=== PATIENT | male | born 1995 | race Caucasian/White ===

== ENCOUNTER 2016-10-18 | Emergency (ER) | payer MEDICAID | END 2016-10-18 12:26 | disposition home or self-care (01) ==

== ENCOUNTER 2016-12-05 20:12 | Emergency (ER) | payer MEDICAID ==
[2016-12-05] MEDS ORDERED: TETANUS/DIPHTHERIA/PERTUSSIS 0.5 ML SYRINGE IM ONE ×2 (20:43→20:44)
== END 2016-12-05 20:58 | disposition home or self-care (01) ==
DX: S41.112A Laceration without foreign body of left upper arm, initial encounter (principal); S41.111A Laceration without foreign body of right upper arm, initial encounter; W45.0XXA Nail entering through skin, initial encounter; Y92.009 Unspecified place in unspecified non-institutional (private) residence as the place of occurrence of the external cause; Z23 Encounter for immunization; R03.0 Elevated blood-pressure reading, without diagnosis of hypertension; F17.200 Nicotine dependence, unspecified, uncomplicated

== ENCOUNTER 2016-12-24 10:24 | Emergency (ER) | payer MEDICAID ==
[2016-12-24 10:33] VITALS: BP 121/59
--- NOTE | 2016-12-24 11:03 | ED Physician Documentation ---
PD HPI LOWER EXT INJURY - Stated complaint Stated Complaint: RIGHT LEG PX - Chief complaint Chief Complaint: Ext Problem - History obtained from History obtained from: Patient - History of Present Illness PD HPI LOW EXT INJURY LOCATION: Right, Knee, Lower leg Type of injury: Other (he has new job at [employer] that involves walking a lot and carrying heavy metal objects. Pain has developed in right knee. Hurts with walking. No locking nor clicking nor effusion but has had knee "give out" at times with the pain.). No: Fall, Twist Where injury occurred: Work Timing - duration: Days (few) Timing - details: Gradual onset, Still present, Waxing and waning Worsened by: Moving, Other (walking and squats) Associated symptoms: No: Weakness, Numbness, Swelling Similar symptoms before: Has not had sx before Recently seen: Not recently seen Review of Systems Skin: denies: Rash, Abrasion (s), Laceration (s) Musculoskeletal: denies: Extremity swelling Neurologic: denies: Focal weakness, Numbness PD PAST MEDICAL HISTORY - Past Medical History Cardiovascular: None Respiratory: None Neuro: None Endocrine/Autoimmune: None GI: None : None HEENT: None Psych: ADD/ADHD Musculoskeletal: None Derm: None - Past Surgical History Past Surgical History: Yes HEENT: Tonsil/Adenoidectomy - Present Medications Home Medications: Ambulatory Orders Medication Instructions Recorded Confirmed Antidepressant 1 tab ORAL QPM 12/24/16 12/24/16 Dexamethasone [Decadron] 4 mg PO DAILY #5 tablet 12/24/16 Tramadol HCl 50 mg PO Q6H PRN #30 tablet 12/24/16 - Allergies Allergies/Adverse Reactions: Allergies Allergy/AdvReac Type Severity Reaction Status Date / Time ibuprofen AdvReac Intermediate Emesis Verified 12/24/16 10:28 [From DayQuil Sinus Pressure/Pain] pseudoephedrine HCl * AdvReac Intermediate Emesis Verified 12/24/16 10:28 [From DayQuil Sinus Pressure/Pain] - Social History Does the pt smoke?: Yes Smoking Status: Current every day smoker Does the pt drink ETOH?: No Does the pt have substance abuse?: Yes - Immunizations Immunizations are current?: Yes - POLST Patient has POLST: No PD ED PE NORMAL - Vitals Vital signs reviewed: Yes - General General: Alert and oriented X 3, No acute distress, Well developed/nourished - Derm Derm: Normal color, Warm and dry, No rash - Extremities Extremities: No edema, No calf tenderness / cord, Other (right knee tender at distal quads and infrapatellar c/w tendonitis/muscle irritation. No crepitance under knee with ROM. No effusion. Medial and laterall collaterals are tender but not lax on testing. No cruciate pain nor laxity. He does not have pain nor clicking with Apley type pressure, but still consider some meniscal irritation. 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 He does not want to be missing work, if he doesn't have to. Can try hinged brace, NSAIDs , mild pain meds. He does not want narcotic meds. ), d/w patient Departure - Departure Disposition: 01 Home, Self Care Clinical Impression: Knee tendonitis Medial collateral ligament sprain of knee Qualifiers: Encounter type: initial encounter Laterality: right Qualified Code(s): S83.411A - Sprain of medial collateral ligament of right knee, initial encounter Condition: Stable Record reviewed to determine appropriate education?: Yes Instructions: ED Sprain Knee Follow-Up: Edmond Flores MD [Primary Care Provider] - Prescriptions: Dexamethasone [Decadron] 4 mg PO DAILY #5 tablet Tramadol HCl 50 mg PO Q6H PRN #30 tablet PRN Reason: Pain Comments: Continue Aleve 2 tablets twice daily for a week. Decadron daily for 5 days also for inflammation. Add Tylenol or Tramadol for pains. Knee brace when walking/ working for 10-14 days. Recheck if not improved over the next week. Discharge Date/Time: 12/24/16 11:29
[2016-12-24] MEDS ORDERED: ACETAMINOPHEN 325 MG TABLET PO ONE (11:06)
[2016-12-24] MEDS ORDERED: DEXAMETHASONE 10 MG/ML VIAL ONE (11:07)
[2016-12-24] MEDS ORDERED: traMADol 50 MG TABLET PO ONE (11:07)
[2016-12-24] MEDS ORDERED: CHERRY SYRUP 10 ML UDC PO ONE (11:07)
[2016-12-24] MEDS: DEXAMETHASONE 10 MG/ML VIAL PO STA (11:23)
[2016-12-24] MEDS: ACETAMINOPHEN 325 MG TABLET PO STA (11:23)
[2016-12-24] MEDS: traMADol 50 MG TABLET PO STA (11:23)
== END 2016-12-24 11:29 | disposition home or self-care (01) ==
LOC: ED 10:24
DX: M76.9 Unspecified enthesopathy, lower limb, excluding foot (principal); S83.411A Sprain of medial collateral ligament of right knee, initial encounter; X50.9XXA Other and unspecified overexertion or strenuous movements or postures, initial encounter; F17.200 Nicotine dependence, unspecified, uncomplicated
CPT/HCPCS: 99283

== ENCOUNTER 2017-01-17 09:48 | Outpatient (CLI) | payer MEDICAID | END 2017-01-17 09:49 | disposition home or self-care (01) | DX: B17.10 Acute hepatitis C without hepatic coma (principal) ==

== ENCOUNTER 2017-03-01 08:01 | Outpatient (CLI) | payer MEDICAID ==
--- NOTE | 2017-03-01 18:05 | Ultrasound Report ---
EXAM: ABDOMEN ULTRASOUND LIMITED, RUQ EXAM DATE: 03/01/2017 09:11 AM. CLINICAL HISTORY: CHRONIC HEPATITIS C W/O MENTION OF HEPATIC COMA. COMPARISON: Correlation made to CT dated 04/29/2015. TECHNIQUE: Real-time scanning was performed with static images obtained. FINDINGS: Liver: Normal in size and echotexture. 17.2 cm. Main portal vein flow: Hepatopetal. Gallbladder: Normal. No stones, wall thickening, or sonographic Suresh's sign. Biliary System: CBD measures 3.8 mm. No intrahepatic or extrahepatic ductal dilatation. Other: The right kidney measures 12.0 x 4.2 x 5.4 cm and is unremarkable in appearance. No hydronephr osis. IMPRESSION: Unremarkable right upper quadrant ultrasound with normal appearance to the liver. [facility] Referring Provider Line: [phone] SITE ID: [id number]
== END 2017-03-01 08:02 | disposition home or self-care (01) ==
LOC: DI 08:01
PROVIDERS: ATTEND Internal Medicine Gastroenterology
DX: B18.2 Chronic viral hepatitis C (principal)
CPT/HCPCS: 76705

== ENCOUNTER 2017-03-22 09:01 | Outpatient (CLI) | payer MEDICAID ==
[2017-03-22 09:57] LABS: IRON 60 ug/dL (45-182); TOTAL IRON BINDING CAPACITY 384 ug/dL (250-450); TRANSFERRIN 274 mg/dL (180-329)
[2017-03-24 21:53] LABS: SMOOTH MUSCLE IGG AB <20 U (())
[2017-03-25 12:51] LABS: ANA SCREEN NEGATIVE (NEGATIVE)
[2017-03-25 18:31] LABS: TEST RESULT REPORT (())
[2017-03-26 06:51] LABS: TEST RESULT REPORT (())
== END 2017-03-22 09:02 | disposition home or self-care (01) ==
LOC: LAB 09:01
PROVIDERS: ATTEND Internal Medicine Gastroenterology
DX: B18.2 Chronic viral hepatitis C (principal)
CPT/HCPCS: 36415; 81599; 82103; 82390; 83516; 83540; 84466; 86038; 86255

== ENCOUNTER 2017-04-04 13:37 | Outpatient (CLI) | payer MEDICAID ==
[2017-04-04 14:03] LABS: BASOPHILS % (AUTO) 0.5 %; EOSINOPHILS # (AUTO) 0.3 10^3/uL (0.0-0.7); EOSINOPHILS % (AUTO) 3.4 %; HCT - HEMATOCRIT 39.2 % (42.0-52.0); MEAN CORPUSCULAR HEMOGLOBIN 31.6 pg (27.0-31.0); MEAN CORPUSCULAR HGB CONC 35.7 g/dL (32.0-36.0); MEAN CORPUSCULAR VOLUME 88.3 fL (80.0-94.0); MEAN PLATELET VOLUME 9.8 fL (7.4-11.4); MONOCYTES # (AUTO) 0.6 10^3/uL (0.0-1.0); MONOCYTES % (AUTO) 8.1 %; NEUTROPHILS # (AUTO) 3.5 10^3/uL (1.5-6.6); RED BLOOD COUNT 4.43 10^6/uL (4.70-6.10); RED CELL DISTRIBUTION WIDTH 12.9 % (12.0-15.0); UNCORRECTED WHITE BLOOD COUNT 7.3 x10^3/uL; WHITE BLOOD COUNT 7.3 x10^3/uL (4.8-10.8)
[2017-04-04 14:31] LABS: ALBUMIN/GLOBULIN RATIO 1.6 (1.0-2.2); BILIRUBIN,TOTAL 0.4 mg/dL (0.2-1.0); CALCIUM 9.4 mg/dL (8.5-10.3); CREATININE 0.6 mg/dL (0.6-1.2); POTASSIUM 3.7 mmol/L (3.5-5.0); TOTAL PROTEIN 7.5 g/dL (6.7-8.2)
== END 2017-04-04 13:38 | disposition home or self-care (01) ==
LOC: LAB 13:37
PROVIDERS: ATTEND Internal Medicine Gastroenterology
DX: B18.2 Chronic viral hepatitis C (principal)
CPT/HCPCS: 36415; 80053; 85025

== ENCOUNTER 2017-04-11 18:12 | Outpatient (CLI) | payer MEDICAID ==
[2017-04-11 18:27] LABS: BASOPHILS % (AUTO) 0.5 %; EOSINOPHILS # (AUTO) 0.2 10^3/uL (0.0-0.7); EOSINOPHILS % (AUTO) 2.7 %; HGB - HEMOGLOBIN 14.1 g/dL (14.0-18.0); LYMPHOCYTES # (AUTO) 3.4 10^3/uL (1.5-3.5); LYMPHOCYTES % (AUTO) 38.8 %; MEAN CORPUSCULAR HEMOGLOBIN 30.8 pg (27.0-31.0); MEAN CORPUSCULAR HGB CONC 34.3 g/dL (32.0-36.0); MEAN CORPUSCULAR VOLUME 89.7 fL (80.0-94.0); MEAN PLATELET VOLUME 9.1 fL (7.4-11.4); MONOCYTES # (AUTO) 0.6 10^3/uL (0.0-1.0); NEUTROPHILS # (AUTO) 4.5 10^3/uL (1.5-6.6); NUCLEATED RED BLOOD CELLS AUTO 0.1 /100WBC; RED BLOOD COUNT 4.57 10^6/uL (4.70-6.10); RED CELL DISTRIBUTION WIDTH 12.5 % (12.0-15.0); UNCORRECTED WHITE BLOOD COUNT 8.9 x10^3/uL; WHITE BLOOD COUNT 8.9 x10^3/uL (4.8-10.8)
[2017-04-11 18:37] LABS: ALBUMIN/GLOBULIN RATIO 1.5 (1.0-2.2); BILIRUBIN,TOTAL 0.5 mg/dL (0.2-1.0); CALCIUM 9.4 mg/dL (8.5-10.3); CREATININE 0.8 mg/dL (0.6-1.2); POTASSIUM 3.7 mmol/L (3.5-5.0); TOTAL PROTEIN 7.9 g/dL (6.7-8.2)
== END 2017-04-11 18:13 | disposition home or self-care (01) ==
LOC: LAB 18:12
PROVIDERS: ATTEND Internal Medicine Gastroenterology
DX: B18.2 Chronic viral hepatitis C (principal)
CPT/HCPCS: 36415; 80053; 85025

== ENCOUNTER 2017-04-25 19:10 | Outpatient (CLI) | payer MEDICAID ==
[2017-04-25 19:38] LABS: ALBUMIN/GLOBULIN RATIO 1.6 (1.0-2.2); BILIRUBIN,TOTAL 0.4 mg/dL (0.2-1.0); CALCIUM 9.5 mg/dL (8.5-10.3); CREATININE 0.8 mg/dL (0.6-1.2); POTASSIUM 3.8 mmol/L (3.5-5.0); TOTAL PROTEIN 7.1 g/dL (6.7-8.2)
[2017-04-25 19:49] LABS: BASOPHILS # (AUTO) 0.1 10^3/uL (0.0-0.1); BASOPHILS % (AUTO) 0.6 %; EOSINOPHILS # (AUTO) 0.2 10^3/uL (0.0-0.7); EOSINOPHILS % (AUTO) 1.8 %; HCT - HEMATOCRIT 40.1 % (42.0-52.0); HGB - HEMOGLOBIN 13.9 g/dL (14.0-18.0); LYMPHOCYTES # (AUTO) 3.7 10^3/uL (1.5-3.5); LYMPHOCYTES % (AUTO) 42.2 %; MEAN CORPUSCULAR HEMOGLOBIN 31.3 pg (27.0-31.0); MEAN CORPUSCULAR HGB CONC 34.6 g/dL (32.0-36.0); MEAN CORPUSCULAR VOLUME 90.4 fL (80.0-94.0); MEAN PLATELET VOLUME 9.8 fL (7.4-11.4); MONOCYTES # (AUTO) 0.6 10^3/uL (0.0-1.0); MONOCYTES % (AUTO) 7.1 %; NEUTROPHILS # (AUTO) 4.3 10^3/uL (1.5-6.6); NEUTROPHILS % (AUTO) 48.3 %; NUCLEATED RED BLOOD CELLS AUTO 0.1 /100WBC; RED BLOOD COUNT 4.44 10^6/uL (4.70-6.10); RED CELL DISTRIBUTION WIDTH 12.8 % (12.0-15.0); UNCORRECTED WHITE BLOOD COUNT 8.9 x10^3/uL; WHITE BLOOD COUNT 8.9 x10^3/uL (4.8-10.8)
== END 2017-04-25 19:11 | disposition home or self-care (01) ==
LOC: LAB 19:10
PROVIDERS: ATTEND Internal Medicine Gastroenterology
DX: B18.2 Chronic viral hepatitis C (principal)
CPT/HCPCS: 36415; 80053; 85025; 87522

== ENCOUNTER 2017-05-23 18:18 | Outpatient (CLI) | payer MEDICAID ==
[2017-05-23 18:33] LABS: BASOPHILS # (AUTO) 0.1 10^3/uL (0.0-0.1); BASOPHILS % (AUTO) 0.6 %; EOSINOPHILS # (AUTO) 0.2 10^3/uL (0.0-0.7); EOSINOPHILS % (AUTO) 2.3 %; HGB - HEMOGLOBIN 13.8 g/dL (14.0-18.0); LYMPHOCYTES # (AUTO) 3.6 10^3/uL (1.5-3.5); LYMPHOCYTES % (AUTO) 37.6 %; MEAN CORPUSCULAR HEMOGLOBIN 30.9 pg (27.0-31.0); MEAN CORPUSCULAR HGB CONC 34.4 g/dL (32.0-36.0); MEAN CORPUSCULAR VOLUME 89.7 fL (80.0-94.0); MEAN PLATELET VOLUME 9.3 fL (7.4-11.4); MONOCYTES # (AUTO) 0.7 10^3/uL (0.0-1.0); MONOCYTES % (AUTO) 7.5 %; NUCLEATED RED BLOOD CELLS AUTO 0.1 /100WBC; RED BLOOD COUNT 4.47 10^6/uL (4.70-6.10); RED CELL DISTRIBUTION WIDTH 12.9 % (12.0-15.0); UNCORRECTED WHITE BLOOD COUNT 9.6 x10^3/uL; WHITE BLOOD COUNT 9.6 x10^3/uL (4.8-10.8)
[2017-05-23 18:44] LABS: ALBUMIN/GLOBULIN RATIO 1.5 (1.0-2.2); BILIRUBIN,TOTAL 0.4 mg/dL (0.2-1.0); CALCIUM 9.5 mg/dL (8.5-10.3); CREATININE 0.8 mg/dL (0.6-1.2); POTASSIUM 3.7 mmol/L (3.5-5.0); TOTAL PROTEIN 7.3 g/dL (6.7-8.2)
== END 2017-05-23 18:19 | disposition home or self-care (01) ==
LOC: LAB 18:18
PROVIDERS: ATTEND Internal Medicine Gastroenterology
DX: B18.2 Chronic viral hepatitis C (principal)
CPT/HCPCS: 36415; 80053; 85025

== ENCOUNTER 2017-06-21 12:31 | Outpatient (CLI) | payer MEDICAID ==
[2017-06-21 12:55] LABS: BASOPHILS % (AUTO) 0.6 %; EOSINOPHILS # (AUTO) 0.2 10^3/uL (0.0-0.7); EOSINOPHILS % (AUTO) 2.4 %; HCT - HEMATOCRIT 39.4 % (42.0-52.0); LYMPHOCYTES # (AUTO) 3.2 10^3/uL (1.5-3.5); LYMPHOCYTES % (AUTO) 42.9 %; MEAN CORPUSCULAR HEMOGLOBIN 31.1 pg (27.0-31.0); MEAN CORPUSCULAR HGB CONC 35.4 g/dL (32.0-36.0); MEAN CORPUSCULAR VOLUME 87.8 fL (80.0-94.0); MEAN PLATELET VOLUME 9.2 fL (7.4-11.4); MONOCYTES # (AUTO) 0.6 10^3/uL (0.0-1.0); MONOCYTES % (AUTO) 7.7 %; NEUTROPHILS # (AUTO) 3.5 10^3/uL (1.5-6.6); NEUTROPHILS % (AUTO) 46.4 %; NUCLEATED RED BLOOD CELLS AUTO 0.1 /100WBC; RED BLOOD COUNT 4.49 10^6/uL (4.70-6.10); RED CELL DISTRIBUTION WIDTH 12.4 % (12.0-15.0); UNCORRECTED WHITE BLOOD COUNT 7.5 x10^3/uL; WHITE BLOOD COUNT 7.5 x10^3/uL (4.8-10.8)
[2017-06-21 13:15] LABS: ALBUMIN/GLOBULIN RATIO 1.6 (1.0-2.2); BILIRUBIN,TOTAL 0.6 mg/dL (0.2-1.0); CALCIUM 9.7 mg/dL (8.5-10.3); CREATININE 0.8 mg/dL (0.6-1.2); POTASSIUM 3.9 mmol/L (3.5-5.0); TOTAL PROTEIN 7.5 g/dL (6.7-8.2)
== END 2017-06-21 12:32 | disposition home or self-care (01) ==
LOC: LAB 12:31
PROVIDERS: ATTEND Internal Medicine Gastroenterology
DX: B18.2 Chronic viral hepatitis C (principal)
CPT/HCPCS: 36415; 80053; 85025; 87522

== ENCOUNTER 2017-09-23 13:02 | Outpatient (CLI) | payer MEDICAID ==
[2017-09-23 13:17] LABS: BASOPHILS % (AUTO) 0.4 %; EOSINOPHILS # (AUTO) 0.1 10^3/uL (0.0-0.7); EOSINOPHILS % (AUTO) 1.2 %; HCT - HEMATOCRIT 41.5 % (42.0-52.0); HGB - HEMOGLOBIN 14.5 g/dL (14.0-18.0); LYMPHOCYTES # (AUTO) 2.4 10^3/uL (1.5-3.5); LYMPHOCYTES % (AUTO) 28.2 %; MEAN CORPUSCULAR HEMOGLOBIN 30.7 pg (27.0-31.0); MEAN CORPUSCULAR VOLUME 87.8 fL (80.0-94.0); MONOCYTES # (AUTO) 0.6 10^3/uL (0.0-1.0); MONOCYTES % (AUTO) 7.6 %; NEUTROPHILS # (AUTO) 5.2 10^3/uL (1.5-6.6); NEUTROPHILS % (AUTO) 62.6 %; RED BLOOD COUNT 4.72 10^6/uL (4.70-6.10); RED CELL DISTRIBUTION WIDTH 12.9 % (12.0-15.0); UNCORRECTED WHITE BLOOD COUNT 8.4 x10^3/uL; WHITE BLOOD COUNT 8.4 x10^3/uL (4.8-10.8)
[2017-09-23 13:29] LABS: ALBUMIN/GLOBULIN RATIO 1.6 (1.0-2.2); BILIRUBIN,TOTAL 0.5 mg/dL (0.2-1.0); CREATININE 0.7 mg/dL (0.6-1.2); POTASSIUM 3.8 mmol/L (3.5-5.0); TOTAL PROTEIN 7.7 g/dL (6.7-8.2)
== END 2017-09-23 13:03 | disposition home or self-care (01) ==
LOC: LAB 13:02
PROVIDERS: ATTEND Internal Medicine Gastroenterology
DX: B18.2 Chronic viral hepatitis C (principal)
CPT/HCPCS: 36415; 80053; 85025; 87522

== ENCOUNTER 2017-12-11 18:27 | Outpatient (CLI) | payer MEDICAID ==
[2017-12-12 09:11] LABS: HIV AG/AB 4TH GEN NON-REACTIVE (NON-REACTIVE)
== END 2017-12-11 18:28 | disposition home or self-care (01) ==
LOC: LAB 18:27
PROVIDERS: ATTEND Family Medicine
DX: B17.10 Acute hepatitis C without hepatic coma (principal)
CPT/HCPCS: 36415; 87389

== ENCOUNTER 2018-02-08 13:07 | Outpatient (CLI) | payer MEDICAID ==
[2018-02-08 13:36] LABS: BASOPHILS % (AUTO) 0.6 %; EOSINOPHILS # (AUTO) 0.1 10^3/uL (0.0-0.7); HGB - HEMOGLOBIN 14.1 g/dL (14.0-18.0); LYMPHOCYTES # (AUTO) 3.3 10^3/uL (1.5-3.5); LYMPHOCYTES % (AUTO) 46.2 %; MEAN CORPUSCULAR HEMOGLOBIN 30.5 pg (27.0-31.0); MEAN CORPUSCULAR HGB CONC 34.5 g/dL (32.0-36.0); MEAN CORPUSCULAR VOLUME 88.4 fL (80.0-94.0); MEAN PLATELET VOLUME 9.8 fL (7.4-11.4); MONOCYTES # (AUTO) 0.6 10^3/uL (0.0-1.0); MONOCYTES % (AUTO) 8.9 %; NEUTROPHILS # (AUTO) 3.1 10^3/uL (1.5-6.6); NEUTROPHILS % (AUTO) 42.3 %; PLT - PLATELET COUNT 174 10^3/uL (130-450); RED BLOOD COUNT 4.63 10^6/uL (4.70-6.10); RED CELL DISTRIBUTION WIDTH 13.5 % (12.0-15.0); WHITE BLOOD COUNT 7.2 x10^3/uL (4.8-10.8)
[2018-02-08 13:47] LABS: ALBUMIN 4.6 g/dL (3.2-5.5); ALBUMIN/GLOBULIN RATIO 1.5 (1.0-2.2); ALKALINE PHOSPHATASE 56 IU/L (42-121); ALT ALANINE AMINOTRANSFERASE 18 IU/L (10-60); AST ASPARTATE AMINOTRANSFERASE 20 IU/L (10-42); BILIRUBIN,TOTAL 0.7 mg/dL (0.2-1.0); BUN - BLOOD UREA NITROGEN 12 mg/dL (6-20); CALCIUM 9.7 mg/dL (8.5-10.3); CARBON DIOXIDE - CO2 25 mmol/L (21-32); CHLORIDE 104 mmol/L (101-111); CREATININE 0.7 mg/dL (0.6-1.2); GFR - MDRD 142 (>89); GLUCOSE 99 mg/dL (70-100); SODIUM 137 mmol/L (135-145); TOTAL PROTEIN 7.7 g/dL (6.7-8.2)
[2018-02-10 14:16] LABS: HIV AG/AB 4TH GEN NON-REACTIVE (NON-REACTIVE)
[2018-02-10 14:44] LABS: HEPATITIS C ANTIBODY REACTIVE (NON-REACTIVE)
[2018-02-10 15:06] LABS: HEPATITIS B SURFACE ANTIGEN NON-REACTIVE (NON-REACTIVE)
[2018-02-12 15:56] LABS: HCV RNA QNT <1.18 NOT DETECTED Log IU/mL (NOT DETECTED); HCV RNA QUANT RT PCR <15 NOT DETECTED IU/mL (NOT DETECTED)
== END 2018-02-08 13:08 | disposition home or self-care (01) ==
LOC: LAB 13:07
PROVIDERS: ATTEND Nurse Practitioner Family
DX: B17.10 Acute hepatitis C without hepatic coma (principal); F19.10 Other psychoactive substance abuse, uncomplicated
CPT/HCPCS: 36415; 80053; 81599; 84443; 85025; 86592; 86803; 87340; 87389; 87491; 87591; 87902

== ENCOUNTER 2018-05-17 17:59 | Outpatient (CLI) | payer MEDICAID ==
[2018-05-19 14:07] LABS: HIV AG/AB 4TH GEN NON-REACTIVE (NON-REACTIVE)
[2018-05-20 21:07] LABS: HCV RNA QNT <1.18 NOT DETECTED Log IU/mL (NOT DETECTED); HCV RNA QUANT RT PCR <15 NOT DETECTED IU/mL (NOT DETECTED)
== END 2018-05-17 18:00 | disposition home or self-care (01) ==
LOC: LAB 17:59
PROVIDERS: ATTEND Family Medicine
DX: B17.10 Acute hepatitis C without hepatic coma (principal)
CPT/HCPCS: 87389; 87522

== ENCOUNTER 2018-05-24 02:13 | Emergency (ER) | payer MEDICAID ==
[2018-05-24] MEDS ORDERED: SODIUM CHLORIDE 0.9% 1,000 ML IV ONE ×2 (02:29→02:50)
[2018-05-24 02:37] LABS: BASOPHILS # (AUTO) 0.1 10^3/uL (0.0-0.1); BASOPHILS % (AUTO) 0.5 %; EOSINOPHILS # (AUTO) 0.1 10^3/uL (0.0-0.7); EOSINOPHILS % (AUTO) 0.5 %; HGB - HEMOGLOBIN 15.2 g/dL (14.0-18.0); LYMPHOCYTES # (AUTO) 4.7 10^3/uL (1.5-3.5); LYMPHOCYTES % (AUTO) 31.7 %; MEAN CORPUSCULAR HEMOGLOBIN 30.5 pg (27.0-31.0); MEAN CORPUSCULAR HGB CONC 34.5 g/dL (32.0-36.0); MEAN CORPUSCULAR VOLUME 88.3 fL (80.0-94.0); MEAN PLATELET VOLUME 10.2 fL (7.4-11.4); MONOCYTES # (AUTO) 1.6 10^3/uL (0.0-1.0); MONOCYTES % (AUTO) 11.1 %; NEUTROPHILS # (AUTO) 8.3 10^3/uL (1.5-6.6); NEUTROPHILS % (AUTO) 56.2 %; PLT - PLATELET COUNT 186 10^3/uL (130-450); RED BLOOD COUNT 4.97 10^6/uL (4.70-6.10); RED CELL DISTRIBUTION WIDTH 12.6 % (12.0-15.0); WHITE BLOOD COUNT 14.8 x10^3/uL (4.8-10.8)
[2018-05-24] MEDS ORDERED: HALOPERIDOL 5 MG/ML VIAL IVP ONE (02:38)
[2018-05-24] MEDS ORDERED: LORazepam 2 MG/ML VIAL IVP STA (02:38)
[2018-05-24 03:11] LABS: ACETAMINOPHEN < 10 ug/mL (10-30); ALBUMIN 5.5 g/dL (3.2-5.5); ALBUMIN/GLOBULIN RATIO 1.7 (1.0-2.2); ALKALINE PHOSPHATASE 74 IU/L (42-121); ALT ALANINE AMINOTRANSFERASE 22 IU/L (10-60); AST ASPARTATE AMINOTRANSFERASE 40 IU/L (10-42); BUN - BLOOD UREA NITROGEN 20 mg/dL (6-20); CALCIUM 10.1 mg/dL (8.5-10.3); CARBON DIOXIDE - CO2 20 mmol/L (21-32); CHLORIDE 103 mmol/L (101-111); CK- CREATINE KINASE 834 IU/L (22-269); CREATININE 1.1 mg/dL (0.6-1.2); GFR - MDRD 84 (>89); LIPASE 24 U/L (22-51); SALICYLATE < 6.0 mg/dL; SODIUM 140 mmol/L (135-145); TOTAL PROTEIN 8.8 g/dL (6.7-8.2)
[2018-05-24 03:12] LABS: GLUCOSE 57 mg/dL (70-100)
[2018-05-24] MEDS ORDERED: DEXTROSE 50% ABBOJECT 25 GM/50 ML SYRINGE ONE ×2 (03:17→03:20)
--- NOTE | 2018-05-24 03:24 | CT Report ---
Reason: AMS Procedure Date: 05/24/2018 Accession Number: [id number] / [id number] Procedure: CT - Head W/O CPT Code: FULL RESULT: EXAM: CT HEAD EXAM DATE: 05/24/2018 03:18 AM. CLINICAL HISTORY: Altered mental status. COMPARISON: None. TECHNIQUE: Multiaxial CT images were obtained from the foramen magnum to the vertex. Reformats: Sagittal and coronal. IV contrast: None. In accordance with CT protocol optimization, one or more of the following dose reduction techniques were utilized for this exam: automated exposure control, adjustment of mA and/or KV based on patient size, or use of iterative reconstructive technique. FINDINGS: Parenchyma: No intraparenchymal hemorrhage. No evidence of mass, midline shift, or CT findings of infarction. Shaw-white differentiation is distinct. Extraaxial Spaces: Normal for age. No subdural or epidural collections identified. Ventricles: Normal in size and position. Sinuses and Orbits: Imaged paranasal sinuses, orbits, and mastoids show no significant abnormality. Bones: No evidence of fracture or calvarial defect. Other: None. IMPRESSION: Negative CT head without contrast. [facility]
[2018-05-24] MEDS ORDERED: DEXTROSE 50% ABBOJECT 25 GM/50 ML SYRINGE IVP STA (03:25)
[2018-05-24] MEDS ORDERED: LACTATED RINGERS 1,000 ML IV ONE (04:33)
[2018-05-24 05:05] LABS: MUDS CUTOFF CONCENTRATIONS CUTOFF CONC BELOW:
[2018-05-24 05:11] LABS: BILIRUBIN,URINE NEGATIVE (NEGATIVE); CLARITY,URINE CLEAR (CLEAR); GLUCOSE, URINE (UA) NEGATIVE (NEGATIVE); KETONES,URINE (UA) 40 mg/dL (NEGATIVE); LEUKOCYTE ESTERASE, URINE NEGATIVE (NEGATIVE); NITRITE,URINE NEGATIVE (NEGATIVE); OCCULT BLOOD,URINE SMALL (NEGATIVE); PROTEIN,URINE 30 mg/dL (NEGATIVE); UROBILINOGEN,URINE 0.2 (NORMAL) E.U./dL (NORMAL)
--- NOTE | 2018-05-24 05:21 | ED Physician Documentation ---
PD HPI OVERDOSE - Stated complaint Stated Complaint: OD/MED INGEST - Chief complaint Chief Complaint: MHE - Additional information Additional information: 23-year-old male was brought in by his friends for evaluation for confusion and altered metal status. The patient apparently has been abusing methamphetamines , Suboxone and various other medications from his friends. The patient is unable to give any significant history. The patient's agitated and appears quite psychotic and unable to be very cooperative regarding his acute care Review of Systems Unable to obtain: Confused, Intoxicated, Uncooperative PD PAST MEDICAL HISTORY - Past Medical History Cardiovascular: None Respiratory: None Neuro: None Endocrine/Autoimmune: None GI: None : None HEENT: None Psych: ADD/ADHD Musculoskeletal: None Derm: None - Past Surgical History Past Surgical History: Yes HEENT: Tonsil/Adenoidectomy - Present Medications Home Medications: Ambulatory Orders Medication Instructions Recorded Confirmed Antidepressant 1 tab ORAL QPM 12/24/16 12/24/16 Dexamethasone [Decadron] 4 mg PO DAILY #5 tablet 12/24/16 Tramadol HCl 50 mg PO Q6H PRN #30 tablet 12/24/16 - Allergies Allergies/Adverse Reactions: Allergies Allergy/AdvReac Type Severity Reaction Status Date / Time ibuprofen AdvReac Intermediate Emesis Verified 05/24/18 02:26 [From DayQuil Sinus Pressure/Pain] pseudoephedrine HCl * AdvReac Intermediate Emesis Verified 05/24/18 02:26 [From DayQuil Sinus Pressure/Pain] - Social History Does the pt smoke?: Yes Smoking Status: Current every day smoker Does the pt drink ETOH?: Yes Does the pt have substance abuse?: Yes Substance Use and Type: Marijuana, Meth - Immunizations Immunizations are current?: Yes - POLST Patient has POLST: No PD ED PE NORMAL - General General: Other (The patient's alert, uncooperative, aggressive and appears to have acute psychosis. The patient is a danger to self and staff) - HEENT HEENT: Atraumatic, PERRL, Other (Dry mucous membranes) - Neck Neck: Supple, no meningeal sign - Cardiac Cardiac: Other (Regular tachycardia) - Respiratory Respiratory: No respiratory distress - Abdomen Abdomen: Soft, Non tender - Derm Derm: Normal color, No rash - Extremities Extremities: No deformity, Normal ROM s pain - Neuro Neuro: Other (The patient's alert, not cooperative, the patient is moving all 4 extremities and appears to have no obvious gross deficit) PD ED PE EXPANDED - Psych Psych: Intoxicated / AOB, Agitated, Combative, Delusions Results - Vitals Vitals: Vital Signs - 24 hr 05/24/18 05/24/18 05/24/18 02:22 03:00 03:42 Temperature 37.0 C 37.2 C Heart Rate 141 H 121 H 106 H Respiratory 23 25 H 19 Rate Blood Pressure 118/56 L 118/56 L O2 Saturation 99 97 99 05/24/18 05/24/18 05:00 06:08 Temperature 36.5 C Heart Rate 86 83 Respiratory 15 16 Rate Blood Pressure 133/75 H 124/76 O2 Saturation 100 100 Oxygen O2 Source Room air - EKG (time done) 05:23 Rate: Rate (enter#) Rhythm: NSR Intervals: Normal MA, QRS normal QRS: Normal Ischemia: Normal ST segments - Labs Labs: Laboratory Tests 05/24/18 05/24/18 05/24/18 02:29 02:29 04:58 WBC 14.8 H RBC 4.97 Hgb 15.2 Hct 43.9 MCV 88.3 MCH 30.5 MCHC 34.5 RDW 12.6 Plt Count 186 MPV 10.2 Neut # (Auto) 8.3 H Lymph # (Auto) 4.7 H [place] # (Auto) 1.6 H Eos # (Auto) 0.1 Baso # (Auto) 0.1 Absolute Nucleated RBC 0.01 Nucleated RBC % 0.1 Sodium 140 Potassium 3.3 L Chloride 103 Carbon Dioxide 20 L Anion Gap 17.0 H BUN 20 Creatinine 1.1 Estimated GFR (MDRD) 84 L Glucose 57 L* Calcium 10.1 Total Bilirubin 1.0 AST 40 ALT 22 Alkaline Phosphatase 74 Total Creatine Kinase 834 H Total Protein 8.8 H Albumin 5.5 Globulin 3.3 Albumin/Globulin Ratio 1.7 Lipase 24 Urine Color YELLOW Urine Clarity CLEAR Urine pH 6.0 Ur Specific [place] 1.020 Urine Protein 30 H Urine Glucose (UA) NEGATIVE Urine Ketones 40 H Urine Occult Blood SMALL H Urine Nitrite NEGATIVE Urine Bilirubin NEGATIVE Urine Urobilinogen 0.2 (NORMAL) Ur Leukocyte Esterase NEGATIVE Urine RBC 0-5 Urine WBC 0-3 Ur Squamous Epith Cells RARE Squamous Urine Bacteria None Seen Urine Casts 3-5 Hyaline Casts Ur Microscopic Review INDICATED Urine Culture Comments NOT INDICATED Salicylates < 6.0 Urine Opiates Screen POSITIVE H Ur Oxycodone Screen NEGATIVE Urine Methadone Screen NEGATIVE Ur Propoxyphene Screen NEGATIVE Acetaminophen < 10 L Ur Barbiturates Screen NEGATIVE Ur Tricyclics Screen NEGATIVE Ur Phencyclidine Scrn NEGATIVE Ur Amphetamine Screen POSITIVE H U Methamphetamines Scrn POSITIVE H U Benzodiazepines Scrn NEGATIVE Urine Cocaine Screen NEGATIVE U Cannabinoids Screen NEGATIVE Ethyl Alcohol < 5.0 - Rads (name of study) CT head Radiology: Final report received (IMPRESSION: Negative CT head without contrast. ) PD MEDICAL DECISION MAKING - ED course ED course: The case was turned over to Dr. Morgan at 07:00 AM: the patient will need to metabolize and for reevaluation and final disposition - Sepsis Event Vital Signs: Vital Signs - 24 hr 05/24/18 05/24/18 05/24/18 02:22 03:00 03:42 Temperature 37.0 C 37.2 C Heart Rate 141 H 121 H 106 H Respiratory 23 25 H 19 Rate Blood Pressure 118/56 L 118/56 L O2 Saturation 99 97 99 05/24/18 05/24/18 05:00 06:08 Temperature 36.5 C Heart Rate 86 83 Respiratory 15 16 Rate Blood Pressure 133/75 H 124/76 O2 Saturation 100 100 Oxygen O2 Source Room air Departure - Departure Clinical Impression: Methamphetamine abuse, Acute confusional state
[2018-05-24 05:26] LABS: AMPHETAMINE SCREEN,URINE POSITIVE (NEGATIVE); BACTERIA,URINE None Seen /HPF (None Seen); BENZODIAZEPINES SCREEN, URINE NEGATIVE (NEGATIVE); CASTS, URINE 3-5 Hyaline Casts /LPF; COCAINE SCREEN URINE NEGATIVE (NEGATIVE); METHADONE SCREEN, URINE NEGATIVE (NEGATIVE); METHAMPHETAMINES SCREEN, URINE POSITIVE (NEGATIVE); OPIATE SCREEN, URINE POSITIVE (NEGATIVE); OXYCODONE SCREEN, URINE NEGATIVE (NEGATIVE); PROPOXYPHENE SCREEN, URINE NEGATIVE (NEGATIVE); RBC,URINE 0-5 /HPF (0-5); SQUAMOUS EPITHELIAL CELL,UR RARE Squamous (<= Few); TRICYCLIC ANTIDEPRESSANT,URINE NEGATIVE (NEGATIVE)
--- NOTE | 2018-05-24 11:08 | ED Physician Documentation ---
ED Addendum - Addendum Addendum: 05/24/18 11:07 The patient care was taken over by me at change of shift. He had slept through most of the morning. Initially was arousable to tactile stimulus and mumbling conversation. This is improved to the morning. He is now able to be aroused by verbal and tactile. He is sits up and is able to converse. He still seems slightly dazed. He states he has family that can come and give him a ride. I asked about the medications taken last night and he said he was taking them just for effect. He denied any suicidal ideation or intent. At this point he can go home to rest if he gets a ride and once he gets a ride.
[2018-05-24 11:47] VITALS: BP 136/80
== END 2018-05-24 12:36 | disposition home or self-care (01) ==
LOC: ED 02:13
DX: F15.10 Other stimulant abuse, uncomplicated (principal); R41.0 Disorientation, unspecified; F17.200 Nicotine dependence, unspecified, uncomplicated
CPT/HCPCS: 36415; 70450; 80053; 80306; 80307; 80320; 80329; 81001; 82550; 83690; 85025; 93005; 96361; 96374; 96375; 99284; 99285; J2060; J7120; 81003; 87086

== ENCOUNTER 2018-10-04 15:45 | Emergency (ER) | payer MEDICAID ==
[2018-10-04 15:49] VITALS: BP 119/55
[2018-10-04] MEDS ORDERED: LIDOCAINE VISCOUS 2% 15 ML UDC MM STA (16:03)
[2018-10-04] MEDS ORDERED: MAG HYDROX/AL HYDROX/SIMETH 30 ML UDC PO STA (16:03)
--- NOTE | 2018-10-04 16:10 | ED Physician Documentation ---
PD HPI CHEST PAIN - Stated complaint Stated Complaint: CP - Chief complaint Chief Complaint: Cardiac - History obtained from History obtained from: Patient - History of Present Illness Timing - onset: How many hours ago (1.5) Timing - onset during: Rest Timing - details: Still present Quality: Dull Location: Substernal Worsened by: Inspiration Similar symptoms before: Has not had sx before - Additional information Additional information: The patient is an otherwise healthy 23-year-old male who presents with substernal chest pain that started about 1-1/2 hours prior to arrival. The pain is worse with inspiration or with supine position. He denies shortness of breath, abdominal pain, nausea or vomiting. He admits to drinking alcohol last night, and has been drinking energy drinks today. He also smokes cigarettes, and was smoking marijuana last night. He denies history of similar symptoms in the past. Review of Systems Constitutional: denies: Fever Nose: denies: Congestion Throat: denies: Sore throat Cardiac: reports: Chest pain / pressure. denies: Palpitations Respiratory: denies: Dyspnea, Cough GI: denies: Abdominal Pain, Nausea, Vomiting : denies: Dysuria Skin: denies: Rash Musculoskeletal: denies: Back pain, Extremity swelling Neurologic: denies: Headache PD PAST MEDICAL HISTORY - Past Medical History Cardiovascular: None Respiratory: None Neuro: None Endocrine/Autoimmune: None GI: None : None HEENT: None Psych: ADD/ADHD Musculoskeletal: None Derm: None - Past Surgical History Past Surgical History: Yes HEENT: Tonsil/Adenoidectomy - Present Medications Home Medications: Ambulatory Orders Medication Instructions Recorded Confirmed Sertraline HCl 100 mg PO DAILY 10/04/18 10/04/18 raNITIdine HCl [Ranitidine HCl] 150 mg PO BID #28 capsule 10/04/18 - Allergies Allergies/Adverse Reactions: Allergies Allergy/AdvReac Type Severity Reaction Status Date / Time No Known Drug Allergies Allergy Verified 10/04/18 15:49 - Social History Does the pt smoke?: Yes Smoking Status: Current every day smoker Does the pt drink ETOH?: Yes Does the pt have substance abuse?: Yes - Immunizations Immunizations are current?: Yes - POLST Patient has POLST: No PD ED PE NORMAL - Vitals Vital signs reviewed: Yes (Normal) - General General: Alert and oriented X 3, Well developed/nourished - HEENT HEENT: Atraumatic, Pharynx benign - Neck Neck: No adenopathy, No JVD - Cardiac Cardiac: RRR, No murmur - Respiratory Respiratory: No respiratory distress, Clear bilaterally, Other (No chest wall tenderness to palpation.) - Abdomen Abdomen: Soft, Non tender, Other (Scaphoid abdomen.) - Back Back: No CVA TTP - Derm Derm: No rash - Extremities Extremities: No edema, No calf tenderness / cord - Neuro Neuro: Alert and oriented X 3, No motor deficit, Normal speech Results - Vitals Vitals: Vital Signs - 24 hr 10/04/18 15:47 Temperature 36.3 C L Heart Rate 65 Respiratory 18 Rate Blood Pressure 119/55 L O2 Saturation 99 Oxygen O2 Source Room air PD MEDICAL DECISION MAKING - ED course Complexity details: re-evaluated patient, considered differential, d/w patient ED course: The patient's presentation is most consistent with gastroesophageal reflux disease. I doubt cardiac etiology, and his presentation does not suggest pulmonary etiology. Treatment in the emergency department included GI cocktail, which relieved his symptoms. He is being discharged with prescription for ranitidine. I discussed with him and his female promotions representative symptomatic treatment, outpatient follow-up, as well as potentially worrisome signs or symptoms that should prompt reevaluation in the emergency department. Departure - Departure Disposition: 01 Home, Self Care Clinical Impression: Gastroesophageal reflux disease Qualifiers: Esophagitis presence: esophagitis presence not specified Qualified Code(s): K21.9 - Gastro-esophageal reflux disease without esophagitis Condition: Stable Instructions: ED GERD Follow-Up: Abigail Kay ARNP [Credentialed Staff Provider] - Prescriptions: raNITIdine HCl [Ranitidine HCl] 150 mg PO BID #28 capsule Comments: Minimize coffee, ghassan, alcohol, and energy drinks. Take ranitidine twice daily as prescribed. You can use liquid antacid, such as Maalox or Mylanta, if you develop recurrent symptoms. Follow-up with your primary physician within 2 weeks. Call to schedule an appointment. Return to the emergency department if you develop increasing chest pain, shortness of breath, or otherwise worsening symptoms.
== END 2018-10-04 16:28 | disposition home or self-care (01) ==
LOC: ED 15:45
DX: K21.9 Gastro-esophageal reflux disease without esophagitis (principal); F17.200 Nicotine dependence, unspecified, uncomplicated
CPT/HCPCS: 99283; A9270

== ENCOUNTER 2018-10-09 11:15 | Emergency (ER) | payer OTHER, MEDICAID ==
[2018-10-09 11:27] VITALS: BP 127/95
--- NOTE | 2018-10-09 11:31 | ED Physician Documentation ---
History of Present Illness - Stated complaint Stated Complaint: FIT FOR CONFINEMENT - Chief complaint Chief Complaint: General - History obtained from History obtained from: Patient, Police - Additonal information Additional information: The patient is a 23-year-old male who arrives in police custody with request for medical evaluation prior to booking into [facility]. He was apprehended in his car for suspected driving under influence. The patient admits to using methamphetamine last night. He denies any recent use of alcohol. Review of Systems Constitutional: denies: Fever Nose: denies: Congestion Cardiac: denies: Chest pain / pressure Respiratory: denies: Dyspnea GI: denies: Abdominal Pain, Nausea, Vomiting Skin: denies: Rash Musculoskeletal: denies: Extremity pain Neurologic: denies: Focal weakness, Numbness, Headache Psychiatric: denies: Suicidal, Hallucinations PD PAST MEDICAL HISTORY - Past Medical History Cardiovascular: None Respiratory: None Neuro: None Endocrine/Autoimmune: None GI: None : None HEENT: None Psych: ADD/ADHD Musculoskeletal: None Derm: None - Past Surgical History Past Surgical History: Yes HEENT: Tonsil/Adenoidectomy - Present Medications Home Medications: Ambulatory Orders Medication Instructions Recorded Confirmed Sertraline HCl 100 mg PO DAILY 10/04/18 10/04/18 raNITIdine HCl [Ranitidine HCl] 150 mg PO BID #28 capsule 10/04/18 - Allergies Allergies/Adverse Reactions: Allergies Allergy/AdvReac Type Severity Reaction Status Date / Time No Known Drug Allergies Allergy Verified 10/04/18 15:49 - Social History Does the pt smoke?: Yes Smoking Status: Current every day smoker Does the pt drink ETOH?: Yes Does the pt have substance abuse?: Yes - Immunizations Immunizations are current?: Yes - POLST Patient has POLST: No PD ED PE NORMAL - Vitals Vital signs reviewed: Yes (tachycardic.) - General General: Alert and oriented X 3, Well developed/nourished, Other (Appears restless and fidgety.) - HEENT HEENT: Atraumatic, PERRL, EOMI, Pharynx benign - Neck Neck: Supple, no meningeal sign, No adenopathy - Cardiac Cardiac: No murmur, Other (Rapid rate, regular rhythm.) - Respiratory Respiratory: No respiratory distress, Clear bilaterally - Abdomen Abdomen: Soft, Non tender - Back Back: No CVA TTP - Derm Derm: No rash - Extremities Extremities: No edema, No calf tenderness / cord, Other (Needle tracks noted, but no abscesses detected.) - Neuro Neuro: Alert and oriented X 3, No motor deficit Results - Vitals Vitals: Oxygen O2 Source Room air PD MEDICAL DECISION MAKING - ED course Complexity details: reviewed old records, considered differential, d/w patient, other (d/w staff air defense officer.) ED course: The patient's presentation reveals behavior consistent with methamphetamine use. He is mildly tachycardic, and is fidgety. He is cognizant and able to follow instructions. Based on history and physical examination, he is medically cleared for booking into [facility], with the stipulation that he be observed closely for further deterioration in his mental or respiratory status, or exhibits behavior harmful to himself. Departure - Departure Disposition: 01 Home, Self Care Clinical Impression: Drug abuse, Medical clearance for incarceration Condition: Stable Instructions: ED Drug Abuse General Discharge Date/Time: 10/09/18 11:44
== END 2018-10-09 11:44 | disposition home or self-care (01) ==
LOC: ED 11:15
DX: F15.10 Other stimulant abuse, uncomplicated (principal); Z02.89 Encounter for other administrative examinations; F17.200 Nicotine dependence, unspecified, uncomplicated
CPT/HCPCS: 36415; 99282

== ENCOUNTER 2018-10-09 13:07 | Observation (INO) | payer MEDICAID, OTHER ==
--- NOTE | 2018-10-09 13:25 | ED Physician Documentation ---
History of Present Illness - Stated complaint Stated Complaint: AMS - Chief complaint Chief Complaint: General - History obtained from History obtained from: Patient, Police - History of Present Illness Timing: Today (23-year-old gentleman who admits to using methamphetamines last night and heroin this morning. He was pulled over on a DUI and seen here for effective for confinement. At that time he was reported to me to be restless, I did not see the patient then. He was discharged to residential where he became obtunded which responded to Narcan but remains hypotensive and tachycardic.) Review of Systems Ten Systems: 10 systems reviewed and negative Constitutional: denies: Fever, Chills Ears: reports: Reviewed and negative Nose: reports: Reviewed and negative Cardiac: reports: Reviewed and negative PD PAST MEDICAL HISTORY - Past Medical History Cardiovascular: None Respiratory: None Neuro: None Endocrine/Autoimmune: None GI: None : None HEENT: None Psych: ADD/ADHD Musculoskeletal: None Derm: None - Past Surgical History Past Surgical History: Yes HEENT: Tonsil/Adenoidectomy - Present Medications Home Medications: Ambulatory Orders Medication Instructions Recorded Confirmed Sertraline HCl 100 mg PO DAILY 10/04/18 10/04/18 raNITIdine HCl [Ranitidine HCl] 150 mg PO BID #28 capsule 10/04/18 - Allergies Allergies/Adverse Reactions: Allergies Allergy/AdvReac Type Severity Reaction Status Date / Time No Known Drug Allergies Allergy Verified 10/04/18 15:49 - Social History Does the pt smoke?: Yes Smoking Status: Current every day smoker Does the pt drink ETOH?: Yes Does the pt have substance abuse?: Yes - Immunizations Immunizations are current?: Yes - POLST Patient has POLST: No PD ED PE NORMAL - Vitals Vital signs reviewed: Yes - General General: Alert and oriented X 3, Other (Somnolent but easily arousable, tachycardic.) - HEENT HEENT: Other (Small pupils) - Neck Neck: Supple, no meningeal sign, No bony TTP - Cardiac Cardiac: No murmur (Tachycardic but regular) - Respiratory Respiratory: No respiratory distress, Clear bilaterally - Abdomen Abdomen: Normal bowel sounds, Soft, Non tender - Back Back: No CVA TTP, No spinal TTP - Derm Derm: Normal color, Warm and dry - Extremities Extremities: No edema, No calf tenderness / cord - Neuro Neuro: Alert and oriented X 3 Eye Opening: Spontaneous Motor: Obeys Commands Verbal: Oriented GCS Score: 15 Results - Vitals Vitals: Vital Signs - 24 hr 10/09/18 10/09/18 13:13 13:19 Temperature 36.6 C Heart Rate 151 H 152 H Respiratory 22 19 Rate Blood Pressure 84/64 L 117/85 H O2 Saturation 97 100 Oxygen O2 Source Room air - EKG (time done) 1332 Rate: Rate (enter#) (133) Rhythm: Sinus tachycardia, LAE [place]: Normal Intervals: Normal [place] QRS: Normal Ischemia: Non specific changes (lots of artifact, no clear BOBBY/STD) Computer interpretation: Disagree with computer - Labs Labs: Laboratory Tests 10/09/18 10/09/18 10/09/18 13:18 13:18 13:18 WBC 31.1 H RBC 5.02 Hgb 15.5 Hct 44.6 MCV 89.0 MCH 30.9 MCHC 34.7 RDW 12.6 Plt Count 251 MPV 9.8 Neut # (Auto) 24.4 H Lymph # (Auto) 2.6 Power # (Auto) 4.1 H Eos # (Auto) 0.0 Baso # (Auto) 0.0 Absolute Nucleated RBC 0.00 Nucleated RBC % 0.0 Manual Slide Review Indicated Platelet Morphology RARE GIANT PLATELETS Sodium 139 Potassium 4.2 Chloride 101 Carbon Dioxide 18 L Anion Gap 20.0 H BUN 42 H Creatinine 2.4 H Estimated GFR (MDRD) 34 L Glucose 81 Lactic Acid Calcium 9.5 Total Bilirubin 1.3 H AST 91 H ALT 31 Alkaline Phosphatase 79 Total Creatine Kinase 4046 H* Troponin I < 0.04 Total Protein 9.4 H Albumin 5.9 H Globulin 3.5 Albumin/Globulin Ratio 1.7 Lipase 26 10/09/18 13:40 WBC RBC Hgb Hct MCV MCH MCHC RDW Plt Count MPV Neut # (Auto) Lymph # (Auto) Power # (Auto) Eos # (Auto) Baso # (Auto) Absolute Nucleated RBC Nucleated RBC % Manual Slide Review Platelet Morphology Sodium Potassium Chloride Carbon Dioxide Anion Gap BUN Creatinine Estimated GFR (MDRD) Glucose Lactic Acid 1.9 Calcium Total Bilirubin AST ALT Alkaline Phosphatase Total Creatine Kinase Troponin I Total Protein Albumin Globulin Albumin/Globulin Ratio Lipase PD MEDICAL DECISION MAKING - ED course ED course: 23-year-old gentleman who is a heavy user of methamphetamines and heroin presents having been obtunded at residential. He was administered Narcan and he is now actually twitchy and hyperdynamic more consistent with methamphetamines. Workup demonstrates rhabdomyolysis with acute renal failure for which she was administered aggressive IV fluid resuscitation and I spoke with Dr. Dorsey for admission at 2:05 PM. Departure - Departure Disposition: ED Place in Observation Clinical Impression: Methamphetamine abuse ARF (acute renal failure) Qualifiers: Acute renal failure type: unspecified Qualified Code(s): N17.9 - Acute kidney failure, unspecified Rhabdomyolysis Qualifiers: Rhabdomyolysis type: non-traumatic Qualified Code(s): M62.82 - Rhabdomyolysis Condition: Serious
[2018-10-09] MEDS ORDERED: SODIUM CHLORIDE 0.9% 1,000 ML IV ONE ×2 (13:31→14:02)
[2018-10-09 13:32] LABS: BASOPHILS % (AUTO) 0.1 %; HGB - HEMOGLOBIN 15.5 g/dL (14.0-18.0); LYMPHOCYTES # (AUTO) 2.6 10^3/uL (1.5-3.5); LYMPHOCYTES % (AUTO) 8.4 %; MEAN CORPUSCULAR HEMOGLOBIN 30.9 pg (27.0-31.0); MEAN CORPUSCULAR HGB CONC 34.7 g/dL (32.0-36.0); MEAN PLATELET VOLUME 9.8 fL (7.4-11.4); MONOCYTES # (AUTO) 4.1 10^3/uL (0.0-1.0); MONOCYTES % (AUTO) 13.2 %; NEUTROPHILS # (AUTO) 24.4 10^3/uL (1.5-6.6); NEUTROPHILS % (AUTO) 78.3 %; PLT - PLATELET COUNT 251 10^3/uL (130-450); RED BLOOD COUNT 5.02 10^6/uL (4.70-6.10); RED CELL DISTRIBUTION WIDTH 12.6 % (12.0-15.0); WHITE BLOOD COUNT 31.1 x10^3/uL (4.8-10.8)
[2018-10-09 13:56] LABS: PLATELET MORPHOLOGY RARE GIANT PLATELETS (NORMAL)
[2018-10-09 13:57] LABS: ALBUMIN 5.9 g/dL (3.2-5.5); ALBUMIN/GLOBULIN RATIO 1.7 (1.0-2.2); BILIRUBIN,TOTAL 1.3 mg/dL (0.2-1.0); CALCIUM 9.5 mg/dL (8.5-10.3); CREATININE 2.4 mg/dL (0.6-1.2); TOTAL PROTEIN 9.4 g/dL (6.7-8.2)
[2018-10-09] MEDS ORDERED: SODIUM CHLORIDE FLUSH 0.9% 10 ML SYRINGE IVP PRN (14:09)
[2018-10-09] MEDS ORDERED: oxyCODONE 5 MG TABLET PO PRN (14:09)
[2018-10-09] MEDS ORDERED: ONDANSETRON 4 MG/2 ML VIAL IVP PRN (14:09)
[2018-10-09] MEDS ORDERED: ACETAMINOPHEN 325 MG TABLET PO PRN (14:09)
[2018-10-09] MEDS ORDERED: ONDANSETRON ODT 4 MG TABLET TL PRN (14:09)
[2018-10-09] MEDS ORDERED: LORazepam 2 MG/ML VIAL IVP STA (14:28)
[2018-10-09] MEDS ORDERED: LORazepam 2 MG/ML VIAL IVP PRN (15:02)
[2018-10-09] MEDS ORDERED: HALOPERIDOL 5 MG/ML VIAL IVP ONE (15:18)
[2018-10-09] MEDS: SODIUM CHLORIDE FLUSH 0.9% 10 ML SYRINGE IVP SCH (15:22)
[2018-10-09] MEDS: SODIUM CHLORIDE 0.9% 1,000 ML IV SCH ×2 (15:22→20:19)
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
[2018-10-10] MEDS: SODIUM CHLORIDE FLUSH 0.9% 10 ML SYRINGE IVP SCH ×3 (00:31→20:17)
[2018-10-10] MEDS ORDERED: LIDOCAINE 2% URO-JET 5 ML SYRINGE UR PRN (00:42)
[2018-10-10] MEDS: SODIUM CHLORIDE 0.9% 1,000 ML IV SCH ×5 (01:19→21:17)
[2018-10-10 01:23] LABS: MUDS CUTOFF CONCENTRATIONS CUTOFF CONC BELOW:
[2018-10-10 01:46] LABS: AMPHETAMINE SCREEN,URINE POSITIVE (NEGATIVE); BENZODIAZEPINES SCREEN, URINE POSITIVE (NEGATIVE); COCAINE SCREEN URINE NEGATIVE (NEGATIVE); METHADONE SCREEN, URINE NEGATIVE (NEGATIVE); METHAMPHETAMINES SCREEN, URINE POSITIVE (NEGATIVE); OPIATE SCREEN, URINE POSITIVE (NEGATIVE); OXYCODONE SCREEN, URINE NEGATIVE (NEGATIVE); PROPOXYPHENE SCREEN, URINE NEGATIVE (NEGATIVE); TRICYCLIC ANTIDEPRESSANT,URINE NEGATIVE (NEGATIVE)
[2018-10-10 05:03] LABS: BASOPHILS % (AUTO) 0.3 %; EOSINOPHILS % (AUTO) 0.4 %; HGB - HEMOGLOBIN 13.1 g/dL (14.0-18.0); LYMPHOCYTES # (AUTO) 2.8 10^3/uL (1.5-3.5); LYMPHOCYTES % (AUTO) 27.5 %; MEAN CORPUSCULAR HEMOGLOBIN 30.9 pg (27.0-31.0); MEAN CORPUSCULAR HGB CONC 33.7 g/dL (32.0-36.0); MEAN CORPUSCULAR VOLUME 91.8 fL (80.0-94.0); MEAN PLATELET VOLUME 10.2 fL (7.4-11.4); MONOCYTES # (AUTO) 1.3 10^3/uL (0.0-1.0); MONOCYTES % (AUTO) 12.3 %; NEUTROPHILS # (AUTO) 6.2 10^3/uL (1.5-6.6); NEUTROPHILS % (AUTO) 59.5 %; PLT - PLATELET COUNT 139 10^3/uL (130-450); RED BLOOD COUNT 4.24 10^6/uL (4.70-6.10); WHITE BLOOD COUNT 10.4 x10^3/uL (4.8-10.8)
[2018-10-10 05:19] LABS: ALBUMIN/GLOBULIN RATIO 1.5 (1.0-2.2); BILIRUBIN,TOTAL 1.1 mg/dL (0.2-1.0); CALCIUM 8.3 mg/dL (8.5-10.3); CREATININE 0.7 mg/dL (0.6-1.2); TOTAL PROTEIN 6.7 g/dL (6.7-8.2)
[2018-10-10] MEDS: TAMSULOSIN 0.4 MG CAPSULE PO SCH (08:29)
[2018-10-10] MEDS: POLYETHYLENE GLYCOL 3350 17 GM PACKET PO SCH (08:30)
--- NOTE | 2018-10-10 15:22 | PROVIDER PROGRESS NOTE ---
Subjective - Prog Note Date Prog Note Date: 10/10/18 Prog Note Time: 15:24 - Subjective Subjective: Sleepy. But appropriate. Made a couple of jokes. Girlfriend is at the bedside. Overnight his encephalopathy is resolved. Agitation gone. Needed restraints only for very short length of time. Vitals now normal. Labs are normal except for the CPK. Current Medications - Current Medications Current Medications: Active Medications Acetaminophen (Tylenol) 650 mg PO Q4HR PRN PRN Reason: Pain 1 to 4 Sodium Chloride (Normal Saline 0.9%) 1,000 mls @ 200 mls/hr IV .Q5H [facility] Last Admin: 10/10/18 11:29 Dose: 200 mls/hr Lidocaine HCl (Xylocaine Uro-Jet 2%) 2.5 ml UR Q3HR PRN PRN Reason: NEEDED PER PROVIDER ORDERS Last Admin: 10/10/18 01:04 Dose: 2.5 ml Lorazepam (Ativan Inj (Vial)) 2 mg IVP Q2H PRN PRN Reason: Agitation Last Admin: 10/09/18 15:22 Dose: 2 mg Ondansetron HCl (Zofran Inj) 4 mg IVP Q6HR PRN PRN Reason: Nausea / Vomiting Ondansetron HCl (Zofran Odt) 4 mg TL Q6HR PRN PRN Reason: Nausea / Vomiting Oxycodone HCl (Roxicodone) 5 mg PO Q4HR PRN PRN Reason: Pain 5 to 7 Polyethylene Glycol (Miralax) 17 gm PO DAILY [facility] Last Admin: 10/10/18 08:30 Dose: 17 gm Sodium Chloride (Normal Saline Flush 0.9%) 10 ml IVP PRN PRN PRN Reason: NEEDED PER PROVIDER ORDERS Sodium Chloride (Normal Saline Flush 0.9%) 10 ml IVP 0100,0900,1700 [facility] Last Admin: 10/10/18 10:33 Dose: Not Given Tamsulosin HCl (Flomax) 0.4 mg PO DAILY [facility] Last Admin: 10/10/18 08:29 Dose: 0.4 mg Sertraline HCl 100 mg PO DAILY 10/04/18 Objective - Vital Signs/Intake & Output Reviewed Vital Signs: Yes Vital Signs: Vital Signs Temp Pulse Resp BP Pulse Ox 10/10/18 15:00 90 19 121/56 L 98 10/10/18 14:00 99 19 119/71 100 10/10/18 13:00 36.7 C 82 19 119/67 100 10/10/18 12:00 97 19 99/51 L 100 Intake & Output: Intake & Output 10/07/18 10/08/18 10/09/18 10/10/18 23:59 23:59 23:59 23:59 Intake Total 3114.967 3543.333 Output Total 1715 Balance 3114.967 1828.333 - Objective General Appearance: positive: No acute distress, Other (Sleepy but appropriate.) Eyes Bilateral: positive: PERRL ENT: positive: No signs of dehydration Neck: positive: No JVD. negative: Stiff neck, Carotid bruit Respiratory: positive: Chest non-tender. negative: Wheezes, Rales, Rhonchi Cardiovascular: negative: Regular rate & rhythm, Systolic murmur, Gallop/S4, Friction rub Abdomen: positive: Non-tender, No organomegaly, Nml bowel sounds, No distention Skin: positive: Warm, Dry Extremities: positive: Non-tender Neurologic/Psychiatric: positive: Oriented x3, CN's nml (2-12), Motor nml - Lab Results Fish Bones: 10/10/18 04:30 10/10/18 04:30 Other Labs: Lab Results x24hrs 10/10/18 10/10/18 10/10/18 Range/Units 04:30 04:30 04:30 WBC 10.4 (4.8-10.8) x10^3/uL RBC 4.24 L (4.70-6.10) 10^6/uL Hgb 13.1 L (14.0-18.0) g/dL Hct 38.9 L (42.0-52.0) % MCV 91.8 (80.0-94.0) fL MCH 30.9 (27.0-31.0) pg MCHC 33.7 (32.0-36.0) g/dL RDW 13.0 (12.0-15.0) % Plt Count 139 (130-450) 10^3/uL MPV 10.2 (7.4-11.4) fL Neut # (Auto) 6.2 (1.5-6.6) 10^3/uL Lymph # (Auto) 2.8 (1.5-3.5) 10^3/uL [place] # (Auto) 1.3 H (0.0-1.0) 10^3/uL Eos # (Auto) 0.0 (0.0-0.7) 10^3/uL Baso # (Auto) 0.0 (0.0-0.1) 10^3/uL Absolute Nucleated RBC 0.01 x10^3/uL Nucleated RBC % 0.1 /100WBC Sodium 136 (135-145) mmol/L Potassium 3.9 (3.5-5.0) mmol/L Chloride 111 (101-111) mmol/L Carbon Dioxide 19 L (21-32) mmol/L Anion Gap 6.0 (6-13) BUN 26 H (6-20) mg/dL Creatinine 0.7 (0.6-1.2) mg/dL Estimated GFR (MDRD) 141 (>89) Glucose 90 (70-100) mg/dL Calcium 8.3 L (8.5-10.3) mg/dL Total Bilirubin 1.1 H (0.2-1.0) mg/dL AST 83 H (10-42) IU/L ALT 30 (10-60) IU/L Alkaline Phosphatase 57 (42-121) IU/L Total Creatine Kinase 4008 H* (22-269) IU/L Total Protein 6.7 (6.7-8.2) g/dL Albumin 4.0 (3.2-5.5) g/dL Globulin 2.7 (2.1-4.2) g/dL Albumin/Globulin Ratio 1.5 (1.0-2.2) Urine Opiates Screen (NEGATIVE) Ur Oxycodone Screen (NEGATIVE) Urine Methadone Screen (NEGATIVE) Ur Propoxyphene Screen (NEGATIVE) Ur Barbiturates Screen (NEGATIVE) Ur Tricyclics Screen (NEGATIVE) Ur Phencyclidine Scrn (NEGATIVE) Ur Amphetamine Screen (NEGATIVE) U Methamphetamines Scrn (NEGATIVE) U Benzodiazepines Scrn (NEGATIVE) Urine Cocaine Screen (NEGATIVE) U Cannabinoids Screen (NEGATIVE) 10/10/18 Range/Units 01:15 WBC (4.8-10.8) x10^3/uL RBC (4.70-6.10) 10^6/uL Hgb (14.0-18.0) g/dL Hct (42.0-52.0) % MCV (80.0-94.0) fL MCH (27.0-31.0) pg MCHC (32.0-36.0) g/dL RDW (12.0-15.0) % Plt Count (130-450) 10^3/uL MPV (7.4-11.4) fL Neut # (Auto) (1.5-6.6) 10^3/uL Lymph # (Auto) (1.5-3.5) 10^3/uL [place] # (Auto) (0.0-1.0) 10^3/uL Eos # (Auto) (0.0-0.7) 10^3/uL Baso # (Auto) (0.0-0.1) 10^3/uL Absolute Nucleated RBC x10^3/uL Nucleated RBC % /100WBC Sodium (135-145) mmol/L Potassium (3.5-5.0) mmol/L Chloride (101-111) mmol/L Carbon Dioxide (21-32) mmol/L Anion Gap (6-13) BUN (6-20) mg/dL Creatinine (0.6-1.2) mg/dL Estimated GFR (MDRD) (>89) Glucose (70-100) mg/dL Calcium (8.5-10.3) mg/dL Total Bilirubin (0.2-1.0) mg/dL AST (10-42) IU/L ALT (10-60) IU/L Alkaline Phosphatase (42-121) IU/L Total Creatine Kinase (22-269) IU/L Total Protein (6.7-8.2) g/dL Albumin (3.2-5.5) g/dL Globulin (2.1-4.2) g/dL Albumin/Globulin Ratio (1.0-2.2) Urine Opiates Screen POSITIVE H (NEGATIVE) Ur Oxycodone Screen NEGATIVE (NEGATIVE) Urine Methadone Screen NEGATIVE (NEGATIVE) Ur Propoxyphene Screen NEGATIVE (NEGATIVE) Ur Barbiturates Screen NEGATIVE (NEGATIVE) Ur Tricyclics Screen NEGATIVE (NEGATIVE) Ur Phencyclidine Scrn NEGATIVE (NEGATIVE) Ur Amphetamine Screen POSITIVE H (NEGATIVE) U Methamphetamines Scrn POSITIVE H (NEGATIVE) U Benzodiazepines Scrn POSITIVE H (NEGATIVE) Urine Cocaine Screen NEGATIVE (NEGATIVE) U Cannabinoids Screen NEGATIVE (NEGATIVE) Assessment/Plan - Problem List (1) Methamphetamine intoxication Impression: Resolved. Tachycardia, but no hypertension. He was hypotensive. Had a low-grade temperature 37.8. Altered mental status. Creatinine acutely elevated at 2.4. No lactic acidosis.He required Ativan, and a dose of Haldol. He is now awake, alert. White cell count is normal. Blood pressure still mildly hypotensive at 94/64. But will go as high as 124/65. No fever. Cooperative alert lucid. Plan: Placed patient in ICU because he needs one-to-one care. Very agitated and needed restraints for short amount of time. He does say that he has thoughts about killing himself. Sometimes asked about driving off the bridge. As such still here for one-to-one care. Sedation with benzodiazepine, lorazepam 2 mg every 2 hours as needed Still ordered but no longer needed continues because of rhabdomyolysis Haldol 5 mg IV x1 Aggressive IV hydration still needed bc of rhabdo If needed, Cardizem for tachycardia If needed, if he gets more hypothermia, will consider intubation after using rocuronium or vecuronium and avoiding succinylcholine. So far, not needed (2) Rhabdomyolysis Conclusion/Plan: Most likely due to his methamphetamine abuse. Dehydration. Plan: See #1 Repeat CPK is still 4000. continue IVF. Qualifiers: Rhabdomyolysis type: non-traumatic Qualified Code(s): M62.82 - Rhabdomyolysis (3) Acute kidney injury Conclusion/Plan: Resolved Most likely from dehydration and use of methamphetamines. Laboratory Tests 10/09/18 10/10/18 13:18 04:30 BUN 42 H 26 H Creatinine 2.4 H 0.7 (4) Metabolic encephalopathy Conclusion/Plan: Resolved. now just sleey. from dehydration, speed, heroin, rhabdo (5) Suicidal ideation vague thoughts, no plan other than fantasy of driving off the bridge. will need formal eval after medically clear form #2. (2) Rhabdomyolysis Qualifiers: Qualified Code(s): M62.82 - Rhabdomyolysis
[2018-10-10] MEDS: NICOTINE 14 MG PATCH TOP SCH (16:26)
[2018-10-10] MEDS ORDERED: SODIUM CHLORIDE 0.65% NASAL SPRAY NAS PRN (19:29)
[2018-10-11] MEDS: SODIUM CHLORIDE 0.9% 1,000 ML IV SCH ×2 (02:21→08:07)
[2018-10-11] MEDS: SODIUM CHLORIDE FLUSH 0.9% 10 ML SYRINGE IVP SCH ×2 (02:21→12:26)
[2018-10-11] MEDS: NICOTINE 14 MG PATCH TOP SCH (09:03)
[2018-10-11] MEDS: TAMSULOSIN 0.4 MG CAPSULE PO SCH (09:06)
[2018-10-11] MEDS: POLYETHYLENE GLYCOL 3350 17 GM PACKET PO SCH (09:06)
[2018-10-11 10:00] LABS: CALCIUM 8.5 mg/dL (8.5-10.3); CREATININE 0.5 mg/dL (0.6-1.2)
[2018-10-11] MEDS ORDERED: AMIODARONE 150 MG/3 ML VIAL IVP STA (11:17)
--- NOTE | 2018-10-11 11:49 | Discharge Plan ---
Discharge Plan Disposition: 01 Home, Self Care Condition: Good Diet: Regular Activity Restrictions: Activity as Tolerated Shower Restrictions: No Driving Restrictions: No Instruction Topics: Tamsulosin capsules, Rhabdomyolysis Additional Instructions or Follow Up instructions: You were admitted to the hospital because of acute methamphetamine and heroin toxicity while in custody. The heroin caused you to stop breathing and you needed Narcan to let you breathe. Once your breathing again normally, methamphetamine toxicity kicked in. You developed a high blood pressure, fast heart rate, agitation and psychosis, required restraints, and you had severe muscle damage with dehydration from the methamphetamines. You were placed in the ICU overnight and you needed restraints because of your agitation and psychosis. The next day you were back to normal with your mental status. Your blood pressure and pulse normalized. The only thing that was still high was something called CPK. Creatinine kinase. It is the measurement of muscle enzyme. With methamphetamines, you can get a disease called rhabdomyolysis which is muscle damage causing acute kidney injury. You had a mild case of that. You responded to simple salt water IV hydration for that. At discharge you still have an elevated creatinine kinase of 3526. However your kidney function is normal, your vitals are normal, your urine is clear and yellow, and you were eating normally. We think that you are safe to go home and eventually this level of muscle damage will go away on its own in the next 7-10 days. Make sure you drink at least a liter and a half of water a day. You do not need to drink more than that. At discharge you requested HIV and hepatitis panel to be checked. Those were d rawn but are pending and will not be available till next week. Please follow-up with your primary care provider for those results. While here you also discussed suicidal ideation. While you fantasize about not waking up, or driving off the [place] to just , you have no active plans for suicide at this time. Please make sure that you see a mental health professional for continued counseling and continued use of your medication. business services sales representative saw you here and evaluated you. They do not feel that you need to be detained. However, law enforcement officers may be serving you with a warrant for your arrest in the near future because you have violated your probation. Do not use heroin or methamphetamines ever again. No Smoking: If you smoke, Please STOP! Call for help.
[2018-10-11 13:02] VITALS: BP 124/82
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
[2018-10-14 12:11] LABS: HEPATITIS A IGM NON-REACTIVE (NON-REACTIVE); HEPATITIS B CORE ANTIBODY IGM NON-REACTIVE (NON-REACTIVE); HEPATITIS B SURFACE ANTIGEN NON-REACTIVE (NON-REACTIVE); HEPATITIS C ANTIBODY REACTIVE (NON-REACTIVE)
[2018-10-14 13:56] LABS: HIV AG/AB 4TH GEN NON-REACTIVE (NON-REACTIVE)
== END 2018-10-11 13:25 | disposition home or self-care (01) ==
LOC: EDUNIT# → ED 13:07 → ICU 14:09
PROVIDERS: ADMIT Specialist; ATTEND Specialist
DX: T43.621A Poisoning by amphetamines, accidental (unintentional), initial encounter (principal); T40.1X1A Poisoning by heroin, accidental (unintentional), initial encounter; M62.82 Rhabdomyolysis; N17.9 Acute kidney failure, unspecified; G92 Toxic encephalopathy; R45.851 Suicidal ideations; R33.9 Retention of urine, unspecified; E86.0 Dehydration; F90.9 Attention-deficit hyperactivity disorder, unspecified type; F43.10 Post-traumatic stress disorder, unspecified; Z78.1 Physical restraint status; M17.2 Bilateral post-traumatic osteoarthritis of knee; F15.10 Other stimulant abuse, uncomplicated
CPT/HCPCS: 36415; 51701; 80048; 80053; 80074; 80306; 82550; 83605; 83690; 84484; 85025; 87150; 87389; 93005; 96374; 96375; 96376; 99284; 99285; A9270; G0378; J2060

== ENCOUNTER 2018-10-13 08:00 | Outpatient (CLI) | payer MEDICAID ==
[2018-10-13 13:51] LABS: BASOPHILS % (AUTO) 0.4 %; EOSINOPHILS # (AUTO) 0.1 10^3/uL (0.0-0.7); LYMPHOCYTES # (AUTO) 1.9 10^3/uL (1.5-3.5); LYMPHOCYTES % (AUTO) 36.1 %; MEAN CORPUSCULAR HEMOGLOBIN 30.9 pg (27.0-31.0); MEAN CORPUSCULAR HGB CONC 33.9 g/dL (32.0-36.0); MEAN CORPUSCULAR VOLUME 91.1 fL (80.0-94.0); MEAN PLATELET VOLUME 10.8 fL (7.4-11.4); MONOCYTES # (AUTO) 0.5 10^3/uL (0.0-1.0); NEUTROPHILS # (AUTO) 2.7 10^3/uL (1.5-6.6); NEUTROPHILS % (AUTO) 52.5 %; PLT - PLATELET COUNT 153 10^3/uL (130-450); RED BLOOD COUNT 4.52 10^6/uL (4.70-6.10); RED CELL DISTRIBUTION WIDTH 12.9 % (12.0-15.0); WHITE BLOOD COUNT 5.1 x10^3/uL (4.8-10.8)
[2018-10-13 14:13] LABS: ALBUMIN 4.3 g/dL (3.2-5.5); ALBUMIN/GLOBULIN RATIO 1.4 (1.0-2.2); BILIRUBIN,TOTAL 0.4 mg/dL (0.2-1.0); CALCIUM 9.2 mg/dL (8.5-10.3); CREATININE 0.7 mg/dL (0.6-1.2); TOTAL PROTEIN 7.4 g/dL (6.7-8.2)
== END 2018-10-13 23:59 | disposition home or self-care (01) ==
LOC: LAB.N 08:00
PROVIDERS: ATTEND Physician Assistant Medical
DX: N17.9 Acute kidney failure, unspecified (principal); M62.82 Rhabdomyolysis; F19.10 Other psychoactive substance abuse, uncomplicated
CPT/HCPCS: 36415; 80053; 83880; 85025

== ENCOUNTER 2018-11-03 16:47 | Outpatient (CLI) | payer MEDICAID ==
[2018-11-03 17:03] LABS: BASOPHILS # (AUTO) 0.1 10^3/uL (0.0-0.1); BASOPHILS % (AUTO) 0.5 %; EOSINOPHILS # (AUTO) 0.1 10^3/uL (0.0-0.7); EOSINOPHILS % (AUTO) 0.7 %; HGB - HEMOGLOBIN 14.5 g/dL (14.0-18.0); LYMPHOCYTES # (AUTO) 2.9 10^3/uL (1.5-3.5); LYMPHOCYTES % (AUTO) 27.3 %; MEAN CORPUSCULAR HEMOGLOBIN 30.5 pg (27.0-31.0); MEAN CORPUSCULAR HGB CONC 33.6 g/dL (32.0-36.0); MEAN CORPUSCULAR VOLUME 90.8 fL (80.0-94.0); MONOCYTES # (AUTO) 0.8 10^3/uL (0.0-1.0); MONOCYTES % (AUTO) 7.1 %; NEUTROPHILS # (AUTO) 6.8 10^3/uL (1.5-6.6); NEUTROPHILS % (AUTO) 64.4 %; PLT - PLATELET COUNT 214 10^3/uL (130-450); RED BLOOD COUNT 4.75 10^6/uL (4.70-6.10); RED CELL DISTRIBUTION WIDTH 12.7 % (12.0-15.0); WHITE BLOOD COUNT 10.5 x10^3/uL (4.8-10.8)
[2018-11-03 17:09] LABS: INR 1.1 (0.8-1.2); PT - PROTHROMBIN TIME 12.5 secs (9.9-12.6)
[2018-11-03 18:02] LABS: ALBUMIN 4.8 g/dL (3.2-5.5); ALBUMIN/GLOBULIN RATIO 1.5 (1.0-2.2); BILIRUBIN,TOTAL 0.5 mg/dL (0.2-1.0); CALCIUM 9.7 mg/dL (8.5-10.3); CREATININE 0.9 mg/dL (0.6-1.2)
[2018-11-04 13:21] LABS: HIV AG/AB 4TH GEN NON-REACTIVE (NON-REACTIVE)
== END 2018-11-03 16:48 | disposition home or self-care (01) ==
LOC: LAB 16:47
PROVIDERS: ATTEND Nurse Practitioner Family
DX: B19.20 Unspecified viral hepatitis C without hepatic coma (principal)
CPT/HCPCS: 36415; 80053; 85025; 85610; 87389; 87902

== ENCOUNTER 2018-11-04 19:43 | Outpatient (CLI) | payer MEDICAID ==
--- NOTE | 2018-11-05 00:55 | Ultrasound Report ---
Reason: HEPATITIS C Procedure Date: 11/04/2018 Accession Number: [id number] / [id number] Procedure: US - Abdomen Limited CPT Code: FULL RESULT: EXAM: ABDOMEN ULTRASOUND LIMITED, RUQ EXAM DATE: 11/04/2018 08:22 PM. CLINICAL HISTORY: HEPATITIS C. COMPARISON: ABDOMEN LIMITED 03/01/2017 8:20 AM. TECHNIQUE: Real-time scanning was performed with static images obtained. FINDINGS: Liver: Unremarkable echo texture. Right lobe is a 2.8 cm. Main portal vein flow: Hepatopetal. Gallbladder: No stones, wall thickening, or sonographic Suresh's sign. Biliary System: CBD measures 4 mm. No intrahepatic or extrahepatic ductal dilatation. Other: Right kidney measures 12.3 cm without hydronephrosis. IMPRESSION: No acute sonographic abnormalities. RADIA
== END 2018-11-04 19:44 | disposition home or self-care (01) ==
LOC: DI 19:43
PROVIDERS: ATTEND Nurse Practitioner Family
DX: B19.20 Unspecified viral hepatitis C without hepatic coma (principal)
CPT/HCPCS: 76705

== ENCOUNTER 2018-11-16 06:48 | Inpatient (IN) | payer MEDICAID ==
[2018-11-16] MEDS ORDERED: SODIUM CHLORIDE 0.9% 1,000 ML IV ONE ×5 (06:55→14:05)
[2018-11-16] MEDS ORDERED: LORazepam 2 MG/ML VIAL IVP STA ×4 (06:55→14:56)
[2018-11-16 07:13] LABS: BASOPHILS % (AUTO) 0.2 %; EOSINOPHILS # (AUTO) 0.1 10^3/uL (0.0-0.7); EOSINOPHILS % (AUTO) 0.2 %; HGB - HEMOGLOBIN 14.4 g/dL (14.0-18.0); LYMPHOCYTES % (AUTO) 12.1 %; MEAN CORPUSCULAR HEMOGLOBIN 30.8 pg (27.0-31.0); MEAN CORPUSCULAR HGB CONC 34.9 g/dL (32.0-36.0); MEAN CORPUSCULAR VOLUME 88.4 fL (80.0-94.0); MONOCYTES # (AUTO) 3.1 10^3/uL (0.0-1.0); MONOCYTES % (AUTO) 12.6 %; NEUTROPHILS # (AUTO) 18.3 10^3/uL (1.5-6.6); NEUTROPHILS % (AUTO) 74.9 %; PLT - PLATELET COUNT 290 10^3/uL (130-450); RED BLOOD COUNT 4.67 10^6/uL (4.70-6.10); RED CELL DISTRIBUTION WIDTH 12.9 % (12.0-15.0); WHITE BLOOD COUNT 24.5 x10^3/uL (4.8-10.8)
[2018-11-16 07:28] LABS: ACETAMINOPHEN < 10 ug/mL (10-30); ALBUMIN 5.4 g/dL (3.2-5.5); ALBUMIN/GLOBULIN RATIO 1.5 (1.0-2.2); ALKALINE PHOSPHATASE 67 IU/L (42-121); ALT ALANINE AMINOTRANSFERASE 24 IU/L (10-60); AST ASPARTATE AMINOTRANSFERASE 48 IU/L (10-42); BILIRUBIN,TOTAL 1.1 mg/dL (0.2-1.0); BUN - BLOOD UREA NITROGEN 26 mg/dL (6-20); CALCIUM 9.7 mg/dL (8.5-10.3); CARBON DIOXIDE - CO2 27 mmol/L (21-32); CHLORIDE 98 mmol/L (101-111); CK- CREATINE KINASE 864 IU/L (22-269); CREATININE 1.2 mg/dL (0.6-1.2); GFR - MDRD 76 (>89); GLUCOSE 66 mg/dL (70-100); LIPASE 23 U/L (22-51); SALICYLATE < 6.0 mg/dL; SODIUM 140 mmol/L (135-145); TOTAL PROTEIN 8.9 g/dL (6.7-8.2)
--- NOTE | 2018-11-16 07:32 | ED Physician Documentation ---
PD HPI ALTERED MENTAL STATUS - Stated complaint Stated Complaint: OD - Chief complaint Chief Complaint: Neuro - History obtained from History obtained from: Friend - History of Present Illness Timing - onset: Today Quality / character: Agitated Contributing factors: Substance abuse Basline status: Alert and oriented X 3, Ambulatory, Independent Recently seen: Admitted (Hospitalized 1 month ago with polysubstance abuse, including methamphetamine and heroin, resulting in rhabdomyolysis.) - Additional information Additional information: The patient is a 23-year-old male with a history of polysubstance abuse, with methamphetamine being his drug of choice. He was brought in by friends who were concerned about his agitation this morning. His girlfriend says that he left their house yesterday, telling her that he needed to work on himself. He apparently proceeded to contact old friends and resume his use of methamphetamine. This morning he became incoherent and agitated, prompting them to bring him to the emergency department. Review of his medical record reveals that he was seen here 1 month ago with polysubstance abuse, including methamphetamine and heroin. He was hospitalized because of rhabdomyolysis with a creatine kinase of 4046, and acute renal failure with BUN of 42 and creatinine 2.4. Review of Systems Unable to obtain: A[place] PD PAST MEDICAL HISTORY - Past Medical History Past Medical History: Yes Cardiovascular: None Respiratory: None Neuro: None Endocrine/Autoimmune: None GI: GERD : None HEENT: None Psych: Depression, Anxiety, ADD/ADHD, Post traumatic stress disorder, Other Musculoskeletal: Osteoarthritis Derm: None - Past Surgical History Past Surgical History: Yes HEENT: Tonsil/Adenoidectomy - Present Medications Home Medications: Ambulatory Orders Medication Instructions Recorded Confirmed Sertraline HCl 100 mg PO DAILY 10/04/18 11/16/18 raNITIdine HCl [Ranitidine HCl] 150 mg PO BID #28 capsule 10/04/18 11/16/18 Gabapentin [Neurontin] 300 mg PO BID 11/16/18 11/16/18 - Allergies Allergies/Adverse Reactions: Allergies Allergy/AdvReac Type Severity Reaction Status Date / Time No Known Drug Allergies Allergy Verified 11/16/18 07:08 - Social History Does the pt smoke?: Yes Smoking Status: Current every day smoker Does the pt drink ETOH?: Yes Does the pt have substance abuse?: Yes Substance Use and Type: Meth, Heroin - Immunizations Immunizations are current?: Yes - POLST Patient has POLST: No POLST Status: Full Code PD ED PE NORMAL - Vitals Vital signs reviewed: Yes (tachycardic) - General General: Well developed/nourished, Other (Agitated, in constant motion, and incoherent.) - HEENT HEENT: Atraumatic, Other (Pinpoint pupils; dry oral mucosa.) - Neck Neck: Supple, no meningeal sign, No adenopathy, No JVD - Cardiac Cardiac: No murmur, Other (Rapid rate, regular rhythm.) - Respiratory Respiratory: Clear bilaterally - Abdomen Abdomen: Soft, Non tender, Other (Scaphoid abdomen.) - Back Back: No spinal TTP - Derm Derm: No rash - Extremities Extremities: No deformity, No edema, Other (Superficial abrasion at the right p retibial region.) - Neuro Neuro: No motor deficit, Other (Agitated and incoherent.) Eye Opening: Spontaneous Motor: Obeys Commands Verbal: Confused GCS Score: 14 Results - Vitals Vitals: Vital Signs - 24 hr 11/16/18 11/16/18 11/16/18 06:50 07:18 07:30 Temperature 37.0 C Heart Rate 155 H 132 H 122 H Respiratory 34 H 20 17 Rate Blood Pressure 145/96 H 126/63 122/64 O2 Saturation 95 94 96 11/16/18 11/16/18 11/16/18 08:38 09:00 10:00 Temperature Heart Rate 119 H 113 H 98 Respiratory 18 14 14 Rate Blood Pressure 128/63 124/62 126/69 O2 Saturation 97 97 98 11/16/18 11/16/18 11/16/18 11:19 11:30 12:00 Temperature Heart Rate 102 H 101 H 102 H Respiratory 17 14 18 Rate Blood Pressure 111/59 L 111/59 L 98/83 H O2 Saturation 99 100 100 11/16/18 11/16/18 11/16/18 12:34 13:24 13:30 Temperature 36.7 C Heart Rate 95 99 82 Respiratory 12 14 15 Rate Blood Pressure 138/78 H 138/78 H 136/87 H O2 Saturation 99 100 97 11/16/18 11/16/18 11/16/18 14:00 14:30 15:05 Temperature Heart Rate 95 91 97 Respiratory 18 22 15 Rate Blood Pressure 127/82 H 132/82 H 145/83 H O2 Saturation 100 100 100 11/16/18 11/16/18 15:30 16:14 Temperature Heart Rate 97 96 Respiratory 18 18 Rate Blood Pressure 128/69 127/61 O2 Saturation 100 100 Oxygen O2 Source Room air Oxygen Flow Rate 2 - Labs Labs: Laboratory Tests 11/16/18 11/16/18 11/16/18 07:04 07:04 09:52 WBC 24.5 H RBC 4.67 L Hgb 14.4 Hct 41.3 L MCV 88.4 MCH 30.8 MCHC 34.9 RDW 12.9 Plt Count 290 MPV 9.0 Neut # (Auto) 18.3 H Lymph # (Auto) 3.0 Cooke # (Auto) 3.1 H Eos # (Auto) 0.1 Baso # (Auto) 0.0 Absolute Nucleated RBC 0.01 Nucleated RBC % 0.0 Manual Slide Review Indicated Platelet Estimate NORMAL (130-450,000) Platelet Morphology NORMAL APPEARANCE RBC Morph Micro Appear NORMAL APPEARANCE Sodium 140 Potassium 4.5 Chloride 98 L Carbon Dioxide 27 Anion Gap 15.0 H BUN 26 H Creatinine 1.2 Estimated GFR (MDRD) 76 L Glucose 66 L Calcium 9.7 Total Bilirubin 1.1 H AST 48 H ALT 24 Alkaline Phosphatase 67 Total Creatine Kinase 864 H Total Protein 8.9 H Albumin 5.4 Globulin 3.5 Albumin/Globulin Ratio 1.5 Lipase 23 Urine Color DARK YELLOW Urine Clarity CLEAR Urine pH 5.5 Ur Specific [place] >=1.030 H Urine Protein NEGATIVE Urine Glucose (UA) NEGATIVE Urine Ketones 40 H Urine Occult Blood NEGATIVE Urine Nitrite NEGATIVE Urine Bilirubin NEGATIVE Urine Urobilinogen 0.2 (NORMAL) Ur Leukocyte Esterase NEGATIVE Ur Microscopic Review NOT INDICATED Urine Culture Comments NOT INDICATED Salicylates < 6.0 Urine Opiates Screen Ur Oxycodone Screen Urine Methadone Screen Ur Propoxyphene Screen Acetaminophen < 10 L Ur Barbiturates Screen Ur Tricyclics Screen Ur Phencyclidine Scrn Ur Amphetamine Screen U Methamphetamines Scrn U Benzodiazepines Scrn Urine Cocaine Screen U Cannabinoids Screen Ethyl Alcohol < 5.0 11/16/18 11/16/18 09:52 14:10 WBC RBC Hgb Hct MCV MCH MCHC RDW Plt Count MPV Neut # (Auto) Lymph # (Auto) [place] # (Auto) Eos # (Auto) Baso # (Auto) Absolute Nucleated RBC Nucleated RBC % Manual Slide Review Platelet Estimate Platelet Morphology RBC Morph Micro Appear Sodium 135 Potassium 4.8 Chloride 106 Carbon Dioxide 18 L Anion Gap 11.0 BUN 20 Creatinine 0.8 Estimated GFR (MDRD) 121 Glucose 74 Calcium 8.0 L Total Bilirubin AST ALT Alkaline Phosphatase Total Creatine Kinase 3921 H* Total Protein Albumin Globulin Albumin/Globulin Ratio Lipase Urine Color Urine Clarity Urine pH Ur Specific [place] Urine Protein Urine Glucose (UA) Urine Ketones Urine Occult Blood Urine Nitrite Urine Bilirubin Urine Urobilinogen Ur Leukocyte Esterase Ur Microscopic Review Urine Culture Comments Salicylates Urine Opiates Screen POSITIVE H Ur Oxycodone Screen NEGATIVE Urine Methadone Screen NEGATIVE Ur Propoxyphene Screen NEGATIVE Acetaminophen Ur Barbiturates Screen NEGATIVE Ur Tricyclics Screen NEGATIVE Ur Phencyclidine Scrn NEGATIVE Ur Amphetamine Screen POSITIVE H U Methamphetamines Scrn POSITIVE H U Benzodiazepines Scrn NEGATIVE Urine Cocaine Screen NEGATIVE U Cannabinoids Screen NEGATIVE Ethyl Alcohol PD MEDICAL DECISION MAKING - ED course Complexity details: reviewed old records, reviewed results, re-evaluated patient, considered differential, d/w family, d/w tax consultant ED course: The patient presents with altered mental status and agitation due to methamphetamine overdose. Initial labs revealed an elevated creatinine kinase of 864, with elevated BUN of 26 and creatinine 1.2. Because of his agitation he was placed in soft restraints for his own protection. Lorazepam 2 mg was administered IV. Normal saline was administered IV. A Peterson catheter was inserted, and there was no urine in his bladder. While on his third liter of normal saline IV, he began making urine. Urine tox screen was positive for opiates, methamphetamine, and amphetamine. Lorazepam was repeatedly administered IV in 1 mg increments, for an additional 3 mg over the initial 2 mg dose. Repeat chemistry panel reveals increased creatinine kinase of 3921. I discussed his condition with Dr. Black, the hospitalist, who accepts him for further evaluation and treatment. Departure - Departure Disposition: [facility] DC/Xfer Clinical Impression: Methamphetamine abuse Rhabdomyolysis Qualifiers: Rhabdomyolysis type: non-traumatic Qualified Code(s): M62.82 - Rhabdomyolysis Discharge Date/Time: 11/16/18 18:00
[2018-11-16 07:38] LABS: PLATELET ESTIMATE, MANUAL NORMAL (130-450,000) (NORMAL); PLATELET MORPHOLOGY NORMAL APPEARANCE (NORMAL); RBC MORPHOLOGY (MULTIPLE) NORMAL APPEARANCE (NORMAL)
[2018-11-16 10:09] LABS: CLARITY,URINE CLEAR (CLEAR); GLUCOSE, URINE (UA) NEGATIVE (NEGATIVE); KETONES,URINE (UA) 40 mg/dL (NEGATIVE); LEUKOCYTE ESTERASE, URINE NEGATIVE (NEGATIVE); NITRITE,URINE NEGATIVE (NEGATIVE); OCCULT BLOOD,URINE NEGATIVE (NEGATIVE); PH,URINE 5.5 PH (5.0-7.5); PROTEIN,URINE NEGATIVE (NEGATIVE); UROBILINOGEN,URINE 0.2 (NORMAL) E.U./dL (NORMAL)
[2018-11-16 10:12] LABS: BILIRUBIN,URINE NEGATIVE (NEGATIVE); ICTOTEST,URINE NEGATIVE
[2018-11-16 10:36] LABS: AMPHETAMINE SCREEN,URINE POSITIVE (NEGATIVE); BENZODIAZEPINES SCREEN, URINE NEGATIVE (NEGATIVE); COCAINE SCREEN URINE NEGATIVE (NEGATIVE); METHADONE SCREEN, URINE NEGATIVE (NEGATIVE); METHAMPHETAMINES SCREEN, URINE POSITIVE (NEGATIVE); MUDS CUTOFF CONCENTRATIONS CUTOFF CONC BELOW:; OPIATE SCREEN, URINE POSITIVE (NEGATIVE); OXYCODONE SCREEN, URINE NEGATIVE (NEGATIVE); PROPOXYPHENE SCREEN, URINE NEGATIVE (NEGATIVE); TRICYCLIC ANTIDEPRESSANT,URINE NEGATIVE (NEGATIVE)
[2018-11-16 14:56] LABS: CREATININE 0.8 mg/dL (0.6-1.2)
[2018-11-16] MEDS ORDERED: PROCHLORPERAZINE 10 MG/2 ML VIAL IVP PRN (16:27)
[2018-11-16] MEDS ORDERED: SODIUM CHLORIDE FLUSH 0.9% 10 ML SYRINGE IVP PRN (16:27)
[2018-11-16] MEDS ORDERED: LORazepam 100MG/100ML D5W 100 ML IV SCH (17:00)
--- NOTE | 2018-11-16 19:21 | XRAY Report ---
Reason: R shoulder pain after restrained Procedure Date: 11/16/2018 Accession Number: [id number] / [id number] Procedure: XR - Shoulder 2 View RT CPT Code: FULL RESULT: EXAM: RIGHT SHOULDER RADIOGRAPHY EXAM DATE: 11/16/2018 07:07 PM. CLINICAL HISTORY: Right shoulder pain. COMPARISON: None. TECHNIQUE: 2 views. FINDINGS: Bones: Normal. No fracture or bone lesion. Joints: The glenohumeral and acromioclavicular joints are normal. Soft tissues: The visualized hemithorax is unremarkable. No soft tissue swelling. IMPRESSION: Normal shoulder radiography. RADIA
[2018-11-16 19:48] LABS: BILIRUBIN,URINE NEGATIVE (NEGATIVE); CLARITY,URINE CLEAR (CLEAR); GLUCOSE, URINE (UA) NEGATIVE (NEGATIVE); KETONES,URINE (UA) >=80 mg/dL (NEGATIVE); LEUKOCYTE ESTERASE, URINE TRACE (NEGATIVE); NITRITE,URINE NEGATIVE (NEGATIVE); OCCULT BLOOD,URINE LARGE (NEGATIVE); PH,URINE 5.5 PH (5.0-7.5); PROTEIN,URINE TRACE mg/dL (NEGATIVE); UROBILINOGEN,URINE 0.2 (NORMAL) E.U./dL (NORMAL)
[2018-11-16 20:06] LABS: BACTERIA,URINE Few /HPF (None Seen); SQUAMOUS EPITHELIAL CELL,UR RARE Squamous (<= Few); YEAST,URINE PRESENT
--- NOTE | 2018-11-16 20:11 | HISTORY & PHYSICAL EXAMINATION ---
DATE OF SERVICE: 11/16/2018 Physician: Prisca Black MD HISTORY OF PRESENT ILLNESS: This is a 23-year-old white male with a history of polysubstance abuse, specifically methamphetamine and opiates, who had an admission here 1 month ago for methamphetamine and heroin intoxication plus agitation from the above, required ICU stay with restraints, had rhabdomyolysis as well as acute kidney injury. He is brought in now by his friends who state that he is agitated. The girlfriend says that he left the house yesterday telling her that he needed to work on himself, but he apparently went to connect with his old friends and resume his use of methamphetamine. They report that he became incoherent and agitated and were able to bring him to the emergency room. In the ER, he was extremely agitated and physically combative and required restraints and several doses of sedatives. Methamphetamine and heroin are present in his toxicology screen, and his initial CK of 800s worsened to the 4000s during his stay in the emergency room, presumably because of his combativeness and muscle strain. He is now in the ICU and complains now of right shoulder pain, ever since he was in the restraints. PAST MEDICAL HISTORY: Polysubstance abuse, past suicidal ideations, depression, anxiety, ADHD, PTSD. MEDICATIONS 1. Sertraline. 2. Ranitidine. ALLERGIES: NONE. SOCIAL HISTORY: He smokes cigarettes, drinks alcohol, has a history of substance abuse as described above. 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 REVIEW OF SYSTEMS: Comprehensive review of systems was performed by chart review mostly, but he answers questions with brief answers as does his girlfriend. Ther pertinent positives are above, the rest are negative. PHYSICAL EXAMINATION GENERAL: Young male, in 4-point restraints, moving his head side to side, moving his knees and shins and pulling using his left arm. His eyes are closed, and he intermittently says "What happened" and "I want to go home". VITAL SIGNS: Blood pressure 137/74, heart rate 100-109 in sinus tachycardia, afebrile, room air saturation 100%. HEENT: Bruise of the upper right cheekbone, dry blood on the lips and dry oral mucosa noted. He is not cooperative for an oral or retinal exam. NECK: No JVD or carotid bruits. LUNGS: Clear anteriorly. HEART: Sounds normal. ABDOMEN: Soft, decreased but positive bowel sounds. EXTREMITIES: Legs without edema. The right shoulder is not swollen or red or warm, but is tender to touch. NEUROLOGIC: Agitated and disoriented, he was intermittently sedated while in the ER. LABORATORIES: Normal electrolytes. BUN was 26 and creatinine 1.2 earlier in the day, and then later in the ER after 3 liters of fluids, his BUN was 20 and creatinine 0.8. Despite this, his first CK of 864 went up to 3921 after several hours. He has an AST of 48, an ALT of 24 and bilirubin of 1.1. White count is 24.5 with a left shift, hemoglobin 14.4, platelet count 290. No INR was done. Urinalysis shows specific gravity greater than 1.03 and very high ketones. Toxicology screen showed positive opiates, positive amphetamine and methamphetamine and no salicylates, Tylenol or ethyl alcohol. DIAGNOSES 1. Methamphetamine intoxication. 2. Metabolic encephalopathy. 3. Rhabdomyolysis from agitation and increased skeletal muscle use 4. Acute kidney injury. 5. Leukocytosis, possibly reactive versus infectious. 6. Ketonuria along with high specific gravity, consistent with marked volume depletion. 7. Right shoulder pain and facial bruises. PLAN 1. Admit the patient to the ICU on telemetry. 2. Continue with sedation orders starting an iv Ativan drip and restraints due to violent behavior, for safety to himself and others. 3. Begin IV hydration for management of the rhabdomyolysis. 4. If he is awake enough to eat, a clear liquid diet will be ordered, this could be advanced as he is more awake. 5. Follow his LFTs, renal function and CK daily. 6. Send cultures of blood and urine because of the high white count, but no empiric antibiotics will be started unless there is a source. 7. X-ray of the right shoulder for dislocation or other abnormality. 8. Imaging of the skull, facial bones and brain will be done when he is sedated, if not yet done in the ER. 8. Social work consult will be requested once he is medically cleared. DEEP VENOUS THROMBOSIS PROPHYLAXIS: SCDs. CODE STATUS: FULL CODE. ATTESTATION: The patient is expected to be discharged or transferred to another facility within 96 hours: Yes. TD: 11/16/2018 19:09 [email or web address]
[2018-11-16] MEDS: DEXTROSE 5%-0.9% NACL 1,000 ML IV SCH (20:23)
[2018-11-16] MEDS: SODIUM CHLORIDE FLUSH 0.9% 10 ML SYRINGE IVP SCH (20:33)
[2018-11-16] MEDS: FAMOTIDINE 20 MG/50 ML 50 ML IV SCH (20:53)
[2018-11-17] MEDS: SODIUM CHLORIDE FLUSH 0.9% 10 ML SYRINGE IVP SCH ×3 (01:25→18:34)
[2018-11-17] MEDS: DEXTROSE 5%-0.9% NACL 1,000 ML IV SCH ×4 (04:35→19:50)
[2018-11-17 05:31] LABS: BASOPHILS % (AUTO) 0.2 %; EOSINOPHILS # (AUTO) 0.1 10^3/uL (0.0-0.7); EOSINOPHILS % (AUTO) 0.9 %; HGB - HEMOGLOBIN 13.8 g/dL (14.0-18.0); LYMPHOCYTES # (AUTO) 1.2 10^3/uL (1.5-3.5); LYMPHOCYTES % (AUTO) 16.5 %; MEAN CORPUSCULAR HEMOGLOBIN 30.4 pg (27.0-31.0); MEAN CORPUSCULAR HGB CONC 33.4 g/dL (32.0-36.0); MONOCYTES # (AUTO) 0.8 10^3/uL (0.0-1.0); MONOCYTES % (AUTO) 10.5 %; NEUTROPHILS # (AUTO) 5.3 10^3/uL (1.5-6.6); NEUTROPHILS % (AUTO) 71.9 %; PLT - PLATELET COUNT 159 10^3/uL (130-450); RED BLOOD COUNT 4.53 10^6/uL (4.70-6.10); RED CELL DISTRIBUTION WIDTH 12.9 % (12.0-15.0); WHITE BLOOD COUNT 7.4 x10^3/uL (4.8-10.8)
[2018-11-17 05:42] LABS: ALBUMIN 3.8 g/dL (3.2-5.5); ALBUMIN/GLOBULIN RATIO 1.4 (1.0-2.2); BILIRUBIN,TOTAL 0.8 mg/dL (0.2-1.0); CREATININE 0.5 mg/dL (0.6-1.2); TOTAL PROTEIN 6.5 g/dL (6.7-8.2)
[2018-11-17] MEDS ORDERED: POTASSIUM CHLORIDE 20 MEQ TABLET PO ONE (07:00)
[2018-11-17] MEDS: FAMOTIDINE 20 MG/50 ML 50 ML IV SCH ×2 (09:31→20:57)
[2018-11-17] MEDS: ENOXAPARIN 40 MG/0.4 ML SYRINGE SUBQ SCH (09:32)
[2018-11-17] MEDS: POTASSIUM CHLOR 10 MEQ/100 ML 10 MEQ/100 ML BAG IV SCH ×4 (10:06→13:11)
--- NOTE | 2018-11-17 19:05 | PROVIDER PROGRESS NOTE ---
Subjective - Prog Note Date Prog Note Date: 11/17/18 Prog Note Time: 19:02 - Subjective Subjective: He is off the Ativan drip. Still quite sleepy. In the course of the day he will open his eyes to voice. But not following commands. Starting to request food and water. Current Medications - Current Medications Current Medications: Active Medications Enoxaparin Sodium (Lovenox) 40 mg SUBQ DAILY [facility] Last Admin: 11/17/18 09:32 Dose: 40 mg Famotidine (Pepcid 20 Mg/50 Ml) 50 mls @ 100 mls/hr IV BID [facility] Last Infusion: 11/17/18 10:09 Dose: Infused Lorazepam (Ativan) 100 mls @ 0.635 mls/hr IV .Q72H [facility]; Protocol Last Titration: 11/17/18 10:30 Dose: 0 mg/kg/hr, 0 mls/hr Dextrose/Sodium Chloride (D5ns) 1,000 mls @ 150 mls/hr IV .Q6H40M [facility] Last Admin: 11/17/18 13:10 Dose: 150 mls/hr Prochlorperazine Edisylate (Compazine Inj) 10 mg IVP Q6HR PRN PRN Reason: Nausea / Vomiting Sodium Chloride (Normal Saline Flush 0.9%) 10 ml IVP 0100,0900,1700 [facility] Last Admin: 11/17/18 18:34 Dose: Not Given Sodium Chloride (Normal Saline Flush 0.9%) 10 ml IVP PRN PRN PRN Reason: NEEDED PER PROVIDER ORDERS Sertraline HCl 100 mg PO DAILY 10/04/18 Gabapentin [Neurontin] 300 mg PO BID 11/16/18 Objective - Vital Signs/Intake & Output Reviewed Vital Signs: Yes Vital Signs: Vital Signs x48h Temp Pulse Resp BP Pulse Ox 11/17/18 19:00 100 15 140/79 H 99 11/17/18 17:44 37.3 C 122/82 H 11/17/18 17:00 99 22 140/100 H 100 11/17/18 15:00 105 H 25 H 134/87 H 98 11/17/18 13:00 104 H 21 130/92 H 99 Intake & Output: Intake & Output 11/14/18 11/15/18 11/16/18 11/17/18 23:59 23:59 23:59 23:59 Intake Total 4976.023 1458.969 Output Total 4728 3727 Balance 3101.023 -326.031 - Objective General Appearance: positive: Lethargic Eyes Bilateral: positive: PERRL, EOMI ENT: positive: Dry mucous membranes, Other (poor dentition, racoon eyes, abrasions and bruises on his body) Neck: positive: No JVD, Lymphadenopathy (R), Lymphadenopathy (L). negative: Sti ff neck, Carotid bruit Respiratory: positive: Chest non-tender, No respiratory distress. negative: Wheezes, Rales, Rhonchi Cardiovascular: positive: Regular rate & rhythm. negative: JVD present, Gallop/S4, Friction rub Abdomen: positive: Non-tender, No organomegaly, Nml bowel sounds, No distention. negative: Guarding, Rebound Skin: positive: Warm, Dry Extremities: positive: No pedal edema, Joint swelling (right shoulder from where his arm was up in restraints for hours before admit to ICU, film neg.) Neurologic/Psychiatric: positive: CN's nml (2-12), Motor nml (4 point restraints), Other (sleeping, responds to pain, wakes, looks but nonverbal.) - Lab Results Fish Bones: 11/18/18 04:25 11/18/18 04:25 Other Labs: Lab Results x24hrs 11/17/18 11/17/18 11/17/18 Range/Units 05:02 05:02 05:02 WBC 7.4 (4.8-10.8) x10^3/uL RBC 4.53 L (4.70-6.10) 10^6/uL Hgb 13.8 L (14.0-18.0) g/dL Hct 41.2 L (42.0-52.0) % MCV 91.0 (80.0-94.0) fL MCH 30.4 (27.0-31.0) pg MCHC 33.4 (32.0-36.0) g/dL RDW 12.9 (12.0-15.0) % Plt Count 159 (130-450) 10^3/uL MPV 9.0 (7.4-11.4) fL Neut # (Auto) 5.3 (1.5-6.6) 10^3/uL Lymph # (Auto) 1.2 L (1.5-3.5) 10^3/uL [place] # (Auto) 0.8 (0.0-1.0) 10^3/uL Eos # (Auto) 0.1 (0.0-0.7) 10^3/uL Baso # (Auto) 0.0 (0.0-0.1) 10^3/uL Absolute Nucleated RBC 0.00 x10^3/uL Nucleated RBC % 0.0 /100WBC Sodium 132 L (135-145) mmol/L Potassium 3.4 L (3.5-5.0) mmol/L Chloride 102 (101-111) mmol/L Carbon Dioxide 20 L (21-32) mmol/L Anion Gap 10.0 (6-13) BUN 9 (6-20) mg/dL Creatinine 0.5 L (0.6-1.2) mg/dL Estimated GFR (MDRD) 208 (>89) Glucose 103 H (70-100) mg/dL Calcium 8.0 L (8.5-10.3) mg/dL Total Bilirubin 0.8 (0.2-1.0) mg/dL AST 155 H (10-42) IU/L ALT 51 (10-60) IU/L Alkaline Phosphatase 58 (42-121) IU/L Total Creatine Kinase 8271 H* (22-269) IU/L Total Protein 6.5 L (6.7-8.2) g/dL Albumin 3.8 (3.2-5.5) g/dL Globulin 2.7 (2.1-4.2) g/dL Albumin/Globulin Ratio 1.4 (1.0-2.2) Urine Color Urine Clarity (CLEAR) Urine pH (5.0-7.5) PH Ur Specific [place] (1.002-1.030) Urine Protein (NEGATIVE) mg/dL Urine Glucose (UA) (NEGATIVE) mg/dL Urine Ketones (NEGATIVE) mg/dL Urine Occult Blood (NEGATIVE) Urine Nitrite (NEGATIVE) Urine Bilirubin (NEGATIVE) Urine Urobilinogen (NORMAL) E.U./dL Ur Leukocyte Esterase (NEGATIVE) Urine RBC (0-5) /HPF Urine WBC (0-3) /HPF Ur Squamous Epith Cells (<= Few) Urine Bacteria (None Seen) /HPF Urine Yeast Urine Culture Comments MRSA Surveill Initial (NEGATIVE) 11/16/18 11/16/18 Range/Units 19:45 18:32 WBC (4.8-10.8) x10^3/uL RBC (4.70-6.10) 10^6/uL Hgb (14.0-18.0) g/dL Hct (42.0-52.0) % MCV (80.0-94.0) fL MCH (27.0-31.0) pg MCHC (32.0-36.0) g/dL RDW (12.0-15.0) % Plt Count (130-450) 10^3/uL MPV (7.4-11.4) fL Neut # (Auto) (1.5-6.6) 10^3/uL Lymph # (Auto) (1.5-3.5) 10^3/uL [place] # (Auto) (0.0-1.0) 10^3/uL Eos # (Auto) (0.0-0.7) 10^3/uL Baso # (Auto) (0.0-0.1) 10^3/uL Absolute Nucleated RBC x10^3/uL Nucleated RBC % /100WBC Sodium (135-145) mmol/L Potassium (3.5-5.0) mmol/L Chloride (101-111) mmol/L Carbon Dioxide (21-32) mmol/L Anion Gap (6-13) BUN (6-20) mg/dL Creatinine (0.6-1.2) mg/dL Estimated GFR (MDRD) (>89) Glucose (70-100) mg/dL Calcium (8.5-10.3) mg/dL Total Bilirubin (0.2-1.0) mg/dL AST (10-42) IU/L ALT (10-60) IU/L Alkaline Phosphatase (42-121) IU/L Total Creatine Kinase (22-269) IU/L Total Protein (6.7-8.2) g/dL Albumin (3.2-5.5) g/dL Globulin (2.1-4.2) g/dL Albumin/Globulin Ratio (1.0-2.2) Urine Color YELLOW Urine Clarity CLEAR (CLEAR) Urine pH 5.5 (5.0-7.5) PH Ur Specific [place] >=1.030 H (1.002-1.030) Urine Protein TRACE (NEGATIVE) mg/dL Urine Glucose (UA) NEGATIVE (NEGATIVE) mg/dL Urine Ketones >=80 H (NEGATIVE) mg/dL Urine Occult Blood LARGE H (NEGATIVE) Urine Nitrite NEGATIVE (NEGATIVE) Urine Bilirubin NEGATIVE (NEGATIVE) Urine Urobilinogen 0.2 (NORMAL) (NORMAL) E.U./dL Ur Leukocyte Esterase TRACE H (NEGATIVE) Urine RBC 11-25 H (0-5) /HPF Urine WBC 6-10 H (0-3) /HPF Ur Squamous Epith Cells RARE Squamous (<= Few) Urine Bacteria Few (None Seen) /HPF Urine Yeast PRESENT Urine Culture Comments INDICATED MRSA Surveill Initial NEGATIVE (NEGATIVE) ABX Reporting Has patient been on IV antibiotics over the past 48 hours?: No Assessment/Plan - Problem List (1) Methamphetamine abuse Impression: Resulting in overdose, altered mental status, and admission to the hospital. Plan: Continue to monitor vital signs. Continue to monitor complications of dehydration and rhabdomyolysis. He seems to be slowly waking up. Keep off Ativan drip and use Ativan as needed. (2) Acute confusional state Impression: Now seems to more be sleeping than anything else. Acute psychosis seems to have resolved. (3) Rhabdomyolysis Impression: Continue to monitor. His CPK is gradually being reduced with continued IV fluid therapy. Recheck in a.m. Qualifiers: Qualified Code(s): M62.82 - Rhabdomyolysis (4) ARF (acute renal failure) Impression: BUN was 26 on admission. It is 9 today. Creatinine was 1.2 on admission and is now 0.5 today. As such acute kidney injury from rhabdomyolysis has resolved. Qualifiers: Qualified Code(s): N17.9 - Acute kidney failure, unspecified (5) Effusion of right shoulder Impression: Orthopedic consult ordered. Plain film already done and is negative. Orthoses him in the morning.
[2018-11-18] MEDS: DEXTROSE 5%-0.9% NACL 1,000 ML IV SCH ×4 (02:49→23:31)
[2018-11-18 04:57] LABS: BASOPHILS % (AUTO) 0.3 %; EOSINOPHILS # (AUTO) 0.1 10^3/uL (0.0-0.7); EOSINOPHILS % (AUTO) 1.1 %; HGB - HEMOGLOBIN 13.3 g/dL (14.0-18.0); LYMPHOCYTES # (AUTO) 1.3 10^3/uL (1.5-3.5); LYMPHOCYTES % (AUTO) 21.5 %; MEAN CORPUSCULAR HEMOGLOBIN 30.5 pg (27.0-31.0); MEAN CORPUSCULAR HGB CONC 33.6 g/dL (32.0-36.0); MEAN CORPUSCULAR VOLUME 90.7 fL (80.0-94.0); MEAN PLATELET VOLUME 8.9 fL (7.4-11.4); MONOCYTES # (AUTO) 0.7 10^3/uL (0.0-1.0); MONOCYTES % (AUTO) 11.9 %; NEUTROPHILS % (AUTO) 65.2 %; PLT - PLATELET COUNT 159 10^3/uL (130-450); RED BLOOD COUNT 4.36 10^6/uL (4.70-6.10); RED CELL DISTRIBUTION WIDTH 12.9 % (12.0-15.0); WHITE BLOOD COUNT 6.1 x10^3/uL (4.8-10.8)
[2018-11-18 05:10] LABS: ALBUMIN 3.3 g/dL (3.2-5.5); ALBUMIN/GLOBULIN RATIO 1.2 (1.0-2.2); BILIRUBIN,TOTAL 0.9 mg/dL (0.2-1.0); CALCIUM 8.4 mg/dL (8.5-10.3); CREATININE 0.5 mg/dL (0.6-1.2); TOTAL PROTEIN 6.1 g/dL (6.7-8.2)
[2018-11-18] MEDS: SODIUM CHLORIDE FLUSH 0.9% 10 ML SYRINGE IVP SCH ×3 (05:27→16:52)
[2018-11-18] MEDS ORDERED: POTASSIUM CHLORIDE 20 MEQ TABLET PO ONE (05:29)
[2018-11-18] MEDS: FAMOTIDINE 20 MG/50 ML 50 ML IV SCH (08:27)
--- NOTE | 2018-11-18 09:56 | PROVIDER PROGRESS NOTE ---
Subjective - Prog Note Date Prog Note Date: 11/18/18 Prog Note Time: 09:52 - Subjective Pt reports feeling: No change (Two days history of painful bilateral shoulder active motion following ?10 hours in upper extremity restraints in ED [facility] ryan being evaluated for drug overdose. Denies prior shoulder problems. Moves with a moving company. No distal weakness/nuimbness. While in restraints, right shoulder positioned abducted and wrist placed overhead under the stretcher matress. Left shoulder in restraints at his side. Apparently struggling against restraints for hours. No distal weakness or numbness. No prior shoulder problems. Right shoulder XR negative for fx/dislocation) Objective - Vital Signs/Intake & Output Vital Signs: Vital Signs x48h Temp Pulse Resp BP Pulse Ox 11/18/18 09:00 37.3 C 86 18 100 11/18/18 07:00 36.9 C 104 H 23 137/90 H 100 11/18/18 06:00 87 18 135/89 H 100 11/18/18 05:00 91 15 133/81 H 100 11/18/18 04:12 36.8 C 95 12 140/87 H 100 11/18/18 03:00 97 23 123/76 98 11/18/18 02:00 93 19 120/80 99 Intake & Output: Intake & Output 11/15/18 11/16/18 11/17/18 11/18/18 23:59 23:59 23:59 23:59 Intake Total 4976.023 3758.969 1450 Output Total 1875 2520 970 Balance 3101.023 1238.969 480 - Lab Results Fish Bones: 11/18/18 04:25 11/18/18 04:25 Other Labs: Lab Results x24hrs 11/18/18 11/18/18 11/18/18 Range/Units 04:25 04:25 04:25 WBC 6.1 (4.8-10.8) x10^3/uL RBC 4.36 L (4.70-6.10) 10^6/uL Hgb 13.3 L (14.0-18.0) g/dL Hct 39.6 L (42.0-52.0) % MCV 90.7 (80.0-94.0) fL MCH 30.5 (27.0-31.0) pg MCHC 33.6 (32.0-36.0) g/dL RDW 12.9 (12.0-15.0) % Plt Count 159 (130-450) 10^3/uL MPV 8.9 (7.4-11.4) fL Neut # (Auto) 4.0 (1.5-6.6) 10^3/uL Lymph # (Auto) 1.3 L (1.5-3.5) 10^3/uL [place] # (Auto) 0.7 (0.0-1.0) 10^3/uL Eos # (Auto) 0.1 (0.0-0.7) 10^3/uL Baso # (Auto) 0.0 (0.0-0.1) 10^3/uL Absolute Nucleated RBC 0.00 x10^3/uL Nucleated RBC % 0.0 /100WBC Sodium 141 (135-145) mmol/L Potassium 3.5 (3.5-5.0) mmol/L Chloride 110 (101-111) mmol/L Carbon Dioxide 22 (21-32) mmol/L Anion Gap 9.0 (6-13) BUN 6 (6-20) mg/dL Creatinine 0.5 L (0.6-1.2) mg/dL Estimated GFR (MDRD) 208 (>89) Glucose 126 H (70-100) mg/dL Calcium 8.4 L (8.5-10.3) mg/dL Total Bilirubin 0.9 (0.2-1.0) mg/dL AST 95 H (10-42) IU/L ALT 46 (10-60) IU/L Alkaline Phosphatase 53 (42-121) IU/L Total Creatine Kinase 4953 H* (22-269) IU/L Total Protein 6.1 L (6.7-8.2) g/dL Albumin 3.3 (3.2-5.5) g/dL Globulin 2.8 (2.1-4.2) g/dL Albumin/Globulin Ratio 1.2 (1.0-2.2) 11/17/18 Range/Units 05:02 WBC (4.8-10.8) x10^3/uL RBC (4.70-6.10) 10^6/uL Hgb (14.0-18.0) g/dL Hct (42.0-52.0) % MCV (80.0-94.0) fL MCH (27.0-31.0) pg MCHC (32.0-36.0) g/dL RDW (12.0-15.0) % Plt Count (130-450) 10^3/uL MPV (7.4-11.4) fL Neut # (Auto) (1.5-6.6) 10^3/uL Lymph # (Auto) (1.5-3.5) 10^3/uL [place] # (Auto) (0.0-1.0) 10^3/uL Eos # (Auto) (0.0-0.7) 10^3/uL Baso # (Auto) (0.0-0.1) 10^3/uL Absolute Nucleated RBC x10^3/uL Nucleated RBC % /100WBC Sodium (135-145) mmol/L Potassium (3.5-5.0) mmol/L Chloride (101-111) mmol/L Carbon Dioxide (21-32) mmol/L Anion Gap (6-13) BUN (6-20) mg/dL Creatinine (0.6-1.2) mg/dL Estimated GFR (MDRD) (>89) Glucose (70-100) mg/dL Calcium (8.5-10.3) mg/dL Total Bilirubin (0.2-1.0) mg/dL AST (10-42) IU/L ALT (10-60) IU/L Alkaline Phosphatase (42-121) IU/L Total Creatine Kinase 8271 H* (22-269) IU/L Total Protein (6.7-8.2) g/dL Albumin (3.2-5.5) g/dL Globulin (2.1-4.2) g/dL Albumin/Globulin Ratio (1.0-2.2) - Diagnostic Imaging Diagnostic Imaging Comments: XR of right shoulder show no fracture/dislocation - Other Results/Comments Other Results/Comments: Exam: No focal tenderness about either shoulder. Mild left shoulder swelling. No redness seen. Right shoulder; Painful AROM and PROM in all directions. 4/5 resisted ER/IR/abduction. Sensation intact throughout. N/V ok distally Left shoulder: Less painful AROM and PROM of shoulder in all directions. 5/5 resisted ER/IR/abduction. Sensation intact throughout. N/V ok distally Assessment/Plan - Problem List (1) Acute pain of both shoulders Impression: Right worse than left shoulder pain following resisted upper extremity restraints while being evaluation for drug overdose in ED PLAN: XR of left shoulder and MRI scan of left shoulder to further evaluation bilateral shoulders.
[2018-11-18] MEDS: ENOXAPARIN 40 MG/0.4 ML SYRINGE SUBQ SCH (10:37)
--- NOTE | 2018-11-18 11:03 | CONSULTATION NOTE ---
DATE OF SERVICE: 11/18/2018 Physician: Camilo Azevedo MD REFERRING PHYSICIAN: Dr. Yessica Dorsey of the Hospitalist service. CHIEF COMPLAINT: "Both my shoulders hurt." HISTORY OF PRESENT ILLNESS: Patient is a 23-year-old male, left-hand dominant, patient who was recently admitted to the hospital with bilateral painful shoulders. Patient was evaluated appro ximately 36 hours ago in the emergency room here at [facility] for an apparent drug ove rdose. Because of his agitation, he was placed in the bilateral upper extremity restraints. The rig ht shoulder was positioned in an abducted position with his wrist restraint behind his head, undernea th the mattress of the stretcher. His left upper extremity was restrained with his wrist down by his side. Patient apparently resisted the restraints for many hours. He was subsequently admitted to [facility] for further management of his medical problems. While in-house, he was complaining primarily of the right greater than left bilateral shoulder pain, particularly with motion. This apparently was a new finding. No distal weakness or numbness was not ed in the upper extremities. No other musculoskeletal complaints. X-rays taken of the right shoulde r showed no acute fractures or dislocations noted. The patient, however, was still having some probl ems, and we were requested to proceed with an orthopedic evaluation of his upper extremities. PHYSICAL EXAMINATION: Bilateral shoulders showed no focal tenderness on palpation around the shoulde r. No erythema or warmth noted. The right side was minimally swollen compared to the left side. Left shoulder: Patient had painful range of motion actively and passively in all directions on our e xam today. Patient had 4.5/5 strength on resisted external rotation, internal rotation, and abductio n strength of his shoulder. Patient is able to move his fingers and his thumb well. Sensation appea red to be intact throughout the upper extremity. 2+ radial pulses noted. Left shoulder exam today showed better range of motion both passively and actively, though still some what painful in all directions. Patient had 5/5 resisted external rotation, internal rotation, and a bduction strength of his shoulder today. Sensation intact throughout the upper extremity. 2+ radial pulses noted. IMAGING: X-rays that were taken of the right shoulder reviewed and showed no apparent fractures or d islocations noted. ASSESSMENT: Bilateral painful shoulders, right worse than left, in this left-hand dominant individua l. Pain was noted after resisted restraints to both upper extremities while in the emergency room fo r an evaluation and treatment of his apparent drug overdose. PLAN 1. We will get a baseline x-ray of his right shoulder as well. 2. Because of his asymmetrical weakness of the right shoulder as well as his painful motion, we will obtain an MRI scan of his right shoulder to rule out a rotator cuff tear. TD: 11/18/2018 10:21
--- NOTE | 2018-11-18 11:06 | XRAY Report ---
Reason: Painful right shoulder Procedure Date: 11/18/2018 Accession Number: [id number] / [id number] Procedure: XR - Shoulder 3 View LT CPT Code: FULL RESULT: EXAM: LEFT SHOULDER RADIOGRAPHY EXAM DATE: 11/18/2018 10:35 AM. CLINICAL HISTORY: Painful right shoulder. COMPARISON: Right shoulder 2 views 11/16/2018 6:46 PM. TECHNIQUE: 3 views. FINDINGS: Bones: Normal. No fracture or bone lesion. Joints: The glenohumeral and acromioclavicular joints are normal. Soft tissues: The visualized hemithorax is unremarkable. No soft tissue swelling. IMPRESSION: Normal shoulder radiography. [facility]
[2018-11-18] MEDS: NICOTINE 14 MG PATCH TOP SCH (11:35)
--- NOTE | 2018-11-18 15:07 | MRI Report ---
Reason: Painful, weak shoulder; Hx of resisted restraint Procedure Date: 11/18/2018 Accession Number: [id number] / [id number] Procedure: MRI - Shoulder RT W/O CPT Code: FULL RESULT: EXAM: RIGHT SHOULDER MRI WITHOUT CONTRAST EXAM DATE: 11/18/2018 02:48 PM. CLINICAL HISTORY: Right shoulder pain and weakness. COMPARISON: SHOULDER 2 VIEW RT 11/16/2018 6:46 PM. TECHNIQUE: Multiplanar, multisequence T1-weighted and fluid-sensitive sequences of the shoulder without contrast. Other: None. FINDINGS: Some of the images are degraded due to patient-related motion artifact. Acromioclavicular Region: The acromion is type II. The acromioclavicular joint is unremarkable. The coracoacromial and coracoclavicular ligaments are intact. Small amount of fluid at the subacromial subdeltoid bursa. Glenohumeral Region: No subluxation. Small to moderate sized joint effusion. No loose bodies. The articular cartilage is unremarkable. The glenohumeral ligaments and joint capsule are unremarkable. Bone Marrow: No fracture, marrow edema or bone lesions. Labrum: The labrum is unremarkable on this nonarthrographic study. Musculature/Rotator Cuff: The subscapularis, supraspinatus, infraspinatus, and teres minor tendons are intact. Trace amount of free fluid or edema around the supraspinatus muscle. Mild edema within the infraspinatus muscle. Small amount of free fluid or edema between the infraspinatus, teres minor, deltoid muscles. Extensive amount of edema and enlargement of the visualized subscapularis muscle. Edema and mild enlargement of the teres major muscle. Edema and enlargement of the visualized proximal aspect of the coracobrachialis muscle. Focal T2 hyperintense signal at the visualized posterior aspect of the pectoralis major muscle. Biceps Tendon: The long head of the biceps tendon and biceps jennifer are intact. Other: The subcutaneous tissues are unremarkable. IMPRESSION: 1. Abnormal findings within the muscles at the right shoulder and upper chest which include the infraspinatus, subscapularis, teres major, pectoralis, and coracobrachialis muscles. Note, not all of the muscles at the right upper chest and upper arm are in the field of view. Differential may include inflammatory myositis, pyomyositis, rhabdomyolysis, contusion, strain. Clinical correlation is requested. If there is clinical concern for infection, then a follow-up MRI of the chest without and with intravenous contrast. 2. Small amount of fluid at the subacromial subdeltoid bursa. 3. Small to moderate sized glenohumeral joint effusion which may be inflammatory or posttraumatic. Septic arthritis cannot be excluded. 4. No definite evidence of osteomyelitis. 5. No rotator cuff tear. [facility] MUSCULOSKELETAL RADIOLOGY SECTION
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
[2018-11-18] MEDS: KETOROLAC 30 MG/ML VIAL IVP PRN (19:40)
[2018-11-18] MEDS: ACETAMINOPHEN 325 MG TABLET PO PRN (19:40)
[2018-11-19] MEDS: SODIUM CHLORIDE FLUSH 0.9% 10 ML SYRINGE IVP SCH ×3 (03:30→17:36)
[2018-11-19] MEDS: DEXTROSE 5%-0.9% NACL 1,000 ML IV SCH ×3 (06:00→21:31)
[2018-11-19 06:10] LABS: ALBUMIN 3.2 g/dL (3.2-5.5); ALBUMIN/GLOBULIN RATIO 1.1 (1.0-2.2); BILIRUBIN,TOTAL 0.5 mg/dL (0.2-1.0); CALCIUM 8.5 mg/dL (8.5-10.3); CREATININE 0.5 mg/dL (0.6-1.2); TOTAL PROTEIN 6.1 g/dL (6.7-8.2)
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
[2018-11-19] MEDS: NICOTINE 14 MG PATCH TOP SCH (08:03)
--- NOTE | 2018-11-19 11:03 | PROVIDER PROGRESS NOTE ---
Subjective - Prog Note Date Prog Note Date: 11/19/18 Prog Note Time: 11:01 - Subjective Pt reports feeling: Improved (Less pain. Better shoulder function bilaterally) Objective - Vital Signs/Intake & Output Vital Signs: Vital Signs x48h Temp Pulse Resp BP Pulse Ox 11/19/18 08:05 36.7 C 84 20 128/75 98 11/19/18 05:00 36.7 C 89 18 124/69 97 Intake & Output: Intake & Output 11/16/18 11/17/18 11/18/18 11/19/18 23:59 23:59 23:59 23:59 Intake Total 4976.023 3758.969 5242.5 1562.5 Output Total 1875 2520 4245 Balance 3101.023 1238.969 997.5 1562.5 - Lab Results Fish Bones: 11/18/18 04:25 11/19/18 05:20 Other Labs: Lab Results x24hrs 11/19/18 11/19/18 Range/Units 05:20 05:20 Sodium 139 (135-145) mmol/L Potassium 3.7 (3.5-5.0) mmol/L Chloride 108 (101-111) mmol/L Carbon Dioxide 23 (21-32) mmol/L Anion Gap 8.0 (6-13) BUN 11 (6-20) mg/dL Creatinine 0.5 L (0.6-1.2) mg/dL Estimated GFR (MDRD) 208 (>89) Glucose 126 H (70-100) mg/dL Calcium 8.5 (8.5-10.3) mg/dL Total Bilirubin 0.5 (0.2-1.0) mg/dL AST 84 H (10-42) IU/L ALT 48 (10-60) IU/L Alkaline Phosphatase 46 (42-121) IU/L Total Creatine Kinase 4092 H* (22-269) IU/L Total Protein 6.1 L (6.7-8.2) g/dL Albumin 3.2 (3.2-5.5) g/dL Globulin 2.9 (2.1-4.2) g/dL Albumin/Globulin Ratio 1.1 (1.0-2.2) - Diagnostic Imaging Diagnostic Imaging Comments: MRI scan of right shoulder: showed primarily subscapularis muscle strain; no cuff tear seen - Other Results/Comments Other Results/Comments: EXAM: Better AROM of shoulders; N/V ok distally Assessment/Plan - Problem List (1) Acute pain of both shoulders Impression: Improved clinically. No cuff tear clinically or per MRI scan PLAN: Activities as tolerated. Follow up as needed.
[2018-11-19] MEDS: ACETAMINOPHEN 325 MG TABLET PO PRN (21:31)
[2018-11-19] MEDS: KETOROLAC 30 MG/ML VIAL IVP PRN (21:32)
[2018-11-20] MEDS: DEXTROSE 5%-0.9% NACL 1,000 ML IV SCH ×2 (01:02→04:02)
[2018-11-20] MEDS: SODIUM CHLORIDE FLUSH 0.9% 10 ML SYRINGE IVP SCH ×2 (04:03→09:23)
[2018-11-20 08:00] VITALS: BP 128/68
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
[2018-11-20] MEDS: NICOTINE 14 MG PATCH TOP SCH (09:23)
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
== END 2018-11-20 09:56 | disposition home or self-care (01) | DRG 917 ==
LOC: ED 06:48 → EEVIPCON 16:27 → ICU 16:27 → MS3 11-18 17:34
PROVIDERS: ADMIT Internal Medicine; ATTEND Specialist
DX: T43.621A Poisoning by amphetamines, accidental (unintentional), initial encounter (principal); G92 Toxic encephalopathy; N17.9 Acute kidney failure, unspecified; E87.1 Hypo-osmolality and hyponatremia; M62.82 Rhabdomyolysis; Y92.009 Unspecified place in unspecified non-institutional (private) residence as the place of occurrence of the external cause; F15.129 Other stimulant abuse with intoxication, unspecified; R00.0 Tachycardia, unspecified; I10 Essential (primary) hypertension; F11.10 Opioid abuse, uncomplicated; E87.6 Hypokalemia; E86.0 Dehydration; S43.401A Unspecified sprain of right shoulder joint, initial encounter; M25.512 Pain in left shoulder; X50.1XXA Overexertion from prolonged static or awkward postures, initial encounter; Y92.230 Patient room in hospital as the place of occurrence of the external cause; S00.31XA Abrasion of nose, initial encounter; S00.83XA Contusion of other part of head, initial encounter; X58.XXXA Exposure to other specified factors, initial encounter; F90.9 Attention-deficit hyperactivity disorder, unspecified type; F32.9 Major depressive disorder, single episode, unspecified; F41.9 Anxiety disorder, unspecified; F17.210 Nicotine dependence, cigarettes, uncomplicated; Z78.1 Physical restraint status; Z72.89 Other problems related to lifestyle
CPT/HCPCS: 36415; 51702; 80048; 80053; 80306; 80307; 80320; 80329; 81001; 81003; 82550; 83690; 85025; 87040; 87086; 87150; 96361; 96374; 96376; 99284; 99285

== ENCOUNTER 2019-01-20 17:08 | Outpatient (CLI) | payer MEDICAID ==
--- NOTE | 2019-01-21 14:33 | MRI Report ---
Reason: ELBOW PAIN, RIGHT, RHABDOMYOLYSIS, METH ADDICTION Procedure Date: 01/20/2019 Accession Number: [id number] / [id number] Procedure: MRI - Elbow RT W/O CPT Code: FULL RESULT: EXAM: RIGHT ELBOW MRI WITHOUT CONTRAST EXAM DATE: 01/20/2019 06:15 PM. CLINICAL HISTORY: Elbow pain, right, rhabdomyolysis, meth addiction. COMPARISON: None. TECHNIQUE: Multiplanar, multisequence T1-weighted and fluid-sensitive sequences of the elbow without contrast. Other: None. FINDINGS: Evaluation mildly limited by patient motion and artifact despite repeat sequences. Bones: No fracture or bone lesion. Subtle reactive edema of the olecranon, likely degenerative. Articular Cartilage: Deep partial thickness cartilage loss ulnar trochlear joint with minimal osteophytes. Shallow partial thickness cartilage loss radiocapitellar joint. Ligaments: The ulnar collateral, lateral ulnar collateral, radial collateral, and annular ligaments are intact. Tendons: Minimal tendinopathy common flexor and common extensor tendons without discrete tear. The distal biceps, brachialis, and triceps tendons are unremarkable. Musculature: No edema or fatty atrophy. Other: The cubital tunnel and ulnar nerve are unremarkable. Minimal joint effusion. The subcutaneous tissues are unremarkable. IMPRESSION: 1. No evidence of muscle edema to suggest rhabdomyolysis. 2. Minimal common flexor and common extensor tendinopathy. 3. Mild degenerative changes with deep partial thickness cartilage loss and minimal osteophytes ulnar trochlear joint. 4. Minimal joint effusion. RADIA
== END 2019-01-20 17:09 | disposition home or self-care (01) ==
LOC: DI 17:08
PROVIDERS: ATTEND Physician Assistant Medical
DX: M67.921 Unspecified disorder of synovium and tendon, right upper arm (principal); M19.021 Primary osteoarthritis, right elbow; M25.421 Effusion, right elbow

== ENCOUNTER 2019-04-21 04:03 | Outpatient (CLI) | payer MEDICAID | END 2019-04-21 04:04 | disposition EMS.NT | LOC: EMS 04:03 | PROVIDERS: ATTEND Surgery | DX: Z04.1 Encounter for examination and observation following transport accident (principal) ==

== ENCOUNTER 2019-04-22 12:53 | Emergency (ER) | payer MEDICAID, OTHER ==
--- NOTE | 2019-04-22 13:10 | ED Physician Documentation ---
History of Present Illness - Stated complaint Stated Complaint: MHE - History of Present Illness Timing: Prior to arrival - Additonal information Additional information: Patient is a 24-year-old male with history of depression and ADHD with previous psychiatric hospitalization as a child presenting by police with thoughts of suicide. Per patient report, he was texting other people generally stating that he was going to "end it" and please were contacted.Patient does report self harming behavior of cutting previously, but denies recently. Patient denies previous attempts at suicide. Patient does have knives and guns in his home. G un was complicated by police. Patient also admits to regular use of alcohol and other illicit substances including heroin and methamphetamine. Patient does report hallucinations, particularly when using drugs. Patient denies other medical complaints including chest pain, abdominal pain, fever, cough, nausea, vomiting, urinary changes, or stool changes. No other improving or worsening factors noted. Review of Systems Constitutional: denies: Fever Cardiac: denies: Chest pain / pressure Respiratory: denies: Dyspnea, Cough GI: denies: Abdominal Pain, Nausea, Vomiting, Diarrhea : denies: Dysuria Psychiatric: reports: Suicidal, Hallucinations PD PAST MEDICAL HISTORY - Past Medical History Cardiovascular: None Respiratory: None Neuro: None Endocrine/Autoimmune: None GI: GERD : None HEENT: None Psych: Depression, Anxiety, ADD/ADHD, Post traumatic stress disorder, Other Musculoskeletal: Osteoarthritis Derm: None - Past Surgical History Past Surgical History: Yes HEENT: Tonsil/Adenoidectomy - Present Medications Home Medications: Ambulatory Orders Medication Instructions Recorded Confirmed No Known Home Medications 04/22/19 04/22/19 - Allergies Allergies/Adverse Reactions: Allergies Allergy/AdvReac Type Severity Reaction Status Date / Time No Known Drug Allergies Allergy Verified 04/22/19 13:27 - Social History Does the pt smoke?: Yes Smoking Status: Current every day smoker Does the pt drink ETOH?: Yes Does the pt have substance abuse?: Yes - Immunizations Immunizations are current?: Yes - POLST Patient has POLST: No POLST Status: Full Code PD ED PE NORMAL - Vitals Vital signs reviewed: Yes - General General: Alert and oriented X 3, No acute distress, Well developed/nourished - HEENT HEENT: Atraumatic, Moist mucous membranes, Pharynx benign, Dentition benign - Neck Neck: Supple, no meningeal sign - Cardiac Cardiac: RRR, No murmur - Respiratory Respiratory: No respiratory distress, Clear bilaterally - Abdomen Abdomen: Normal bowel sounds, Soft, Non tender, Non distended - Derm Derm: Normal color, Warm and dry, No rash, Other (Multiple healed scars from cutting over all extremities.) - Extremities Extremities: No deformity, No tenderness to palpate - Neuro Neuro: Alert and oriented X 3, No motor deficit, No sensory deficit - Psych Psych: Normal mood, Normal affect (Pleasant, polite) Results - Vitals Vitals: Vital Signs - 24 hr 04/22/19 12:55 Temperature 36.6 C Heart Rate 97 Respiratory 20 Rate Blood Pressure 132/79 H O2 Saturation 99 Oxygen O2 Source Room air - Labs Labs: Laboratory Tests 04/22/19 04/22/19 04/22/19 13:10 13:29 13:29 WBC 7.5 RBC 4.69 L Hgb 14.3 Hct 41.9 L MCV 89.3 MCH 30.5 MCHC 34.1 RDW 12.3 Plt Count 237 MPV 10.4 Neut # (Auto) 4.7 Lymph # (Auto) 1.9 [place] # (Auto) 0.7 Eos # (Auto) 0.1 Baso # (Auto) 0.0 Absolute Nucleated RBC 0.00 Nucleated RBC % 0.0 Sodium 141 Potassium 4.4 Chloride 102 Carbon Dioxide 25 Anion Gap 14.0 H BUN 18 Creatinine 0.8 Estimated GFR (MDRD) 120 Glucose 79 Calcium 9.6 Total Bilirubin 0.6 AST 34 ALT 33 Alkaline Phosphatase 62 Total Protein 7.6 Albumin 4.0 Globulin 3.6 Albumin/Globulin Ratio 1.1 Lipase 38 TSH Urine Color DARK YELLOW Urine Clarity CLEAR Urine pH 6.5 Ur Specific [place] 1.020 Urine Protein NEGATIVE Urine Glucose (UA) NEGATIVE Urine Ketones TRACE Urine Occult Blood NEGATIVE Urine Nitrite NEGATIVE Urine Bilirubin NEGATIVE Urine Urobilinogen 0.2 (NORMAL) Ur Leukocyte Esterase NEGATIVE Ur Microscopic Review NOT INDICATED Urine Culture Comments NOT INDICATED Salicylates < 4.0 Urine Opiates Screen NEGATIVE Ur Oxycodone Screen NEGATIVE Urine Methadone Screen NEGATIVE Ur Propoxyphene Screen NEGATIVE Acetaminophen < 10 L Ur Barbiturates Screen NEGATIVE Ur Tricyclics Screen NEGATIVE Ur Phencyclidine Scrn NEGATIVE Ur Amphetamine Screen POSITIVE H U Methamphetamines Scrn POSITIVE H U Benzodiazepines Scrn NEGATIVE Urine Cocaine Screen NEGATIVE U Cannabinoids Screen POSITIVE H Ethyl Alcohol < 5.0 07/25/19 13:29 WBC RBC Hgb Hct MCV MCH MCHC RDW Plt Count MPV Neut # (Auto) Lymph # (Auto) [place] # (Auto) Eos # (Auto) Baso # (Auto) Absolute Nucleated RBC Nucleated RBC % Sodium Potassium Chloride Carbon Dioxide Anion Gap BUN Creatinine Estimated GFR (MDRD) Glucose Calcium Total Bilirubin AST ALT Alkaline Phosphatase Total Protein Albumin Globulin Albumin/Globulin Ratio Lipase TSH 1.95 Urine Color Urine Clarity Urine pH Ur Specific [place] Urine Protein Urine Glucose (UA) Urine Ketones Urine Occult Blood Urine Nitrite Urine Bilirubin Urine Urobilinogen Ur Leukocyte Esterase Ur Microscopic Review Urine Culture Comments Salicylates Urine Opiates Screen Ur Oxycodone Screen Urine Methadone Screen Ur Propoxyphene Screen Acetaminophen Ur Barbiturates Screen Ur Tricyclics Screen Ur Phencyclidine Scrn Ur Amphetamine Screen U Methamphetamines Scrn U Benzodiazepines Scrn Urine Cocaine Screen U Cannabinoids Screen Ethyl Alcohol PD MEDICAL DECISION MAKING - ED course Complexity details: reviewed results, re-evaluated patient, considered differential, d/w patient ED course: Patient presenting with concern for suicidal ideation. Patient also admits to alcohol and illicit substance use. He does report hallucinations, often times with drug use.Patient denies active self harming behavior. He does not appear to be delusional or hallucinating at this time. No signs of responding to internal stimuli. Patient's weapons have been removed by police. Screening lab work and urinalysis obtained which was relatively unremarkable except for positive drug testing as expected. Social work consulted and determined that patient is safe to discharge with a safety plan and [facility] Patient has additional resources and appointments scheduled for the near future. Patient voiced understanding and is comfortable with this plan. Departure - Departure Disposition: 01 Home, Self Care Clinical Impression: Suicidal ideation Condition: Good Instructions: ED Stress React, ED Depression Follow-Up: Ivan Lozano PA-C [Primary Care Provider] - Tomorrow Comments: Please follow-up as scheduled with the multiple appointments including your primary care physician and other resources. Please avoid alcohol and other illicit substances. Return to ED immediately if experience suicidal thoughts, homicidal thoughts, paranoia, hallucinations, delusions, cutting or other self harming behavior or have other concerns.
[2019-04-22 13:33] LABS: MUDS CUTOFF CONCENTRATIONS CUTOFF CONC BELOW:
[2019-04-22 13:35] LABS: BASOPHILS % (AUTO) 0.3 %; EOSINOPHILS # (AUTO) 0.1 10^3/uL (0.0-0.7); EOSINOPHILS % (AUTO) 1.6 %; HGB - HEMOGLOBIN 14.3 g/dL (14.0-18.0); LYMPHOCYTES # (AUTO) 1.9 10^3/uL (1.5-3.5); LYMPHOCYTES % (AUTO) 25.6 %; MEAN CORPUSCULAR HEMOGLOBIN 30.5 pg (27.0-31.0); MEAN CORPUSCULAR HGB CONC 34.1 g/dL (32.0-36.0); MEAN CORPUSCULAR VOLUME 89.3 fL (80.0-94.0); MEAN PLATELET VOLUME 10.4 fL (7.4-11.4); MONOCYTES # (AUTO) 0.7 10^3/uL (0.0-1.0); MONOCYTES % (AUTO) 9.6 %; NEUTROPHILS # (AUTO) 4.7 10^3/uL (1.5-6.6); NEUTROPHILS % (AUTO) 62.5 %; PLT - PLATELET COUNT 237 10^3/uL (130-450); RED BLOOD COUNT 4.69 10^6/uL (4.70-6.10); RED CELL DISTRIBUTION WIDTH 12.3 % (12.0-15.0); WHITE BLOOD COUNT 7.5 x10^3/uL (4.8-10.8)
[2019-04-22 13:37] LABS: GLUCOSE, URINE (UA) NEGATIVE (NEGATIVE); KETONES,URINE (UA) TRACE mg/dL (NEGATIVE); LEUKOCYTE ESTERASE, URINE NEGATIVE (NEGATIVE); NITRITE,URINE NEGATIVE (NEGATIVE); OCCULT BLOOD,URINE NEGATIVE (NEGATIVE); PH,URINE 6.5 PH (5.0-7.5); PROTEIN,URINE NEGATIVE (NEGATIVE); UROBILINOGEN,URINE 0.2 (NORMAL) E.U./dL (NORMAL)
[2019-04-22 13:42] LABS: BILIRUBIN,URINE NEGATIVE (NEGATIVE); CLARITY,URINE CLEAR (CLEAR); ICTOTEST,URINE NEGATIVE
[2019-04-22 13:46] LABS: METHAMPHETAMINES SCREEN, URINE POSITIVE (NEGATIVE)
[2019-04-22 13:47] LABS: AMPHETAMINE SCREEN,URINE POSITIVE (NEGATIVE); BENZODIAZEPINES SCREEN, URINE NEGATIVE (NEGATIVE); COCAINE SCREEN URINE NEGATIVE (NEGATIVE); METHADONE SCREEN, URINE NEGATIVE (NEGATIVE); OPIATE SCREEN, URINE NEGATIVE (NEGATIVE); OXYCODONE SCREEN, URINE NEGATIVE (NEGATIVE); PROPOXYPHENE SCREEN, URINE NEGATIVE (NEGATIVE); TRICYCLIC ANTIDEPRESSANT,URINE NEGATIVE (NEGATIVE)
[2019-04-22 14:07] LABS: ACETAMINOPHEN < 10 ug/mL (10-30); ALBUMIN/GLOBULIN RATIO 1.1 (1.0-2.2); ALKALINE PHOSPHATASE 62 IU/L (42-121); ALT ALANINE AMINOTRANSFERASE 33 IU/L (10-60); AST ASPARTATE AMINOTRANSFERASE 34 IU/L (10-42); BILIRUBIN,TOTAL 0.6 mg/dL (0.2-1.0); BUN - BLOOD UREA NITROGEN 18 mg/dL (6-20); CALCIUM 9.6 mg/dL (8.5-10.3); CARBON DIOXIDE - CO2 25 mmol/L (21-32); CHLORIDE 102 mmol/L (101-111); CREATININE 0.8 mg/dL (0.6-1.2); GFR - MDRD 120 (>89); GLUCOSE 79 mg/dL (70-100); LIPASE 38 U/L (22-51); SALICYLATE < 4.0 mg/dL; SODIUM 141 mmol/L (135-145); TOTAL PROTEIN 7.6 g/dL (6.7-8.2)
[2019-04-22 17:10] VITALS: BP 110/66
== END 2019-04-22 17:27 | disposition home or self-care (01) ==
LOC: ED 12:53
DX: R45.851 Suicidal ideations (principal); F17.200 Nicotine dependence, unspecified, uncomplicated
CPT/HCPCS: 36415; 80053; 80306; 80307; 80320; 80329; 81001; 81003; 83690; 84443; 85025; 87086; 99284; 99285

== ENCOUNTER 2019-05-13 18:43 | Outpatient (CLI) | payer MEDICAID | END 2019-05-13 18:44 | disposition critical access hospital (66) | LOC: EMS 18:43 | PROVIDERS: ATTEND Surgery | DX: S00.81XA Abrasion of other part of head, initial encounter (principal); S80.212A Abrasion, left knee, initial encounter; S80.211A Abrasion, right knee, initial encounter; S50.311A Abrasion of right elbow, initial encounter; X58.XXXA Exposure to other specified factors, initial encounter; R45.1 Restlessness and agitation; R25.3 Fasciculation | CPT/HCPCS: A0425; A0429; A0999 ==

== ENCOUNTER 2019-05-13 19:00 | Inpatient (IN) | payer MEDICAID ==
[2019-05-13 19:43] LABS: HGB - HEMOGLOBIN 13.9 g/dL (14.0-18.0)
[2019-05-13 19:50] LABS: MUDS CUTOFF CONCENTRATIONS CUTOFF CONC BELOW:
[2019-05-13 19:56] LABS: BASOPHILS % (AUTO) 0.5 %; EOSINOPHILS % (AUTO) 0.5 %; LYMPHOCYTES % (AUTO) 5.4 %; MEAN CORPUSCULAR HGB CONC 34.2 g/dL (32.0-36.0); MEAN CORPUSCULAR VOLUME 87.7 fL (80.0-94.0); MEAN PLATELET VOLUME 10.6 fL (7.4-11.4); NEUTROPHILS % (AUTO) 83.4 %; PLT - PLATELET COUNT 280 10^3/uL (130-450); RED BLOOD COUNT 4.63 10^6/uL (4.70-6.10); RED CELL DISTRIBUTION WIDTH 12.9 % (12.0-15.0); WHITE BLOOD COUNT 30.8 x10^3/uL (4.8-10.8)
[2019-05-13 20:02] LABS: BUN - BLOOD UREA NITROGEN 26 mg/dL (6-20); CALCIUM 9.3 mg/dL (8.5-10.3); CARBON DIOXIDE - CO2 26 mmol/L (21-32); CHLORIDE 108 mmol/L (101-111); CREATININE 1.6 mg/dL (0.6-1.2); GFR - MDRD 54 (>89); GLUCOSE 69 mg/dL (70-100); SODIUM 150 mmol/L (135-145)
[2019-05-13 20:08] LABS: AMPHETAMINE SCREEN,URINE POSITIVE (NEGATIVE); BENZODIAZEPINES SCREEN, URINE NEGATIVE (NEGATIVE); COCAINE SCREEN URINE NEGATIVE (NEGATIVE); METHADONE SCREEN, URINE NEGATIVE (NEGATIVE); METHAMPHETAMINES SCREEN, URINE POSITIVE (NEGATIVE); OPIATE SCREEN, URINE POSITIVE (NEGATIVE); OXYCODONE SCREEN, URINE NEGATIVE (NEGATIVE); PROPOXYPHENE SCREEN, URINE NEGATIVE (NEGATIVE); TRICYCLIC ANTIDEPRESSANT,URINE NEGATIVE (NEGATIVE)
[2019-05-13 20:09] LABS: ABNORMAL LYMPHS % (MANUAL) 0 %
[2019-05-13 20:17] LABS: BAND NEUTROPHILS % (MANUAL) 3 %; LYMPHOCYTES # (MANUAL) 2.2 10^3/uL (1.5-3.5); LYMPHOCYTES % (MANUAL) 7 %; MONOCYTES # (MANUAL) 2.2 10^3/uL (0.0-1.0)
[2019-05-13 20:19] LABS: DIFFERENTIAL COMMENT MANUAL DIFFERENTIAL; PLATELET ESTIMATE, MANUAL NORMAL (130-450,000) (NORMAL); PLATELET MORPHOLOGY NORMAL APPEARANCE (NORMAL); RBC MORPHOLOGY (MULTIPLE) NORMAL APPEARANCE (NORMAL)
--- NOTE | 2019-05-13 20:24 | ED Physician Documentation ---
History of Present Illness - Stated complaint Stated Complaint: FACIAL BRUISES/ABRASIONS, METH AND ABRASIONS - Chief complaint Chief Complaint: General PD PAST MEDICAL HISTORY - Past Medical History Cardiovascular: None Respiratory: None Neuro: None Endocrine/Autoimmune: None GI: GERD : None HEENT: None Psych: Depression, Anxiety, ADD/ADHD, Post traumatic stress disorder, Other Musculoskeletal: Osteoarthritis Derm: None Other Past Medical History: hep c; states was tested negative for aids 5 months ago Apr 2019 - Past Surgical History Past Surgical History: Yes HEENT: Tonsil/Adenoidectomy - Present Medications Home Medications: Ambulatory Orders Medication Instructions Recorded Confirmed No Known Home Medications 04/22/19 04/22/19 - Allergies Allergies/Adverse Reactions: Allergies Allergy/AdvReac Type Severity Reaction Status Date / Time No Known Drug Allergies Allergy Verified 05/13/19 19:07 - Social History Does the pt smoke?: Yes Smoking Status: Current every day smoker Does the pt drink ETOH?: Yes Does the pt have substance abuse?: Yes - Immunizations Immunizations are current?: Yes - POLST Patient has POLST: No POLST Status: Full Code Results - Vitals Vitals: Vital Signs - 24 hr 05/13/19 19:03 Temperature 37.7 C H Heart Rate 134 H Respiratory 18 Rate Blood Pressure 134/89 H O2 Saturation 93 Oxygen O2 Source Room air - Labs Labs: Laboratory Tests 05/13/19 05/13/19 05/13/19 19:20 19:38 19:38 WBC 30.8 H RBC 4.63 L Hgb 13.9 L Hct 40.6 L MCV 87.7 MCH 30.0 MCHC 34.2 RDW 12.9 Plt Count 280 MPV 10.6 Neut # (Auto) Not Reportable Lymph # (Auto) Not Reportable [place] # (Auto) Not Reportable Eos # (Auto) Not Reportable Baso # (Auto) Not Reportable Absolute Nucleated RBC Not Reportable Total Counted 100 Band Neuts % (Manual) 3 Abnorm Lymph % (Manual) 0 Nucleated RBC % Not Reportable Neutrophils # (Manual) 26.5 H Lymphocytes # (Manual) 2.2 Monocytes # (Manual) 2.2 H Eosinophils # (Manual) 0.0 Basophils # (Manual) 0.0 Differential Comment MANUAL DIFFERENTIAL Manual Slide Review Indicated WBC Morphology 2+ TOXIC GRANULATION Platelet Estimate NORMAL (130-450,000) Platelet Morphology NORMAL APPEARANCE RBC Morph Micro Appear NORMAL APPEARANCE Sodium 150 H Potassium 4.5 Chloride 108 Carbon Dioxide 26 Anion Gap 16.0 H BUN 26 H Creatinine 1.6 H Estimated GFR (MDRD) 54 L Glucose 69 L Calcium 9.3 Total Creatine Kinase Urine Opiates Screen POSITIVE H Ur Oxycodone Screen NEGATIVE Urine Methadone Screen NEGATIVE Ur Propoxyphene Screen NEGATIVE Ur Barbiturates Screen NEGATIVE Ur Tricyclics Screen NEGATIVE Ur Phencyclidine Scrn NEGATIVE Ur Amphetamine Screen POSITIVE H U Methamphetamines Scrn POSITIVE H U Benzodiazepines Scrn NEGATIVE Urine Cocaine Screen NEGATIVE U Cannabinoids Screen NEGATIVE Ethyl Alcohol < 5.0 05/13/19 19:38 WBC RBC Hgb Hct MCV MCH MCHC RDW Plt Count MPV Neut # (Auto) Lymph # (Auto) [place] # (Auto) Eos # (Auto) Baso # (Auto) Absolute Nucleated RBC Total Counted Band Neuts % (Manual) Abnorm Lymph % (Manual) Nucleated RBC % Neutrophils # (Manual) Lymphocytes # (Manual) Monocytes # (Manual) Eosinophils # (Manual) Basophils # (Manual) Differential Comment Manual Slide Review WBC Morphology Platelet Estimate Platelet Morphology RBC Morph Micro Appear Sodium Potassium Chloride Carbon Dioxide Anion Gap BUN Creatinine Estimated GFR (MDRD) Glucose Calcium Total Creatine Kinase 2584 H* Urine Opiates Screen Ur Oxycodone Screen Urine Methadone Screen Ur Propoxyphene Screen Ur Barbiturates Screen Ur Tricyclics Screen Ur Phencyclidine Scrn Ur Amphetamine Screen U Methamphetamines Scrn U Benzodiazepines Scrn Urine Cocaine Screen U Cannabinoids Screen Ethyl Alcohol
[2019-05-13] MEDS ORDERED: SODIUM CHLORIDE 0.9% 1,000 ML IV ONE ×2 (20:28)
[2019-05-13] MEDS ORDERED: LORazepam 2 MG/ML VIAL IVP STA ×2 (20:28→20:58)
--- NOTE | 2019-05-13 20:34 | ED Physician Documentation ---
History of Present Illness - Stated complaint Stated Complaint: FACIAL BRUISES/ABRASIONS, METH AND ABRASIONS - Chief complaint Chief Complaint: General - History obtained from History obtained from: Patient - History of Present Illness Timing: Today (24-year-old gentleman with history of significant drug use methamphetamines and heroin presents by ambulance because a bystander saw him acting funny. He complains that he hit his ankle the other day and there is little bit of redness and pain there, he is cooperative but obviously "tweaking.") Review of Systems Ten Systems: 10 systems reviewed and negative Constitutional: denies: Fever, Chills Cardiac: denies: Chest pain / pressure, Palpitations Respiratory: denies: Dyspnea, Cough GI: denies: Abdominal Pain PD PAST MEDICAL HISTORY - Past Medical History Cardiovascular: None Respiratory: None Neuro: None Endocrine/Autoimmune: None GI: GERD : None HEENT: None Psych: Depression, Anxiety, ADD/ADHD, Post traumatic stress disorder, Other Musculoskeletal: Osteoarthritis Derm: None Other Past Medical History: hep c; states was tested negative for aids 5 months ago Apr 2019 - Past Surgical History Past Surgical History: Yes HEENT: Tonsil/Adenoidectomy - Present Medications Home Medications: Ambulatory Orders Medication Instructions Recorded Confirmed No Known Home Medications 04/22/19 04/22/19 - Allergies Allergies/Adverse Reactions: Allergies Allergy/AdvReac Type Severity Reaction Status Date / Time No Known Drug Allergies Allergy Verified 05/13/19 19:07 - Social History Does the pt smoke?: Yes Smoking Status: Current every day smoker Does the pt drink ETOH?: Yes Does the pt have substance abuse?: Yes - Family History Family history: reports: Non contributory - Immunizations Immunizations are current?: Yes - POLST Patient has POLST: No POLST Status: Full Code PD ED PE NORMAL - Vitals Vital signs reviewed: Yes - General General: Alert and oriented X 3, Other (He has significant bruxism, and involuntary movements.) - HEENT HEENT: PERRL, EOMI - Neck Neck: Supple, no meningeal sign - Cardiac Cardiac: Other (Tachycardic without murmur) - Respiratory Respiratory: No respiratory distress, Clear bilaterally - Abdomen Abdomen: Soft, Non tender - Back Back: No CVA TTP, No spinal TTP - Derm Derm: Other (Multiple scrapes, there is a little red area that could be early cellulitis to the medial left ankle. Is only about the size of a quarter. Could be a contusion 2.) - Neuro Neuro: Alert and oriented X 3, Normal speech - Psych Psych: Normal mood, Normal affect Results - Vitals Vitals: Vital Signs - 24 hr 05/13/19 19:03 Temperature 37.7 C H Heart Rate 134 H Respiratory 18 Rate Blood Pressure 134/89 H O2 Saturation 93 Oxygen O2 Source Room air - Labs Labs: Laboratory Tests 05/13/19 05/13/19 05/13/19 19:20 19:38 19:38 WBC 30.8 H RBC 4.63 L Hgb 13.9 L Hct 40.6 L MCV 87.7 MCH 30.0 MCHC 34.2 RDW 12.9 Plt Count 280 MPV 10.6 Neut # (Auto) Not Reportable Lymph # (Auto) Not Reportable [place] # (Auto) Not Reportable Eos # (Auto) Not Reportable Baso # (Auto) Not Reportable Absolute Nucleated RBC Not Reportable Total Counted 100 Band Neuts % (Manual) 3 Abnorm Lymph % (Manual) 0 Nucleated RBC % Not Reportable Neutrophils # (Manual) 26.5 H Lymphocytes # (Manual) 2.2 Monocytes # (Manual) 2.2 H Eosinophils # (Manual) 0.0 Basophils # (Manual) 0.0 Differential Comment MANUAL DIFFERENTIAL Manual Slide Review Indicated WBC Morphology 2+ TOXIC GRANULATION Platelet Estimate NORMAL (130-450,000) Platelet Morphology NORMAL APPEARANCE RBC Morph Micro Appear NORMAL APPEARANCE Sodium 150 H Potassium 4.5 Chloride 108 Carbon Dioxide 26 Anion Gap 16.0 H BUN 26 H Creatinine 1.6 H Estimated GFR (MDRD) 54 L Glucose 69 L Calcium 9.3 Total Creatine Kinase Urine Opiates Screen POSITIVE H Ur Oxycodone Screen NEGATIVE Urine Methadone Screen NEGATIVE Ur Propoxyphene Screen NEGATIVE Ur Barbiturates Screen NEGATIVE Ur Tricyclics Screen NEGATIVE Ur Phencyclidine Scrn NEGATIVE Ur Amphetamine Screen POSITIVE H U Methamphetamines Scrn POSITIVE H U Benzodiazepines Scrn NEGATIVE Urine Cocaine Screen NEGATIVE U Cannabinoids Screen NEGATIVE Ethyl Alcohol < 5.0 05/13/19 19:38 WBC RBC Hgb Hct MCV MCH MCHC RDW Plt Count MPV Neut # (Auto) Lymph # (Auto) [place] # (Auto) Eos # (Auto) Baso # (Auto) Absolute Nucleated RBC Total Counted Band Neuts % (Manual) Abnorm Lymph % (Manual) Nucleated RBC % Neutrophils # (Manual) Lymphocytes # (Manual) Monocytes # (Manual) Eosinophils # (Manual) Basophils # (Manual) Differential Comment Manual Slide Review WBC Morphology Platelet Estimate Platelet Morphology RBC Morph Micro Appear Sodium Potassium Chloride Carbon Dioxide Anion Gap BUN Creatinine Estimated GFR (MDRD) Glucose Calcium Total Creatine Kinase 2584 H* Urine Opiates Screen Ur Oxycodone Screen Urine Methadone Screen Ur Propoxyphene Screen Ur Barbiturates Screen Ur Tricyclics Screen Ur Phencyclidine Scrn Ur Amphetamine Screen U Methamphetamines Scrn U Benzodiazepines Scrn Urine Cocaine Screen U Cannabinoids Screen Ethyl Alcohol PD MEDICAL DECISION MAKING - ED course ED course: 24-year-old gentleman with drug-induced involuntary movements and bruxism causing modest rhabdomyolysis. This is not a new phenomenon. This will be his third admit for same this year. Note made on those other 2 visits he had similarly elevated white counts, Neither of those times to the end up having a significant infection and at 1 of those admissions he had negative blood cultures. Spoke with Dr. Hernández for admission at 8:40 PM. He required significant and repeated dosing of benzodiazepines to calm down his involuntary movements. He was started on large volume IV fluids for the rhabdomyolysis. - Critical Care Time(min): 35 Time Includes: Direct patient care, Review records, Reassess patient, Document care, Coordinate care, Medical consult Data interpretation: Labs Departure - Departure Disposition: 66 [facility] DC/Xfer Clinical Impression: Methamphetamine abuse Rhabdomyolysis Qualifiers: Rhabdomyolysis type: non-traumatic Qualified Code(s): M62.82 - Rhabdomyolysis Condition: Stable Discharge Date/Time: 05/13/19 21:54
[2019-05-13] MEDS ORDERED: NICOTINE 21 MG PATCH TOP STA (20:36)
[2019-05-13] MEDS ORDERED: SODIUM CHLORIDE FLUSH 0.9% 10 ML SYRINGE IVP PRN (20:37)
[2019-05-13] MEDS ORDERED: ONDANSETRON ODT 4 MG TABLET TL PRN (20:37)
[2019-05-13] MEDS ORDERED: SODIUM CHLORIDE 0.9% 1,000 ML IV SCH (21:00)
--- NOTE | 2019-05-13 21:16 | HISTORY & PHYSICAL EXAMINATION ---
Chief Complaint - Chief Complaint Chief Complaint: intoxication/agitation History of Present Illness - Admitted From Admitted From:: [facility] ED - History Obtained From Records Reviewed: yes History obtained from: patient and chart Exam Limitations: agitation/ intoxication - History of Present Illness HPI Comment/Other: Patient seen on 05/13/19 at 20:45pm Patient is a 24 y/o male with a Hx of polysubstance abuse, specifically opiates and methamphetamines who was brought to the ED after someone called the police. He reports using methamphetamine today after he found out that his mother and brother . It is unclear how it happened and he gets very emotional reporting this. At the moment he is very agitated and flailing in bed thus not able to provide history effectively. He has several areas of erythema on his body and complains of pain in his left elbow as well as the dorsum of his left foot. He denies injecting anything in these areas and that he usually using the right antecubital area. He denies chest pain, MICHAEL, abd pain, n/v/d. He was found to be mildly febrile in the ED. He had a CK of 2500 and a WBC of 30. He appears dehydrated with very dry oral mucosa. He has been admitted several times in the past for a similar reason. As a result of his presentation, he is being admitted for further treatment History - Past Medical History Cardiovascular: reports: None Respiratory: reports: None Neuro: reports: None Endocrine/Autoimmune: reports: None GI: reports: GERD : reports: None HEENT: reports: None Psych: reports: Depression, Anxiety, ADD/ADHD, Post traumatic stress disorder, Other Musculoskeletal: reports: Osteoarthritis Derm: reports: None MRSA Hx?: No Other Past Medical History: hep c; states was tested negative for aids 5 months ago Apr 2019 - Past Surgical History HEENT: reports: Tonsil/Adenoidectomy - Family & Social History Family History Comment/Other: He is adopted. His sibling is adopted. He has no children. Social History Notes: He was born in [facility]. Brought here at the age of 5. Have subsequent developmental delay, attachment disorder, and PTSD. Was on prescription methamphetamines all of his life. Started using recreationally at the age of 18 or 19. 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 He was currently on probation from his last violation. He does methamphetamines and opiates rare alcohol, no other recreational substances as far she knows. - Substance History Use: Uses substance without health or social issues: NONE - POLST Patient has POLST: No POLST Status: Full Code Meds/Allgy - Home Medications Home Medications: Ambulatory Orders Medication Instructions Recorded Confirmed No Known Home Medications 04/22/19 04/22/19 - Allergies Allergies/Adverse Reactions: Allergies Allergy/AdvReac Type Severity Reaction Status Date / Time No Known Drug Allergies Allergy Verified 05/13/19 19:07 Review of Systems - Constitutional Constitutional: reports: Other (Agitated. Intoxicated, malnourished). denies: Fever, Chills - Eyes Eyes: denies: Blurred vision, Dipolpia - Ears, Nose & Throat Ears, Nose & Throat: denies: Vertigo, Nasal discharge, Sore throat, Hoarseness - Cardiovascular Cariovascular: denies: Chest pain, Lightheadedness, Syncope, Exertional dyspnea, Decr. exercise tolerance - Respiratory Respiratory: denies: Cough, Sputum production, Wheezing - Gastrointestinal Gastrointestinal: reports: Reflux/heartburn. denies: Abdominal pain, Abdominal distention, Constipation, Diarrhea, Nausea, Vomiting, Coffee grounds emesis - Genitourinary Genitourinary: denies: Dysuria, Frequency, Urgency, Hematuria - Musculoskeletal Musculoskeletal: reports: Muscle pain, Joint pain (left elbow) - Integumentary Integumentary: reports: Other (erythema over left elbow, dorsum of left foot,). denies: Pruritis, Lesions - Neurological Neurological: denies: General weakness, Focal weakness, Headache, Dizziness, Numbness - Psychiatric Psychiatric: reports: Depression, Anxiety, Other (Agitation) - Endocrine Endocrine: denies: Polyuria, Polydypsia - Hematologic/Lymphatic Hematologic/Lymphatic: denies: Anemia, Bruising, Petechiae Prior Level of Functionality: Supposedly independent of activities of daily living Appears malnourished. Currently Intoxicated and agitated Living/Housing situation unclear. Exam - Vital Signs Vital Signs: Vital Signs x48h Temp Pulse Resp BP Pulse Ox 05/13/19 19:03 37.7 C H 134 H 18 134/89 H 93 - Physical Exam General Appearance: positive: Other (Intoxicated, Agitated, Malnourished) Eyes Bilateral: positive: Normal inspection, PERRL, EOMI ENT: positive: ENT inspection nml, Pharynx nml, Dry mucous membranes Neck: positive: Nml inspection, No JVD, Trachea midline Respiratory: positive: Chest non-tender, No respiratory distress, Breath sounds nml. negative: Wheezes, Rales, Rhonchi Cardiovascular: positive: No murmur, Tachycardia Abdomen: positive: Non-tender, No organomegaly, Nml bowel sounds, No distention. negative: Guarding, Rebound Back: positive: Nml inspection Skin: positive: Warm, Dry, Other (erythema on left elbow, lteral aspect of right upper arm and dorsum of left foot) Extremities: positive: Full ROM, Other (tenderness over left elbow) Neurologic/Psychiatric: positive: Other (Restless/Agitated/Intoxicated) Conclusion/Plan - Problem List (1) Methamphetamine intoxication Conclusion/Plan: Admitted to the ICU on ativan drip for agitation IV hydration (2) Rhabdomyolysis Conclusion/Plan: 2/2 Methamphetamine abuse/ intoxication IV hydration with normal saline @ 200ml/hr Will monitor CK daily Qualifiers: Rhabdomyolysis type: non-traumatic Qualified Code(s): M62.82 - Rhabdomyolysis (3) Leukocytosis Conclusion/Plan: ?Reactive vs Infectious WBC 30. Blood culture pending. Will monitor (4) Acute kidney injury Conclusion/Plan: Likely 2/2 Rhabdomyolysis and dehydration Expect improvement with IV hydration (5) Depression Conclusion/Plan: Currently not taking any medication Records indicate that he used to be on sertraline - Lab Results Fish Bones: 05/14/19 04:25 05/14/19 04:25 Core Measures - Anticipated LOS I expect patient to be DC'd or transferred within 96 hours.: Yes - DVT/VTE - Prophylaxis VTE/DVT Device ordered at admit?: Yes
[2019-05-13 22:31] LABS: ALBUMIN 4.6 g/dL (3.2-5.5); BILIRUBIN,DIRECT 0.1 mg/dL (0.1-0.5); BILIRUBIN,TOTAL 1.1 mg/dL (0.2-1.0); TOTAL PROTEIN 8.1 g/dL (6.7-8.2)
[2019-05-13] MEDS: DEXTROSE 5%-0.9% NACL 1,000 ML IV SCH (22:31)
[2019-05-13] MEDS: LORazepam 100MG/100ML D5W 100 ML IV SCH (22:33)
[2019-05-13 22:40] LABS: MAGNESIUM 2.6 mg/dL (1.7-2.8); PHOSPHORUS 6.8 mg/dL (2.5-4.6)
[2019-05-13] MEDS: SODIUM CHLORIDE FLUSH 0.9% 10 ML SYRINGE IVP SCH (22:43)
[2019-05-14] MEDS: DEXTROSE 5%-0.9% NACL 1,000 ML IV SCH ×5 (03:33→23:46)
[2019-05-14 04:50] LABS: BASOPHILS # (AUTO) 0.1 10^3/uL (0.0-0.1); BASOPHILS % (AUTO) 0.4 %; EOSINOPHILS % (AUTO) 0.1 %; HGB - HEMOGLOBIN 12.1 g/dL (14.0-18.0); LYMPHOCYTES # (AUTO) 2.9 10^3/uL (1.5-3.5); LYMPHOCYTES % (AUTO) 19.7 %; MEAN CORPUSCULAR HEMOGLOBIN 29.9 pg (27.0-31.0); MEAN CORPUSCULAR HGB CONC 33.2 g/dL (32.0-36.0); MEAN CORPUSCULAR VOLUME 89.9 fL (80.0-94.0); MEAN PLATELET VOLUME 10.6 fL (7.4-11.4); MONOCYTES # (AUTO) 1.4 10^3/uL (0.0-1.0); MONOCYTES % (AUTO) 9.7 %; NEUTROPHILS # (AUTO) 10.1 10^3/uL (1.5-6.6); NEUTROPHILS % (AUTO) 69.6 %; PLT - PLATELET COUNT 199 10^3/uL (130-450); RED BLOOD COUNT 4.05 10^6/uL (4.70-6.10); WHITE BLOOD COUNT 14.6 x10^3/uL (4.8-10.8)
[2019-05-14 05:12] LABS: CALCIUM 8.2 mg/dL (8.5-10.3)
--- NOTE | 2019-05-14 07:51 | PROVIDER PROGRESS NOTE ---
Assessment/Plan - Problem List (1) Rhabdomyolysis Qualifiers: Rhabdomyolysis type: non-traumatic Qualified Code(s): M62.82 - Rhabdomyolysis Assessment/Plan: Continue iv fluids, rest and follow CK and renal labs. (2) Methamphetamine abuse Assessment/Plan: IV Ativan for sedation due to agitation today. Will start tapering after a day, then advance diet. SW consult will be needed when awake. (3) Leukocytosis Assessment/Plan: Improving with hydration, no antibiotics, suggesting that it is reactive. Blood cultures were drawn in ER empirically yesterday. Watching the L elbow swelling and spots on feet, as a potential site(s) of infection. (4) Malnutrition Assessment/Plan: He has lost about 15% weight sonce Sep and oct admissions. Will order protein-calorie supplements when awake and can take po diet (probably tomorrow). - Current Meds Current Meds: Current Medications Generic Name Dose Route Start Last Admin Trade Name Freq PRN Reason Stop Dose Admin Lorazepam 100 mls @ 0.59 mls/hr 05/13/19 21:00 05/14/19 05:43 Ativan IV 0 mg/kg/hr .Q72H CHRISTY 0.5 mls/hr Titration Protocol 0.01 MG/KG/HR Dextrose/Sodium Chloride 1,000 mls @ 200 mls/hr 05/13/19 23:00 05/14/19 07:00 D5ns IV 200 mls/hr .Q5H CHRISTY Infusion Sodium Chloride 10 ml 05/14/19 01:00 05/13/19 22:43 Normal Saline Flush 0.9% IVP 10 ml 0100,0900,1700 CHRISTY Administration - Lab Result Fish Bone Diagrams: 05/14/19 04:25 05/14/19 04:25 Subjective - Subjective Patient Reports: Other (Sedated on iv Ativan drip) Objective Vital Signs: Vital Signs - 24 hr 05/13/19 05/13/19 05/14/19 19:03 21:50 00:00 Temperature 37.7 C H 36.9 C 36.3 C L Heart Rate 134 H Heart Rate [ 109 H 101 H Monitoring electrodes] Respiratory 18 13 12 Rate Blood Pressure 134/89 H Blood Pressure 130/70 118/63 [Left Brachial artery] O2 Saturation 93 94 95 05/14/19 05/14/19 05/14/19 01:05 02:00 04:00 Temperature 36.3 C L 36.9 C Heart Rate Heart Rate [ 99 97 96 Monitoring electrodes] Respiratory 13 13 16 Rate Blood Pressure Blood Pressure 119/60 121/65 114/60 [Left Brachial artery] O2 Saturation 95 95 95 05/14/19 04:20 Temperature 36.9 C Heart Rate 96 Heart Rate [ Monitoring electrodes] Respiratory 16 Rate Blood Pressure Blood Pressure [Left Brachial artery] O2 Saturation 95 Oxygen O2 Source Room air I&O (Last 24 Hrs): Intake and Output Totals x24h 05/12/19 05/13/19 05/14/19 23:59 23:59 23:59 Intake Total 1999 4113.973 Balance 1999 4283.973 General: Other (Sedated on iv Ativan drip) Neck: No JVD Cardiovascular: Regular rate Respiratory: No respiratory distress Abdomen: Soft Extremities: Other (L elbow swollen, several areas of feet with dark spots) - Results Results: Laboratory Results WBC 14.6 x10^3/uL (4.8-10.8) H 05/14/19 04:25 RBC 4.05 10^6/uL (4.70-6.10) L 05/14/19 04:25 Hgb 12.1 g/dL (14.0-18.0) L 05/14/19 04:25 Hct 36.4 % (42.0-52.0) L 05/14/19 04:25 MCV 89.9 fL (80.0-94.0) 05/14/19 04:25 MCH 29.9 pg (27.0-31.0) 05/14/19 04:25 MCHC 33.2 g/dL (32.0-36.0) 05/14/19 04:25 RDW 13.0 % (12.0-15.0) 05/14/19 04:25 Plt Count 199 10^3/uL (130-450) 05/14/19 04:25 MPV 10.6 fL (7.4-11.4) 05/14/19 04:25 Neut # (Auto) 10.1 10^3/uL (1.5-6.6) H 05/14/19 04:25 Lymph # (Auto) 2.9 10^3/uL (1.5-3.5) 05/14/19 04:25 [place] # (Auto) 1.4 10^3/uL (0.0-1.0) H 05/14/19 04:25 Eos # (Auto) 0.0 10^3/uL (0.0-0.7) 05/14/19 04:25 Baso # (Auto) 0.1 10^3/uL (0.0-0.1) 05/14/19 04:25 Absolute Nucleated RBC 0.00 x10^3/uL 05/14/19 04:25 Total Counted 100 05/13/19 19:38 Band Neuts % (Manual) 3 % (0-10) 05/13/19 19:38 Abnorm Lymph % (Manual) 0 % 05/13/19 19:38 Nucleated RBC % 0.0 /100WBC 05/14/19 04:25 Neutrophils # (Manual) 26.5 10^3/uL (1.5-6.6) H 05/13/19 19:38 Lymphocytes # (Manual) 2.2 10^3/uL (1.5-3.5) 05/13/19 19:38 Monocytes # (Manual) 2.2 10^3/uL (0.0-1.0) H 05/13/19 19:38 Eosinophils # (Manual) 0.0 10^3/uL (0-0.7) 05/13/19 19:38 Basophils # (Manual) 0.0 10^3/uL (0-0.1) 05/13/19 19:38 Differential Comment MANUAL DIFFERENTIAL 05/13/19 19:38 Manual Slide Review Indicated 05/13/19 19:38 WBC Morphology 2+ TOXIC GRANULATION (NORMAL) 05/13/19 19:38 Platelet Estimate NORMAL (130-450,000) (NORMAL) 05/13/19 19:38 Platelet Morphology NORMAL APPEARANCE (NORMAL) 05/13/19 19:38 RBC Morph Micro Appear NORMAL APPEARANCE (NORMAL) 05/13/19 19:38 Sodium 145 mmol/L (135-145) 05/14/19 04:25 Potassium 4.2 mmol/L (3.5-5.0) 05/14/19 04:25 Chloride 115 mmol/L (101-111) H 05/14/19 04:25 Carbon Dioxide 23 mmol/L (21-32) 05/14/19 04:25 Anion Gap 7.0 (6-13) 05/14/19 04:25 BUN 28 mg/dL (6-20) H 05/14/19 04:25 Creatinine 1.0 mg/dL (0.6-1.2) 05/14/19 04:25 Estimated GFR (MDRD) 93 (>89) 05/14/19 04:25 Glucose 110 mg/dL (70-100) H 05/14/19 04:25 Calcium 8.2 mg/dL (8.5-10.3) L 05/14/19 04:25 Phosphorus 6.8 mg/dL (2.5-4.6) H 05/13/19 19:38 Magnesium 2.6 mg/dL (1.7-2.8) 05/13/19 19:38 Total Bilirubin 1.1 mg/dL (0.2-1.0) H 05/13/19 19:38 Direct Bilirubin 0.1 mg/dL (0.1-0.5) 05/13/19 19:38 AST 88 IU/L (10-42) H 05/13/19 19:38 ALT 36 IU/L (10-60) 05/13/19 19:38 Alkaline Phosphatase 59 IU/L (42-121) 05/13/19 19:38 Total Creatine Kinase 2351 IU/L (22-269) H* 05/14/19 04:25 Total Protein 8.1 g/dL (6.7-8.2) 05/13/19 19:38 Albumin 4.6 g/dL (3.2-5.5) 05/13/19 19:38 Globulin 3.5 g/dL (2.1-4.2) 05/13/19 19:38 Nasal Screen MRSA (PCR) NEGATIVE (NEGATIVE) 05/13/19 21:50 Urine Opiates Screen POSITIVE (NEGATIVE) H 05/13/19 19:20 Ur Oxycodone Screen NEGATIVE (NEGATIVE) 05/13/19 19:20 Urine Methadone Screen NEGATIVE (NEGATIVE) 05/13/19 19:20 Ur Propoxyphene Screen NEGATIVE (NEGATIVE) 05/13/19 19:20 Ur Barbiturates Screen NEGATIVE (NEGATIVE) 05/13/19 19:20 Ur Tricyclics Screen NEGATIVE (NEGATIVE) 05/13/19 19:20 Ur Phencyclidine Scrn NEGATIVE (NEGATIVE) 05/13/19 19:20 Ur Amphetamine Screen POSITIVE (NEGATIVE) H 05/13/19 19:20 U Methamphetamines Scrn POSITIVE (NEGATIVE) H 05/13/19 19:20 U Benzodiazepines Scrn NEGATIVE (NEGATIVE) 05/13/19 19:20 Urine Cocaine Screen NEGATIVE (NEGATIVE) 05/13/19 19:20 U Cannabinoids Screen NEGATIVE (NEGATIVE) 05/13/19 19:20 Ethyl Alcohol < 5.0 mg/dL 05/13/19 19:38 ABX Reporting Has patient been on IV antibiotics over the past 48 hours?: No
[2019-05-14] MEDS: POLYETHYLENE GLYCOL 3350 17 GM PACKET PO SCH (09:37)
[2019-05-14] MEDS: SODIUM CHLORIDE FLUSH 0.9% 10 ML SYRINGE IVP SCH ×2 (09:37→17:04)
[2019-05-14] MEDS: LORazepam 100MG/100ML D5W 100 ML IV SCH (22:49)
[2019-05-15] MEDS: SODIUM CHLORIDE FLUSH 0.9% 10 ML SYRINGE IVP SCH ×3 (01:12→17:25)
[2019-05-15] MEDS: DEXTROSE 5%-0.9% NACL 1,000 ML IV SCH (04:49)
[2019-05-15 05:12] LABS: BASOPHILS % (AUTO) 0.3 %; EOSINOPHILS # (AUTO) 0.1 10^3/uL (0.0-0.7); EOSINOPHILS % (AUTO) 1.1 %; HGB - HEMOGLOBIN 11.9 g/dL (14.0-18.0); LYMPHOCYTES # (AUTO) 1.9 10^3/uL (1.5-3.5); LYMPHOCYTES % (AUTO) 29.4 %; MEAN CORPUSCULAR HEMOGLOBIN 29.2 pg (27.0-31.0); MEAN CORPUSCULAR HGB CONC 32.2 g/dL (32.0-36.0); MEAN CORPUSCULAR VOLUME 90.7 fL (80.0-94.0); MEAN PLATELET VOLUME 10.6 fL (7.4-11.4); MONOCYTES # (AUTO) 0.5 10^3/uL (0.0-1.0); MONOCYTES % (AUTO) 8.3 %; NEUTROPHILS # (AUTO) 3.9 10^3/uL (1.5-6.6); NEUTROPHILS % (AUTO) 60.4 %; PLT - PLATELET COUNT 165 10^3/uL (130-450); RED BLOOD COUNT 4.08 10^6/uL (4.70-6.10); RED CELL DISTRIBUTION WIDTH 13.3 % (12.0-15.0); WHITE BLOOD COUNT 6.4 x10^3/uL (4.8-10.8)
[2019-05-15 05:30] LABS: ALBUMIN/GLOBULIN RATIO 1.1 (1.0-2.2); BILIRUBIN,TOTAL 0.8 mg/dL (0.2-1.0); CALCIUM 8.2 mg/dL (8.5-10.3); CREATININE 0.6 mg/dL (0.6-1.2); TOTAL PROTEIN 5.8 g/dL (6.7-8.2)
[2019-05-15] MEDS ORDERED: DEXTROSE 5%-0.9% NACL 1,000 ML IV SCH ×2 (08:42→17:00)
[2019-05-15] MEDS ORDERED: NICOTINE 14 MG PATCH TOP SCH (09:00)
[2019-05-15] MEDS: POLYETHYLENE GLYCOL 3350 17 GM PACKET PO SCH (09:12)
--- NOTE | 2019-05-15 10:32 | PROVIDER PROGRESS NOTE ---
Assessment/Plan - Problem List (1) Rhabdomyolysis Qualifiers: Rhabdomyolysis type: non-traumatic Qualified Code(s): M62.82 - Rhabdomyolysis Assessment/Plan: His CKs have been improving with iv hydration and bedrest: 2584>> 2351>> 1081. Continue IV hydration with saline, but will decrease the rate from 200cc/hr down to 100cc/hr as he starts to take p.o. liquids. Follow serum CK daily. (2) Methamphetamine abuse Assessment/Plan: Patient has awoken briefly and was polite and cooperative, needed to sit up and dangle his feet to urinate. Will wean the IV Ativan drip to off today. When off, and he is more alert, will transfer to [facility]. (3) Malnutrition Assessment/Plan: Advancing the diet is planned for today. We will add protein and calorie supplement twice daily (4) Hypokalemia Assessment/Plan: Well replace with ICU electrolyte protocol. Follow BMP daily. (5) Depression Assessment/Plan: Before the patient was started on IV Ativan drip, he stated that he was emotiona l over the recent of his mother and brother, but he did not give details. Social work was informed of the above, and as he hopefully awakens today will obtain a social work cunsult. (6) Leukocytosis Assessment/Plan: Resolved from 30.8>> 14.6>> 6.4 today, without iv antibiotics, suggesting that it was a reactive leukocytosis. - Current Meds Current Meds: Current Medications Generic Name Dose Route Start Last Admin Trade Name Freq PRN Reason Stop Dose Admin Lorazepam 100 mls @ 0.59 mls/hr 05/13/19 21:00 05/15/19 09:18 Ativan IV 05/15/19 16:00 0 mg/kg/hr .Q72H CHRISTY 0 mls/hr Titration Protocol 0.01 MG/KG/HR Nicotine 1 patch 05/15/19 09:00 05/15/19 09:12 Nicoderm TOP 1 patch DAILY CHRISTY Administration Polyethylene Glycol 17 gm 05/14/19 09:00 05/15/19 09:12 Miralax PO 17 gm DAILY CHRISTY Administration Sodium Chloride 10 ml 05/14/19 01:00 05/15/19 09:12 Normal Saline Flush 0.9% IVP 10 ml 0100,0900,1700 [facility] Administration - Lab Result Fish Bone Diagrams: 05/15/19 04:20 05/15/19 04:20 - Additional Planning My Orders: My Active Orders 05/14/19 16:25 Straight Catheter Insertion [RC] ONCE 05/15/19 08:42 Dextrose 5%-0.9% NaCl [D5ns] 1,000 ml IV 100 mls/hr 05/15/19 08:43 Miscellaenous Nursing Order [RC] ONCE 05/15/19 12:00 Vitamin [Trinatal Rx 1] 1 tab PO DAILYWM 05/15/19 Breakfast Clear Liquid Diet [DIET] 05/15/19 Lunch DIET [Soft (Low Fiber) Diet] [DIET] 05/16/19 05:00 CMP [COMPREHENSIVE METABOLIC PANEL] [CHEM] DAILYLAB 05/17/19 05:00 CMP [COMPREHENSIVE METABOLIC PANEL] [CHEM] DAILYLAB Subjective - Subjective Patient Reports: Feeling Better, No Complaints Objective Vital Signs: Vital Signs - 24 hr 05/14/19 05/14/19 05/14/19 12:00 13:00 15:00 Temperature 37.2 C Heart Rate [ 100 93 102 H Monitoring electrodes] Respiratory 23 22 25 H Rate Blood Pressure 127/79 121/71 132/74 H [Left Brachial artery] O2 Saturation 95 97 96 05/14/19 05/14/19 05/14/19 15:52 18:05 18:59 Temperature 37.3 C 37 C 36.8 C Heart Rate [ 103 H 93 104 H Monitoring electrodes] Respiratory 21 23 19 Rate Blood Pressure 120/63 131/80 H 128/88 H [Left Brachial artery] O2 Saturation 99 98 98 05/14/19 05/14/19 05/14/19 20:00 21:00 22:03 Temperature 37.1 C 37.1 C 36.7 C Heart Rate [ 90 96 88 Monitoring electrodes] Respiratory 26 H 21 24 Rate Blood Pressure 115/78 114/76 129/82 H [Left Brachial artery] O2 Saturation 99 98 97 05/14/19 05/15/19 05/15/19 23:01 00:00 01:00 Temperature 36.9 C 36.9 C Heart Rate [ 80 95 91 Monitoring electrodes] Respiratory 20 25 H 28 H Rate Blood Pressure 117/79 127/81 H 129/75 [Left Brachial artery] O2 Saturation 97 97 98 05/15/19 05/15/19 05/15/19 02:00 03:00 04:00 Temperature 36.9 C Heart Rate [ 75 79 86 Monitoring electrodes] Respiratory 21 23 17 Rate Blood Pressure 131/84 H 131/86 H 124/76 [Left Brachial artery] O2 Saturation 99 99 99 05/15/19 05/15/19 05/15/19 05:00 06:00 07:02 Temperature Heart Rate [ 89 88 99 Monitoring electrodes] Respiratory 25 H 13 24 Rate Blood Pressure 134/77 H 127/79 127/81 H [Left Brachial artery] O2 Saturation 99 99 100 05/15/19 07:40 Temperature 36.8 C Heart Rate [ 93 Monitoring electrodes] Respiratory 20 Rate Blood Pressure 127/81 H [Left Brachial artery] O2 Saturation 100 Oxygen O2 Source Room air I&O (Last 24 Hrs): Intake and Output Totals x24h 05/13/19 05/14/19 05/15/19 23:59 23:59 23:59 Intake Total 1999 6132.000 3705.242 Output Total 800 2100 Balance 1999 5332.000 1605.242 General: Alert, Oriented x3 HEENT: Mucous membr. moist/pink, Other (L periorbital bruise) Neck: Supple, No JVD Neuro: Non Focal Cardiovascular: Regular rate, No murmurs Respiratory: No respiratory distress, Breath sounds nml Abdomen: Normal bowel sounds, Soft Extremities: No edema - Results Results: Laboratory Results WBC 6.4 x10^3/uL (4.8-10.8) 05/15/19 04:20 RBC 4.08 10^6/uL (4.70-6.10) L 05/15/19 04:20 Hgb 11.9 g/dL (14.0-18.0) L 05/15/19 04:20 Hct 37.0 % (42.0-52.0) L 05/15/19 04:20 MCV 90.7 fL (80.0-94.0) 05/15/19 04:20 MCH 29.2 pg (27.0-31.0) 05/15/19 04:20 MCHC 32.2 g/dL (32.0-36.0) 05/15/19 04:20 RDW 13.3 % (12.0-15.0) 05/15/19 04:20 Plt Count 165 10^3/uL (130-450) 05/15/19 04:20 MPV 10.6 fL (7.4-11.4) 05/15/19 04:20 Neut # (Auto) 3.9 10^3/uL (1.5-6.6) 05/15/19 04:20 Lymph # (Auto) 1.9 10^3/uL (1.5-3.5) 05/15/19 04:20 [place] # (Auto) 0.5 10^3/uL (0.0-1.0) 05/15/19 04:20 Eos # (Auto) 0.1 10^3/uL (0.0-0.7) 05/15/19 04:20 Baso # (Auto) 0.0 10^3/uL (0.0-0.1) 05/15/19 04:20 Absolute Nucleated RBC 0.00 x10^3/uL 05/15/19 04:20 Total Counted 100 05/13/19 19:38 Band Neuts % (Manual) 3 % (0-10) 05/13/19 19:38 Abnorm Lymph % (Manual) 0 % 05/13/19 19:38 Nucleated RBC % 0.0 /100WBC 05/15/19 04:20 Neutrophils # (Manual) 26.5 10^3/uL (1.5-6.6) H 05/13/19 19:38 Lymphocytes # (Manual) 2.2 10^3/uL (1.5-3.5) 05/13/19 19:38 Monocytes # (Manual) 2.2 10^3/uL (0.0-1.0) H 05/13/19 19:38 Eosinophils # (Manual) 0.0 10^3/uL (0-0.7) 05/13/19 19:38 Basophils # (Manual) 0.0 10^3/uL (0-0.1) 05/13/19 19:38 Differential Comment MANUAL DIFFERENTIAL 05/13/19 19:38 Manual Slide Review Indicated 05/13/19 19:38 WBC Morphology 2+ TOXIC GRANULATION (NORMAL) 05/13/19 19:38 Platelet Estimate NORMAL (130-450,000) (NORMAL) 05/13/19 19:38 Platelet Morphology NORMAL APPEARANCE (NORMAL) 05/13/19 19:38 RBC Morph Micro Appear NORMAL APPEARANCE (NORMAL) 05/13/19 19:38 Sodium 141 mmol/L (135-145) 05/15/19 04:20 Potassium 3.4 mmol/L (3.5-5.0) L 05/15/19 04:20 Chloride 111 mmol/L (101-111) 05/15/19 04:20 Carbon Dioxide 22 mmol/L (21-32) 05/15/19 04:20 Anion Gap 8.0 (6-13) 05/15/19 04:20 BUN 15 mg/dL (6-20) 05/15/19 04:20 Creatinine 0.6 mg/dL (0.6-1.2) 05/15/19 04:20 Estimated GFR (MDRD) 167 (>89) 05/15/19 04:20 Glucose 91 mg/dL (70-100) 05/15/19 04:20 POC Whole Bld Glucose 94 mg/dL (70 - 100) 05/14/19 05:23 Calcium 8.2 mg/dL (8.5-10.3) L 05/15/19 04:20 Phosphorus 6.8 mg/dL (2.5-4.6) H 05/13/19 19:38 Magnesium 2.6 mg/dL (1.7-2.8) 05/13/19 19:38 Total Bilirubin 0.8 mg/dL (0.2-1.0) 05/15/19 04:20 Direct Bilirubin 0.1 mg/dL (0.1-0.5) 05/13/19 19:38 AST 52 IU/L (10-42) H 05/15/19 04:20 ALT 28 IU/L (10-60) 05/15/19 04:20 Alkaline Phosphatase 43 IU/L (42-121) 05/15/19 04:20 Total Creatine Kinase 1081 IU/L (22-269) H* 05/15/19 04:20 Total Protein 5.8 g/dL (6.7-8.2) L 05/15/19 04:20 Albumin 3.0 g/dL (3.2-5.5) L 05/15/19 04:20 Globulin 2.8 g/dL (2.1-4.2) 05/15/19 04:20 Albumin/Globulin Ratio 1.1 (1.0-2.2) 05/15/19 04:20 Nasal Screen MRSA (PCR) NEGATIVE (NEGATIVE) 05/13/19 21:50 Urine Opiates Screen POSITIVE (NEGATIVE) H 05/13/19 19:20 Ur Oxycodone Screen NEGATIVE (NEGATIVE) 05/13/19 19:20 Urine Methadone Screen NEGATIVE (NEGATIVE) 05/13/19 19:20 Ur Propoxyphene Screen NEGATIVE (NEGATIVE) 05/13/19 19:20 Ur Barbiturates Screen NEGATIVE (NEGATIVE) 05/13/19 19:20 Ur Tricyclics Screen NEGATIVE (NEGATIVE) 05/13/19 19:20 Ur Phencyclidine Scrn NEGATIVE (NEGATIVE) 05/13/19 19:20 Ur Amphetamine Screen POSITIVE (NEGATIVE) H 05/13/19 19:20 U Methamphetamines Scrn POSITIVE (NEGATIVE) H 05/13/19 19:20 U Benzodiazepines Scrn NEGATIVE (NEGATIVE) 05/13/19 19:20 Urine Cocaine Screen NEGATIVE (NEGATIVE) 05/13/19 19:20 U Cannabinoids Screen NEGATIVE (NEGATIVE) 05/13/19 19:20 Ethyl Alcohol < 5.0 mg/dL 05/13/19 19:38
[2019-05-15] MEDS: PRENATAL VITAMIN TABLET PO SCH (12:34)
[2019-05-15] MEDS ORDERED: POTASSIUM CHLORIDE 20 MEQ TABLET PO SCH (14:35)
[2019-05-15] MEDS ORDERED: ACETAMINOPHEN 325 MG TABLET PO PRN (21:29)
[2019-05-15] MEDS: NICOTINE 7 MG PATCH TOP SCH (22:59)
[2019-05-16] MEDS: SODIUM CHLORIDE FLUSH 0.9% 10 ML SYRINGE IVP SCH ×2 (03:39→09:59)
[2019-05-16 04:37] LABS: BASOPHILS % (AUTO) 0.4 %; EOSINOPHILS # (AUTO) 0.1 10^3/uL (0.0-0.7); EOSINOPHILS % (AUTO) 1.8 %; HGB - HEMOGLOBIN 12.7 g/dL (14.0-18.0); LYMPHOCYTES # (AUTO) 2.2 10^3/uL (1.5-3.5); LYMPHOCYTES % (AUTO) 27.9 %; MEAN CORPUSCULAR HEMOGLOBIN 28.9 pg (27.0-31.0); MEAN CORPUSCULAR HGB CONC 32.3 g/dL (32.0-36.0); MEAN CORPUSCULAR VOLUME 89.5 fL (80.0-94.0); MEAN PLATELET VOLUME 10.6 fL (7.4-11.4); MONOCYTES # (AUTO) 0.7 10^3/uL (0.0-1.0); MONOCYTES % (AUTO) 8.8 %; NEUTROPHILS # (AUTO) 4.8 10^3/uL (1.5-6.6); PLT - PLATELET COUNT 172 10^3/uL (130-450); RED BLOOD COUNT 4.39 10^6/uL (4.70-6.10); WHITE BLOOD COUNT 7.9 x10^3/uL (4.8-10.8)
[2019-05-16 04:53] LABS: CALCIUM 8.3 mg/dL (8.5-10.3); CREATININE 0.5 mg/dL (0.6-1.2); MAGNESIUM 1.7 mg/dL (1.7-2.8)
[2019-05-16 07:45] VITALS: BP 150/80
[2019-05-16] MEDS ORDERED: NICOTINE 7 MG PATCH TOP SCH (09:00)
[2019-05-16] MEDS: PRENATAL VITAMIN TABLET PO SCH (09:58)
[2019-05-16] MEDS: POLYETHYLENE GLYCOL 3350 17 GM PACKET PO SCH (09:59)
[2019-05-16] MEDS: NICOTINE 7 MG PATCH TOP SCH (09:59)
--- NOTE | 2019-05-16 10:42 | Discharge Plan ---
Discharge Plan Problem Reviewed?: Yes Disposition: Home, Self Care Condition: Stable Diet: Regular (You are malnourished and you should eat more protein and take a daily multivitamin.) Activity Restrictions: Activity as Tolerated Shower Restrictions: No Health Concerns: Admitted with skeletal muscle breakdown (Rhabdomyolysis) from Methamphetamine and Heroin intoxication and withdrawal. IV sedation and IV hydration required for treatment. Plan of Treatment: STAY OFF Meth and other drugs. Return to [facility] and work with [facility] for drug treatment. Care Goals: Remain drug-free. Assessment: Patient agreeable, as per V[employer] Sheet Repairer. No Smoking: If you smoke, Please STOP! Call for help.
--- NOTE | 2019-05-16 17:55 | DISCHARGE SUMMARY ---
Discharge Summary Admit Date: 05/13/19 Discharge Date: 05/16/19 Discharging Provider: Dr Prisca Black Code Status: Attempt Resuscitation Condition at Discharge: Stable Discharge Disposition: 01 Home, Self Care Discharge Facility Name: [facility] - DIAGNOSES Admission Diagnoses: 1) Rhabdomyolysis 2) Methamphetamine abuse 3) Polysubstance abuse 4) Dehydration Discharge Diagnoses with Status of Each Condition: See below - HPI History of Present Illness: From the H&P of Dr Carlota Hernández: Patient is a 24 y/o male with a Hx of polysubstance abuse, specifically opiates and methamphetamines who was brought to the ED after someone called the police. He reports using methamphetamine today after he found out that his mother and brother . It is unclear how it happened and he gets very emotional reporting this. At the moment he is very agitated and flailing in bed thus not able to provide history effectively. He has several areas of erythema on his body and complains of pain in his left elbow as well as the dorsum of his left foot. He denies injecting anything in these areas and that he usually using the right antecubital area. He denies chest pain, dyspnea, abd pain, n/v/d. He was found to be mildly febrile in the ED. He had a CK of 2500 and a WBC of 30. He appears dehydrated with very dry oral mucosa. He has been admitted several times in the past for a similar reason. As a result of his presentation, he is being admitted for further treatment - CONSULTS | PROCEDURES Consultations: Social Work - HOSPITAL COURSE Hospital Course: (1) Rhabdomyolysis His CKs improved with iv hydration and bedrest: 2584>> 2351>> 1081>> 668 and there was no renal insufficiency. The IV hydration with saline was decreased from 200cc/hr down to 100cc/hr as he started to take p.o. liquids. He was able to ambulate without muscle pain or complaints at discharge. (2) Methamphetamine abuse He required iv Ativan drip for agitation, which was on for 24 hours then was weaned slowly to off. When he awoke he was polite and cooperative, needed to sit up and dangle his feet to urinate. SW saw him and the mother and arrangements were made for him to return to living at [facility], and was taken there by a private vehicle. There was plan to have him continue with a Counselor for drug rehab. (3) Malnutrition His weight loss since his last admission here was significant. A protein and calorie supplement and multivitamin was advised. (4) Hypokalemia Related to poor diet. Potassium was replaced. (5) Depression Before the patient was started on IV Ativan drip, he stated that he was emotional over the "recent of his mother and brother", but he did not give details. Social work was informed of the above, and when the mother arrived, there was a conversation where he thought he lost other family members, and was crying. The mother stated these were all inaccurate and that he was disoriented due to his illicit drug use. (6) Leukocytosis His elevated WBC resolved from 30.8>> 14.6>> 6.4, without any iv antibiotics, suggesting that it was a reactive leukocytosis and not infectious. - ALLERGIES Allergies/Adverse Reactions: Allergies Allergy/AdvReac Type Severity Reaction Status Date / Time No Known Drug Allergies Allergy Verified 05/13/19 19:07 - MEDICATIONS Home Medications: Ambulatory Orders Medication Instructions Recorded Confirmed No Known Home Medications 04/22/19 05/14/19 - PHYSICAL EXAM AT DISCHARGE General Appearance: positive: No acute distress Eyes Bilateral: positive: Other (bruise around L eye) ENT: positive: ENT inspection nml Neck: positive: No JVD Respiratory: positive: No respiratory distress, Breath sounds nml Cardiovascular: positive: Regular rate & rhythm, No murmur Abdomen: positive: Non-tender, No distention Extremities: positive: No pedal edema, Other (Several areas of ecchymoses ) - LABS Result Diagrams: 05/16/19 04:30 05/16/19 04:30 - FOLLOW UP Follow Up: See PCP and Mental Health Counselor in follow-up
== END 2019-05-16 11:28 | disposition home or self-care (01) | DRG 558 ==
LOC: EDUNIT# → ED 19:00 → ICU 20:37 → MS2 05-15 18:43
PROVIDERS: ADMIT Internal Medicine; ATTEND Internal Medicine
DX: M62.82 Rhabdomyolysis (principal); E46 Unspecified protein-calorie malnutrition; Z68.1 Body mass index [BMI] 19.9 or less, adult; N17.9 Acute kidney failure, unspecified; F15.221 Other stimulant dependence with intoxication delirium; F11.221 Opioid dependence with intoxication delirium; E86.0 Dehydration; E87.6 Hypokalemia; S00.12XA Contusion of left eyelid and periocular area, initial encounter; S90.512A Abrasion, left ankle, initial encounter; X58.XXXA Exposure to other specified factors, initial encounter; L53.9 Erythematous condition, unspecified; M25.422 Effusion, left elbow; F32.9 Major depressive disorder, single episode, unspecified; F41.9 Anxiety disorder, unspecified; F43.10 Post-traumatic stress disorder, unspecified; F94.9 Childhood disorder of social functioning, unspecified; R62.50 Unspecified lack of expected normal physiological development in childhood; F17.200 Nicotine dependence, unspecified, uncomplicated; Z86.19 Personal history of other infectious and parasitic diseases
CPT/HCPCS: 36415; 80048; 80053; 80076; 80306; 80320; 82550; 83735; 84100; 85025; 87040; 87150; 99285; 99291; A9270; J2060

== ENCOUNTER 2019-05-17 15:36 | Emergency (ER) | payer MEDICAID ==
[2019-05-17 15:54] VITALS: BP 130/78
== END 2019-05-17 18:29 | disposition left against medical advice (07) ==
LOC: ED 15:36
DX: Z53.21 Procedure and treatment not carried out due to patient leaving prior to being seen by health care provider (principal)
CPT/HCPCS: 80053; 83690; 85025

== ENCOUNTER 2019-06-06 18:50 | Outpatient (CLI) | payer MEDICAID | END 2019-06-06 18:51 | disposition critical access hospital (66) | LOC: EMS 18:50 | PROVIDERS: ATTEND Surgery | DX: R73.09 Other abnormal glucose (principal) | CPT/HCPCS: A0425; A0427; A0999 ==

== ENCOUNTER 2019-06-06 19:12 | Emergency (ER) | payer MEDICAID ==
[2019-06-06] MEDS ORDERED: SODIUM CHLORIDE 0.9% 1,000 ML IV ONE (19:17)
--- NOTE | 2019-06-06 19:18 | ED Physician Documentation ---
History of Present Illness - Stated complaint Stated Complaint: HYPOGLYCEMIA - History obtained from History obtained from: Patient - History of Present Illness Timing: Today (This is a well-known gentleman to this emergency problems with methamphetamines which she is been unable to kick. He last used this morning at 4 AM or so. He is been tweaking all day. Paramedics were summoned because of a potential seizure. Sounds like he was just tweaking. However they checked his blood sugar prior to releasing him because the patient did not want to come to the emergency department. And it was low at 36 and subsequently in the 40s. In the interim he has received oral glucose. He admits he has not eaten anything since breakfast. Otherwise he has no specific complaints.) Review of Systems Ten Systems: 10 systems reviewed and negative Constitutional: denies: Fever, Chills Cardiac: denies: Chest pain / pressure, Palpitations Respiratory: denies: Dyspnea, Cough PD PAST MEDICAL HISTORY - Past Medical History Cardiovascular: None Respiratory: None Neuro: None Endocrine/Autoimmune: None GI: GERD : None HEENT: None Psych: Depression, Anxiety, ADD/ADHD, Post traumatic stress disorder, Other Musculoskeletal: Osteoarthritis Derm: None - Past Surgical History Past Surgical History: Yes HEENT: Tonsil/Adenoidectomy - Present Medications Home Medications: Ambulatory Orders Medication Instructions Recorded Confirmed No Known Home Medications 04/22/19 05/14/19 - Allergies Allergies/Adverse Reactions: Allergies Allergy/AdvReac Type Severity Reaction Status Date / Time No Known Drug Allergies Allergy Verified 05/17/19 15:53 - Social History Does the pt smoke?: Yes Smoking Status: Current every day smoker Does the pt drink ETOH?: Yes Does the pt have substance abuse?: Yes - Immunizations Immunizations are current?: Yes - POLST Patient has POLST: No POLST Status: Full Code PD ED PE NORMAL - Vitals Vital signs reviewed: Yes - General General: Alert and oriented X 3, Other (Rhythmic movements consistent with methamphetamine intoxication. He is alert awake and cogent and a decent historian.) - HEENT HEENT: PERRL, EOMI - Neck Neck: Supple, no meningeal sign, No bony TTP - Cardiac Cardiac: RRR, No murmur - Respiratory Respiratory: No respiratory distress, Clear bilaterally - Abdomen Abdomen: Non tender - Derm Derm: Normal color, Warm and dry - Extremities Extremities: No edema, No calf tenderness / cord - Neuro Neuro: Alert and oriented X 3, Normal speech Eye Opening: Spontaneous Motor: Obeys Commands Verbal: Oriented GCS Score: 15 - Psych Psych: Normal mood, Normal affect Results - Vitals Vitals: Vital Signs - 24 hr 06/06/19 06/06/19 06/06/19 19:13 19:18 21:18 Temperature 36.8 C 36.8 C Heart Rate 130 H 130 H 110 H Respiratory 20 17 17 Rate Blood Pressure 127/80 127/80 132/68 H O2 Saturation 95 98 99 Oxygen O2 Source Room air - Labs Labs: Laboratory Tests 06/06/19 06/06/19 19:25 19:25 WBC 24.7 H RBC 4.37 L Hgb 13.5 L Hct 39.7 L MCV 90.8 MCH 30.9 MCHC 34.0 RDW 13.4 Plt Count 226 MPV 9.9 Neut # (Auto) Not Reportable Lymph # (Auto) Not Reportable Breath[place] # (Auto) Not Reportable Eos # (Auto) Not Reportable Baso # (Auto) Not Reportable Absolute Nucleated RBC Not Reportable Total Counted 100 Band Neuts % (Manual) 10 Reactive Lymphs % (Man) 1 Abnorm Lymph % (Manual) 0 Nucleated RBC % Not Reportable Neutrophils # (Manual) 21.7 H Lymphocytes # (Manual) 1.5 Monocytes # (Manual) 1.5 H Eosinophils # (Manual) 0.0 Basophils # (Manual) 0.0 Differential Comment MANUAL DIFFERENTIAL Platelet Estimate NORMAL (130-450,000) Platelet Morphology NORMAL APPEARANCE RBC Morph Micro Appear NORMAL APPEARANCE Sodium 142 Potassium 4.1 Chloride 101 Carbon Dioxide 25 Anion Gap 16.0 H BUN 26 H Creatinine 1.6 H Estimated GFR (MDRD) 54 L Glucose 116 H Calcium 9.7 Total Bilirubin 1.4 H AST 47 H ALT 34 Alkaline Phosphatase 62 Total Creatine Kinase 732 H Total Protein 8.8 H Albumin 5.1 Globulin 3.7 Albumin/Globulin Ratio 1.4 Lipase 25 PD MEDICAL DECISION MAKING - ED course ED course: 24-year-old gentleman with ongoing methamphetamine use presents after a hypoglycemic episode due to poor oral intake. His blood sugar was fine here after oral glucagon prior to arrival and he also ate and drank here. I recommended to him sticking around for a couple of hours for IV fluids and monitoring which he refused. However, he was unable to find a ride in a speedy fashion and as such received 2 L of IV fluid and prolonged observation with recheck of his blood sugar which remained acceptable. Departure - Departure Disposition: 01 Home, Self Care Clinical Impression: Acute kidney injury, Methamphetamine abuse Malnutrition Qualifiers: Malnutrition type: protein-calorie malnutrition Protein-calorie malnutrition severity: mild Qualified Code(s): E44.1 - Mild protein-calorie malnutrition Condition: Good Record reviewed to determine appropriate education?: Yes Instructions: ED Drug Abuse General Comments: Drink plenty of fluids. Avoid using methamphetamines. Drugs are bad for you.
[2019-06-06 19:31] LABS: BASOPHILS % (AUTO) 0.3 %; EOSINOPHILS % (AUTO) 0.4 %; HGB - HEMOGLOBIN 13.5 g/dL (14.0-18.0); LYMPHOCYTES % (AUTO) 4.1 %; MEAN CORPUSCULAR HEMOGLOBIN 30.9 pg (27.0-31.0); MEAN CORPUSCULAR VOLUME 90.8 fL (80.0-94.0); MEAN PLATELET VOLUME 9.9 fL (7.4-11.4); MONOCYTES % (AUTO) 5.5 %; NEUTROPHILS % (AUTO) 88.7 %; PLT - PLATELET COUNT 226 10^3/uL (130-450); RED BLOOD COUNT 4.37 10^6/uL (4.70-6.10); RED CELL DISTRIBUTION WIDTH 13.4 % (12.0-15.0); WHITE BLOOD COUNT 24.7 x10^3/uL (4.8-10.8)
[2019-06-06 19:34] LABS: ABNORMAL LYMPHS % (MANUAL) 0 %
[2019-06-06 19:44] LABS: ALBUMIN 5.1 g/dL (3.2-5.5); ALBUMIN/GLOBULIN RATIO 1.4 (1.0-2.2); BILIRUBIN,TOTAL 1.4 mg/dL (0.2-1.0); CALCIUM 9.7 mg/dL (8.5-10.3); CREATININE 1.6 mg/dL (0.6-1.2); TOTAL PROTEIN 8.8 g/dL (6.7-8.2)
[2019-06-06 20:00] LABS: BAND NEUTROPHILS % (MANUAL) 10 %; LYMPHOCYTES # (MANUAL) 1.5 10^3/uL (1.5-3.5); LYMPHOCYTES % (MANUAL) 5 %; MONOCYTES # (MANUAL) 1.5 10^3/uL (0.0-1.0)
[2019-06-06] MEDS ORDERED: LACTATED RINGERS 1,000 ML IV STA (20:00)
[2019-06-06 20:01] LABS: DIFFERENTIAL COMMENT MANUAL DIFFERENTIAL; PLATELET ESTIMATE, MANUAL NORMAL (130-450,000) (NORMAL); PLATELET MORPHOLOGY NORMAL APPEARANCE (NORMAL); RBC MORPHOLOGY (MULTIPLE) NORMAL APPEARANCE (NORMAL)
[2019-06-06 21:35] VITALS: BP 132/68
== END 2019-06-06 21:41 | disposition home or self-care (01) ==
LOC: ED 19:12
DX: N17.9 Acute kidney failure, unspecified (principal); F15.10 Other stimulant abuse, uncomplicated; E44.1 Mild protein-calorie malnutrition; F17.200 Nicotine dependence, unspecified, uncomplicated
CPT/HCPCS: 36415; 80053; 82550; 83690; 85025; 96360; 96361; 99283; 99284; J7120

== ENCOUNTER 2019-07-02 00:47 | Outpatient (CLI) | payer MEDICAID | END 2019-07-02 00:48 | disposition critical access hospital (66) | LOC: EMS 00:47 | PROVIDERS: ATTEND Surgery | DX: R41.82 Altered mental status, unspecified (principal) | CPT/HCPCS: A0425; A0427; A0999 ==

== ENCOUNTER 2019-07-02 00:57 | Observation (INO) | payer MEDICAID ==
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
[2019-07-02 01:47] LABS: BASOPHILS % (AUTO) 0.3 %; EOSINOPHILS % (AUTO) 0.2 %; HGB - HEMOGLOBIN 13.2 g/dL (14.0-18.0); LYMPHOCYTES % (AUTO) 14.4 %; MEAN CORPUSCULAR HEMOGLOBIN 29.7 pg (27.0-31.0); MEAN CORPUSCULAR HGB CONC 33.8 g/dL (32.0-36.0); MEAN CORPUSCULAR VOLUME 87.8 fL (80.0-94.0); MEAN PLATELET VOLUME 11.4 fL (7.4-11.4); MONOCYTES % (AUTO) 10.8 %; NEUTROPHILS % (AUTO) 73.8 %; PLT - PLATELET COUNT 261 10^3/uL (130-450); RED BLOOD COUNT 4.44 10^6/uL (4.70-6.10); RED CELL DISTRIBUTION WIDTH 13.2 % (12.0-15.0); WHITE BLOOD COUNT 17.1 x10^3/uL (4.8-10.8)
[2019-07-02] MEDS ORDERED: LORazepam 2 MG/ML VIAL IVP STA ×3 (01:47→02:24)
[2019-07-02 01:48] LABS: ALBUMIN 4.9 g/dL (3.2-5.5); ALBUMIN/GLOBULIN RATIO 1.3 (1.0-2.2); ALKALINE PHOSPHATASE 61 IU/L (42-121); ALT ALANINE AMINOTRANSFERASE 29 IU/L (10-60); AST ASPARTATE AMINOTRANSFERASE 53 IU/L (10-42); BILIRUBIN,TOTAL 1.2 mg/dL (0.2-1.0); BUN - BLOOD UREA NITROGEN 16 mg/dL (6-20); CALCIUM 9.7 mg/dL (8.5-10.3); CARBON DIOXIDE - CO2 23 mmol/L (21-32); CHLORIDE 96 mmol/L (101-111); CK- CREATINE KINASE 790 IU/L (22-269); CREATININE 1.4 mg/dL (0.6-1.2); GFR - MDRD 63 (>89); GLUCOSE 199 mg/dL (70-100); LIPASE 24 U/L (22-51); SODIUM 137 mmol/L (135-145); TOTAL PROTEIN 8.8 g/dL (6.7-8.2)
[2019-07-02] MEDS ORDERED: SODIUM CHLORIDE 0.9% 1,000 ML IV STA ×2 (01:52)
[2019-07-02 02:00] LABS: ABNORMAL LYMPHS % (MANUAL) 0 %
[2019-07-02 02:17] LABS: BAND NEUTROPHILS % (MANUAL) 11 %; DIFFERENTIAL COMMENT MANUAL DIFFERENTIAL; EOSINOPHILS # (MANUAL) 0.2 10^3/uL (0-0.7); LYMPHOCYTES # (MANUAL) 2.6 10^3/uL (1.5-3.5); LYMPHOCYTES % (MANUAL) 15 %; PLATELET ESTIMATE, MANUAL NORMAL (130-450,000) (NORMAL); RBC MORPHOLOGY (MULTIPLE) NORMAL APPEARANCE (NORMAL)
[2019-07-02] MEDS: DEXTROSE 10% 250 ML IV STA ×2 (02:45→12:00)
[2019-07-02] MEDS ORDERED: DEXTROSE 10% 250 ML IV ONE ×2 (02:47→12:01)
[2019-07-02] MEDS ORDERED: ONDANSETRON 4 MG/2 ML VIAL IVP PRN (02:54)
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
[2019-07-02 03:11] LABS: INR 1.4 (0.8-1.2)
[2019-07-02 03:24] LABS: MUDS CUTOFF CONCENTRATIONS CUTOFF CONC BELOW:
[2019-07-02 03:26] LABS: ACETAMINOPHEN < 10 ug/mL (10-30); SALICYLATE < 6.0 mg/dL
[2019-07-02 03:27] LABS: BILIRUBIN,URINE NEGATIVE (NEGATIVE); GLUCOSE, URINE (UA) NEGATIVE (NEGATIVE); KETONES,URINE (UA) 15 mg/dL (NEGATIVE); LEUKOCYTE ESTERASE, URINE NEGATIVE (NEGATIVE); NITRITE,URINE NEGATIVE (NEGATIVE); OCCULT BLOOD,URINE MODERATE (NEGATIVE); PROTEIN,URINE 30 mg/dL (NEGATIVE); UROBILINOGEN,URINE 0.2 (NORMAL) E.U./dL (NORMAL)
[2019-07-02 03:28] LABS: CLARITY,URINE CLEAR (CLEAR)
--- NOTE | 2019-07-02 03:29 | XRAY Report ---
Reason: Hypoxia. Drug overdose. Procedure Date: 07/02/2019 Accession Number: [id number] / [id number] Procedure: XR - Chest 1 View X-Ray CPT Code: 97181 FULL RESULT: EXAM: CHEST RADIOGRAPHY EXAM DATE: 07/02/2019 03:20 AM. CLINICAL HISTORY: Hypoxia. Drug overdose. COMPARISON: None. TECHNIQUE: 1 view. FINDINGS: Lungs/Pleura: Diffuse mild interstitial opacities. No large effusion. No gross pneumothorax. Mediastinum: No cardiomegaly. No mediastinal shift. Other: None. IMPRESSION: Suspect mild fluid overload. RADIA
[2019-07-02 03:41] LABS: SQUAMOUS EPITHELIAL CELL,UR MOD Squamous (<= Few)
[2019-07-02 03:42] LABS: AMPHETAMINE SCREEN,URINE POSITIVE (NEGATIVE); BACTERIA,URINE Rare /HPF (None Seen); BENZODIAZEPINES SCREEN, URINE NEGATIVE (NEGATIVE); COCAINE SCREEN URINE NEGATIVE (NEGATIVE); METHADONE SCREEN, URINE NEGATIVE (NEGATIVE); METHAMPHETAMINES SCREEN, URINE POSITIVE (NEGATIVE); MUCUS,URINE Moderate Strands; OPIATE SCREEN, URINE POSITIVE (NEGATIVE); OXYCODONE SCREEN, URINE NEGATIVE (NEGATIVE); PROPOXYPHENE SCREEN, URINE NEGATIVE (NEGATIVE); SPERM,URINE PRESENT; TRICYCLIC ANTIDEPRESSANT,URINE NEGATIVE (NEGATIVE)
[2019-07-02] MEDS ORDERED: LACTATED RINGERS 1,000 ML IV ONE (03:42)
[2019-07-02] MEDS: LACTATED RINGERS 1,000 ML IV SCH ×2 (04:35→09:17)
[2019-07-02] MEDS: SODIUM CHLORIDE FLUSH 0.9% 10 ML SYRINGE IVP PRN ×3 (04:43→09:31)
[2019-07-02 06:07] LABS: BASOPHILS % (AUTO) 0.2 %; EOSINOPHILS % (AUTO) 0.1 %; HGB - HEMOGLOBIN 11.7 g/dL (14.0-18.0); LYMPHOCYTES # (AUTO) 0.9 10^3/uL (1.5-3.5); LYMPHOCYTES % (AUTO) 8.8 %; MEAN CORPUSCULAR HEMOGLOBIN 30.2 pg (27.0-31.0); MEAN CORPUSCULAR HGB CONC 34.1 g/dL (32.0-36.0); MEAN CORPUSCULAR VOLUME 88.4 fL (80.0-94.0); MEAN PLATELET VOLUME 10.9 fL (7.4-11.4); MONOCYTES # (AUTO) 1.5 10^3/uL (0.0-1.0); MONOCYTES % (AUTO) 14.6 %; NEUTROPHILS # (AUTO) 7.7 10^3/uL (1.5-6.6); PLT - PLATELET COUNT 147 10^3/uL (130-450); RED BLOOD COUNT 3.88 10^6/uL (4.70-6.10); RED CELL DISTRIBUTION WIDTH 13.3 % (12.0-15.0); WHITE BLOOD COUNT 10.1 x10^3/uL (4.8-10.8)
[2019-07-02 06:21] LABS: ALBUMIN/GLOBULIN RATIO 1.3 (1.0-2.2); BILIRUBIN,TOTAL 1.1 mg/dL (0.2-1.0); CALCIUM 8.3 mg/dL (8.5-10.3); CREATININE 0.7 mg/dL (0.6-1.2); MAGNESIUM 2.7 mg/dL (1.7-2.8); PHOSPHORUS 4.9 mg/dL (2.5-4.6); TOTAL PROTEIN 7.1 g/dL (6.7-8.2)
[2019-07-02 08:18] LABS: VBG PH 7.343 (7.31-7.41)
[2019-07-02] MEDS: HEPARIN 5,000 UNIT/ML VIAL SUBQ SCH ×2 (09:15→21:58)
[2019-07-02] MEDS: LORazepam 2 MG/ML VIAL IVP PRN ×2 (09:30→12:47)
[2019-07-02] MEDS: SODIUM CHLORIDE FLUSH 0.9% 10 ML SYRINGE IVP SCH ×2 (09:41→17:28)
[2019-07-02] MEDS ORDERED: SODIUM CHLORIDE 0.9% 500 ML IV PRN (11:43)
[2019-07-02] MEDS ORDERED: LORazepam 100MG/100ML D5W 100 ML IV SCH (12:00)
[2019-07-02] MEDS ORDERED: DEXTROSE 5% 1,000 ML IV SCH (12:00)
[2019-07-02] MEDS ORDERED: DEXTROSE 5%-LACTATED RINGERS 1,000 ML IV SCH (14:00)
[2019-07-02] MEDS: DEXTROSE 5%-LACTATED RINGERS 1,000 ML IV SCH ×3 (17:26→22:56)
[2019-07-02] MEDS: NICOTINE 14 MG PATCH TOP SCH (23:13)
[2019-07-03] MEDS: DEXTROSE 5%-LACTATED RINGERS 1,000 ML IV SCH ×7 (02:12→23:31)
[2019-07-03] MEDS: SODIUM CHLORIDE FLUSH 0.9% 10 ML SYRINGE IVP SCH ×3 (02:12→17:09)
[2019-07-03 05:46] LABS: BASOPHILS % (AUTO) 0.2 %; EOSINOPHILS # (AUTO) 0.1 10^3/uL (0.0-0.7); EOSINOPHILS % (AUTO) 1.3 %; HGB - HEMOGLOBIN 11.7 g/dL (14.0-18.0); LYMPHOCYTES # (AUTO) 1.2 10^3/uL (1.5-3.5); LYMPHOCYTES % (AUTO) 19.3 %; MEAN CORPUSCULAR HEMOGLOBIN 29.5 pg (27.0-31.0); MEAN CORPUSCULAR HGB CONC 32.5 g/dL (32.0-36.0); MEAN CORPUSCULAR VOLUME 90.7 fL (80.0-94.0); MEAN PLATELET VOLUME 12.4 fL (7.4-11.4); MONOCYTES # (AUTO) 0.7 10^3/uL (0.0-1.0); MONOCYTES % (AUTO) 11.7 %; NEUTROPHILS # (AUTO) 4.2 10^3/uL (1.5-6.6); NEUTROPHILS % (AUTO) 67.2 %; RED BLOOD COUNT 3.97 10^6/uL (4.70-6.10); RED CELL DISTRIBUTION WIDTH 13.5 % (12.0-15.0); WHITE BLOOD COUNT 6.2 x10^3/uL (4.8-10.8)
[2019-07-03 05:50] LABS: PLT - PLATELET COUNT 92 10^3/uL (130-450)
[2019-07-03 06:20] LABS: BUN - BLOOD UREA NITROGEN 6 mg/dL (6-20); CALCIUM 8.4 mg/dL (8.5-10.3); CARBON DIOXIDE - CO2 24 mmol/L (21-32); CHLORIDE 106 mmol/L (101-111); CREATININE 0.6 mg/dL (0.6-1.2); GFR - MDRD 167 (>89); GLUCOSE 145 mg/dL (70-100); MAGNESIUM 1.9 mg/dL (1.7-2.8); SODIUM 139 mmol/L (135-145)
[2019-07-03 06:28] LABS: CK- CREATINE KINASE > 82000 IU/L (22-269)
--- NOTE | 2019-07-03 07:32 | PROVIDER PROGRESS NOTE ---
Subjective - Prog Note Date Prog Note Date: 07/03/19 Prog Note Time: 14:21 - Subjective Subjective: he sleeps but when he wakes, wants to go home. off restraints this am. no longer flinging his body around the bed. But his CPK continues to rise to 82,000 today. ROS: cough new Current Medications - Current Medications Current Medications: Active Medications Heparin Sodium (Porcine) () 5,000 unit SUBQ BID [facility] Last Admin: 07/03/19 09:37 Dose: Not Given Lorazepam (Ativan) 100 mls @ 0.65 mls/hr IV .Q72H CHRISTY; Protocol Last Titration: 07/02/19 23:00 Dose: Infused Sodium Chloride (Normal Saline 0.9%) 500 mls @ 0 mls/hr IV Q24H PRN PRN Reason: TKO RATE Last Infusion: 07/03/19 07:15 Dose: Infused Dextrose/Lactated Ringer's (D5lr) 1,000 mls @ 300 mls/hr IV .Q3H20M [facility] Last Admin: 07/03/19 12:59 Dose: 300 mls/hr Lorazepam (Ativan Inj (Vial)) 2 mg IVP Q2H PRN PRN Reason: Agitation Last Admin: 07/02/19 12:47 Dose: 2 mg Nicotine (Nicoderm) 1 patch TOP DAILY [facility] Last Admin: 07/03/19 09:37 Dose: 1 patch Ondansetron HCl (Zofran Inj) 4 mg IVP Q6HR PRN PRN Reason: Nausea / Vomiting Sodium Chloride (Normal Saline Flush 0.9%) 10 ml IVP 0100,0900,1700 [facility] Last Admin: 07/03/19 08:43 Dose: 10 ml Sodium Chloride (Normal Saline Flush 0.9%) 10 ml IVP PRN PRN PRN Reason: NEEDED PER PROVIDER ORDERS Last Admin: 07/03/19 12:15 Dose: 10 ml Sertraline [Zoloft] 50 mg PO DAILY 07/02/19 traZODone [Desyrel] 50 mg PO HS 07/02/19 Objective - Vital Signs/Intake & Output Reviewed Vital Signs: Yes Vital Signs: Vital Signs x48h Temp Pulse Resp BP Pulse Ox 07/03/19 07:00 104 H 25 H 124/80 98 07/03/19 06:00 105 H 23 137/85 H 98 07/03/19 05:00 104 H 28 H 132/72 H 95 07/03/19 04:00 37.1 C 105 H 23 118/69 94 07/03/19 03:00 104 H 28 H 118/69 95 07/03/19 02:00 105 H 26 H 115/67 94 07/03/19 01:00 107 H 27 H 113/66 95 07/03/19 00:00 37.1 C 105 H 25 H 115/69 94 Intake & Output: Intake & Output 06/30/19 07/01/19 07/02/19 07/03/19 23:59 23:59 23:59 23:59 Intake Total 7544.666 1980 Output Total 3009 740 Balance 5295.666 1240 - Objective General Appearance: positive: No acute distress, Lethargic Eyes Bilateral: positive: PERRL, EOMI ENT: positive: Other (poor dentition) Neck: positive: No JVD. negative: Stiff neck, Carotid bruit Respiratory: positive: Chest non-tender. negative: Wheezes, Rales, Rhonchi Cardiovascular: positive: Regular rate & rhythm. negative: Gallop/S4, Friction rub Abdomen: positive: Non-tender, No organomegaly, Nml bowel sounds, No distention - Lab Results Fish Bones: 07/03/19 04:45 07/03/19 04:45 Other Labs: Lab Results x24hrs 07/03/19 07/03/19 07/02/19 Range/Units 04:45 04:45 13:46 WBC 6.2 (4.8-10.8) x10^3/uL RBC 3.97 L (4.70-6.10) 10^6/uL Hgb 11.7 L (14.0-18.0) g/dL Hct 36.0 L (42.0-52.0) % MCV 90.7 (80.0-94.0) fL MCH 29.5 (27.0-31.0) pg MCHC 32.5 (32.0-36.0) g/dL RDW 13.5 (12.0-15.0) % Plt Count 92 L (130-450) 10^3/uL MPV 12.4 H (7.4-11.4) fL Neut # (Auto) 4.2 (1.5-6.6) 10^3/uL Lymph # (Auto) 1.2 L (1.5-3.5) 10^3/uL [place] # (Auto) 0.7 (0.0-1.0) 10^3/uL Eos # (Auto) 0.1 (0.0-0.7) 10^3/uL Baso # (Auto) 0.0 (0.0-0.1) 10^3/uL Absolute Nucleated RBC 0.00 x10^3/uL Nucleated RBC % 0.0 /100WBC VBG pH (7.31-7.41) Ionized Calcium (1.15-1.33) mmol/L Sodium 139 (135-145) mmol/L Potassium 3.7 (3.5-5.0) mmol/L Chloride 106 (101-111) mmol/L Carbon Dioxide 24 (21-32) mmol/L Anion Gap 9.0 (6-13) BUN 6 (6-20) mg/dL Creatinine 0.6 (0.6-1.2) mg/dL Estimated GFR (MDRD) 167 (>89) Glucose 145 H (70-100) mg/dL Calcium 8.4 L (8.5-10.3) mg/dL Magnesium 1.9 (1.7-2.8) mg/dL Total Creatine Kinase > 34872 H* 94618 H* (22-269) IU/L Nasal Screen MRSA (PCR) (NEGATIVE) 07/02/19 07/02/19 07/02/19 Range/Units 08:13 05:49 04:25 WBC (4.8-10.8) x10^3/uL RBC (4.70-6.10) 10^6/uL Hgb (14.0-18.0) g/dL Hct (42.0-52.0) % MCV (80.0-94.0) fL MCH (27.0-31.0) pg MCHC (32.0-36.0) g/dL RDW (12.0-15.0) % Plt Count (130-450) 10^3/uL MPV (7.4-11.4) fL Neut # (Auto) (1.5-6.6) 10^3/uL Lymph # (Auto) (1.5-3.5) 10^3/uL [place] # (Auto) (0.0-1.0) 10^3/uL Eos # (Auto) (0.0-0.7) 10^3/uL Baso # (Auto) (0.0-0.1) 10^3/uL Absolute Nucleated RBC x10^3/uL Nucleated RBC % /100WBC VBG pH 7.343 (7.31-7.41) Ionized Calcium 1.13 L (1.15-1.33) mmol/L Sodium (135-145) mmol/L Potassium (3.5-5.0) mmol/L Chloride (101-111) mmol/L Carbon Dioxide (21-32) mmol/L Anion Gap (6-13) BUN (6-20) mg/dL Creatinine (0.6-1.2) mg/dL Estimated GFR (MDRD) (>89) Glucose (70-100) mg/dL Calcium (8.5-10.3) mg/dL Magnesium (1.7-2.8) mg/dL Total Creatine Kinase 6596 H* (22-269) IU/L Nasal Screen MRSA (PCR) NEGATIVE (NEGATIVE) ABX Reporting Has patient been on IV antibiotics over the past 48 hours?: No Assessment/Plan - Problem List (1) Rhabdomyolysis Impression: Secondary to his methamphetamine use. CK's elevated in the 700's>6596>18782>69785 as well AST compared to ALT. Has had prior admissions for rhabdomyolsis. Will hydrate with LR ( am stopping D5LR) at 200 mL/hr and trend CK. As long as rising he will stay in the hospital. So far his Bun/Creat are tolerating this. In the past his CK was very slow to go down and we have discharged him once he trended below 10,000. Qualifiers: Rhabdomyolysis type: non-traumatic Qualified Code(s): M62.82 - Rhabdomyolysis (2) Metamphetamine abuse and intoxication. Slowly resolving. Needed Ativan and 4 point leather restraints yesterday and last night he is down to soft restraints of upper extremities. Today no restraints. Presented combative, agitated, tachycardic. He was not hypertensive or febrile. Prior history of methamphetamine abuse. Reportedly used heroin as well which can explain his miotic pupils on admission but Operating System Programmer would not expect him to be combative and tachycardic. Received Ativan in the ER and continued in ICU. - Continue Ativan PRN for agitation but he is needing less and less. - IV hydration - Urine drug screen negative for alcohol, acetaminophen, salicylate levels - One to one observation and physical restraints given he was combative (3) Encephalopathy acute Conclusion/Plan: He was initially talkative but agitated and combative requiring restraints. This was likely due to his drug use. He has been sedated over the last 24 hours after receiving Ativan IV prn which is likely the cause of his current encephalopathy. His mentation should improve as the Ativan is metabolized as well as his illicit drug use. He is already improving this am by asking for food. (4) Leukocytosis resolved Conclusion/Plan: He has an elevated white count of 17 with a left shift and 11% bands. Suspect this is likely reactive secondary to his drug use. Do not suspect infection at this time.Check x-ray and urinalysis was negative for infection (UA had hematuria and squamous cells). Will continue to hold off on antibiotics at this time unless there is evidence of infection. He was 10.1>6.2 this am. Qualifiers: Leukocytosis type: unspecified Qualified Code(s): D72.829 - Elevated white blood cell count, unspecified (5) ARF (acute renal failure) Conclusion/Plan: Likely multifactorial in nature and secondary to dehydration as well as possibly a component of rhabdomyolysis. Creatinine elevated at 1.4 and baseline is 0.5. 1.4>0.7>0.6 today so has returned to baseline. Qualifiers: Qualified Code(s): N17.9 - Acute kidney failure, unspecified (6) Sinus tachycardia Conclusion/Plan: Coninues to the low 100's. Secondary to his drug use. Heart rate initially in the 150's but improved to 110's after receiving Ativan. EKG was sinus. Monitored on telemetry and sinus. (7) Hypoxia Conclusion/Plan: He became hypoxic into the high 80's after receiving Ativan. Likely secondary to hypoventilation. Check x-ray was without infiltrate. Now he is 98% on RA. No ABG needed to be done. (8) Hypoglycemia Conclusion/Plan: Suspect secondary to malnourishment and illicit drug use. Blood glucose was in the 40's upon arrival to the ER. Improved with dextrose. Monitored blood glucose every 6 hours and is 145 this am. Start diet since able to take PO. Stop D5. Qualifiers: Qualified Code(s): M62.82 - Rhabdomyolysis
[2019-07-03] MEDS: NICOTINE 14 MG PATCH TOP SCH (09:37)
[2019-07-03] MEDS: HEPARIN 5,000 UNIT/ML VIAL SUBQ SCH ×2 (09:37→19:56)
[2019-07-03] MEDS ORDERED: HALOPERIDOL 5 MG/ML VIAL IVP ONE (12:01)
[2019-07-03] MEDS: SODIUM CHLORIDE FLUSH 0.9% 10 ML SYRINGE IVP PRN ×2 (12:15→15:35)
[2019-07-03] MEDS ORDERED: PROCHLORPERAZINE 10 MG/2 ML VIAL IVP PRN (15:04)
[2019-07-03] MEDS: HALOPERIDOL 5 MG/ML VIAL IVP PRN ×2 (15:34→21:49)
--- NOTE | 2019-07-03 15:44 | XRAY Report ---
Reason: cough Procedure Date: 07/03/2019 Accession Number: [id number] / [id number] Procedure: XR - Chest 1 View X-Ray CPT Code: 48374 FULL RESULT: EXAM: CHEST RADIOGRAPHY EXAM DATE: 07/03/2019 03:08 PM. CLINICAL HISTORY: Cough. COMPARISON: CHEST 1 VIEW 07/02/2019 3:07 AM. TECHNIQUE: 1 view. FINDINGS: Lungs/Pleura: Prominence of interstitium and bilateral perihilar location, differentials include interstitial/viral pneumonia. No focal opacity. No pleural effusion. No pneumothorax. Mediastinum: Within exam limitations, the cardiomediastinal contour is normal. Other: None. IMPRESSION: Prominence of interstitium in bilateral perihilar location, differentials include interstitial/viral pneumonia. No focal opacity. RADIA
[2019-07-04] MEDS: DEXTROSE 5%-LACTATED RINGERS 1,000 ML IV SCH ×2 (03:26→06:47)
[2019-07-04] MEDS: SODIUM CHLORIDE FLUSH 0.9% 10 ML SYRINGE IVP SCH ×2 (03:26→17:53)
[2019-07-04 05:49] LABS: BUN - BLOOD UREA NITROGEN < 5 mg/dL (6-20); CALCIUM 8.8 mg/dL (8.5-10.3); CARBON DIOXIDE - CO2 24 mmol/L (21-32); CHLORIDE 111 mmol/L (101-111); CREATININE 0.6 mg/dL (0.6-1.2); GFR - MDRD 167 (>89); GLUCOSE 145 mg/dL (70-100); SODIUM 144 mmol/L (135-145)
[2019-07-04 05:54] LABS: CK- CREATINE KINASE 5280 IU/L (22-269)
[2019-07-04] MEDS: HALOPERIDOL 5 MG/ML VIAL IVP PRN (08:17)
[2019-07-04] MEDS: HEPARIN 5,000 UNIT/ML VIAL SUBQ SCH ×2 (09:50→21:09)
[2019-07-04] MEDS: NICOTINE 14 MG PATCH TOP SCH (09:52)
[2019-07-04 10:30] LABS: MAGNESIUM 1.7 mg/dL (1.7-2.8); PHOSPHORUS 3.5 mg/dL (2.5-4.6)
[2019-07-04] MEDS: LORazepam 2 MG/ML VIAL IVP PRN (10:56)
[2019-07-04] MEDS: POLYETHYLENE GLYCOL 3350 17 GM PACKET PO SCH (13:16)
[2019-07-04] MEDS: MAGNESIUM OXIDE 400 MG TABLET PO SCH (20:05)
[2019-07-05] MEDS: MAGNESIUM OXIDE 400 MG TABLET PO SCH (01:12)
[2019-07-05] MEDS: SODIUM CHLORIDE FLUSH 0.9% 10 ML SYRINGE IVP SCH ×2 (01:12→11:53)
[2019-07-05 05:15] LABS: ALBUMIN 3.9 g/dL (3.2-5.5); CALCIUM 9.5 mg/dL (8.5-10.3); PHOSPHORUS 4.7 mg/dL (2.5-4.6)
[2019-07-05] MEDS: HEPARIN 5,000 UNIT/ML VIAL SUBQ SCH (09:34)
[2019-07-05] MEDS: POLYETHYLENE GLYCOL 3350 17 GM PACKET PO SCH (09:35)
[2019-07-05] MEDS: NICOTINE 14 MG PATCH TOP SCH (09:35)
--- NOTE | 2019-07-05 10:08 | PROVIDER PROGRESS NOTE ---
Subjective - Prog Note Date Prog Note Date: 07/04/19 Prog Note Time: 19:00 - Subjective Subjective: he is tearful and has agreed to detox/psych transfer but is still not really committing to this. changes his mind. ambulance cannot pick him up today so may go tomorrow Objective - Vital Signs/Intake & Output Reviewed Vital Signs: Yes Vital Signs: Vital Signs x48h Temp Pulse Resp BP Pulse Ox 07/05/19 09:00 36.6 C 82 26 H 125/82 H 98 07/05/19 05:00 83 27 H 121/70 97 07/05/19 04:48 37.1 C 79 29 H 121/70 97 07/05/19 04:00 97 22 121/70 97 Intake & Output: Intake & Output 07/02/19 07/03/19 07/04/19 07/05/19 23:59 23:59 23:59 23:59 Intake Total 7754.666 8824.334 3410 440 Output Total 2249 7120 5300 400 Balance 5505.666 1704.334 -1890 40 - Objective General Appearance: positive: Alert, Other (thin, depressed white male, look stated age) Eyes Bilateral: positive: PERRL ENT: positive: Pharynx nml Respiratory: positive: Chest non-tender. negative: Wheezes, Rales, Rhonchi Cardiovascular: positive: Regular rate & rhythm. negative: Gallop/S4, Friction rub Abdomen: positive: Non-tender, No organomegaly, Nml bowel sounds, No distention Skin: positive: Warm, Dry Extremities: positive: Full ROM Neurologic/Psychiatric: positive: Oriented x3, CN's nml (2-12), Motor nml, Depressed mood/affect - Lab Results Fish Bones: 07/03/19 04:45 07/05/19 04:42 Other Labs: Lab Results x24hrs 07/05/19 07/04/19 Range/Units 04:42 04:45 Potassium 3.7 (3.5-5.0) mmol/L Calcium 9.5 (8.5-10.3) mg/dL Phosphorus 4.7 H 3.5 (2.5-4.6) mg/dL Magnesium 2.0 1.7 (1.7-2.8) mg/dL Total Creatine Kinase 3558 H* (22-269) IU/L Albumin 3.9 (3.2-5.5) g/dL ABX Reporting Has patient been on IV antibiotics over the past 48 hours?: No Assessment/Plan - Problem List (1) Rhabdomyolysis Impression: from metamphetamine use. HIs BUN/creat remained nml in spite of a bump to 82,000. Levels down today. EAting and walking in room. Will stop IVF. Wait for ambulance transfer. Qualifiers: Qualified Code(s): M62.82 - Rhabdomyolysis
--- NOTE | 2019-07-05 10:12 | Discharge Plan ---
Discharge Plan Problem Reviewed?: Yes Disposition: 65 Psych Hosp/Unit DC/Xfer Condition: Stable Diet: Regular Activity Restrictions: Activity as Tolerated Shower Restrictions: No Driving Restrictions: No Health Concerns: You were admitted to the hospital while acutely intoxicated with methamphetamines as well as alcohol. Methamphetamine intoxication resulted in rhabdomyolysis. This is muscle protein degradation that then spilled into your bloodstream, causing possible renal failure. Plan of Treatment: You were placed in the intensive care unit and started on aggressive intravenous fluids. This is to flush out the muscle proteins out of your body and to help your kidneys strain from filtering. Your muscle enzymes went up to at least 82,000. They are now down below 4000. This will slowly go back to normal as long as you stay off methamphetamines. Care Goals: 1., Transition from our acute care facility to an inpatient psychiatric facility for your mood disorder and methamphetamine abuse. 2. Continue your antidepressants and sleeping medicines while at the facility. Assessment: Patient understands care goals. No Smoking: If you smoke, Please STOP! Call for help.
[2019-07-05 11:19] VITALS: BP 126/64
--- NOTE | 2019-07-05 17:19 | DISCHARGE SUMMARY ---
"Discharge Summary Admit Date: 07/02/19 Discharge Date: 07/05/19 Discharging Provider: Yessica Dorsey MD Primary Care Provider: JIMMY Miller Code Status: Attempt Resuscitation Condition at Discharge: Stable Discharge Disposition: 65 Psych Hosp/Unit DC/Xfer Discharge Facility Name: [facility] [place], [place]. JOSE ALFREDO Whaley - DIAGNOSES Discharge Diagnoses with Status of Each Condition: 1. rhabdomyolysis 2. Methamphetamine abuse 3. Methamphetamine intoxication 4. Acute encephalopathy 5. Leukocytosis, resolved 6. Acute renal failure, resolved 7. Sinus tachycardia, resolved 8. Hypoxia, resolved 9. Hypoglycemia resolved. - HPI History of Present Illness: This is a 24 year old male with a past medical history significant for methamphetamine and heroin abuse who presents today after being found agitated by the police. History is obtained from the ER staff as patient is unable to converse due to depressed mental status after receiving Ativan IV. Reportedly, zuly singh was in a vehicle that was being pursued by the police. The vehicle came to a stop and the patient may have been belligerent. He told someone that he had done meth approximately 24 hours ago and that he used heroin a few hours prior. He came to the hospital via EMS and required restraints as he was combative. He was able to speak with the ER staff but was incoherent at times. He became very agitated and pulled out an IV. He received 6mg of Ativan IV which put him out. He was afebrile, normotensive, tachycardic initially in the 150's which improved to the 110's after receiving the Ativan. He was initially on room air but is now requiring 2L of oxygen after he became sedated. Labs are significant for leukocytosis with bands, elevated anion gap, elevated creatinine, elevated CK and AST. Given the lab findings and mental status, medicine was consulted for admission. History - Past Medical History Cardiovascular: reports: None Respiratory: reports: None Neuro: reports: None Endocrine/Autoimmune: reports: None GI: reports: GERD : reports: None HEENT: reports: None Psych: reports: Depression, Anxiety, ADD/ADHD, Post traumatic stress disorder, O ther (Polysubstance abuse) Derm: reports: None - CONSULTS | PROCEDURES Procedures: 1. Chest x-ray initially showing possible mild fluid overload 2. Repeat chest x-ray showing prominence of interstitium in bilateral perihilar location, interstitial versus viral pneumonia, no focal opacities. - HOSPITAL COURSE Hospital Course: This unfortunate young male has been to our facility much multiple times. He is been in the emergency room and our ICU for usually rhabdomyolysis, acute amphetamine intoxication. With this admission, he was stopped by the police and became belligerent after a car jhoan. Brought to our emergency room and was felt to be acutely intoxicated with methamphetamines. He had early mild rhabdomyolysis, elevated white cell count, and abnormal chest x-ray, and hypogl ycemia. He was placed in the ICU and put on a D5 drip, monitor for signs and symptoms of hypoxia and pneumonia.He required restraints because he would thrash his body onto the bed rails or try to rip out his IV. He also required Haldol and Ativan to keep him calm. Even though his chest x-ray abnormal, his lung exam is normal, hypoxia resolved, and white cell count went back to normal. He had an occasional dry cough. But there was nothing on exam that indicated he had an infectious process that we needed to treat. Rhabdomyolysis initially worsened and that his CPK peaked at 82,000. This was in spite of aggressive IV hydration at up to 300 cc an hour. His acute renal failure resolved. Eventually this poor unfortunate male woke up. Was alert, oriented. Initially wanting to leave, but evaluated by mental health professionals. He is currently voluntary transfer to an inpatient unit for substance abuse. But this young male has not followed through on any of his previous promises. At the time of discharge he is alert, oriented, remorseful, tearful. Blood pressure is 126/64. Pulse 73. Respirations 16. 98% saturated on room air. Temperature is 36.3.Completely negative exam and that he is walking in his room, eating his breakfast 100%. He has clear lungs, a regular rate and rhythm, skin that is warm, dry. Abdomen soft, nontender normal bowel sounds. He is transferred in stable condition. While I cannot explain his abnormal chest x-rays, physical exam does not confirm any alarming illness. - ALLERGIES Allergies/Adverse Reactions: Allergies Allergy/AdvReac Type Severity Reaction Status Date / Time No Known Drug Allergies Allergy Verified 07/02/19 01:19 - MEDICATIONS Home Medications: Ambulatory Orders Medication Instructions Recorded Confirmed Sertraline [Zoloft] 50 mg PO DAILY 07/02/19 07/02/19 traZODone [Desyrel] 50 mg PO HS 07/02/19 07/02/19 - LABS Result Diagrams: 07/03/19 04:45 07/05/19 04:42"
== END 2019-07-05 11:56 ==
LOC: EDUNIT# → ED 00:57 → ICU 02:54
PROVIDERS: ADMIT Internal Medicine; ATTEND Specialist
DX: M62.82 Rhabdomyolysis (principal); F15.129 Other stimulant abuse with intoxication, unspecified; F11.129 Opioid abuse with intoxication, unspecified; F15.159 Other stimulant abuse with stimulant-induced psychotic disorder, unspecified; F11.159 Opioid abuse with opioid-induced psychotic disorder, unspecified; G92 Toxic encephalopathy; R09.02 Hypoxemia; T42.4X5A Adverse effect of benzodiazepines, initial encounter; Y92.238 Other place in hospital as the place of occurrence of the external cause; N17.9 Acute kidney failure, unspecified; R45.1 Restlessness and agitation; R00.0 Tachycardia, unspecified; D72.829 Elevated white blood cell count, unspecified; R91.8 Other nonspecific abnormal finding of lung field; R05 Cough; E16.2 Hypoglycemia, unspecified; E86.0 Dehydration; F11.10 Opioid abuse, uncomplicated; F32.9 Major depressive disorder, single episode, unspecified; F41.9 Anxiety disorder, unspecified; F43.10 Post-traumatic stress disorder, unspecified; F17.200 Nicotine dependence, unspecified, uncomplicated; Z78.1 Physical restraint status; Z79.899 Other long term (current) drug therapy
CPT/HCPCS: 36415; 51701; 71045; 80048; 80053; 80306; 80307; 80320; 80329; 81001; 82040; 82310; 82330; 82550; 82553; 83605; 83690; 83735; 84100; 84132; 85025; 85610; 87150; 93005; 96361; 96365; 96366; 96372; 96375; 96376; 99284; 99285; A9270; G0378; J2060; J3490; J7120; 81003; 87086

== ENCOUNTER 2019-08-03 06:44 | Outpatient (CLI) | payer MEDICAID | END 2019-08-03 06:45 | disposition critical access hospital (66) | LOC: EMS 06:44 | PROVIDERS: ATTEND Surgery | DX: M25.579 Pain in unspecified ankle and joints of unspecified foot (principal); R06.02 Shortness of breath ==

== ENCOUNTER 2019-08-03 07:01 | Inpatient (IN) | payer MEDICAID ==
[2019-08-03] MEDS ORDERED: SODIUM CHLORIDE 0.9% 1,000 ML IV ONE ×2 (07:10)
--- NOTE | 2019-08-03 07:10 | ED Physician Documentation ---
History of Present Illness - Stated complaint Stated Complaint: OD - Additonal information Additional information: This is a 24-year-old male with history of anxiety and PTSD who presents after drug intoxication and overdose on trazodone. At 20:00 last night patient took meth and heroin (injected the heroin and smoked the meth), and subsequently he was unable to sleep so he took 6 of his 50 mg tablets of trazodone at 2100. He has still been unable to sleep. He was reportedly staying in a friend's garage and was up all night. He was picked up from a friend's house this morning by EMS, who noted that he appeared dehydrated, and was tachycardic. He is currently complaining of some burning on his ankles where he has multiple small cuts, he does not know how he got these. He denies any suicidal ideation. He denies priapism. Review of Systems Constitutional: denies: Fever Eyes: denies: Loss of vision Throat: denies: Dental pain / toothache Cardiac: denies: Chest pain / pressure Respiratory: denies: Dyspnea GI: denies: Abdominal Pain Skin: reports: Abrasion (s) PD PAST MEDICAL HISTORY - Past Medical History Cardiovascular: None Respiratory: None Neuro: None Endocrine/Autoimmune: None GI: GERD : None HEENT: None Psych: Depression, Anxiety, ADD/ADHD, Post traumatic stress disorder, Other Musculoskeletal: Osteoarthritis Derm: None - Past Surgical History Past Surgical History: Yes HEENT: Tonsil/Adenoidectomy - Present Medications Home Medications: Ambulatory Orders Medication Instructions Recorded Confirmed Sertraline [Zoloft] 50 mg PO DAILY 07/02/19 08/03/19 traZODone [Desyrel] 50 mg PO HS 07/02/19 08/03/19 - Allergies Allergies/Adverse Reactions: Allergies Allergy/AdvReac Type Severity Reaction Status Date / Time No Known Drug Allergies Allergy Verified 08/03/19 07:11 - Social History Does the pt smoke?: Yes Smoking Status: Current some day smoker Does the pt drink ETOH?: Yes Does the pt have substance abuse?: Yes - Immunizations Immunizations are current?: Yes - POLST Patient has POLST: No POLST Status: Full Code PD ED PE NORMAL - General General: Alert and oriented X 3, Other (Twitching movements in bed) - HEENT HEENT: Atraumatic, PERRL, Other (Dry mucous membranes) - Neck Neck: Supple, no meningeal sign - Cardiac Cardiac: Other (Tachycardic, regular rhythm) - Respiratory Respiratory: No respiratory distress - Abdomen Abdomen: Non tender, Non distended - Male Male : Other (Uncircumcised, normal in appearance) - Extremities Extremities: Other (Many small superficial abrasion and excoriations over patient's feet, scattered thin excoriations over lower legs bilaterally) - Neuro Neuro: Alert and oriented X 3, living supervisor 2-12 intact, No motor deficit, No sensory deficit Results - Vitals Vitals: Oxygen O2 Source Room air - EKG (time done) 8:44 Other comments: Other comments (Rate 133, sinus tachycardia, No ST elevation or depression. No T wave inversions. Questionably peaked T waves in V4. No heart block or QRS prolongation.) - Labs Labs: Laboratory Tests 08/03/19 08/03/19 08/03/19 07:09 07:09 08:44 WBC 38.1 H* RBC 5.11 Hgb 15.0 Hct 44.7 MCV 87.5 MCH 29.4 MCHC 33.6 RDW 13.2 Plt Count 295 MPV 10.9 Neut # (Auto) 31.0 H Lymph # (Auto) 2.0 [place] # (Auto) 3.6 H Eos # (Auto) 0.0 Baso # (Auto) 0.2 H Absolute Nucleated RBC 0.00 Nucleated RBC % 0.0 RBC Morph Micro Appear 1+ ANISOCYTOSIS VBG pH 7.174 L VBG pCO2 37.1 L VBG pO2 64.1 H VBG HCO3 13.4 L VBG Total CO2 14.5 L VBG O2 Saturation 85.5 H VBG Base Excess -14.2 L Sodium 139 Potassium 6.2 H* Chloride 98 L Carbon Dioxide 16 L Anion Gap 25.0 H BUN 75 H Creatinine 3.9 H Estimated GFR (MDRD) 19 L Glucose 60 L* Calcium 8.4 L Magnesium 3.4 H Total Bilirubin 1.3 H AST 126 H ALT 29 Alkaline Phosphatase 62 Total Creatine Kinase 5599 H* Total Protein 9.3 H Albumin 5.6 H Globulin 3.7 Albumin/Globulin Ratio 1.5 Lipase 31 Salicylates < 6.0 Acetaminophen < 10 L Ethyl Alcohol < 5.0 PD MEDICAL DECISION MAKING - ED course Complexity details: considered differential (Drug intoxication, dehydration, overdose, electrolyte abnormality, rhabdomyolysis) ED course: On arrival patient is twitching, tachycardic and dehydrated, he appears to be primarily under the influence of methamphetamine. IV was inserted, labs are drawn, Patient was placed on a monitor. He is given a 2 L normal saline bolus. He was given lorazepam IV to help with his agitation, He required a total of 8mg before his agitation resolved. Labs show a highly elevated leukocytosis, which may be from the methamphetamine and his agitation, he is afebrile and without obvious signs of infection at this time. Labs also show rhabdomyolysis and ELIEZER as well as hyperkalemia. EKG shows sinus tachycardia, no heart blocks or signs of significant hyperkalemia. He had borderline hypoglycemia at 60, so was given 25g glucose as D10. He was started on bicarbonate for his rhabdomyolysis, and admitted to the hospital for further treatment and evaluation. Perfusion to distal feet improved with fluids, and his tachycardia did improve as well. He is calm at the time of admission. Departure - Departure Disposition: [facility] DC/Xfer Clinical Impression: ELIEZER (acute kidney injury), Methamphetamine use Rhabdomyolysis Qualifiers: Rhabdomyolysis type: non-traumatic Qualified Code(s): M62.82 - Rhabdomyolysis Discharge Date/Time: 08/03/19 09:28
[2019-08-03] MEDS ORDERED: LORazepam 2 MG/ML VIAL IVP STA ×5 (07:14→08:27)
[2019-08-03 07:38] LABS: BASOPHILS # (AUTO) 0.2 10^3/uL (0.0-0.1); BASOPHILS % (AUTO) 0.4 %; EOSINOPHILS % (AUTO) 0.1 %; LYMPHOCYTES % (AUTO) 5.4 %; MEAN CORPUSCULAR HEMOGLOBIN 29.4 pg (27.0-31.0); MEAN CORPUSCULAR HGB CONC 33.6 g/dL (32.0-36.0); MEAN CORPUSCULAR VOLUME 87.5 fL (80.0-94.0); MEAN PLATELET VOLUME 10.9 fL (7.4-11.4); MONOCYTES # (AUTO) 3.6 10^3/uL (0.0-1.0); MONOCYTES % (AUTO) 9.5 %; NEUTROPHILS % (AUTO) 81.4 %; PLT - PLATELET COUNT 295 10^3/uL (130-450); RED BLOOD COUNT 5.11 10^6/uL (4.70-6.10); RED CELL DISTRIBUTION WIDTH 13.2 % (12.0-15.0)
[2019-08-03 07:44] LABS: WHITE BLOOD COUNT 38.1 x10^3/uL (4.8-10.8)
[2019-08-03 07:59] LABS: ACETAMINOPHEN < 10 ug/mL (10-30); ALBUMIN 5.6 g/dL (3.2-5.5); ALBUMIN/GLOBULIN RATIO 1.5 (1.0-2.2); ALKALINE PHOSPHATASE 62 IU/L (42-121); ALT ALANINE AMINOTRANSFERASE 29 IU/L (10-60); AST ASPARTATE AMINOTRANSFERASE 126 IU/L (10-42); BILIRUBIN,TOTAL 1.3 mg/dL (0.2-1.0); BUN - BLOOD UREA NITROGEN 75 mg/dL (6-20); CALCIUM 8.4 mg/dL (8.5-10.3); CARBON DIOXIDE - CO2 16 mmol/L (21-32); CHLORIDE 98 mmol/L (101-111); CREATININE 3.9 mg/dL (0.6-1.2); GFR - MDRD 19 (>89); LIPASE 31 U/L (22-51); MAGNESIUM 3.4 mg/dL (1.7-2.8); SALICYLATE < 6.0 mg/dL; SODIUM 139 mmol/L (135-145); TOTAL PROTEIN 9.3 g/dL (6.7-8.2)
[2019-08-03 08:00] LABS: GLUCOSE 60 mg/dL (70-100)
[2019-08-03] MEDS ORDERED: DEXTROSE 10% 250 ML IV STA (08:00)
[2019-08-03 08:07] LABS: RBC MORPHOLOGY (MULTIPLE) 1+ ANISOCYTOSIS (NORMAL)
[2019-08-03] MEDS ORDERED: DEXTROSE 10% 250 ML IV ONE (08:15)
[2019-08-03 08:28] LABS: CK- CREATINE KINASE 5599 IU/L (22-269)
[2019-08-03 08:47] LABS: VBG PCO2 37.1 mmHg (41-51); VBG PH 7.174 (7.31-7.41)
[2019-08-03 08:48] LABS: VBG BASE EXCESS -14.2 mmol/L (-2 - +2); VBG PO2 64.1 mmHg (25-47); VBG TOTAL CO2 14.5 mmol/L (24-29)
[2019-08-03] MEDS ORDERED: PROCHLORPERAZINE 10 MG/2 ML VIAL IVP PRN (08:48)
[2019-08-03] MEDS ORDERED: SODIUM CHLORIDE FLUSH 0.9% 10 ML SYRINGE IVP PRN (08:48)
[2019-08-03] MEDS ORDERED: LORazepam 2 MG/ML VIAL IVP PRN (08:59)
[2019-08-03] MEDS ORDERED: SODIUM BICARBONATE 150 MEQ in DEXTROSE 5% 1,000 ML IV STA (09:26)
[2019-08-03] MEDS: SODIUM CHLORIDE FLUSH 0.9% 10 ML SYRINGE IVP SCH ×2 (09:53→17:23)
[2019-08-03] MEDS ORDERED: SODIUM BICARBONATE 150 MEQ in DEXTROSE 5% 1,000 ML IV SCH (10:00)
[2019-08-03] MEDS: FAMOTIDINE 20 MG/2 ML VIAL IVP SCH (11:14)
[2019-08-03] MEDS: DEXTROSE 5%-0.9% NACL 1,000 ML IV SCH ×2 (12:04→22:55)
[2019-08-03] MEDS ORDERED: HALOPERIDOL 5 MG/ML VIAL IVP PRN (12:06)
[2019-08-03 12:16] LABS: MUDS CUTOFF CONCENTRATIONS CUTOFF CONC BELOW:
[2019-08-03 12:18] LABS: BILIRUBIN,URINE NEGATIVE (NEGATIVE); GLUCOSE, URINE (UA) NEGATIVE (NEGATIVE); KETONES,URINE (UA) 15 mg/dL (NEGATIVE); LEUKOCYTE ESTERASE, URINE NEGATIVE (NEGATIVE); NITRITE,URINE NEGATIVE (NEGATIVE); OCCULT BLOOD,URINE LARGE (NEGATIVE); PROTEIN,URINE 30 mg/dL (NEGATIVE); UROBILINOGEN,URINE 0.2 (NORMAL) E.U./dL (NORMAL)
[2019-08-03 12:21] LABS: CLARITY,URINE HAZY (CLEAR)
[2019-08-03 12:30] LABS: BACTERIA,URINE Few /HPF (None Seen); RBC,URINE 0-5 /HPF (0-5); SQUAMOUS EPITHELIAL CELL,UR NONE SEEN (<= Few)
[2019-08-03 12:31] LABS: AMORPHOUS SEDIMENT,UR Moderate /LPF; CASTS, URINE 0-2 Course Granular /LPF
[2019-08-03 12:32] LABS: AMPHETAMINE SCREEN,URINE POSITIVE (NEGATIVE); COCAINE SCREEN URINE POSITIVE (NEGATIVE); METHAMPHETAMINES SCREEN, URINE POSITIVE (NEGATIVE); OPIATE SCREEN, URINE POSITIVE (NEGATIVE)
[2019-08-03 12:33] LABS: BENZODIAZEPINES SCREEN, URINE NEGATIVE (NEGATIVE); METHADONE SCREEN, URINE NEGATIVE (NEGATIVE); OXYCODONE SCREEN, URINE NEGATIVE (NEGATIVE); PROPOXYPHENE SCREEN, URINE NEGATIVE (NEGATIVE); TRICYCLIC ANTIDEPRESSANT,URINE NEGATIVE (NEGATIVE)
[2019-08-03] MEDS: LORazepam 2 MG/ML VIAL IVP PRN ×8 (12:56→23:16)
--- NOTE | 2019-08-03 15:17 | HISTORY & PHYSICAL EXAMINATION ---
DATE OF SERVICE: 08/03/2019 Physician: Prisca Black MD HISTORY OF PRESENT ILLNESS: This is a 24-year-old male who has a history of methamphetamine and heroin abuse, rhabdomyolysis with depression, ADHD, PTSD, and multiple admissions here for effects of methamphetamine abuse, heroin abuse, prior rhabdomyolysis, and just 1 month ago had acute kidney injury related to rhabdomyolysis. At that last admission 1 month ago, he was transferred from inpatient status to an inpatient psychiatry [facility]. Today, he was in his friend's garage (where he is apparently living) and was pacing and twitching, and ambulance brought him to the ER where he described that he had smoked methamphetamine, just taken some IV heroin, and then because he could not fall asleep took six of his Trazodone pills. He was twitching and agitated in the ER, and required multiple doses of IV Ativan, and finally became sedated and calm after approximately 8 mg IV, and is being admitted to the ICU. Labs in this ER visit show a white count of 38,000, potassium of 6.2, creatinine of 3.9, CK of 5599. At the last admission, the maximal CK was greater than 82,000. PAST MEDICAL HISTORY 1. Methamphetamine abuse. 2. Heroin abuse. 3. Rhabdomyolysis. 4. Acute kidney injury one month ago. 5. Depression. 6. Posttraumatic stress disorder. 7. Attention deficit disorder. ALLERGIES: NONE. PRESCRIPTION MEDICATIONS 1. Trazodone 50 mg at bedtime. 2. Zoloft 50 mg daily. FAMILY HISTORY: No inherited diseases. SOCIAL HISTORY: The patient occasionally smokes, does occasionally use alcohol, and has the above drug abuse history. He currently is living in his friend's garage apparently. REVIEW OF SYSTEMS: This was done by chart review, information from the ER doctor. A comprehensive review of systems was performed and the pertinent positives are listed above, the rest are negative. PHYSICAL EXAMINATION GENERAL: Young male who is currently agitated with flailing mostly his legs in bed and is delerious, does not answer to his name. He is moving all extremities. VITAL SIGNS: Blood pressure 140/90, heart rate 100-120 in sinus tachycardia, afebrile, room air saturation 100%, respiratory rate 14. HEENT: Shows dry oral mucosa. There is a dark discoloration (in the shape of a mask) around both eyes. NECK: Without JVD. LUNGS: Clear. HEART: Distant heart sounds. No audible murmurs. Tachycardiac. ABDOMEN: Soft. EXTREMITIES: He now has bandaged feet with blood-soaked bandages at the great toes bilaterally, and the nurses noted that he had multiple open and bleeding scabs of his feet. He also has bruises and abrasions of his knees. NEUROLOGIC: He is agitated, currently delirious. LABORATORY DATA: Sodium 139, potassium 6.2, BUN 75, creatinine 3.9, glucose 60. Magnesium 3.4, AST 126, ALT 29. Creatinine kinase 5599. Lipase normal. White blood count 38.1, hemoglobin 15, platelet count 295. Venous blood gas had a pH of 7.17. Urinalysis showed high protein, high ketones, large occult blood, a few white blood cells, moderate sediment, few bacteria. Nasal screen was negative for MRSA. Serum toxicology was negative for alcohol, Tylenol and salicylate. Urine toxicology was positive for opiates, methamphetamine, amphetamine and cocaine. IMAGING: None. EKG: Sinus tachycardia at a rate of 133, otherwise within normal limits. IMPRESSION/DIAGNOSES 1. Rhabdomyolysis. 2. Acute kidney injury. 3. Metabolic acidosis. 4. Hyperkalemia. 5. Acute encephalopathy. 6. Methamphetamine intoxication and abuse. 7. Leukocytosis. 8. Sinus tachycardia. 9. Hypoglycemia. 10. Skin lesions of meth. 11. Heroine iv drug use. PLAN: Admit the patient to the ICU on telemetry. Begin IV rehydration and IV bicarbonate drip for management of the acidemia found on venous blood gas and to manage hyperkalemia. Start iv D5 peripherally for the hypoglycemia. Begin Haldol p.r.n. agitation and continue with IV Ativan p.r.n. agitation, following his renal function closely. Because of the high white count, blood culture will be ordered, and the urine culture should also be sent for culture since it is abnormal. Continue with neuro checks because of his acute encephalopathy. Order n.p.o. dietary status until he is more lucid. Follow his electrolytes and CBC daily. Follow CK daily. Monitor the potassium every 6 hours until it is in a normal range. DEEP VENOUS THROMBOSIS PROPHYLAXIS: SCDs. CODE STATUS: FULL CODE. ATTESTATION: The patient is expected to be discharged or transferred to another facility within 96 hours: Yes. cc: JOSE ALFREDO Miller TD: 08/03/2019 14:10 [email or web address]
[2019-08-03 15:51] LABS: VBG PCO2 41.4 mmHg (41-51); VBG PH 7.351 (7.31-7.41); VBG PO2 49.4 mmHg (25-47); VBG TOTAL CO2 23.7 mmol/L (24-29)
--- NOTE | 2019-08-03 20:17 | PROVIDER PROGRESS NOTE ---
Hospitalist Cross-cover Note - Cross-Cover Note Cross-Cover Note: His pH by VBG has improved. Will stop iv Bicarb drip. The lesions of the feet may be infected and with a high WBC, will add empiric iv Vanco. I discussed the renal dosing of his meds with our pharmacist several times. CRITICAL CARE TIME SPENT: 30 min
[2019-08-03] MEDS ORDERED: VANCOMYCIN INJ 0.75 GM in SODIUM CHLORIDE 0.9% 250 ML IV SCH (21:00)
[2019-08-03] MEDS ORDERED: VANCOMYCIN PER PHARMACY 100 GM in SODIUM CHLORIDE 0.9% 250 ML IV SCH (21:00)
[2019-08-03] MEDS ORDERED: VANCOMYCIN PER PHARMACY 0.0001 GM in SODIUM CHLORIDE 0.9% 250 ML IV ONE (22:28)
[2019-08-04] MEDS: LORazepam 2 MG/ML VIAL IVP PRN ×8 (00:23→14:25)
[2019-08-04] MEDS: SODIUM CHLORIDE FLUSH 0.9% 10 ML SYRINGE IVP SCH ×3 (04:07→18:05)
[2019-08-04 04:54] LABS: BASOPHILS % (AUTO) 0.2 %; HGB - HEMOGLOBIN 13.4 g/dL (14.0-18.0); LYMPHOCYTES # (AUTO) 1.5 10^3/uL (1.5-3.5); LYMPHOCYTES % (AUTO) 11.3 %; MEAN CORPUSCULAR HEMOGLOBIN 30.7 pg (27.0-31.0); MEAN CORPUSCULAR VOLUME 87.6 fL (80.0-94.0); MEAN PLATELET VOLUME 10.3 fL (7.4-11.4); MONOCYTES # (AUTO) 1.5 10^3/uL (0.0-1.0); MONOCYTES % (AUTO) 11.4 %; NEUTROPHILS # (AUTO) 10.3 10^3/uL (1.5-6.6); NEUTROPHILS % (AUTO) 76.5 %; PLT - PLATELET COUNT 183 10^3/uL (130-450); RED BLOOD COUNT 4.37 10^6/uL (4.70-6.10); RED CELL DISTRIBUTION WIDTH 13.2 % (12.0-15.0); WHITE BLOOD COUNT 13.5 x10^3/uL (4.8-10.8)
[2019-08-04 05:06] LABS: ALBUMIN 4.3 g/dL (3.2-5.5); ALBUMIN/GLOBULIN RATIO 1.4 (1.0-2.2); CALCIUM 8.5 mg/dL (8.5-10.3); CREATININE 0.8 mg/dL (0.6-1.2); MAGNESIUM 2.8 mg/dL (1.7-2.8); PHOSPHORUS 1.8 mg/dL (2.5-4.6); TOTAL PROTEIN 7.4 g/dL (6.7-8.2)
[2019-08-04 05:21] LABS: DIFFERENTIAL COMMENT MANUAL=AUTO DIFF; PLATELET ESTIMATE, MANUAL NORMAL (130-450,000) (NORMAL); RBC MORPHOLOGY (MULTIPLE) NORMAL APPEARANCE (NORMAL)
[2019-08-04] MEDS ORDERED: POTASSIUM PHOSPHATE 15 MMOL in SODIUM CHLORIDE 0.9% 250 ML IV ONE (05:57)
[2019-08-04] MEDS: DEXTROSE 5%-0.9% NACL 1,000 ML IV SCH ×2 (08:55→18:12)
[2019-08-04] MEDS: FAMOTIDINE 20 MG/2 ML VIAL IVP SCH (08:59)
[2019-08-04] MEDS ORDERED: VANCOMYCIN INJ 1 GM in SODIUM CHLORIDE 0.9% 250 ML IV SCH (10:00)
[2019-08-04] MEDS: VANCOMYCIN INJ 1 GM in SODIUM CHLORIDE 0.9% 250 ML IV SCH ×2 (14:25→21:37)
--- NOTE | 2019-08-04 14:36 | PROVIDER PROGRESS NOTE ---
Assessment/Plan - Problem List (1) Rhabdomyolysis Qualifiers: Rhabdomyolysis type: non-traumatic Qualified Code(s): M62.82 - Rhabdomyolysis Assessment/Plan: Worsened CK from 5000's to 8000's. No further agitated flailing. Continue iv fluids, bedrest. Follow CK daily. (2) Acute kidney injury Assessment/Plan: This has improved alot, from BUN/creat of 85/3.7 at admission to 30/0.8 today. Continue iv hydration while serum CK still elevated. Monitor BMP daily. (3) Methamphetamine abuse Assessment/Plan: He is now in the withdrawal phase, and/or sleeping off the Ativan. (4) Metabolic encephalopathy Assessment/Plan: No more agitation, he is somnolent today. (5) Leukocytosis Assessment/Plan: Probably reactive due to significant improvement. Continue empiric iv Vanco for poss wound infections of feet. (6) Multiple open wounds of foot Assessment/Plan: Related to Meth rash and picking or from injection sites. Blood cx are neg to date. They were cleaned and dressed, plus empiric iv Vanco. (7) Heroin abuse Assessment/Plan: As per Hx (8) History of depression Assessment/Plan: He needed transfer from here to an inpt psych [facility]le at the last admission 1 mo ago. He has not been lucid enough to provide a Hx of what transpired there. He was prescribed Trazadone and Zoloft. He will need a mental health eval when he is clinically stable. (9) Hypoglycemia Assessment/Plan: Resolved with iv glu hydration (10) Hyperkalemia Assessment/Plan: Resolved with bicarb drip, which is now off (11) Metabolic acidosis Assessment/Plan: Resolved. IV bicarb drip stopped yesterday. - Current Meds Current Meds: Current Medications Generic Name Dose Route Start Last Admin Trade Name Freq PRN Reason Stop Dose Admin Famotidine 20 mg 08/03/19 09:00 08/04/19 08:59 Pepcid IVP 20 mg DAILY CHRISTY Administration Haloperidol 1 mg 08/03/19 12:06 08/03/19 20:19 Haldol Inj IVP 1 mg Q6H PRN Administration Agitation Dextrose/Sodium Chloride 1,000 mls @ 100 mls/hr 08/03/19 09:00 08/04/19 08:55 D5ns IV 100 mls/hr .Q10H CHRISTY Administration Vancomycin HCl 1 gm/ Sodium 250 mls @ 167 mls/hr 08/04/19 14:00 08/04/19 14:25 Chloride IV 167 mls/hr Q8H CHRISTY Administration Lorazepam 2 mg 08/03/19 12:00 08/04/19 14:25 Ativan Inj (Vial) IVP 2 mg Q1H PRN Administration Agitation Sodium Chloride 10 ml 08/03/19 09:00 08/04/19 08:59 Normal Saline Flush 0.9% IVP 10 ml 0100,0900,1700 CHRISTY Administration - Lab Result Fish Bone Diagrams: 08/04/19 04:30 08/04/19 04:30 - Additional Planning My Orders: My Active Orders 08/04/19 14:00 Vancomycin Inj [Vancomycin] 1 gm Sodium Chloride 0.9% [Normal Saline 0.9%] 250 ml IV Q8H 08/05/19 05:00 CBC - COMP BLD CT W/AUTO DIFF [HEME] DAILYLAB COMPREHENSIVE METABOLIC PANEL [CHEM] DAILYLAB CREATINE KINASE MB [IAI] DAILYLAB 08/05/19 13:30 VANCOMYCIN TROUGH [CHEM] Timed 08/06/19 05:00 COMPREHENSIVE METABOLIC PANEL [CHEM] DAILYLAB CREATINE KINASE MB [IAI] DAILYLAB Subjective - Subjective Patient Reports: Resting Comfortably Nursing Reports: Other (Awakens briefly, was able to follow commands to transfer from bed to rney) Objective Vital Signs: Vital Signs - 24 hr 08/03/19 08/03/19 08/03/19 15:00 16:00 17:00 Temperature 36.4 C L Heart Rate [ 91 107 H 107 H Brachial] Respiratory 13 14 18 Rate Blood Pressure 132/84 H 123/79 112/83 H [Right Brachial artery] O2 Saturation 92 100 100 08/03/19 08/03/19 08/03/19 18:00 19:00 20:00 Temperature Heart Rate [ 102 H 98 103 H Brachial] Respiratory 13 17 16 Rate Blood Pressure 124/81 H 126/69 136/78 H [Right Brachial artery] O2 Saturation 100 100 100 08/03/19 08/03/19 08/03/19 21:00 22:00 23:00 Temperature 36.7 C Heart Rate [ 109 H 116 H 113 H Brachial] Respiratory 16 23 18 Rate Blood Pressure 137/84 H 142/75 H 148/79 H [Right Brachial artery] O2 Saturation 100 100 100 08/04/19 08/04/19 08/04/19 00:00 01:00 02:00 Temperature 37.6 C H Heart Rate [ 110 H 115 H 106 H Brachial] Respiratory 33 H 17 19 Rate Blood Pressure 135/88 H 139/82 H 135/76 H [Right Brachial artery] O2 Saturation 98 99 100 08/04/19 08/04/19 08/04/19 03:00 04:00 05:00 Temperature Heart Rate [ 114 H 115 H 113 H Brachial] Respiratory 19 19 19 Rate Blood Pressure 149/90 H 140/84 H 149/80 H [Right Brachial artery] O2 Saturation 98 98 98 08/04/19 08/04/19 08/04/19 06:00 07:00 08:00 Temperature Heart Rate [ 112 H 113 H 110 H Brachial] Respiratory 19 21 20 Rate Blood Pressure 136/77 H 149/82 H 138/76 H [Right Brachial artery] O2 Saturation 99 98 96 08/04/19 08/04/19 10:00 11:00 Temperature Heart Rate [ 109 H 112 H Brachial] Respiratory 19 20 Rate Blood Pressure 142/84 H 141/80 H [Right Brachial artery] O2 Saturation 98 Oxygen O2 Source Room air I&O (Last 24 Hrs): Intake and Output Totals x24h 08/02/19 08/03/19 08/04/19 23:59 23:59 23:59 Intake Total 4650 1255.000 Output Total 2410 1050 Balance 2240 205.000 General: Other (Somnolent, in no distress) HEENT: Mucous membr. moist/pink, Other (Sunburn or pop around eyes) Neck: Supple, No JVD Neuro: Other (Lethargic, moves all extremities) Cardiovascular: Regular rate, No murmurs Respiratory: No respiratory distress, Breath sounds nml Abdomen: Soft Extremities: No edema, Other (Feet bandaged) - Results Results: Laboratory Results WBC 13.5 x10^3/uL (4.8-10.8) H 08/04/19 04:30 RBC 4.37 10^6/uL (4.70-6.10) L 08/04/19 04:30 Hgb 13.4 g/dL (14.0-18.0) L 08/04/19 04:30 Hct 38.3 % (42.0-52.0) L 08/04/19 04:30 MCV 87.6 fL (80.0-94.0) 08/04/19 04:30 MCH 30.7 pg (27.0-31.0) 08/04/19 04:30 MCHC 35.0 g/dL (32.0-36.0) 08/04/19 04:30 RDW 13.2 % (12.0-15.0) 08/04/19 04:30 Plt Count 183 10^3/uL (130-450) 08/04/19 04:30 MPV 10.3 fL (7.4-11.4) 08/04/19 04:30 Neut # (Auto) 10.3 10^3/uL (1.5-6.6) H 08/04/19 04:30 Lymph # (Auto) 1.5 10^3/uL (1.5-3.5) 08/04/19 04:30 Giles # (Auto) 1.5 10^3/uL (0.0-1.0) H 08/04/19 04:30 Eos # (Auto) 0.0 10^3/uL (0.0-0.7) 08/04/19 04:30 Baso # (Auto) 0.0 10^3/uL (0.0-0.1) 08/04/19 04:30 Absolute Nucleated RBC 0.00 x10^3/uL 08/04/19 04:30 Band Neuts % (Manual) Not Reportable 08/04/19 04:30 Abnorm Lymph % (Manual) Not Reportable 08/04/19 04:30 Nucleated RBC % 0.0 /100WBC 08/04/19 04:30 Neutrophils # (Manual) Not Reportable 08/04/19 04:30 Lymphocytes # (Manual) Not Reportable 08/04/19 04:30 Monocytes # (Manual) Not Reportable 08/04/19 04:30 Eosinophils # (Manual) Not Reportable 08/04/19 04:30 Basophils # (Manual) Not Reportable 08/04/19 04:30 Differential Comment MANUAL=AUTO DIFF 08/04/19 04:30 Platelet Estimate NORMAL (130-450,000) (NORMAL) 08/04/19 04:30 RBC Morph Micro Appear NORMAL APPEARANCE (NORMAL) 08/04/19 04:30 VBG pH 7.351 (7.31-7.41) 08/03/19 15:45 VBG pCO2 41.4 mmHg (41-51) 08/03/19 15:45 VBG pO2 49.4 mmHg (25-47) H 08/03/19 15:45 VBG HCO3 22.4 mmol/L (23-28) L 08/03/19 15:45 VBG Total CO2 23.7 mmol/L (24-29) L 08/03/19 15:45 VBG O2 Saturation 82.4 % (60-80) H 08/03/19 15:45 VBG Base Excess -3.0 mmol/L (-2 - +2) L 08/03/19 15:45 Sodium 138 mmol/L (135-145) 08/04/19 04:30 Potassium 4.6 mmol/L (3.5-5.0) 08/04/19 04:30 Chloride 107 mmol/L (101-111) 08/04/19 04:30 Carbon Dioxide 23 mmol/L (21-32) 08/04/19 04:30 Anion Gap 8.0 (6-13) 08/04/19 04:30 BUN 30 mg/dL (6-20) H 08/04/19 04:30 Creatinine 0.8 mg/dL (0.6-1.2) 08/04/19 04:30 Estimated GFR (MDRD) 120 (>89) 08/04/19 04:30 Glucose 132 mg/dL (70-100) H 08/04/19 04:30 Lactic Acid 1.5 mmol/L (0.5-2.2) 08/03/19 15:45 Calcium 8.5 mg/dL (8.5-10.3) 08/04/19 04:30 Phosphorus 1.8 mg/dL (2.5-4.6) L 08/04/19 04:30 Magnesium 2.8 mg/dL (1.7-2.8) 08/04/19 04:30 Total Bilirubin 1.0 mg/dL (0.2-1.0) 08/04/19 04:30 AST 158 IU/L (10-42) H 08/04/19 04:30 ALT 43 IU/L (10-60) 08/04/19 04:30 Alkaline Phosphatase 49 IU/L (42-121) 08/04/19 04:30 Total Creatine Kinase 8454 IU/L (22-269) H* 08/04/19 04:30 CK-MB (CK-2) 71.4 ng/mL (0.6-6.3) H 08/04/19 04:30 Total Protein 7.4 g/dL (6.7-8.2) 08/04/19 04:30 Albumin 4.3 g/dL (3.2-5.5) 08/04/19 04:30 Globulin 3.1 g/dL (2.1-4.2) 08/04/19 04:30 Albumin/Globulin Ratio 1.4 (1.0-2.2) 08/04/19 04:30 Lipase 31 U/L (22-51) 08/03/19 07:09 Urine Color YELLOW 08/03/19 11:45 Urine Clarity HAZY (CLEAR) 08/03/19 11:45 Urine pH 5.0 PH (5.0-7.5) 08/03/19 11:45 Ur Specific [place] 1.025 (1.002-1.030) 08/03/19 11:45 Urine Protein 30 mg/dL (NEGATIVE) H 08/03/19 11:45 Urine Glucose (UA) NEGATIVE mg/dL (NEGATIVE) 08/03/19 11:45 Urine Ketones 15 mg/dL (NEGATIVE) H 08/03/19 11:45 Urine Occult Blood LARGE (NEGATIVE) H 08/03/19 11:45 Urine Nitrite NEGATIVE (NEGATIVE) 08/03/19 11:45 Urine Bilirubin NEGATIVE (NEGATIVE) 08/03/19 11:45 Urine Urobilinogen 0.2 (NORMAL) E.U./dL (NORMAL) 08/03/19 11:45 Ur Leukocyte Esterase NEGATIVE (NEGATIVE) 08/03/19 11:45 Urine RBC 0-5 /HPF (0-5) 08/03/19 11:45 Urine WBC 0-3 /HPF (0-3) 08/03/19 11:45 Ur Squamous Epith Cells NONE SEEN (<= Few) 08/03/19 11:45 Amorphous Sediment Moderate /LPF 08/03/19 11:45 Urine Bacteria Few /HPF (None Seen) 08/03/19 11:45 Urine Casts 0-2 Course Granular /LPF 08/03/19 11:45 Ur Microscopic Review INDICATED 08/03/19 11:45 Urine Culture Comments NOT INDICATED 08/03/19 11:45 Nasal Screen MRSA (PCR) NEGATIVE (NEGATIVE) 08/03/19 09:30 Salicylates < 6.0 mg/dL 08/03/19 07:09 Urine Opiates Screen POSITIVE (NEGATIVE) H 08/03/19 11:45 Ur Oxycodone Screen NEGATIVE (NEGATIVE) 08/03/19 11:45 Urine Methadone Screen NEGATIVE (NEGATIVE) 08/03/19 11:45 Ur Propoxyphene Screen NEGATIVE (NEGATIVE) 08/03/19 11:45 Acetaminophen < 10 ug/mL (10-30) L 08/03/19 07:09 Ur Barbiturates Screen NEGATIVE (NEGATIVE) 08/03/19 11:45 Ur Tricyclics Screen NEGATIVE (NEGATIVE) 08/03/19 11:45 Ur Phencyclidine Scrn NEGATIVE (NEGATIVE) 08/03/19 11:45 Ur Amphetamine Screen POSITIVE (NEGATIVE) H 08/03/19 11:45 U Methamphetamines Scrn POSITIVE (NEGATIVE) H 08/03/19 11:45 U Benzodiazepines Scrn NEGATIVE (NEGATIVE) 08/03/19 11:45 Urine Cocaine Screen POSITIVE (NEGATIVE) H 08/03/19 11:45 U Cannabinoids Screen NEGATIVE (NEGATIVE) 08/03/19 11:45 Ethyl Alcohol < 5.0 mg/dL 08/03/19 07:09
[2019-08-05] MEDS: SODIUM CHLORIDE FLUSH 0.9% 10 ML SYRINGE IVP SCH ×3 (02:26→15:49)
[2019-08-05] MEDS: VANCOMYCIN INJ 1 GM in SODIUM CHLORIDE 0.9% 250 ML IV SCH ×2 (04:59→14:26)
[2019-08-05] MEDS: DEXTROSE 5%-0.9% NACL 1,000 ML IV SCH (04:59)
[2019-08-05 05:21] LABS: BASOPHILS % (AUTO) 0.3 %; EOSINOPHILS % (AUTO) 0.5 %; HGB - HEMOGLOBIN 11.7 g/dL (14.0-18.0); LYMPHOCYTES # (AUTO) 1.9 10^3/uL (1.5-3.5); LYMPHOCYTES % (AUTO) 25.2 %; MEAN CORPUSCULAR HEMOGLOBIN 30.3 pg (27.0-31.0); MEAN CORPUSCULAR HGB CONC 33.1 g/dL (32.0-36.0); MEAN CORPUSCULAR VOLUME 91.7 fL (80.0-94.0); MEAN PLATELET VOLUME 10.2 fL (7.4-11.4); MONOCYTES # (AUTO) 0.8 10^3/uL (0.0-1.0); MONOCYTES % (AUTO) 10.6 %; NEUTROPHILS # (AUTO) 4.6 10^3/uL (1.5-6.6); NEUTROPHILS % (AUTO) 63.1 %; PLT - PLATELET COUNT 128 10^3/uL (130-450); RED BLOOD COUNT 3.86 10^6/uL (4.70-6.10); RED CELL DISTRIBUTION WIDTH 13.2 % (12.0-15.0); WHITE BLOOD COUNT 7.4 x10^3/uL (4.8-10.8)
[2019-08-05 05:32] LABS: ALBUMIN 3.5 g/dL (3.2-5.5); ALBUMIN/GLOBULIN RATIO 1.2 (1.0-2.2); CALCIUM 8.5 mg/dL (8.5-10.3); CREATININE 0.5 mg/dL (0.6-1.2); TOTAL PROTEIN 6.4 g/dL (6.7-8.2)
[2019-08-05] MEDS ORDERED: DEXTROSE 5%-0.9% NACL 1,000 ML IV SCH (08:03)
[2019-08-05] MEDS: POLYETHYLENE GLYCOL 3350 17 GM PACKET PO SCH (09:20)
[2019-08-05] MEDS: FAMOTIDINE 20 MG TABLET PO SCH ×2 (09:20→22:09)
[2019-08-05 14:03] LABS: VANCOMYCIN,TROUGH 7.2 ug/mL (10.0-20.0)
[2019-08-05] MEDS: ACETAMINOPHEN 325 MG TABLET PO PRN ×2 (15:44→19:53)
[2019-08-05] MEDS ORDERED: VANCOMYCIN INJ 500 MG in SODIUM CHLORIDE 0.9% MINIBAG 100 ML IV ONE (16:00)
--- NOTE | 2019-08-05 16:07 | PROVIDER PROGRESS NOTE ---
Assessment/Plan - Problem List (1) Rhabdomyolysis Qualifiers: Rhabdomyolysis type: non-traumatic Qualified Code(s): M62.82 - Rhabdomyolysis Assessment/Plan: CK has now started to decline (5000's>> 8000's>>> 3000's). Continue iv hydration, decrease to tko today, as his diet is advanced, sinc he is tolerating his diet. Follow CK daily (2) Metabolic encephalopathy Assessment/Plan: Today, he is hypersomnolent, consistent with Meth withdrawal, since last Meth use was 72 hours ago. I will wean down and stop all sedatives, benzos, and narcotics, to allow him to be more lucid. (3) Multiple open wounds of foot Assessment/Plan: MAC wound RN saw patient in consult and advised Xeroform sheets to all wounds, cover and secure with Kerlex. Change every 3 days or sooner prn for saturation. I will order the above. (4) History of depression Assessment/Plan: Planning a mental health eval, when he is clinically stable. Since he is lethargic and also was uninterested in his wound care, I will not have the eval by done today. PLan for tomorrow. (5) Methamphetamine abuse Assessment/Plan: Chronic and recurrent Meth intoxication along with its complications. (6) Heroin abuse Assessment/Plan: IV drug use was reported and may be the origin of some of his foot wounds (7) Leukocytosis Assessment/Plan: Resolved and was likely reactive, but will continue antibiotics due to the multiple foot wounds (8) Hyperkalemia Assessment/Plan: Resolved (9) Metabolic acidosis Assessment/Plan: Resolved (10) Acute kidney injury Assessment/Plan: Resolved with iv fluid hydration (11) Hypoglycemia Assessment/Plan: Resolved - Current Meds Current Meds: Current Medications Generic Name Dose Route Start Last Admin Trade Name Freq PRN Reason Stop Dose Admin Acetaminophen 650 mg 08/03/19 08:48 08/05/19 15:44 Tylenol PO 650 mg Q6H PRN Administration Pain 1 to 4 Famotidine 20 mg 08/05/19 09:00 08/05/19 09:20 Pepcid PO 20 mg BID CHRISTY Administration Vancomycin HCl 1 gm/ Sodium 250 mls @ 167 mls/hr 08/04/19 14:00 08/05/19 15:56 Chloride IV 08/05/19 16:30 Infused Q8H CHRISTY Infusion Vancomycin HCl 500 mg/ Sodium 100 mls @ 100 mls/hr 08/05/19 16:00 08/05/19 15:51 Chloride IV 08/05/19 16:59 100 mls/hr ONCE ONE Administration Polyethylene Glycol 17 gm 08/05/19 09:00 08/05/19 09:20 Miralax PO 17 gm DAILY CHRISTY Administration Sodium Chloride 10 ml 08/03/19 09:00 08/05/19 15:49 Normal Saline Flush 0.9% IVP Not Given 0100,0900,1700 CHRISTY - Lab Result Fish Bone Diagrams: 08/05/19 05:05 08/05/19 05:05 - Additional Planning My Orders: My Active Orders 08/05/19 Wound Consult MAC [MAC] Routine 08/05/19 08:03 Dextrose 5%-0.9% NaCl [D5ns] 1,000 ml IV TKO 08/05/19 09:00 Famotidine [Pepcid] 20 mg PO BID Polyethylene Glycol 3350 [Miralax] 17 gm PO DAILY 08/05/19 13:15 CHLAM,NEISSERIA,TRICH DNA Urgent 08/05/19 13:32 UA w/ MICROSCOPIC, CULT IF [URIN] Urgent 08/05/19 13:38 CUL,N. GONORRHOEAE [RM] Urgent 08/05/19 14:31 Miscellaenous Nursing Order [RC] DAILY 08/05/19 16:00 Vancomycin Inj 500 mg Sodium Chloride 0.9% Minibag [Normal Saline 0.9% Minibag] 100 ml IV ONCE 08/05/19 22:00 Vancomycin Inj [Vancomycin] 1 gm Vancomycin Inj 500 mg Sodium Chloride 0.9% [Normal Saline 0.9%] 500 ml IV Q8H 08/05/19 Dinner DIET [Regular Diet] [DIET] 08/05/19 Lunch DIET [Soft Mechanical Diet] [DIET] 08/06/19 05:00 COMPREHENSIVE METABOLIC PANEL [CHEM] DAILYLAB 08/07/19 13:30 VANCOMYCIN TROUGH [CHEM] Timed Subjective - Subjective Patient Reports: Resting Comfortably Nursing Reports: Other (Sleepy, awakens to eat, has good appetite.) Objective Vital Signs: Vital Signs - 24 hr 08/04/19 08/04/19 08/04/19 18:05 20:36 23:51 Temperature 37.7 C H 37.3 C 36.6 C Heart Rate [ 103 H 102 H Brachial] Respiratory 24 18 Rate Blood Pressure 127/62 129/68 [Right Brachial artery] O2 Saturation 98 96 08/05/19 08/05/19 08/05/19 04:45 07:20 11:14 Temperature 37.1 C 36.7 C 36.9 C Heart Rate [ 105 H 99 96 Brachial] Respiratory 18 16 16 Rate Blood Pressure 126/71 122/61 134/72 H [Right Brachial artery] O2 Saturation 98 99 99 08/05/19 15:25 Temperature 36.4 C L Heart Rate [ 96 Brachial] Respiratory 20 Rate Blood Pressure 139/72 H [Right Brachial artery] O2 Saturation 100 Oxygen O2 Source Room air I&O (Last 24 Hrs): Intake and Output Totals x24h 08/03/19 08/04/19 08/05/19 23:59 23:59 23:59 Intake Total 4650 3248.333 1950.333 Output Total 2410 1300 1450 Balance 2240 1948.333 500.333 General: Other (Lethargic, but communicates when awoken. He did not participate in wound care.) HEENT: Mucous membr. moist/pink Neck: Supple Neuro: Non Focal Cardiovascular: Regular rate Respiratory: No respiratory distress Abdomen: Soft Extremities: No edema, Other (Feet bandaged) - Results Results: Laboratory Results WBC 7.4 x10^3/uL (4.8-10.8) 08/05/19 05:05 RBC 3.86 10^6/uL (4.70-6.10) L 08/05/19 05:05 Hgb 11.7 g/dL (14.0-18.0) L 08/05/19 05:05 Hct 35.4 % (42.0-52.0) L 08/05/19 05:05 MCV 91.7 fL (80.0-94.0) 08/05/19 05:05 MCH 30.3 pg (27.0-31.0) 08/05/19 05:05 MCHC 33.1 g/dL (32.0-36.0) 08/05/19 05:05 RDW 13.2 % (12.0-15.0) 08/05/19 05:05 Plt Count 128 10^3/uL (130-450) L 08/05/19 05:05 MPV 10.2 fL (7.4-11.4) 08/05/19 05:05 Neut # (Auto) 4.6 10^3/uL (1.5-6.6) 08/05/19 05:05 Lymph # (Auto) 1.9 10^3/uL (1.5-3.5) 08/05/19 05:05 [place] # (Auto) 0.8 10^3/uL (0.0-1.0) 08/05/19 05:05 Eos # (Auto) 0.0 10^3/uL (0.0-0.7) 08/05/19 05:05 Baso # (Auto) 0.0 10^3/uL (0.0-0.1) 08/05/19 05:05 Absolute Nucleated RBC 0.00 x10^3/uL 08/05/19 05:05 Band Neuts % (Manual) Not Reportable 08/04/19 04:30 Abnorm Lymph % (Manual) Not Reportable 08/04/19 04:30 Nucleated RBC % 0.0 /100WBC 08/05/19 05:05 Neutrophils # (Manual) Not Reportable 08/04/19 04:30 Lymphocytes # (Manual) Not Reportable 08/04/19 04:30 Monocytes # (Manual) Not Reportable 08/04/19 04:30 Eosinophils # (Manual) Not Reportable 08/04/19 04:30 Basophils # (Manual) Not Reportable 08/04/19 04:30 Differential Comment MANUAL=AUTO DIFF 08/04/19 04:30 Platelet Estimate NORMAL (130-450,000) (NORMAL) 08/04/19 04:30 RBC Morph Micro Appear NORMAL APPEARANCE (NORMAL) 08/04/19 04:30 VBG pH 7.351 (7.31-7.41) 08/03/19 15:45 VBG pCO2 41.4 mmHg (41-51) 08/03/19 15:45 VBG pO2 49.4 mmHg (25-47) H 08/03/19 15:45 VBG HCO3 22.4 mmol/L (23-28) L 08/03/19 15:45 VBG Total CO2 23.7 mmol/L (24-29) L 08/03/19 15:45 VBG O2 Saturation 82.4 % (60-80) H 08/03/19 15:45 VBG Base Excess -3.0 mmol/L (-2 - +2) L 08/03/19 15:45 Sodium 142 mmol/L (135-145) 08/05/19 05:05 Potassium 4.4 mmol/L (3.5-5.0) 08/05/19 05:05 Chloride 113 mmol/L (101-111) H 08/05/19 05:05 Carbon Dioxide 23 mmol/L (21-32) 08/05/19 05:05 Anion Gap 6.0 (6-13) 08/05/19 05:05 BUN 15 mg/dL (6-20) 08/05/19 05:05 Creatinine 0.5 mg/dL (0.6-1.2) L 08/05/19 05:05 Estimated GFR (MDRD) 206 (>89) 08/05/19 05:05 Glucose 110 mg/dL (70-100) H 08/05/19 05:05 POC Whole Bld Glucose 85 mg/dL (70 - 100) 08/05/19 10:57 Lactic Acid 1.5 mmol/L (0.5-2.2) 08/03/19 15:45 Calcium 8.5 mg/dL (8.5-10.3) 08/05/19 05:05 Phosphorus 1.8 mg/dL (2.5-4.6) L 08/04/19 04:30 Magnesium 2.8 mg/dL (1.7-2.8) 08/04/19 04:30 Total Bilirubin 1.0 mg/dL (0.2-1.0) 08/05/19 05:05 AST 122 IU/L (10-42) H 08/05/19 05:05 ALT 44 IU/L (10-60) 08/05/19 05:05 Alkaline Phosphatase 43 IU/L (42-121) 08/05/19 05:05 Total Creatine Kinase 3948 IU/L (22-269) H* 08/05/19 05:05 CK-MB (CK-2) 22.8 ng/mL (0.6-6.3) H 08/05/19 05:05 Total Protein 6.4 g/dL (6.7-8.2) L 08/05/19 05:05 Albumin 3.5 g/dL (3.2-5.5) 08/05/19 05:05 Globulin 2.9 g/dL (2.1-4.2) 08/05/19 05:05 Albumin/Globulin Ratio 1.2 (1.0-2.2) 08/05/19 05:05 Lipase 31 U/L (22-51) 08/03/19 07:09 Urine Color YELLOW 08/03/19 11:45 Urine Clarity HAZY (CLEAR) 08/03/19 11:45 Urine pH 5.0 PH (5.0-7.5) 08/03/19 11:45 Ur Specific [place] 1.025 (1.002-1.030) 08/03/19 11:45 Urine Protein 30 mg/dL (NEGATIVE) H 08/03/19 11:45 Urine Glucose (UA) NEGATIVE mg/dL (NEGATIVE) 08/03/19 11:45 Urine Ketones 15 mg/dL (NEGATIVE) H 08/03/19 11:45 Urine Occult Blood LARGE (NEGATIVE) H 08/03/19 11:45 Urine Nitrite NEGATIVE (NEGATIVE) 08/03/19 11:45 Urine Bilirubin NEGATIVE (NEGATIVE) 08/03/19 11:45 Urine Urobilinogen 0.2 (NORMAL) E.U./dL (NORMAL) 08/03/19 11:45 Ur Leukocyte Esterase NEGATIVE (NEGATIVE) 08/03/19 11:45 Urine RBC 0-5 /HPF (0-5) 08/03/19 11:45 Urine WBC 0-3 /HPF (0-3) 08/03/19 11:45 Ur Squamous Epith Cells NONE SEEN (<= Few) 08/03/19 11:45 Amorphous Sediment Moderate /LPF 08/03/19 11:45 Urine Bacteria Few /HPF (None Seen) 08/03/19 11:45 Urine Casts 0-2 Course Granular /LPF 08/03/19 11:45 Ur Microscopic Review INDICATED 08/03/19 11:45 Urine Culture Comments NOT INDICATED 08/03/19 11:45 Nasal Screen MRSA (PCR) NEGATIVE (NEGATIVE) 08/03/19 09:30 Last Dose Date 08/05/19 08/05/19 13:45 Last Dose Time 0635 08/05/19 13:45 Vancomycin Trough 7.2 ug/mL (10.0-20.0) L 08/05/19 13:45 Salicylates < 6.0 mg/dL 08/03/19 07:09 Urine Opiates Screen POSITIVE (NEGATIVE) H 08/03/19 11:45 Ur Oxycodone Screen NEGATIVE (NEGATIVE) 08/03/19 11:45 Urine Methadone Screen NEGATIVE (NEGATIVE) 08/03/19 11:45 Ur Propoxyphene Screen NEGATIVE (NEGATIVE) 08/03/19 11:45 Acetaminophen < 10 ug/mL (10-30) L 08/03/19 07:09 Ur Barbiturates Screen NEGATIVE (NEGATIVE) 08/03/19 11:45 Ur Tricyclics Screen NEGATIVE (NEGATIVE) 08/03/19 11:45 Ur Phencyclidine Scrn NEGATIVE (NEGATIVE) 08/03/19 11:45 Ur Amphetamine Screen POSITIVE (NEGATIVE) H 08/03/19 11:45 U Methamphetamines Scrn POSITIVE (NEGATIVE) H 08/03/19 11:45 U Benzodiazepines Scrn NEGATIVE (NEGATIVE) 08/03/19 11:45 Urine Cocaine Screen POSITIVE (NEGATIVE) H 08/03/19 11:45 U Cannabinoids Screen NEGATIVE (NEGATIVE) 08/03/19 11:45 Ethyl Alcohol < 5.0 mg/dL 08/03/19 07:09
[2019-08-05 17:34] LABS: BILIRUBIN,URINE NEGATIVE (NEGATIVE); GLUCOSE, URINE (UA) 250 mg/dL (NEGATIVE); KETONES,URINE (UA) NEGATIVE (NEGATIVE); LEUKOCYTE ESTERASE, URINE NEGATIVE (NEGATIVE); NITRITE,URINE NEGATIVE (NEGATIVE); OCCULT BLOOD,URINE NEGATIVE (NEGATIVE); PH,URINE 7.5 PH (5.0-7.5); PROTEIN,URINE NEGATIVE (NEGATIVE); UROBILINOGEN,URINE 4 E.U./dL (NORMAL)
[2019-08-05 17:38] LABS: CLARITY,URINE CLEAR (CLEAR)
[2019-08-05 17:51] LABS: BACTERIA,URINE Rare /HPF (None Seen); RBC,URINE 0-5 /HPF (0-5); SQUAMOUS EPITHELIAL CELL,UR RARE Squamous (<= Few)
[2019-08-05] MEDS ORDERED: LIDOCAINE 1% 2 ML VIAL MC ONE (18:30)
[2019-08-05] MEDS ORDERED: AZITHROMYCIN 250 MG TABLET PO ONE (18:30)
[2019-08-05] MEDS ORDERED: cefTRIAXone 250 MG VIAL IM ONE (18:30)
[2019-08-05 21:34] LABS: TRICHOMONAS VAGINALIS DNA NEGATIVE (NEGATIVE)
[2019-08-05] MEDS: VANCOMYCIN INJ 1 GM, VANCOMYCIN INJ 500 MG in SODIUM CHLORIDE 0.9% 500 ML IV SCH (21:57)
[2019-08-05] MEDS: SENNA 8.6 MG TABLET PO SCH (22:09)
[2019-08-05] MEDS: DOCUSATE SODIUM 250 MG CAPSULE PO SCH (22:10)
[2019-08-05] MEDS ORDERED: VANCOMYCIN 1 GM VIAL ONE (22:14)
[2019-08-05] MEDS ORDERED: SODIUM CHLORIDE 0.9% 500 ML ONE (22:14)
[2019-08-06] MEDS: SODIUM CHLORIDE FLUSH 0.9% 10 ML SYRINGE IVP SCH ×2 (00:18→11:51)
[2019-08-06 05:04] LABS: ALBUMIN 3.6 g/dL (3.2-5.5); ALBUMIN/GLOBULIN RATIO 1.1 (1.0-2.2); BILIRUBIN,TOTAL 0.7 mg/dL (0.2-1.0); CALCIUM 8.9 mg/dL (8.5-10.3); CREATININE 0.5 mg/dL (0.6-1.2)
[2019-08-06] MEDS: VANCOMYCIN INJ 1 GM, VANCOMYCIN INJ 500 MG in SODIUM CHLORIDE 0.9% 500 ML IV SCH (05:38)
[2019-08-06] MEDS ORDERED: DOCUSATE SODIUM 250 MG CAPSULE PO SCH (09:00)
[2019-08-06] MEDS: POLYETHYLENE GLYCOL 3350 17 GM PACKET PO SCH (11:49)
[2019-08-06] MEDS: DOCUSATE SODIUM 250 MG CAPSULE PO SCH (11:49)
[2019-08-06] MEDS: SENNA 8.6 MG TABLET PO SCH (11:50)
[2019-08-06] MEDS: FAMOTIDINE 20 MG TABLET PO SCH ×2 (11:51→20:34)
[2019-08-06] MEDS: NICOTINE 14 MG PATCH TOP SCH (15:29)
[2019-08-06] MEDS: SERTRALINE 50 MG TABLET PO SCH (17:08)
--- NOTE | 2019-08-06 18:33 | PROVIDER PROGRESS NOTE ---
Assessment/Plan - Problem List (1) Methamphetamine abuse Assessment/Plan: He is fully awake today, over the somnolent part of his Methamphetamine withdrawal. He was seen by [facility]ORY who called [facility], who is retaining this individual, and looking for a facility to transfer him to. This is his [facility]th visit to this hiospital this year due to a complication from his drug abuse. Will DC iv-saline lock and telemetry. (2) Rhabdomyolysis Qualifiers: Rhabdomyolysis type: non-traumatic Qualified Code(s): M62.82 - Rhabdomyolysis Assessment/Plan: Improving CK daily He is just on po hydration now (3) Urethritis, unspecified Assessment/Plan: The Peterson was Dcd yesterday the RN noted purulent discharge from the penis. He was treated with 250 mg im x1 of Ceftriaxone and 1gm po x1 of Zithromax yesterday, as per Point Of Care treatment guidelines in [facility] Yesterday urinalysis and swab culture for Gonorrhea and Chlamydia were sent: GC and Chlamydia resulted today and were neg. (4) Multiple open wounds of foot Assessment/Plan: He is now getting q3d dressing changes. Will stop iv Vanco, as there is no drainage and no (+) cultures (5) History of depression Assessment/Plan: For this reason he was seen by KORY, for a mental health eval. (6) Heroin abuse Assessment/Plan: He was seen by KORY who called [facility], who is retaining this individual, and looking for a facility to transfer him to. Will DC iv-saline lock and telem (7) Leukocytosis Assessment/Plan: Resolved (8) Hyperkalemia Assessment/Plan: Resolved (9) Metabolic acidosis Assessment/Plan: Resolved (10) Acute kidney injury Assessment/Plan: Resolved (11) Hypoglycemia Assessment/Plan: Resolved, will stop POC glu checks (12) Metabolic encephalopathy Assessment/Plan: Resolved, he is fully awake today - Current Meds Current Meds: Current Medications Generic Name Dose Route Start Last Admin Trade Name Freq PRN Reason Stop Dose Admin Acetaminophen 650 mg 08/03/19 08:48 08/05/19 19:53 Tylenol PO 650 mg Q6H PRN Administration Pain 1 to 4 Docusate Sodium 250 - 500 mg 08/05/19 21:00 08/06/19 11:49 Colace 250mg Capsule PO Not Given DAILY CHRISTY Famotidine 20 mg 08/05/19 09:00 08/06/19 11:51 Pepcid PO 20 mg BID CHRISTY Administration Nicotine 1 patch 08/06/19 13:22 08/06/19 15:29 Nicoderm TOP 1 patch DAILY CHRISTY Administration Polyethylene Glycol 17 gm 08/05/19 09:00 08/06/19 11:49 Miralax PO Not Given DAILY CHRISTY Senna 8.6 - 17.2 mg 08/05/19 22:30 08/06/19 11:50 Senokot PO Not Given DAILY CHRISTY Sertraline HCl 50 mg 08/06/19 16:29 08/06/19 17:08 Zoloft PO 50 mg DAILY CHRISTY Administration - Lab Result Fish Bone Diagrams: 08/05/19 05:05 08/06/19 04:30 - Additional Planning My Orders: My Active Orders 08/05/19 21:00 Docusate Sodium 250Mg Capsule [Colace 250Mg Capsule] 250 - 500 mg PO DAILY 08/05/19 22:30 Senna [Senokot] 8.6 - 17.2 mg PO DAILY 08/06/19 12:04 IV DC [IV Discontinuation] [RC] .ONCE 08/06/19 12:07 Telemetry-Discontinue [RC] .ONCE 08/06/19 13:22 Nicotine 14 mg Patch [Nicoderm] 1 patch TOP DAILY 08/06/19 14:47 1:1 Observation [RC] Q1H 08/06/19 16:29 Sertraline [Zoloft] 50 mg PO DAILY 08/06/19 21:00 traZODone [Desyrel] 50 mg PO Subjective - Subjective Patient Reports: No Complaints Nursing Reports: Other (Obsconded, walked out the front door but was stopped by Security) Objective Vital Signs: Vital Signs - 24 hr 08/05/19 08/05/19 08/05/19 19:43 22:14 23:51 Temperature 37.9 C H 36.9 C 36.9 C Heart Rate [ 100 89 Brachial] Respiratory 22 17 Rate Blood Pressure 133/63 H 132/64 H [Right Brachial artery] O2 Saturation 97 98 08/06/19 08/06/19 08/06/19 04:35 08:21 13:00 Temperature 36.6 C 36.9 C 37.2 C Heart Rate [ 85 78 76 Brachial] Respiratory 18 18 22 Rate Blood Pressure 129/73 132/80 H 142/79 H [Right Brachial artery] O2 Saturation 100 100 100 08/06/19 16:51 Temperature 37.5 C Heart Rate [ 84 Brachial] Respiratory 12 Rate Blood Pressure 134/75 H [Right Brachial artery] O2 Saturation 100 Oxygen O2 Source Room air I&O (Last 24 Hrs): Intake and Output Totals x24h 08/04/19 08/05/19 08/06/19 23:59 23:59 23:59 Intake Total 3248.333 2300.333 2780 Output Total 1300 2350 2575 Balance 1948.333 -49.667 205 General: Alert HEENT: Mucous membr. moist/pink, Other (Sunburn-like discoloration around eyes, unchanged since admission) Neck: Supple Neuro: Non Focal Cardiovascular: Regular rate Respiratory: No respiratory distress Abdomen: Soft Extremities: No edema, Other (bandages of feet) - Results Results: Laboratory Results WBC 7.4 x10^3/uL (4.8-10.8) 08/05/19 05:05 RBC 3.86 10^6/uL (4.70-6.10) L 08/05/19 05:05 Hgb 11.7 g/dL (14.0-18.0) L 08/05/19 05:05 Hct 35.4 % (42.0-52.0) L 08/05/19 05:05 MCV 91.7 fL (80.0-94.0) 08/05/19 05:05 MCH 30.3 pg (27.0-31.0) 08/05/19 05:05 MCHC 33.1 g/dL (32.0-36.0) 08/05/19 05:05 RDW 13.2 % (12.0-15.0) 08/05/19 05:05 Plt Count 128 10^3/uL (130-450) L 08/05/19 05:05 MPV 10.2 fL (7.4-11.4) 08/05/19 05:05 Neut # (Auto) 4.6 10^3/uL (1.5-6.6) 08/05/19 05:05 Lymph # (Auto) 1.9 10^3/uL (1.5-3.5) 08/05/19 05:05 [place] # (Auto) 0.8 10^3/uL (0.0-1.0) 08/05/19 05:05 Eos # (Auto) 0.0 10^3/uL (0.0-0.7) 08/05/19 05:05 Baso # (Auto) 0.0 10^3/uL (0.0-0.1) 08/05/19 05:05 Absolute Nucleated RBC 0.00 x10^3/uL 08/05/19 05:05 Band Neuts % (Manual) Not Reportable 08/04/19 04:30 Abnorm Lymph % (Manual) Not Reportable 08/04/19 04:30 Nucleated RBC % 0.0 /100WBC 08/05/19 05:05 Neutrophils # (Manual) Not Reportable 08/04/19 04:30 Lymphocytes # (Manual) Not Reportable 08/04/19 04:30 Monocytes # (Manual) Not Reportable 08/04/19 04:30 Eosinophils # (Manual) Not Reportable 08/04/19 04:30 Basophils # (Manual) Not Reportable 08/04/19 04:30 Differential Comment MANUAL=AUTO DIFF 08/04/19 04:30 Platelet Estimate NORMAL (130-450,000) (NORMAL) 08/04/19 04:30 RBC Morph Micro Appear NORMAL APPEARANCE (NORMAL) 08/04/19 04:30 VBG pH 7.351 (7.31-7.41) 08/03/19 15:45 VBG pCO2 41.4 mmHg (41-51) 08/03/19 15:45 VBG pO2 49.4 mmHg (25-47) H 08/03/19 15:45 VBG HCO3 22.4 mmol/L (23-28) L 08/03/19 15:45 VBG Total CO2 23.7 mmol/L (24-29) L 08/03/19 15:45 VBG O2 Saturation 82.4 % (60-80) H 08/03/19 15:45 VBG Base Excess -3.0 mmol/L (-2 - +2) L 08/03/19 15:45 Sodium 141 mmol/L (135-145) 08/06/19 04:30 Potassium 4.1 mmol/L (3.5-5.0) 08/06/19 04:30 Chloride 110 mmol/L (101-111) 08/06/19 04:30 Carbon Dioxide 24 mmol/L (21-32) 08/06/19 04:30 Anion Gap 7.0 (6-13) 08/06/19 04:30 BUN 9 mg/dL (6-20) 08/06/19 04:30 Creatinine 0.5 mg/dL (0.6-1.2) L 08/06/19 04:30 Estimated GFR (MDRD) 206 (>89) 08/06/19 04:30 Glucose 112 mg/dL (70-100) H 08/06/19 04:30 POC Whole Bld Glucose 101 mg/dL (70 - 100) H 08/06/19 07:34 Lactic Acid 1.5 mmol/L (0.5-2.2) 08/03/19 15:45 Calcium 8.9 mg/dL (8.5-10.3) 08/06/19 04:30 Phosphorus 1.8 mg/dL (2.5-4.6) L 08/04/19 04:30 Magnesium 2.8 mg/dL (1.7-2.8) 08/04/19 04:30 Total Bilirubin 0.7 mg/dL (0.2-1.0) 08/06/19 04:30 AST 93 IU/L (10-42) H 08/06/19 04:30 ALT 46 IU/L (10-60) 08/06/19 04:30 Alkaline Phosphatase 47 IU/L (42-121) 08/06/19 04:30 Total Creatine Kinase 2255 IU/L (22-269) H* 08/06/19 04:30 CK-MB (CK-2) 22.8 ng/mL (0.6-6.3) H 08/05/19 05:05 Total Protein 7.0 g/dL (6.7-8.2) 08/06/19 04:30 Albumin 3.6 g/dL (3.2-5.5) 08/06/19 04:30 Globulin 3.4 g/dL (2.1-4.2) 08/06/19 04:30 Albumin/Globulin Ratio 1.1 (1.0-2.2) 08/06/19 04:30 Lipase 31 U/L (22-51) 08/03/19 07:09 Urine Color YELLOW 08/05/19 13:15 Urine Clarity CLEAR (CLEAR) 08/05/19 13:15 Urine pH 7.5 PH (5.0-7.5) 08/05/19 13:15 Ur Specific [place] 1.020 (1.002-1.030) 08/05/19 13:15 Urine Protein NEGATIVE mg/dL (NEGATIVE) 08/05/19 13:15 Urine Glucose (UA) 250 mg/dL (NEGATIVE) H 08/05/19 13:15 Urine Ketones NEGATIVE mg/dL (NEGATIVE) 08/05/19 13:15 Urine Occult Blood NEGATIVE (NEGATIVE) 08/05/19 13:15 Urine Nitrite NEGATIVE (NEGATIVE) 08/05/19 13:15 Urine Bilirubin NEGATIVE (NEGATIVE) 08/05/19 13:15 Urine Urobilinogen 4 E.U./dL (NORMAL) H 08/05/19 13:15 Ur Leukocyte Esterase NEGATIVE (NEGATIVE) 08/05/19 13:15 Urine RBC 0-5 /HPF (0-5) 08/05/19 13:15 Urine WBC 0-3 /HPF (0-3) 08/05/19 13:15 Ur Squamous Epith Cells RARE Squamous (<= Few) 08/05/19 13:15 Amorphous Sediment Moderate /LPF 08/03/19 11:45 Urine Bacteria Rare /HPF (None Seen) 08/05/19 13:15 Urine Casts 0-2 Course Granular /LPF 08/03/19 11:45 Ur Microscopic Review INDICATED 08/03/19 11:45 Urine Culture Comments NOT INDICATED 08/05/19 13:15 Nasal Screen MRSA (PCR) NEGATIVE (NEGATIVE) 08/03/19 09:30 Last Dose Date 08/05/19 08/05/19 13:45 Last Dose Time 0635 08/05/19 13:45 Vancomycin Trough 7.2 ug/mL (10.0-20.0) L 08/05/19 13:45 Salicylates < 6.0 mg/dL 08/03/19 07:09 Urine Opiates Screen POSITIVE (NEGATIVE) H 08/03/19 11:45 Ur Oxycodone Screen NEGATIVE (NEGATIVE) 08/03/19 11:45 Urine Methadone Screen NEGATIVE (NEGATIVE) 08/03/19 11:45 Ur Propoxyphene Screen NEGATIVE (NEGATIVE) 08/03/19 11:45 Acetaminophen < 10 ug/mL (10-30) L 08/03/19 07:09 Ur Barbiturates Screen NEGATIVE (NEGATIVE) 08/03/19 11:45 Ur Tricyclics Screen NEGATIVE (NEGATIVE) 08/03/19 11:45 Ur Phencyclidine Scrn NEGATIVE (NEGATIVE) 08/03/19 11:45 Ur Amphetamine Screen POSITIVE (NEGATIVE) H 08/03/19 11:45 U Methamphetamines Scrn POSITIVE (NEGATIVE) H 08/03/19 11:45 U Benzodiazepines Scrn NEGATIVE (NEGATIVE) 08/03/19 11:45 Urine Cocaine Screen POSITIVE (NEGATIVE) H 08/03/19 11:45 U Cannabinoids Screen NEGATIVE (NEGATIVE) 08/03/19 11:45 Ethyl Alcohol < 5.0 mg/dL 08/03/19 07:09 Chlam trachomat DNA PCR NEGATIVE (NEGATIVE) 08/05/19 13:15 N.gonorrhoeae DNA (PCR) NEGATIVE (NEGATIVE) 08/05/19 13:15 T. vaginalis (PCR) NEGATIVE (NEGATIVE) 08/05/19 13:15
[2019-08-06] MEDS: traZODone 50 MG TABLET PO SCH (20:33)
[2019-08-07] MEDS: NICOTINE 14 MG PATCH TOP SCH (08:01)
[2019-08-07] MEDS: SERTRALINE 50 MG TABLET PO SCH (08:02)
--- NOTE | 2019-08-07 08:09 | PROVIDER PROGRESS NOTE ---
Assessment/Plan - Problem List (1) Methamphetamine abuse Assessment/Plan: He has had about 17 hospital visits (ER or admissions) in 2019 and was deteined based on [employer]. He is awaiting transport to [place] (2) Rhabdomyolysis Qualifiers: Rhabdomyolysis type: non-traumatic Qualified Code(s): M62.82 - Rhabdomyolysis Assessment/Plan: He rfused his a.m. lood draw, was for CK. The CK has been dropping consistently. Will stop lab draws. (3) Urethritis, unspecified Assessment/Plan: He got empiric tx with im Ceftriaxone and po Zoithromax on 08/05 (4) Multiple open wounds of foot Assessment/Plan: He is to get Xerofoam and kerlex cover, changed q3d (5) History of depression Assessment/Plan: Continue his home doses of Zoloft and Trazadone (6) Heroin abuse Assessment/Plan: IV drug use was in his Hx - Current Meds Current Meds: Current Medications Generic Name Dose Route Start Last Admin Trade Name Freq PRN Reason Stop Dose Admin Acetaminophen 650 mg 08/03/19 08:48 08/05/19 19:53 Tylenol PO 650 mg Q6H PRN Administration Pain 1 to 4 Nicotine 1 patch 08/06/19 13:22 08/07/19 08:01 Nicoderm TOP 1 patch DAILY CHRISTY Administration Sertraline HCl 50 mg 08/06/19 16:29 08/07/19 08:02 Zoloft PO 50 mg DAILY CHRISTY Administration Trazodone HCl 50 mg 08/06/19 21:00 08/06/19 20:33 Desyrel PO 50 mg HS CHRISTY Administration - Lab Result Fish Bone Diagrams: 08/05/19 05:05 08/06/19 04:30 - Additional Planning My Orders: My Active Orders 08/06/19 13:22 Nicotine 14 mg Patch [Nicoderm] 1 patch TOP DAILY 08/06/19 14:47 1:1 Observation [RC] Q1H 08/06/19 16:29 Sertraline [Zoloft] 50 mg PO DAILY 08/06/19 21:00 traZODone [Desyrel] 50 mg PO HS Subjective - Subjective Nursing Reports: Other (Patient refued a.m. lab for CK level) Objective Vital Signs: Vital Signs - 24 hr 08/06/19 08/06/19 08/06/19 08:21 13:00 16:51 Temperature 36.9 C 37.2 C 37.5 C Heart Rate [ 78 76 84 Brachial] Respiratory 18 22 12 Rate Blood Pressure 132/80 H 142/79 H 134/75 H [Right Brachial artery] O2 Saturation 100 100 100 08/06/19 08/07/19 08/07/19 21:00 01:00 07:19 Temperature 37.5 C 37.3 C 37.1 C Heart Rate [ 85 85 70 Brachial] Respiratory 12 14 16 Rate Blood Pressure 125/61 134/71 H 119/68 [Right Brachial artery] O2 Saturation 98 98 97 Oxygen O2 Source Room air I&O (Last 24 Hrs): Intake and Output Totals x24h 08/05/19 08/06/19 08/07/19 23:59 23:59 23:59 Intake Total 2300.333 3357.333 480 Output Total 2350 2575 450 Balance -49.667 782.333 30 General: Other (sleeping) HEENT: Other (Unchanged sunburn around ayes) Neuro: Non Focal Cardiovascular: Regular rate Respiratory: No respiratory distress Extremities: No edema, Other (Feet bandaged) - Results Results: Laboratory Results WBC 7.4 x10^3/uL (4.8-10.8) 08/05/19 05:05 RBC 3.86 10^6/uL (4.70-6.10) L 08/05/19 05:05 Hgb 11.7 g/dL (14.0-18.0) L 08/05/19 05:05 Hct 35.4 % (42.0-52.0) L 08/05/19 05:05 MCV 91.7 fL (80.0-94.0) 08/05/19 05:05 MCH 30.3 pg (27.0-31.0) 08/05/19 05:05 MCHC 33.1 g/dL (32.0-36.0) 08/05/19 05:05 RDW 13.2 % (12.0-15.0) 08/05/19 05:05 Plt Count 128 10^3/uL (130-450) L 08/05/19 05:05 MPV 10.2 fL (7.4-11.4) 08/05/19 05:05 Neut # (Auto) 4.6 10^3/uL (1.5-6.6) 08/05/19 05:05 Lymph # (Auto) 1.9 10^3/uL (1.5-3.5) 08/05/19 05:05 [place] # (Auto) 0.8 10^3/uL (0.0-1.0) 08/05/19 05:05 Eos # (Auto) 0.0 10^3/uL (0.0-0.7) 08/05/19 05:05 Baso # (Auto) 0.0 10^3/uL (0.0-0.1) 08/05/19 05:05 Absolute Nucleated RBC 0.00 x10^3/uL 08/05/19 05:05 Band Neuts % (Manual) Not Reportable 08/04/19 04:30 Abnorm Lymph % (Manual) Not Reportable 08/04/19 04:30 Nucleated RBC % 0.0 /100WBC 08/05/19 05:05 Neutrophils # (Manual) Not Reportable 08/04/19 04:30 Lymphocytes # (Manual) Not Reportable 08/04/19 04:30 Monocytes # (Manual) Not Reportable 08/04/19 04:30 Eosinophils # (Manual) Not Reportable 08/04/19 04:30 Basophils # (Manual) Not Reportable 08/04/19 04:30 Differential Comment MANUAL=AUTO DIFF 08/04/19 04:30 Platelet Estimate NORMAL (130-450,000) (NORMAL) 08/04/19 04:30 RBC Morph Micro Appear NORMAL APPEARANCE (NORMAL) 08/04/19 04:30 VBG pH 7.351 (7.31-7.41) 08/03/19 15:45 VBG pCO2 41.4 mmHg (41-51) 08/03/19 15:45 VBG pO2 49.4 mmHg (25-47) H 08/03/19 15:45 VBG HCO3 22.4 mmol/L (23-28) L 08/03/19 15:45 VBG Total CO2 23.7 mmol/L (24-29) L 08/03/19 15:45 VBG O2 Saturation 82.4 % (60-80) H 08/03/19 15:45 VBG Base Excess -3.0 mmol/L (-2 - +2) L 08/03/19 15:45 Sodium 141 mmol/L (135-145) 08/06/19 04:30 Potassium 4.1 mmol/L (3.5-5.0) 08/06/19 04:30 Chloride 110 mmol/L (101-111) 08/06/19 04:30 Carbon Dioxide 24 mmol/L (21-32) 08/06/19 04:30 Anion Gap 7.0 (6-13) 08/06/19 04:30 BUN 9 mg/dL (6-20) 08/06/19 04:30 Creatinine 0.5 mg/dL (0.6-1.2) L 08/06/19 04:30 Estimated GFR (MDRD) 206 (>89) 08/06/19 04:30 Glucose 112 mg/dL (70-100) H 08/06/19 04:30 POC Whole Bld Glucose 101 mg/dL (70 - 100) H 08/06/19 07:34 Lactic Acid 1.5 mmol/L (0.5-2.2) 08/03/19 15:45 Calcium 8.9 mg/dL (8.5-10.3) 08/06/19 04:30 Phosphorus 1.8 mg/dL (2.5-4.6) L 08/04/19 04:30 Magnesium 2.8 mg/dL (1.7-2.8) 08/04/19 04:30 Total Bilirubin 0.7 mg/dL (0.2-1.0) 08/06/19 04:30 AST 93 IU/L (10-42) H 08/06/19 04:30 ALT 46 IU/L (10-60) 08/06/19 04:30 Alkaline Phosphatase 47 IU/L (42-121) 08/06/19 04:30 Total Creatine Kinase 2255 IU/L (22-269) H* 08/06/19 04:30 CK-MB (CK-2) 22.8 ng/mL (0.6-6.3) H 08/05/19 05:05 Total Protein 7.0 g/dL (6.7-8.2) 08/06/19 04:30 Albumin 3.6 g/dL (3.2-5.5) 08/06/19 04:30 Globulin 3.4 g/dL (2.1-4.2) 08/06/19 04:30 Albumin/Globulin Ratio 1.1 (1.0-2.2) 08/06/19 04:30 Lipase 31 U/L (22-51) 08/03/19 07:09 Urine Color YELLOW 08/05/19 13:15 Urine Clarity CLEAR (CLEAR) 08/05/19 13:15 Urine pH 7.5 PH (5.0-7.5) 08/05/19 13:15 Ur Specific [place] 1.020 (1.002-1.030) 08/05/19 13:15 Urine Protein NEGATIVE mg/dL (NEGATIVE) 08/05/19 13:15 Urine Glucose (UA) 250 mg/dL (NEGATIVE) H 08/05/19 13:15 Urine Ketones NEGATIVE mg/dL (NEGATIVE) 08/05/19 13:15 Urine Occult Blood NEGATIVE (NEGATIVE) 08/05/19 13:15 Urine Nitrite NEGATIVE (NEGATIVE) 08/05/19 13:15 Urine Bilirubin NEGATIVE (NEGATIVE) 08/05/19 13:15 Urine Urobilinogen 4 E.U./dL (NORMAL) H 08/05/19 13:15 Ur Leukocyte Esterase NEGATIVE (NEGATIVE) 08/05/19 13:15 Urine RBC 0-5 /HPF (0-5) 08/05/19 13:15 Urine WBC 0-3 /HPF (0-3) 08/05/19 13:15 Ur Squamous Epith Cells RARE Squamous (<= Few) 08/05/19 13:15 Amorphous Sediment Moderate /LPF 08/03/19 11:45 Urine Bacteria Rare /HPF (None Seen) 08/05/19 13:15 Urine Casts 0-2 Course Granular /LPF 08/03/19 11:45 Ur Microscopic Review INDICATED 08/03/19 11:45 Urine Culture Comments NOT INDICATED 08/05/19 13:15 Nasal Screen MRSA (PCR) NEGATIVE (NEGATIVE) 08/03/19 09:30 Last Dose Date 08/05/19 08/05/19 13:45 Last Dose Time 0635 08/05/19 13:45 Vancomycin Trough 7.2 ug/mL (10.0-20.0) L 08/05/19 13:45 Salicylates < 6.0 mg/dL 08/03/19 07:09 Urine Opiates Screen POSITIVE (NEGATIVE) H 08/03/19 11:45 Ur Oxycodone Screen NEGATIVE (NEGATIVE) 08/03/19 11:45 Urine Methadone Screen NEGATIVE (NEGATIVE) 08/03/19 11:45 Ur Propoxyphene Screen NEGATIVE (NEGATIVE) 08/03/19 11:45 Acetaminophen < 10 ug/mL (10-30) L 08/03/19 07:09 Ur Barbiturates Screen NEGATIVE (NEGATIVE) 08/03/19 11:45 Ur Tricyclics Screen NEGATIVE (NEGATIVE) 08/03/19 11:45 Ur Phencyclidine Scrn NEGATIVE (NEGATIVE) 08/03/19 11:45 Ur Amphetamine Screen POSITIVE (NEGATIVE) H 08/03/19 11:45 U Methamphetamines Scrn POSITIVE (NEGATIVE) H 08/03/19 11:45 U Benzodiazepines Scrn NEGATIVE (NEGATIVE) 08/03/19 11:45 Urine Cocaine Screen POSITIVE (NEGATIVE) H 08/03/19 11:45 U Cannabinoids Screen NEGATIVE (NEGATIVE) 08/03/19 11:45 Ethyl Alcohol < 5.0 mg/dL 08/03/19 07:09 Chlam trachomat DNA PCR NEGATIVE (NEGATIVE) 08/05/19 13:15 N.gonorrhoeae DNA (PCR) NEGATIVE (NEGATIVE) 08/05/19 13:15 T. vaginalis (PCR) NEGATIVE (NEGATIVE) 08/05/19 13:15
[2019-08-07] MEDS: ACETAMINOPHEN 325 MG TABLET PO PRN (20:43)
[2019-08-07] MEDS: traZODone 50 MG TABLET PO SCH (20:43)
[2019-08-08] MEDS: NICOTINE 14 MG PATCH TOP SCH (07:48)
[2019-08-08] MEDS: SERTRALINE 50 MG TABLET PO SCH (07:48)
[2019-08-08] MEDS: NICOTINE 21 MG PATCH TOP SCH (14:12)
--- NOTE | 2019-08-08 15:24 | PROVIDER PROGRESS NOTE ---
Assessment/Plan - Problem List (1) Methamphetamine abuse Assessment/Plan: He has had about 17 hospital visits (ER or admissions) in 2019 and was deteined based on [employer] Law. He is awaiting transport to [place] (2) Rhabdomyolysis Qualifiers: Rhabdomyolysis type: non-traumatic Qualified Code(s): M62.82 - Rhabdomyolysis Assessment/Plan: Clinically stable, and no further CKs were checked as of yesterday, when he refused his a.m. lab draw. (3) Tobacco abuse Assessment/Plan: He has a 14 mg Nicotine patch on. Today, a elderly female visitor brought him a carton of cigarettes. The RN took the carton away and the visitor was gone before anyone could advise her that enabling him to smoke was not recommended. - Current Meds Current Meds: Current Medications Generic Name Dose Route Start Last Admin Trade Name Freq PRN Reason Stop Dose Admin Acetaminophen 650 mg 08/03/19 08:48 08/07/19 20:43 Tylenol PO 650 mg Q6H PRN Administration Pain 1 to 4 Nicotine 1 patch 08/08/19 13:43 08/08/19 14:12 Nicoderm TOP 1 patch DAILY CHRISTY Administration Sertraline HCl 50 mg 08/06/19 16:29 08/08/19 07:48 Zoloft PO 50 mg DAILY CHRISTY Administration Trazodone HCl 50 mg 08/06/19 21:00 08/07/19 20:43 Desyrel PO 50 mg HS CHRISTY Administration - Lab Result Fish Bone Diagrams: 08/05/19 05:05 08/06/19 04:30 - Additional Planning My Orders: My Active Orders 08/08/19 13:43 Nicotine 21 mg Patch [Nicoderm] 1 patch TOP DAILY Subjective - Subjective Patient Reports: Resting Comfortably, No Complaints Objective Vital Signs: Vital Signs - 24 hr 08/07/19 08/08/19 08/08/19 20:58 04:58 12:49 Temperature 37.3 C 37.0 C 37.3 C Heart Rate [ 76 76 74 Brachial] Respiratory 16 18 19 Rate Blood Pressure 118/63 113/64 133/62 H [Right Brachial artery] O2 Saturation 99 99 98 Oxygen O2 Source Room air I&O (Last 24 Hrs): Intake and Output Totals x24h 08/06/19 08/07/19 08/08/19 23:59 23:59 23:59 Intake Total 5606.333 1670 660 Output Total 2615 450 650 Balance 392.594 1164 10 General: Alert HEENT: Mucous membr. moist/pink, Other (Unchanged "sunburn" around eyes) Neuro: Non Focal Cardiovascular: Regular rate Respiratory: No respiratory distress Abdomen: Soft Extremities: No edema, Other (Feet bandaged) - Results Results: Laboratory Results WBC 7.4 x10^3/uL (4.8-10.8) 08/05/19 05:05 RBC 3.86 10^6/uL (4.70-6.10) L 08/05/19 05:05 Hgb 11.7 g/dL (14.0-18.0) L 08/05/19 05:05 Hct 35.4 % (42.0-52.0) L 08/05/19 05:05 MCV 91.7 fL (80.0-94.0) 08/05/19 05:05 MCH 30.3 pg (27.0-31.0) 08/05/19 05:05 MCHC 33.1 g/dL (32.0-36.0) 08/05/19 05:05 RDW 13.2 % (12.0-15.0) 08/05/19 05:05 Plt Count 128 10^3/uL (130-450) L 08/05/19 05:05 MPV 10.2 fL (7.4-11.4) 08/05/19 05:05 Neut # (Auto) 4.6 10^3/uL (1.5-6.6) 08/05/19 05:05 Lymph # (Auto) 1.9 10^3/uL (1.5-3.5) 08/05/19 05:05 [place] # (Auto) 0.8 10^3/uL (0.0-1.0) 08/05/19 05:05 Eos # (Auto) 0.0 10^3/uL (0.0-0.7) 08/05/19 05:05 Baso # (Auto) 0.0 10^3/uL (0.0-0.1) 08/05/19 05:05 Absolute Nucleated RBC 0.00 x10^3/uL 08/05/19 05:05 Band Neuts % (Manual) Not Reportable 08/04/19 04:30 Abnorm Lymph % (Manual) Not Reportable 08/04/19 04:30 Nucleated RBC % 0.0 /100WBC 08/05/19 05:05 Neutrophils # (Manual) Not Reportable 08/04/19 04:30 Lymphocytes # (Manual) Not Reportable 08/04/19 04:30 Monocytes # (Manual) Not Reportable 08/04/19 04:30 Eosinophils # (Manual) Not Reportable 08/04/19 04:30 Basophils # (Manual) Not Reportable 08/04/19 04:30 Differential Comment MANUAL=AUTO DIFF 08/04/19 04:30 Platelet Estimate NORMAL (130-450,000) (NORMAL) 08/04/19 04:30 RBC Morph Micro Appear NORMAL APPEARANCE (NORMAL) 08/04/19 04:30 VBG pH 7.351 (7.31-7.41) 08/03/19 15:45 VBG pCO2 41.4 mmHg (41-51) 08/03/19 15:45 VBG pO2 49.4 mmHg (25-47) H 08/03/19 15:45 VBG HCO3 22.4 mmol/L (23-28) L 08/03/19 15:45 VBG Total CO2 23.7 mmol/L (24-29) L 08/03/19 15:45 VBG O2 Saturation 82.4 % (60-80) H 08/03/19 15:45 VBG Base Excess -3.0 mmol/L (-2 - +2) L 08/03/19 15:45 Sodium 141 mmol/L (135-145) 08/06/19 04:30 Potassium 4.1 mmol/L (3.5-5.0) 08/06/19 04:30 Chloride 110 mmol/L (101-111) 08/06/19 04:30 Carbon Dioxide 24 mmol/L (21-32) 08/06/19 04:30 Anion Gap 7.0 (6-13) 08/06/19 04:30 BUN 9 mg/dL (6-20) 08/06/19 04:30 Creatinine 0.5 mg/dL (0.6-1.2) L 08/06/19 04:30 Estimated GFR (MDRD) 206 (>89) 08/06/19 04:30 Glucose 112 mg/dL (70-100) H 08/06/19 04:30 POC Whole Bld Glucose 101 mg/dL (70 - 100) H 08/06/19 07:34 Lactic Acid 1.5 mmol/L (0.5-2.2) 08/03/19 15:45 Calcium 8.9 mg/dL (8.5-10.3) 08/06/19 04:30 Phosphorus 1.8 mg/dL (2.5-4.6) L 08/04/19 04:30 Magnesium 2.8 mg/dL (1.7-2.8) 08/04/19 04:30 Total Bilirubin 0.7 mg/dL (0.2-1.0) 08/06/19 04:30 AST 93 IU/L (10-42) H 08/06/19 04:30 ALT 46 IU/L (10-60) 08/06/19 04:30 Alkaline Phosphatase 47 IU/L (42-121) 08/06/19 04:30 Total Creatine Kinase 2255 IU/L (22-269) H* 08/06/19 04:30 CK-MB (CK-2) 22.8 ng/mL (0.6-6.3) H 08/05/19 05:05 Total Protein 7.0 g/dL (6.7-8.2) 08/06/19 04:30 Albumin 3.6 g/dL (3.2-5.5) 08/06/19 04:30 Globulin 3.4 g/dL (2.1-4.2) 08/06/19 04:30 Albumin/Globulin Ratio 1.1 (1.0-2.2) 08/06/19 04:30 Lipase 31 U/L (22-51) 08/03/19 07:09 Urine Color YELLOW 08/05/19 13:15 Urine Clarity CLEAR (CLEAR) 08/05/19 13:15 Urine pH 7.5 PH (5.0-7.5) 08/05/19 13:15 Ur Specific [place] 1.020 (1.002-1.030) 08/05/19 13:15 Urine Protein NEGATIVE mg/dL (NEGATIVE) 08/05/19 13:15 Urine Glucose (UA) 250 mg/dL (NEGATIVE) H 08/05/19 13:15 Urine Ketones NEGATIVE mg/dL (NEGATIVE) 08/05/19 13:15 Urine Occult Blood NEGATIVE (NEGATIVE) 08/05/19 13:15 Urine Nitrite NEGATIVE (NEGATIVE) 08/05/19 13:15 Urine Bilirubin NEGATIVE (NEGATIVE) 08/05/19 13:15 Urine Urobilinogen 4 E.U./dL (NORMAL) H 08/05/19 13:15 Ur Leukocyte Esterase NEGATIVE (NEGATIVE) 08/05/19 13:15 Urine RBC 0-5 /HPF (0-5) 08/05/19 13:15 Urine WBC 0-3 /HPF (0-3) 08/05/19 13:15 Ur Squamous Epith Cells RARE Squamous (<= Few) 08/05/19 13:15 Amorphous Sediment Moderate /LPF 08/03/19 11:45 Urine Bacteria Rare /HPF (None Seen) 08/05/19 13:15 Urine Casts 0-2 Course Granular /LPF 08/03/19 11:45 Ur Microscopic Review INDICATED 08/03/19 11:45 Urine Culture Comments NOT INDICATED 08/05/19 13:15 Nasal Screen MRSA (PCR) NEGATIVE (NEGATIVE) 08/03/19 09:30 Last Dose Date 08/05/19 08/05/19 13:45 Last Dose Time 0635 08/05/19 13:45 Vancomycin Trough 7.2 ug/mL (10.0-20.0) L 08/05/19 13:45 Salicylates < 6.0 mg/dL 08/03/19 07:09 Urine Opiates Screen POSITIVE (NEGATIVE) H 08/03/19 11:45 Ur Oxycodone Screen NEGATIVE (NEGATIVE) 08/03/19 11:45 Urine Methadone Screen NEGATIVE (NEGATIVE) 08/03/19 11:45 Ur Propoxyphene Screen NEGATIVE (NEGATIVE) 08/03/19 11:45 Acetaminophen < 10 ug/mL (10-30) L 08/03/19 07:09 Ur Barbiturates Screen NEGATIVE (NEGATIVE) 08/03/19 11:45 Ur Tricyclics Screen NEGATIVE (NEGATIVE) 08/03/19 11:45 Ur Phencyclidine Scrn NEGATIVE (NEGATIVE) 08/03/19 11:45 Ur Amphetamine Screen POSITIVE (NEGATIVE) H 08/03/19 11:45 U Methamphetamines Scrn POSITIVE (NEGATIVE) H 08/03/19 11:45 U Benzodiazepines Scrn NEGATIVE (NEGATIVE) 08/03/19 11:45 Urine Cocaine Screen POSITIVE (NEGATIVE) H 08/03/19 11:45 U Cannabinoids Screen NEGATIVE (NEGATIVE) 08/03/19 11:45 Ethyl Alcohol < 5.0 mg/dL 08/03/19 07:09 Chlam trachomat DNA PCR NEGATIVE (NEGATIVE) 08/05/19 13:15 N.gonorrhoeae DNA (PCR) NEGATIVE (NEGATIVE) 08/05/19 13:15 T. vaginalis (PCR) NEGATIVE (NEGATIVE) 08/05/19 13:15
[2019-08-08] MEDS: traZODone 50 MG TABLET PO SCH (21:08)
[2019-08-09 07:41] VITALS: BP 119/68
[2019-08-09] MEDS: SERTRALINE 50 MG TABLET PO SCH (08:02)
[2019-08-09] MEDS: NICOTINE 21 MG PATCH TOP SCH (08:02)
[2019-08-09] MEDS ORDERED: NICOTINE 21 MG PATCH TOP SCH (09:00)
--- NOTE | 2019-08-09 09:21 | Discharge Plan ---
Discharge Plan Problem Reviewed?: Yes Disposition: 02 Transfer Acute Care Hosp No Smoking: If you smoke, Please STOP! Call for help. Follow-up with: Ivan Lozano PA-C [Primary Care Provider] -
--- NOTE | 2019-08-09 09:25 | DISCHARGE SUMMARY ---
Discharge Summary Admit Date: 08/03/19 Discharge Date: 08/09/19 Discharging Provider: Dr Prisca Black Primary Care Provider: JOSE ALFREDO Miller Code Status: Attempt Resuscitation Condition at Discharge: Stable Discharge Disposition: 02 Transfer Acute Care Hosp Discharge Facility Name: [facility] - DIAGNOSES Admission Diagnoses: 1) Rhabdomyolysis 2) ELIEZER 3) Metabolic acidosis 4) Hyperkalemia 5) Acute metabolic encephalopathy 6) Methampehetamine intoxication 7) Methamphetamine abuse 8) iv Heroin abuse 9) Hypoglycemia 10) Skin lesions of Meth Discharge Diagnoses with Status of Each Condition: See below - HPI History of Present Illness: This is a 24 y/o male with a Hx of meth abuse, heroin abuse, psych disorder, multiple admissions and ER visits here for rhabdomyolysis and the last admission was just 1 month ago here for rhabdo (CK was 82,000) with ELIEZER. He presented now being found pacing in his friend's garage, where he was apparently living, reported to the inter fold roll cutter that he had used meth, just injected heroine and took 6 of his Trazadone "because he couldn't sleep". He was twitching and agitated, needed multiple iv Ativan pushes for sedation. Labs showed WBC 38K, Potassium of 6.2, glucose 60, VBG has a pH of 7.17, CK 5599, BUN/creat of 75/3.9, urine toxicology (+) for opiates, meth, cocaine but serum tox was neg for Tylenol, ethanol and salicylate. There were multiple scabbed wounds related to a meth rash and picking, or from injection sites, on bilateral feet and toes. He was admitted to the ICU, on iv bicarb and glucose drips. - CONSULTS | PROCEDURES Consultations: MAC Wound RN, Designated Crisis Responder - HOSPITAL COURSE Hospital Course: (1) Rhabdomyolysis Initially his CK worsened from 5599 to 8000's. He was sedated and there was no further agitated flailing. He was on continued iv fluids, bedrest. The daily CK improved. (2) Acute kidney injury This improved from BUN/creat of 75/3.9 at admission to 30/0.8 by 48 hours with iv hydration. (3) Metabolic acidosis The IV bicarb drip was used for a day, then stopped. (4) Hypoglycemia Resolved in a day with iv glucose hydration (5) Hyperkalemia Resolved with bicarb drip and as the ELIEZER corrected. (6) Methamphetamine abuse He was sleeping off his meth intoxication, in the withdrawal phase, for 2 days, then became lucid and was able to communicate, take a diet and ambulate. He was seen by SW and deemed retainable due to 17 visits to healthcare this year, related to poor judgment and apathy regarding his abuse history. A DCR was contacted and saw the patient and agreed. There was an accepting facility arranged in [place]. He was detained until transport could be arranged, based on his insurance. (7) Metabolic encephalopathy There was no more agitation once the iv Ativan pushes given in the ER sedated him. Following that, he was somnolent (as in #6). (8) Urethritis When his [place] was removed, there was a purulent discharge. He was empirically treated for STD with im Rocephin x1 and po Zithromax x1. (9) Multiple open wounds of foot There were multiple scabbed wounds related to a Meth rash and picking or from injection sites. They were cleaned and dressed, plus empiric iv Vanco was used for several days. Blood cx were all neg. He was seen in consult by the MAC Wound RN and orders started for Xeroform dressings. (10) Heroin abuse As per history. (11) History of depression At the last admission 1 mo ago, he needed transfer from here to an [facility] psych [facility]. He was continued on his prescribed Trazadone and Zoloft when he was awake and eating. (12) Tobacco abuse He had a 14 mg Nicotine patch ordered. On the day prior to discharge, an elderly female visitor brought him a carton of cigarettes. The RN took the carton away and the visitor was gone before anyone could advise her that enabling him to smoke was not recommended. - ALLERGIES Allergies/Adverse Reactions: Allergies Allergy/AdvReac Type Severity Reaction Status Date / Time No Known Drug Allergies Allergy Verified 08/03/19 07:11 - MEDICATIONS Home Medications: Ambulatory Orders Medication Instructions Recorded Confirmed Sertraline [Zoloft] 50 mg PO DAILY 07/02/19 08/03/19 traZODone [Desyrel] 50 mg PO HS 07/02/19 08/03/19 - PHYSICAL EXAM AT DISCHARGE General Appearance: positive: No acute distress, Alert Eyes Bilateral: positive: Other (Sunburn or vitiligo changes in a mask-pattern around eyes) ENT: positive: ENT inspection nml Neck: positive: Thyroid nml, No JVD Respiratory: positive: No respiratory distress Cardiovascular: positive: Regular rate & rhythm Abdomen: positive: No distention Extremities: positive: No pedal edema, Other (Feet and toes bandaged) - LABS Result Diagrams: 08/05/19 05:05 08/06/19 04:30 - DIAGNOSTIC IMAGING Diagnostic Imaging Results: Final report reviewed - FOLLOW UP Follow Up: This will be determined after his stay at the [facility] - TIME SPENT Time Spent in Discharge (Minutes): 30
== END 2019-08-09 09:45 | DRG 682 ==
LOC: EDUNIT# → EDBD → ED 07:01 → ICU 08:48 → MS2 08-04 09:23 → ICU 08-04 09:27 → MS2 08-04 11:09
PROVIDERS: ADMIT Internal Medicine; ATTEND Internal Medicine
DX: N17.9 Acute kidney failure, unspecified (principal); G92 Toxic encephalopathy; M62.82 Rhabdomyolysis; E87.2 Acidosis; F15.23 Other stimulant dependence with withdrawal; E87.5 Hyperkalemia; F15.229 Other stimulant dependence with intoxication, unspecified; F11.10 Opioid abuse, uncomplicated; E16.2 Hypoglycemia, unspecified; D72.829 Elevated white blood cell count, unspecified; F32.9 Major depressive disorder, single episode, unspecified; F90.9 Attention-deficit hyperactivity disorder, unspecified type; F43.10 Post-traumatic stress disorder, unspecified; F17.210 Nicotine dependence, cigarettes, uncomplicated; T43.621A Poisoning by amphetamines, accidental (unintentional), initial encounter; T40.1X1A Poisoning by heroin, accidental (unintentional), initial encounter; Y92.008 Other place in unspecified non-institutional (private) residence as the place of occurrence of the external cause; N34.2 Other urethritis; L27.0 Generalized skin eruption due to drugs and medicaments taken internally; S91.332A Puncture wound without foreign body, left foot, initial encounter; S91.331A Puncture wound without foreign body, right foot, initial encounter; W46.0XXD Contact with hypodermic needle, subsequent encounter; R82.5 Elevated urine levels of drugs, medicaments and biological substances
CPT/HCPCS: 36415; 80053; 80202; 80306; 80307; 80320; 80329; 81001; 82550; 82553; 82803; 83605; 83690; 83735; 84100; 84132; 85025; 87040; 87150; 87491; 87591; 87661; 93005; 96361; 96374; 96376; 99284; 99285; A9270; J2060; J3370; J3490; 81003; 87081; 87086

== ENCOUNTER 2019-10-25 15:24 | Emergency (ER) | payer MEDICAID ==
[2019-10-25] MEDS ORDERED: DEXAMETHASONE 10 MG/ML VIAL PO STA (16:14)
[2019-10-25] MEDS ORDERED: CHERRY SYRUP 10 ML UDC PO ONE (16:14)
--- NOTE | 2019-10-25 16:18 | ED Physician Documentation ---
PD HPI URI - Stated complaint Stated Complaint: COUGH, SWEATS, DIFFICULTY SLEEPING - Chief complaint Chief Complaint: General - History obtained from History obtained from: Patient - History of Present Illness Timing - onset: How many days ago (3) Timing duration: Days (3) Timing details: Gradual onset, Still present Associated symptoms: Fever, Sweats, Dry cough Contributing factors: Sick contact Improves by: Rest Similar symptoms before: Has not had sx before Recently seen: Not recently seen - Additional information Additional information: 24-year-old male with a history of heroin and methamphetamine abuse has developed a cough and congestion over the past 3 days. He denies any muffled hearing or fullness to his ears he denies any sore throat or runny nose. He does have a cough he acknowledges fever and sweats. Review of Systems Constitutional: reports: Fever, Chills, Myalgias, Fatigue, Sweats Eyes: denies: Decreased vision Ears: denies: Ear pain Nose: reports: Congestion. denies: Rhinorrhea / runny nose Throat: denies: Sore throat Cardiac: denies: Chest pain / pressure, Palpitations Respiratory: reports: Cough. denies: Dyspnea GI: denies: Vomiting PD PAST MEDICAL HISTORY - Past Medical History Past Medical History: Yes Cardiovascular: None Respiratory: None Neuro: None Endocrine/Autoimmune: None GI: GERD : None HEENT: None Psych: Depression, Anxiety, ADD/ADHD, Post traumatic stress disorder, Other Musculoskeletal: Osteoarthritis Derm: None - Past Surgical History Past Surgical History: Yes HEENT: Tonsil/Adenoidectomy - Present Medications Home Medications: Ambulatory Orders Medication Instructions Recorded Confirmed Sertraline [Zoloft] 50 mg PO DAILY 07/02/19 08/03/19 traZODone [Desyrel] 50 mg PO HS 07/02/19 08/03/19 Amox/Clav 875/125 [Augmentin] 1 each PO Q12H #20 tablet 10/25/19 - Allergies Allergies/Adverse Reactions: Allergies Allergy/AdvReac Type Severity Reaction Status Date / Time No Known Drug Allergies Allergy Verified 10/25/19 15:35 - Social History Does the pt smoke?: Yes Smoking Status: Current every day smoker Does the pt drink ETOH?: Yes Does the pt have substance abuse?: Yes Substance Use and Type: Marijuana, Meth, Heroin - Immunizations Immunizations are current?: Yes - POLST Patient has POLST: No POLST Status: Full Code PD ED PE NORMAL - Vitals Vital signs reviewed: Yes (normal ) - General General: Alert and oriented X 3, No acute distress, Well developed/nourished - HEENT HEENT: Atraumatic, PERRL, EOMI, Other (The left TM is inflamed with distortion of the umbo and the right is less involved with rounding of the umbo. 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, No motor deficit, No sensory deficit, Normal speech Eye Opening: Spontaneous Motor: Obeys Commands Verbal: Oriented GCS Score: 15 - Psych Psych: Normal mood, Normal affect Results - Vitals Vitals: Vital Signs - 24 hr 10/25/19 15:36 Temperature 36.9 C Heart Rate 63 Respiratory 14 Rate Blood Pressure 120/66 O2 Saturation 99 Oxygen O2 Source Room air PD MEDICAL DECISION MAKING - ED course Complexity details: considered differential, d/w patient ED course: 24-year-old male with cough and congestion has otitis on exam he is afebrile here he is administered dexamethasone 10 mg orally and we will put him on some Augmentin. Departure - Departure Disposition: 01 Home, Self Care Clinical Impression: Otitis media Qualifiers: Otitis media type: suppurative Chronicity: acute Laterality: bilateral Recurrence: non-recurrent Spontaneous tympanic membrane rupture: without spontaneous rupture Qualified Code(s): H66.003 - Acute suppurative otitis media without spontaneous rupture of ear drum, bilateral Condition: Stable Instructions: ED Otitis Media Acute Adult Follow-Up: Ivan Lozano PA-C [Primary Care Provider] - Prescriptions: Amox/Clav 875/125 [Augmentin] 1 each PO Q12H #20 tablet
[2019-10-25 16:30] VITALS: BP 122/68
== END 2019-10-25 16:30 | disposition home or self-care (01) ==
LOC: ED 15:24
DX: H66.003 Acute suppurative otitis media without spontaneous rupture of ear drum, bilateral (principal); F17.200 Nicotine dependence, unspecified, uncomplicated
CPT/HCPCS: 99282; 99284; A9270

== ENCOUNTER 2019-11-05 11:30 | Emergency (ER) | payer MEDICAID ==
[2019-11-05] MEDS ORDERED: BACITRACIN ZINC OINT 1 PACKET TOP STA (14:09)
--- NOTE | 2019-11-05 14:11 | ED Physician Documentation ---
PD HPI MAJOR BURN - Stated complaint Stated Complaint: LEFT LEG BURN - Chief complaint Chief Complaint: Burn - History obtained from History obtained from: Patient (24-year-old gentleman who is up-to-date on tetanus sustained second-degree bird on his left leg last night he thinks from sleeping next to a baseboard heater. Pain is minimal and declines pain medication.) Review of Systems Constitutional: reports: Reviewed and negative Throat: reports: Reviewed and negative Cardiac: reports: Reviewed and negative PD PAST MEDICAL HISTORY - Past Medical History Cardiovascular: None Respiratory: None Neuro: None Endocrine/Autoimmune: None GI: GERD : None HEENT: None Psych: Depression, Anxiety, ADD/ADHD, Post traumatic stress disorder, Other Musculoskeletal: Osteoarthritis Derm: None - Past Surgical History Past Surgical History: Yes HEENT: Tonsil/Adenoidectomy - Present Medications Home Medications: Ambulatory Orders Medication Instructions Recorded Confirmed Sertraline [Zoloft] 50 mg PO DAILY 07/02/19 08/03/19 traZODone [Desyrel] 50 mg PO HS 07/02/19 08/03/19 Amox/Clav 875/125 [Augmentin] 1 each PO Q12H #20 tablet 10/25/19 Bacitracin Zinc Oint 1 applic TOP BID #1 tube 11/05/19 - Allergies Allergies/Adverse Reactions: Allergies Allergy/AdvReac Type Severity Reaction Status Date / Time No Known Drug Allergies Allergy Verified 11/05/19 11:39 - Social History Does the pt smoke?: Yes Smoking Status: Current every day smoker Does the pt drink ETOH?: Yes Does the pt have substance abuse?: Yes - Immunizations Immunizations are current?: Yes - POLST Patient has POLST: No POLST Status: Full Code PD ED PE NORMAL - Vitals Vital signs reviewed: Yes - General General: Alert and oriented X 3, No acute distress - HEENT HEENT: PERRL, EOMI - Extremities Extremities: Other (Scattered second-degree bird totaling about 1% TBSA with intact bullae mostly on the lateral side of the left calf but one small one on the medial side of left calf.) - Neuro Neuro: Alert and oriented X 3, Normal speech Results - Vitals Vitals: Vital Signs - 24 hr 11/05/19 11:39 Temperature 37.1 C Heart Rate 82 Respiratory 17 Rate Blood Pressure 125/71 O2 Saturation 98 Oxygen O2 Source Room air PD MEDICAL DECISION MAKING - ED course ED course: The intact bullae were sharply debrided and expressed, skin skin was debrided. Then asked the nurse to place bacitracin and a wrap and he was counseled on wound care. Departure - Departure Disposition: 01 Home, Self Care Clinical Impression: Second degree burn of left leg Qualifiers: Encounter type: initial encounter Qualified Code(s): T24.202A - Burn of second degree of unspecified site of left lower limb, except ankle and foot, initial encounter Condition: Good Record reviewed to determine appropriate education?: Yes Instructions: ED Burn D 2nd Prescriptions: Bacitracin Zinc Oint 1 applic TOP BID #1 tube Comments: You can wash briefly with soap and water. Then apply the antibiotic ointment to the open areas and keep covered with a sticking free dressing such as Telfa. Follow-up with your doctor for a wound check Friday or Friday. Return for new or worsening symptoms.
[2019-11-05 14:29] VITALS: BP 117/69
== END 2019-11-05 14:32 | disposition home or self-care (01) ==
LOC: ED 11:30
DX: T24.232A Burn of second degree of left lower leg, initial encounter (principal); T31.0 Burns involving less than 10% of body surface; X16.XXXA Contact with hot heating appliances, radiators and pipes, initial encounter; Y93.84 Activity, sleeping; Y92.009 Unspecified place in unspecified non-institutional (private) residence as the place of occurrence of the external cause; F17.200 Nicotine dependence, unspecified, uncomplicated
CPT/HCPCS: 99282; 99284; A9270

== ENCOUNTER 2019-12-08 08:00 | Outpatient (CLI) | payer MEDICAID | END 2019-12-08 23:59 | disposition home or self-care (01) | LOC: LAB.R 08:00 | PROVIDERS: ATTEND Physician Assistant Medical | DX: T24.202A Burn of second degree of unspecified site of left lower limb, except ankle and foot, initial encounter (principal) | CPT/HCPCS: 87070; 87181; 87205 ==

== ENCOUNTER 2020-02-28 19:51 | Emergency (ER) | payer MEDICAID ==
[2020-02-28] MEDS: SODIUM CHLORIDE 0.9% 2,000 ML IV STA (20:22)
[2020-02-28 20:27] LABS: BASOPHILS # (AUTO) 0.1 10^3/uL (0.0-0.1); BASOPHILS % (AUTO) 0.5 %; HGB - HEMOGLOBIN 13.6 g/dL (14.0-18.0); LYMPHOCYTES % (AUTO) 9.1 %; MEAN CORPUSCULAR HEMOGLOBIN 30.6 pg (27.0-31.0); MEAN CORPUSCULAR HGB CONC 34.6 g/dL (32.0-36.0); MEAN CORPUSCULAR VOLUME 88.3 fL (80.0-94.0); MEAN PLATELET VOLUME 10.7 fL (7.4-11.4); MONOCYTES # (AUTO) 1.7 10^3/uL (0.0-1.0); MONOCYTES % (AUTO) 7.6 %; NEUTROPHILS % (AUTO) 82.2 %; PLT - PLATELET COUNT 218 10^3/uL (130-450); RED BLOOD COUNT 4.45 10^6/uL (4.70-6.10); RED CELL DISTRIBUTION WIDTH 12.4 % (12.0-15.0)
--- NOTE | 2020-02-28 20:50 | ED Physician Documentation ---
History of Present Illness - Stated complaint Stated Complaint: METH - Chief complaint Chief Complaint: General - History obtained from History obtained from: Patient, EMS, Police - History of Present Illness Timing: Today Pain level max: 0 Pain level now: 0 - Additonal information Additional information: 24-year-old male with a longstanding history of methamphetamine abuse presents to the emergency department stating that he recently used meth and he was found walking down the street by the police. Brought in here for acting erratically. History of rhabdomyolysis in the past, renal failure and hyperkalemia. Review of Systems Ten Systems: 10 systems reviewed and negative Constitutional: denies: Fever, Chills Respiratory: denies: Cough GI: denies: Nausea, Vomiting, Diarrhea Skin: denies: Rash Musculoskeletal: denies: Neck pain, Back pain Neurologic: denies: Headache PD PAST MEDICAL HISTORY - Past Medical History Cardiovascular: None Respiratory: None Neuro: None Endocrine/Autoimmune: None GI: GERD : None HEENT: None Psych: Depression, Anxiety, ADD/ADHD, Post traumatic stress disorder, Other Musculoskeletal: Osteoarthritis Derm: None - Past Surgical History Past Surgical History: Yes HEENT: Tonsil/Adenoidectomy - Present Medications Home Medications: Ambulatory Orders Medication Instructions Recorded Confirmed Sertraline [Zoloft] 50 mg PO DAILY 07/02/19 02/28/20 traZODone [Desyrel] 50 mg PO HS 07/02/19 02/28/20 - Allergies Allergies/Adverse Reactions: Allergies Allergy/AdvReac Type Severity Reaction Status Date / Time No Known Drug Allergies Allergy Verified 11/05/19 11:39 - Social History Does the pt smoke?: Yes Smoking Status: Current every day smoker Does the pt drink ETOH?: Yes Does the pt have substance abuse?: Yes - Immunizations Immunizations are current?: Yes - POLST Patient has POLST: No POLST Status: Full Code PD ED PE NORMAL - Vitals Vital signs reviewed: Yes - General General: Alert and oriented X 3, Other (writhing on the bed.) - HEENT HEENT: Other (dry lips and tongue) - Neck Neck: Supple, no meningeal sign - Cardiac Cardiac: RRR - Respiratory Respiratory: No respiratory distress, Clear bilaterally - Abdomen Abdomen: Soft, Non tender, Non distended - Derm Derm: Warm and dry - Extremities Extremities: No deformity, Normal ROM s pain - Neuro Neuro: Alert and oriented X 3 Results - Vitals Vitals: Vital Signs - 24 hr 02/28/20 19:57 Temperature 37 C Heart Rate 103 H Respiratory 18 Rate Blood Pressure 126/95 H O2 Saturation 98 Oxygen O2 Source Room air - Labs Labs: Laboratory Tests 02/28/20 02/28/20 02/28/20 20:19 20:19 20:19 WBC 22.0 H RBC 4.45 L Hgb 13.6 L Hct 39.3 L MCV 88.3 MCH 30.6 MCHC 34.6 RDW 12.4 Plt Count 218 MPV 10.7 Neut # (Auto) 18.0 H Lymph # (Auto) 2.0 [place] # (Auto) 1.7 H Eos # (Auto) 0.0 Baso # (Auto) 0.1 Absolute Nucleated RBC 0.00 Band Neuts % (Manual) Not Reportable Abnorm Lymph % (Manual) Not Reportable Nucleated RBC % 0.0 Neutrophils # (Manual) Not Reportable Lymphocytes # (Manual) Not Reportable Monocytes # (Manual) Not Reportable Eosinophils # (Manual) Not Reportable Basophils # (Manual) Not Reportable Differential Comment MANUAL=AUTO DIFF Manual Slide Review Indicated Platelet Estimate NORMAL (130-450,000) Platelet Morphology NORMAL APPEARANCE RBC Morph Micro Appear NORMAL APPEARANCE Sodium 142 Potassium 4.1 Chloride 103 Carbon Dioxide 23 Anion Gap 16.0 H BUN 26 H Creatinine 1.1 Estimated GFR (MDRD) 83 L Glucose 59 L* Calcium 9.3 Total Bilirubin 1.4 H AST 71 H ALT 36 Alkaline Phosphatase 53 Total Creatine Kinase 1560 H* Total Protein 8.2 Albumin 4.8 Globulin 3.4 Albumin/Globulin Ratio 1.4 Lipase 28 TSH 1.48 Urine Color Urine Clarity Urine pH Ur Specific [place] Urine Protein Urine Glucose (UA) Urine Ketones Urine Occult Blood Urine Nitrite Urine Bilirubin Urine Urobilinogen Ur Leukocyte Esterase Ur Microscopic Review Urine Culture Comments Salicylates < 6.0 Acetaminophen < 10 L Ethyl Alcohol < 5.0 02/28/20 22:21 WBC RBC Hgb Hct MCV MCH MCHC RDW Plt Count MPV Neut # (Auto) Lymph # (Auto) [place] # (Auto) Eos # (Auto) Baso # (Auto) Absolute Nucleated RBC Band Neuts % (Manual) Abnorm Lymph % (Manual) Nucleated RBC % Neutrophils # (Manual) Lymphocytes # (Manual) Monocytes # (Manual) Eosinophils # (Manual) Basophils # (Manual) Differential Comment Manual Slide Review Platelet Estimate Platelet Morphology RBC Morph Micro Appear Sodium Potassium Chloride Carbon Dioxide Anion Gap BUN Creatinine Estimated GFR (MDRD) Glucose Calcium Total Bilirubin AST ALT Alkaline Phosphatase Total Creatine Kinase Total Protein Albumin Globulin Albumin/Globulin Ratio Lipase TSH Urine Color YELLOW Urine Clarity HAZY Urine pH 6.0 Ur Specific [place] 1.025 Urine Protein 100 H Urine Glucose (UA) NEGATIVE Urine Ketones 15 H Urine Occult Blood NEGATIVE Urine Nitrite NEGATIVE Urine Bilirubin NEGATIVE Urine Urobilinogen 0.2 (NORMAL) Ur Leukocyte Esterase NEGATIVE Ur Microscopic Review INDICATED Urine Culture Comments Not Reportable Salicylates Acetaminophen Ethyl Alcohol PD MEDICAL DECISION MAKING - ED course Complexity details: reviewed results, re-evaluated patient, considered differential, d/w patient ED course: Patient with an elevation of his CK. He was given IV fluids. His writhing improved in the emergency department. He was able to get up and use the bathroom. His speech is improving as well. We will repeat his CK and if it is continuing to rise, will likely need to be placed in the hospital for observation. Does have a history of significant rhabdomyolysis in the past. Patient will be signed out to the [facility] emergency department physician for final evaluation. This document was made in part using voice recognition software. While efforts are made to proofread this document, sound alike and grammatical errors may occur. Departure - Departure Clinical Impression: Methamphetamine intoxication Leukocytosis Qualifiers: Leukocytosis type: unspecified Qualified Code(s): D72.829 - Elevated white blood cell count, unspecified Rhabdomyolysis Qualifiers: Rhabdomyolysis type: non-traumatic Qualified Code(s): M62.82 - Rhabdomyolysis Condition: Stable
[2020-02-28 20:51] LABS: ACETAMINOPHEN < 10 ug/mL (10-30); ALBUMIN 4.8 g/dL (3.2-5.5); ALBUMIN/GLOBULIN RATIO 1.4 (1.0-2.2); ALKALINE PHOSPHATASE 53 IU/L (42-121); ALT ALANINE AMINOTRANSFERASE 36 IU/L (10-60); AST ASPARTATE AMINOTRANSFERASE 71 IU/L (10-42); BILIRUBIN,TOTAL 1.4 mg/dL (0.2-1.0); BUN - BLOOD UREA NITROGEN 26 mg/dL (6-20); CALCIUM 9.3 mg/dL (8.5-10.3); CARBON DIOXIDE - CO2 23 mmol/L (21-32); CHLORIDE 103 mmol/L (101-111); CREATININE 1.1 mg/dL (0.6-1.2); LIPASE 28 U/L (22-51); SALICYLATE < 6.0 mg/dL; SODIUM 142 mmol/L (135-145); TOTAL PROTEIN 8.2 g/dL (6.7-8.2)
[2020-02-28 20:53] LABS: CK- CREATINE KINASE 1560 IU/L (22-269); GLUCOSE 59 mg/dL (70-100)
[2020-02-28 21:03] LABS: DIFFERENTIAL COMMENT MANUAL=AUTO DIFF; PLATELET ESTIMATE, MANUAL NORMAL (130-450,000) (NORMAL); PLATELET MORPHOLOGY NORMAL APPEARANCE (NORMAL); RBC MORPHOLOGY (MULTIPLE) NORMAL APPEARANCE (NORMAL)
[2020-02-28 22:27] LABS: MUDS CUTOFF CONCENTRATIONS CUTOFF CONC BELOW:
[2020-02-28 22:29] LABS: BILIRUBIN,URINE NEGATIVE (NEGATIVE); GLUCOSE, URINE (UA) NEGATIVE (NEGATIVE); KETONES,URINE (UA) 15 mg/dL (NEGATIVE); LEUKOCYTE ESTERASE, URINE NEGATIVE (NEGATIVE); NITRITE,URINE NEGATIVE (NEGATIVE); OCCULT BLOOD,URINE NEGATIVE (NEGATIVE); PROTEIN,URINE 100 mg/dL (NEGATIVE); UROBILINOGEN,URINE 0.2 (NORMAL) E.U./dL (NORMAL)
[2020-02-28 22:30] LABS: CLARITY,URINE HAZY (CLEAR)
[2020-02-28 22:38] LABS: AMORPHOUS SEDIMENT,UR Few /LPF; BACTERIA,URINE Moderate /HPF (None Seen); CASTS, URINE 3-5 Fine Granular /LPF; RBC,URINE 0-5 /HPF (0-5); SPERM,URINE PRESENT; SQUAMOUS EPITHELIAL CELL,UR MOD Squamous (<= Few)
[2020-02-28 22:39] LABS: AMPHETAMINE SCREEN,URINE POSITIVE (NEGATIVE); COCAINE SCREEN URINE NEGATIVE (NEGATIVE); METHAMPHETAMINES SCREEN, URINE POSITIVE (NEGATIVE); OPIATE SCREEN, URINE POSITIVE (NEGATIVE)
[2020-02-28 22:40] LABS: BENZODIAZEPINES SCREEN, URINE NEGATIVE (NEGATIVE); METHADONE SCREEN, URINE NEGATIVE (NEGATIVE); OXYCODONE SCREEN, URINE NEGATIVE (NEGATIVE); PROPOXYPHENE SCREEN, URINE NEGATIVE (NEGATIVE); TRICYCLIC ANTIDEPRESSANT,URINE NEGATIVE (NEGATIVE)
[2020-02-28] MEDS: ELECTROLYTE-A SOLUTION 1,000 ML IV ONE (22:55)
[2020-02-28] MEDS ORDERED: ONDANSETRON 4 MG/2 ML VIAL IVP PRN (23:19)
[2020-02-28] MEDS ORDERED: SODIUM CHLORIDE FLUSH 0.9% 10 ML SYRINGE IVP PRN (23:19)
[2020-02-28] MEDS ORDERED: ACETAMINOPHEN 325 MG TABLET PO PRN (23:19)
[2020-02-28] MEDS ORDERED: LACTATED RINGERS 1,000 ML IV ONE (23:20)
--- NOTE | 2020-02-28 23:26 | HISTORY & PHYSICAL EXAMINATION ---
Chief Complaint - Chief Complaint Chief Complaint: Erratic behavior History of Present Illness - Admitted From Admitted From:: Home - History Obtained From Records Reviewed: Yes History obtained from: Patient, ER Physician, EMR - History of Present Illness HPI Comment/Other: This is a 24-year-old male with a past medical history significant for meth amphetamine and heroin abuse, recurrent rhabdomyolysis, PTSD and depression who presented today to the emergency department after police found him walking on the street and acting erratically. Patient reports using methamphetamines about 5 hours ago. He states he injected in his left upper extremity. He did not use heroin today but reports he last used heroin yesterday. He states he had been clean for about 3 months but began using drugs again about 3 to 4 days ago. [facility] but is now living in his car over the past. Of time. He states they began using drugs again because he finds little reasons to relapse. He reports no fevers, chills, cough, dyspnea, chest pain. He denies any suicidal or homicidal ideations. He states he has been to multiple drug rehabs and was also previous at [facility] over the past few years. He states despite all the help from social workers and assistance, he continues to use methamphetamines. In the emergency department, he was found to have an elevated CK of 1500 and a creatinine of 1.1. He was given IV fluids and a CK was rechecked a few hours later. Given he continued to rise and is now at nearly 2000, medicine was consulted for admission given the rising CK and acute kidney injury. Upon my evaluation to see the patient, he is adamant on leaving AGAINST MEDICAL ADVICE. I explained to him why we recommend admission given his rhabdomyolysis and acute kidney injury. He states he understands this is happened to him before and he knows the risks and benefits. He understands that his abnormalities could become more severe due to his methamphetamine use which can cause acute renal failure and ultimately if this is not treated appropriately. He was able to explain to me his understanding of this and he still insists on going home. I feel he can just go home and drink water to stay hydrated. He feels he would not benefit from admission. He denies any suicidal ideations. History - Past Medical History Cardiovascular: reports: None Respiratory: reports: None Neuro: reports: None Endocrine/Autoimmune: reports: None GI: reports: GERD : reports: None HEENT: reports: None Psych: reports: Depression, Anxiety, ADD/ADHD, Post traumatic stress disorder, Other Musculoskeletal: reports: Osteoarthritis Derm: reports: Herpes zoster MRSA Hx?: No Other Past Medical History: HCV - Past Surgical History HEENT: reports: Tonsil/Adenoidectomy - Family & Social History Family History Comment/Other: He is adopted and is unaware of his family history. Social History Notes: Has been admitted multiple times in the past for methamph etamine abuse. He has been to many different facilities for drug rehab. Continue to smoke three quarters of a pack a day. Denies any significant alcohol use and reports his last drink was about 3 to 4 days ago where he had a beer. He was recently residing at [facility] but now is living in his car. - Substance History Use: Uses substance without health or social issues: NONE Abuse: Recurrent use of substance despite neg consequences: Amphetamine - POLST Patient has POLST: No POLST Status: Full Code Meds/Allgy - Home Medications Home Medications: Ambulatory Orders Medication Instructions Recorded Confirmed Sertraline [Zoloft] 50 mg PO DAILY 07/02/19 02/28/20 traZODone [Desyrel] 50 mg PO HS 07/02/19 02/28/20 - Allergies Allergies/Adverse Reactions: Allergies Allergy/AdvReac Type Severity Reaction Status Date / Time No Known Drug Allergies Allergy Verified 11/05/19 11:39 Review of Systems - Constitutional Constitutional: denies: Fatigue, Fever, Chills - Cardiovascular Cariovascular: denies: Chest pain, Exertional dyspnea, Decr. exercise tolerance - Respiratory Respiratory: denies: Cough, SOB at rest, SOB with exertion - Gastrointestinal Gastrointestinal: denies: Abdominal pain, Nausea, Vomiting - Genitourinary Genitourinary: denies: Dysuria, Frequency, Urgency - Integumentary Integumentary: denies: Rash - Neurological Neurological: denies: General weakness, Focal weakness - All Other Systems All Other Systems: reports: Reviewed and negative Prior Level of Functionality: He is independent with his ADL's. Exam - Vital Signs Reviewed Vital Signs: Yes Vital Signs: Vital Signs x48h Temp Pulse Resp BP Pulse Ox 02/28/20 19:57 37 C 103 H 18 126/95 H 98 - Physical Exam General Appearance: positive: No acute distress, Alert Eyes Bilateral: positive: Normal inspection ENT: positive: ENT inspection nml, Dry mucous membranes Neck: positive: Nml inspection Respiratory: positive: No respiratory distress Skin: positive: Warm, Dry, Other (He has multiple small abrasions over his upper extremities. There is a wound over the left lower extremity over the lateral aspect of the tibia. There is no erythema and the wound appears to be healing slowly.) Extremities: positive: No pedal edema Neurologic/Psychiatric: positive: Oriented x3, Motor nml, Other (He has pressured speech and is restless sitting in bed.). negative: Disoriented to person, Disoriented to place, Disoriented to time Conclusion/Plan - Problem List (1) Rhabdomyolysis Conclusion/Plan: He has evidence of rhabdomyolysis and acute kidney injury secondary to methamphetamine abuse. His CKs are nearly 2000 and his creatinine is 1.1 with a baseline of 0.5. He also has a leukocytosis which is likely reactive and secondary to his methamphetamine use. The patient would benefit from admission given the rhabdomyolysis and the fact that his CKs are increasing as well as a fact that he has acute kidney injury. Despite discussion with the patient for over 15 minutes and a second discussion with the patient while the emergency department physician was present, the patient is insistent on leaving AGAINST MEDICAL ADVICE. He understands the risks and is able to explain to me his current disease process and the possible development of acute renal failure which could cause . He feels that he can hydrate at home orally and is quite insistent on going home. He denies any suicidal ideations. He does have the ability to make his own medical decisions. Given this, the patient will be leaving AGAINST MEDICAL ADVICE and will not be admitted to our facility. Qualifiers: Rhabdomyolysis type: non-traumatic Qualified Code(s): M62.82 - Rhabdomyolysis (2) Acute kidney injury Conclusion/Plan: Plan as above. (3) Leukocytosis Conclusion/Plan: Plan as above. (4) Methamphetamine intoxication Conclusion/Plan: Plan as above. - Lab Results Lab results reviewed: Yes Fish Bones: 02/28/20 20:19 02/28/20 20:19 Core Measures - Anticipated LOS I expect patient to be DC'd or transferred within 96 hours.: Yes - Issues Hospital Issues and Management Plan: 24-year-old male with methamphetamine abuse admitted for rhabdomyolysis and acute kidney injury. We will hydrate him with IV fluids and observe him overnight. Trend CK and renal function. - DVT/VTE - Prophylaxis VTE/DVT Device ordered at admit?: Yes VTE/DVT Prophylaxis med ordered at admit?: No Not Ordered - Medical Reason: Not indicated
[2020-02-28] MEDS ORDERED: LACTATED RINGERS 1,000 ML IV SCH ×2 (23:45)
[2020-02-29] MEDS ORDERED: SODIUM CHLORIDE FLUSH 0.9% 10 ML SYRINGE IVP SCH (01:00)
[2020-02-29 01:25] VITALS: BP 134/88
== END 2020-02-29 01:24 | disposition left against medical advice (07) ==
LOC: EDUNIT# → ED 19:51
DX: F15.129 Other stimulant abuse with intoxication, unspecified (principal); D72.829 Elevated white blood cell count, unspecified; M62.82 Rhabdomyolysis; N17.9 Acute kidney failure, unspecified; F17.200 Nicotine dependence, unspecified, uncomplicated
CPT/HCPCS: 36415; 80048; 80053; 80306; 80307; 80320; 80329; 81001; 81003; 82550; 83690; 83735; 84100; 84443; 85025; 87086

== ENCOUNTER 2020-02-29 11:46 | Inpatient (IN) | payer MEDICAID ==
--- NOTE | 2020-02-29 11:52 | ED Physician Documentation ---
PD HPI ALTERED MENTAL STATUS - Stated complaint Stated Complaint: ALTERED - History obtained from History obtained from: Patient - History of Present Illness Timing - onset: How many days ago (2-3) Timing - duration: Days (2-3) Timing - details: Abrupt onset ( Patient apparently has been havingAltered mentation and poor intake and hyperactivity subsequent to meth use a few days ago. He was seen here in the ER yesterday with elevated CK and apparent dehydration and was given fluids and medications here in the ER. He was to be admitted but then decided to leave against advice. He was found still wandering around with the some confusion. Brought in by EMS. He is able answer questions appropriately but feeling very agitated and is moving around restlessly.), Still present Associated symptoms: Dyspnea, General weakness. No: Fever, Headache, Stiff neck Contributing factors: Substance abuse (meth), Known psych illness. 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 With renal failure) Recently seen: Emergency Dept (seen yesterday and was to be admitted for meds/fluids and treat rhabdo, but he signed out AMA. Here today as found wand ering and confused.) Review of Systems Unable to obtain: AMS, Uncooperative Constitutional: reports: Myalgias, Fatigue. denies: Fever Nose: denies: Rhinorrhea / runny nose, Congestion Respiratory: denies: Cough Skin: denies: Abrasion (s), Laceration (s) Musculoskeletal: denies: Neck pain, Back pain, Extremity swelling Neurologic: denies: Headache, Head injury Psychiatric: denies: Depressed, Suicidal PD PAST MEDICAL HISTORY - Past Medical History Cardiovascular: None Respiratory: None Neuro: None Endocrine/Autoimmune: None GI: GERD : None HEENT: None Psych: Depression, Anxiety, ADD/ADHD, Post traumatic stress disorder, Other Musculoskeletal: Osteoarthritis Derm: Herpes zoster - Past Surgical History Past Surgical History: Yes HEENT: Tonsil/Adenoidectomy - Present Medications Home Medications: Ambulatory Orders Medication Instructions Recorded Confirmed traZODone [Desyrel] 150 mg PO HS 07/02/19 02/29/20 Bupropion HCl [Bupropion Xl] 300 mg PO DAILY 02/29/20 02/29/20 - Allergies Allergies/Adverse Reactions: Allergies Allergy/AdvReac Type Severity Reaction Status Date / Time No Known Drug Allergies Allergy Verified 02/29/20 12:12 - Living Situation Living Arrangement: reports: At home - Social History Does the pt smoke?: Yes Smoking Status: Current every day smoker Does the pt drink ETOH?: Yes Does the pt have substance abuse?: Yes Substance Use and Type: Marijuana, Meth - Immunizations Immunizations are current?: Yes - POLST Patient has POLST: No POLST Status: Full Code PD ED PE NORMAL - Vitals Vital signs reviewed: Yes - General General: Alert and oriented X 3, Well developed/nourished, Other (very restless and kinetic, tossing side to side, wanting to stand then sit, and up again. dry mucosa.) - HEENT HEENT: Ears normal, Pharynx benign - Neck Neck: Supple, no meningeal sign, No adenopathy - Cardiac Cardiac: No murmur. No: RRR (fast rate but regular) - Respiratory Respiratory: No respiratory distress, Clear bilaterally - Abdomen Abdomen: Normal bowel sounds, Soft, Non tender - Back Back: No spinal TTP - Derm Derm: Normal color, Warm and dry - Extremities Extremities: No tenderness to palpate, Normal ROM s pain, No edema, No calf tenderness / cord Results - Vitals Vitals: Vital Signs - 24 hr 02/29/20 02/29/20 02/29/20 11:45 12:30 13:00 Temperature 38 C H Heart Rate 131 H 120 H 106 H Respiratory 21 19 14 Rate Blood Pressure 114/81 H 126/79 124/67 O2 Saturation 95 96 97 02/29/20 13:30 Temperature Heart Rate 98 Respiratory 11 L Rate Blood Pressure 118/63 O2 Saturation 98 Oxygen O2 Source Room air - Labs Labs: Laboratory Tests 02/29/20 02/29/20 02/29/20 12:48 12:48 12:48 WBC 10.6 RBC 4.15 L Hgb 12.8 L Hct 36.7 L MCV 88.4 MCH 30.8 MCHC 34.9 RDW 12.5 Plt Count 163 MPV 10.4 Neut # (Auto) 6.2 Lymph # (Auto) 3.0 [place] # (Auto) 1.3 H Eos # (Auto) 0.1 Baso # (Auto) 0.0 Absolute Nucleated RBC 0.00 Nucleated RBC % 0.0 Sodium 139 Potassium 3.5 Chloride 106 Carbon Dioxide 22 Anion Gap 11.0 BUN 27 H Creatinine 0.8 Estimated GFR (MDRD) 120 Glucose 70 Calcium 8.4 L Magnesium 2.1 Total Bilirubin 1.4 H AST 97 H ALT 44 Alkaline Phosphatase 49 Total Creatine Kinase 3289 H* Total Protein 6.7 Albumin 4.2 Globulin 2.5 Albumin/Globulin Ratio 1.7 Lipase 26 TSH 1.44 Salicylates < 6.0 Acetaminophen < 10 L Ethyl Alcohol < 5.0 PD MEDICAL DECISION MAKING - ED course Complexity details: re-evaluated patient (given Ativan dose without change. Given more meds to help anxiety/restlng better and able to calmly stay), considered differential Departure - Departure Disposition: 66 [facility] DC/Xfer Clinical Impression: Hypoglycemia, Methamphetamine abuse, Hyperkinetic behavior Rhabdomyolysis Qualifiers: Rhabdomyolysis type: non-traumatic Qualified Code(s): M62.82 - Rhabdomyolysis Condition: Stable Record reviewed to determine appropriate education?: Yes Discharge Date/Time: 02/29/20 14:43
[2020-02-29] MEDS ORDERED: SODIUM CHLORIDE 0.9% 1,000 ML IV STA ×2 (11:53→11:57)
[2020-02-29] MEDS ORDERED: LORazepam 2 MG/ML VIAL IVP STA ×2 (11:55→12:19)
[2020-02-29] MEDS ORDERED: KETAMINE 500 MG/10 ML VIAL IVP STA (12:20)
[2020-02-29] MEDS ORDERED: DEXTROSE 10% 1,000 ML IV STA (12:42)
[2020-02-29 12:55] LABS: BASOPHILS % (AUTO) 0.4 %; EOSINOPHILS # (AUTO) 0.1 10^3/uL (0.0-0.7); EOSINOPHILS % (AUTO) 0.7 %; HGB - HEMOGLOBIN 12.8 g/dL (14.0-18.0); LYMPHOCYTES % (AUTO) 27.8 %; MEAN CORPUSCULAR HEMOGLOBIN 30.8 pg (27.0-31.0); MEAN CORPUSCULAR HGB CONC 34.9 g/dL (32.0-36.0); MEAN CORPUSCULAR VOLUME 88.4 fL (80.0-94.0); MEAN PLATELET VOLUME 10.4 fL (7.4-11.4); MONOCYTES # (AUTO) 1.3 10^3/uL (0.0-1.0); NEUTROPHILS # (AUTO) 6.2 10^3/uL (1.5-6.6); NEUTROPHILS % (AUTO) 58.7 %; PLT - PLATELET COUNT 163 10^3/uL (130-450); RED BLOOD COUNT 4.15 10^6/uL (4.70-6.10); RED CELL DISTRIBUTION WIDTH 12.5 % (12.0-15.0); WHITE BLOOD COUNT 10.6 x10^3/uL (4.8-10.8)
[2020-02-29 13:20] LABS: ACETAMINOPHEN < 10 ug/mL (10-30); ALBUMIN 4.2 g/dL (3.2-5.5); ALBUMIN/GLOBULIN RATIO 1.7 (1.0-2.2); ALKALINE PHOSPHATASE 49 IU/L (42-121); ALT ALANINE AMINOTRANSFERASE 44 IU/L (10-60); AST ASPARTATE AMINOTRANSFERASE 97 IU/L (10-42); BILIRUBIN,TOTAL 1.4 mg/dL (0.2-1.0); BUN - BLOOD UREA NITROGEN 27 mg/dL (6-20); CALCIUM 8.4 mg/dL (8.5-10.3); CARBON DIOXIDE - CO2 22 mmol/L (21-32); CHLORIDE 106 mmol/L (101-111); CREATININE 0.8 mg/dL (0.6-1.2); GLUCOSE 70 mg/dL (70-100); LIPASE 26 U/L (22-51); MAGNESIUM 2.1 mg/dL (1.7-2.8); SALICYLATE < 6.0 mg/dL; SODIUM 139 mmol/L (135-145); TOTAL PROTEIN 6.7 g/dL (6.7-8.2)
[2020-02-29 13:22] LABS: CK- CREATINE KINASE 3289 IU/L (22-269)
[2020-02-29] MEDS ORDERED: SODIUM CHLORIDE FLUSH 0.9% 10 ML SYRINGE IVP PRN (14:05)
[2020-02-29] MEDS ORDERED: ONDANSETRON 4 MG/2 ML VIAL IVP PRN (14:05)
[2020-02-29] MEDS ORDERED: ACETAMINOPHEN 325 MG TABLET PO PRN (14:05)
--- NOTE | 2020-02-29 14:34 | PHARMACY PROGRESS NOTE ---
- Best Possible Medication History Admit Date and Time: 02/29/20 1354 Processed by: Pharmacy Medication History completed: Yes Patient Interview: Pt unable to participate Secondary Source(s): Pharmacy records, Insurance records As the person ultimately responsible for medication therapy, providers are able to order a medication from an existing home medication list in [facility] via the "Reconcile Routine" prior to Confirmation of that medication by production support consultant. Such practice is discouraged except when the physician, in their clinical judgment, deems that a medical need exists for a medication without regard to previous use.
--- NOTE | 2020-02-29 14:57 | HISTORY & PHYSICAL EXAMINATION ---
DATE OF SERVICE: 02/29/2020 Physician: Prisca Black MD HISTORY OF PRESENT ILLNESS: This is a 24-year-old male with a past medical history of ADD, PTSD, depression, for which he was treated until the age of 19 and then stopped taking medications. He also has a history of methamphetamine and heroin abuse, and recurrent rhabdomyolysis. In July 2019, he was here with rhabdomyolysis with acute kidney injury, with creatinine as high as 3, and was in metabolic acidosis. At that time, he needed to be restrained and had court orders to be transferred to an inpatient facility after he was evaluated by a DCR and felt to have little insight into the severity of his illness, and felt to be a risk to himself. The patient was admitted at least 8 times in 2019. He has had several visits to the emergency room this year. He was just here 1 day ago, when he was found walking the street and acting erratic, and found to have meth and heroin on toxicology screen, but also rhabdomyolysis with a CK of greater than 1800. The repeat CK came back rising, and he was to be admitted for IV hydration and followup of his serum CK levels. The patient left against medical advice, however, thought he understood that he should be drinking water to stay hydrated. The patient presents now after being found again by unknown responders, to be acting erratically. In the ER today, he is more agitated and very fidgety, despite answering some questions appropriately. The repeat CK level is now in the 3000s. He received Ativan IV for sedation with minimal benefit, and then received a very low dose of ketamine and is now asleep. He is being admitted for worsening rhabdomyolysis, agitation and dehydration. PAST MEDICAL HISTORY: Depression, ADD, posttraumatic stress disorder and GERD history. ALLERGIES: NONE. MEDICATIONS 1. Zoloft. 2. Desyrel. Unknown if he takes these actively. FAMILY HISTORY: No inherited family history per [employer]. SOCIAL HISTORY: The patient is a smoker of 3/4 pack a day of cigarettes. He does drink alcohol sporadically, but not with an abuse history. He has a significant substance abuse history of methamphetamine, heroin and cocaine. REVIEW OF SYSTEMS: This was done by evaluating the ER notes from yesterday and today, as well as yesterday's admission note before he signed out AMA. The patient could not be questioned, since he is currently sedated after receiving ketamine. The pertinent positives of a complete ROS are listed, the rest are negative. PHYSICAL EXAMINATION GENERAL: Young male, who is in no apparent distress, sleeping. VITAL SIGNS: Blood pressure 120/80s, heart rate 130 in sinus tachycardia, temperature 38 C, oxygen saturation 95% on room air. HEENT: Reveals a probable dry oral mucosa. NECK: No JVD. CHEST: Clear. HEART: Normal heart sounds. ABDOMEN: Soft. EXTREMITIES: No clubbing, cyanosis or edema. NEUROLOGIC: Currently sedated, nonfocal prior to that, and also agitated and fidgety prior to being sedated. LABORATORY DATA: Total CK 3289. Normal electrolytes. BUN 27, creatinine 0.8. Glucose a day ago was 59 and now 70. Normal liver function tests, except bilirubin 1.4. TSH normal. CBC shows white count of 10.6, which was 22 one day ago. Hemoglobin is 12.8, with a normal MCV, and platelet count normal at 163. No INR was done. Urine shows protein is present, as well as ketones. His serum toxicology showed no salicylates, no Tylenol, no alcohol. The urine drug screen from today has not yet returned, since he has not made urine. EKG: Sinus tachycardia at a rate of 118; otherwise, within normal limits. No imaging was done. IMPRESSION 1. Rhabdomyolysis. 2. Agitation, most likely from his methamphetamine drug abuse. 3. Dehydration, with an elevated BUN/creatinine ratio. 4. History of drug abuse. PLAN: Admit the patient to inpatient status, since it is not expected that his CK will decrease to less than 1000, even in 48 hours. Continue with IV hydration using D5 because of the borderline low sugar, and with saline. Follow his CK daily. Follow electrolytes daily. Use sedatives p.r.n., but realizing that he will go through a withdrawal of his methamphetamine, which will already making him somnolent, as has done in the past. Once he is medically cleared, suspect in several days, we will request social work, mental health evaluation for any recommendations about further drug abuse management. Start clear liquids tonight if he is awakening, and then advance diet as tolerated. DEEP VENOUS THROMBOSIS PROPHYLAXIS: Pharmacotherapy. CODE STATUS: FULL CODE. ATTESTATION: The patient is expected to be discharged or transferred to another facility within 96 hours: Yes. TD: 02/29/2020 14:31 JESSIE
[2020-02-29] MEDS: DEXTROSE 5%-0.9% NACL 1,000 ML IV SCH ×2 (15:09→22:59)
[2020-02-29] MEDS: SODIUM CHLORIDE FLUSH 0.9% 10 ML SYRINGE IVP SCH ×2 (17:19→23:15)
[2020-02-29] MEDS: LORazepam 2 MG/ML VIAL IVP PRN ×2 (18:51→22:37)
[2020-02-29] MEDS: HEPARIN 5,000 UNIT/ML VIAL SUBQ SCH (21:46)
[2020-02-29] MEDS: FAMOTIDINE 20 MG/2 ML SYRINGE IVP SCH (22:37)
[2020-03-01 07:02] LABS: BASOPHILS % (AUTO) 0.6 %; EOSINOPHILS # (AUTO) 0.3 10^3/uL (0.0-0.7); EOSINOPHILS % (AUTO) 5.4 %; HGB - HEMOGLOBIN 12.8 g/dL (14.0-18.0); LYMPHOCYTES # (AUTO) 1.7 10^3/uL (1.5-3.5); LYMPHOCYTES % (AUTO) 31.7 %; MEAN CORPUSCULAR HEMOGLOBIN 29.4 pg (27.0-31.0); MEAN CORPUSCULAR HGB CONC 32.9 g/dL (32.0-36.0); MEAN CORPUSCULAR VOLUME 89.4 fL (80.0-94.0); MONOCYTES # (AUTO) 0.5 10^3/uL (0.0-1.0); MONOCYTES % (AUTO) 9.4 %; NEUTROPHILS # (AUTO) 2.8 10^3/uL (1.5-6.6); NEUTROPHILS % (AUTO) 52.7 %; PLT - PLATELET COUNT 137 10^3/uL (130-450); RED BLOOD COUNT 4.35 10^6/uL (4.70-6.10); RED CELL DISTRIBUTION WIDTH 12.8 % (12.0-15.0); WHITE BLOOD COUNT 5.2 x10^3/uL (4.8-10.8)
[2020-03-01 07:15] LABS: MUDS CUTOFF CONCENTRATIONS CUTOFF CONC BELOW:
[2020-03-01 07:17] LABS: BILIRUBIN,URINE NEGATIVE (NEGATIVE); GLUCOSE, URINE (UA) NEGATIVE (NEGATIVE); KETONES,URINE (UA) 15 mg/dL (NEGATIVE); LEUKOCYTE ESTERASE, URINE NEGATIVE (NEGATIVE); NITRITE,URINE NEGATIVE (NEGATIVE); OCCULT BLOOD,URINE NEGATIVE (NEGATIVE); PROTEIN,URINE NEGATIVE (NEGATIVE); UROBILINOGEN,URINE 0.2 (NORMAL) E.U./dL (NORMAL)
[2020-03-01 07:18] LABS: CLARITY,URINE CLEAR (CLEAR)
[2020-03-01 07:22] LABS: CALCIUM 7.9 mg/dL (8.5-10.3); CREATININE 0.6 mg/dL (0.6-1.2)
[2020-03-01 07:27] LABS: AMPHETAMINE SCREEN,URINE POSITIVE (NEGATIVE); BENZODIAZEPINES SCREEN, URINE POSITIVE (NEGATIVE); COCAINE SCREEN URINE NEGATIVE (NEGATIVE); METHADONE SCREEN, URINE NEGATIVE (NEGATIVE); METHAMPHETAMINES SCREEN, URINE POSITIVE (NEGATIVE); OPIATE SCREEN, URINE POSITIVE (NEGATIVE); OXYCODONE SCREEN, URINE NEGATIVE (NEGATIVE); PROPOXYPHENE SCREEN, URINE NEGATIVE (NEGATIVE); TRICYCLIC ANTIDEPRESSANT,URINE NEGATIVE (NEGATIVE)
[2020-03-01 08:41] VITALS: BP 148/83
[2020-03-01] MEDS: POTASSIUM CHLOR 10 MEQ/100 ML 10 MEQ/100 ML BAG IV SCH ×2 (08:46→10:07)
[2020-03-01] MEDS: FAMOTIDINE 20 MG/2 ML SYRINGE IVP SCH (08:49)
[2020-03-01] MEDS: SODIUM CHLORIDE FLUSH 0.9% 10 ML SYRINGE IVP SCH (08:52)
[2020-03-01] MEDS: HEPARIN 5,000 UNIT/ML VIAL SUBQ SCH (08:57)
[2020-03-01] MEDS: DEXTROSE 5%-0.9% NACL 1,000 ML IV SCH (08:59)
--- NOTE | 2020-03-01 09:26 | PROVIDER PROGRESS NOTE ---
Assessment/Plan - Problem List (1) Rhabdomyolysis Qualifiers: Rhabdomyolysis type: non-traumatic Qualified Code(s): M62.82 - Rhabdomyolysis Assessment/Plan: The CK of 3289 from yesterday has dropped to 1457 this morning. He is 4.6L (+) in fluid balance already this morning. Continue iv hydration. Follow total CK daily. (2) Drug abuse Assessment/Plan: Today he is lethargic and somnolent, whic is his usual progression from meth withdrawal. Will continue iv hydration since he is not taking adequate fluids. Will stop iv Ativan prn agitation, to allow him to awaken. (3) Open toe wound Assessment/Plan: His feet have multiple small "cuts" or needle sites and the R great toe is black with puss under the toenail. Will request a MAC Wound consult and if needed, a debridement by Ortho. (4) Hypokalemia Assessment/Plan: Related to inadequate po intake and no Potassium in iv fluids, ordered as such in case he developed ELIEZER from rhabdo. Replace with iv K runners. Follow BMP daily. (5) Dehydration Assessment/Plan: Resolved, with normal BUN/creat ratio and he is already 4.6L (+) in fluid balance, all by peripheral iv hydration, since admission. - Current Meds Current Meds: Current Medications Generic Name Dose Route Start Last Admin Trade Name Freq PRN Reason Stop Dose Admin Famotidine 20 mg 02/29/20 21:00 03/01/20 08:49 Pepcid IVP 20 mg BID CHRISTY Administration Heparin Sodium (Porcine) 5,000 unit 02/29/20 21:00 03/01/20 08:57 SUBQ 5,000 unit BID CHRISTY Administration Dextrose/Sodium Chloride 1,000 mls @ 125 mls/hr 02/29/20 15:00 03/01/20 08:59 D5ns IV 125 mls/hr .Q8H CHRISTY Administration Potassium Chloride 10 meq in 100 mls @ 100 mls/hr 03/01/20 08:00 03/01/20 0 8:46 Potassium Chloride IV 03/01/20 09:59 100 mls/hr Q1H CHRISTY Administration Sodium Chloride 10 ml 02/29/20 14:05 02/29/20 22:37 Normal Saline Flush 0.9% IVP 10 ml PRN PRN Administration NEEDED PER PROVIDER ORDERS Sodium Chloride 10 ml 02/29/20 17:00 03/01/20 08:52 Normal Saline Flush 0.9% IVP 10 ml 0100,0900,1700 CHRISTY Administration - Lab Result Fish Bone Diagrams: 03/01/20 06:50 03/01/20 06:50 - Additional Planning My Orders: My Active Orders 02/29/20 14:05 Activity Orders [RC] Q2HR IO [RC] IOSHIFT Initiate Bowel Care Protocol [RC] .protocol Initiate Line Care Protocol [RC] QSHIFT Initiate Personal Care Protoco [RC] .protocol Oxygen Therapy [RC] Routine Vital Signs [RC] 0800,1600,0000 Acetaminophen [Tylenol] 650 mg PO Q4HR PRN Ondansetron Inj [Zofran Inj] 4 mg IVP Q6HR PRN Sodium Chloride Flush 0.9% [Normal Saline Flush 0.9%] 10 ml IVP PRN PRN Code Status [OTHERS] Routine Condition of Patient [OTHERS] Routine DVT Prophylaxis [OTHERS] Routine 02/29/20 14:06 Daily Weight [RC] 0600 IV Insert [RC] .ONCE 02/29/20 15:00 Dextrose 5%-0.9% NaCl [D5ns] 1,000 ml IV 125 mls/hr 02/29/20 17:00 Sodium Chloride Flush 0.9% [Normal Saline Flush 0.9%] 10 ml IVP 0100,0900,1700 02/29/20 21:00 Famotidine [Pepcid] 20 mg IVP BID Heparin 5,000 unit SUBQ BID 03/01/20 Wound Consult MAC [MAC] Routine 03/01/20 08:00 Potassium Chlor 10 Meq/100 ml [Potassium Chloride] 10 meq in 100 ml IV Q1H 03/01/20 Breakfast Soft Mechanical Diet [DIET] Subjective - Subjective Nursing Reports: Other (Pt sleeping, awoke and said he would eat then fell right back to sleep.) Objective Vital Signs: Vital Signs - 24 hr 02/29/20 02/29/20 02/29/20 11:45 12:30 13:00 Temperature 38 C H Heart Rate 131 H 120 H 106 H Heart Rate [ Monitoring electrodes] Heart Rate [ Radial] Respiratory 21 19 14 Rate Blood Pressure 114/81 H 126/79 124/67 Blood Pressure [Right Brachial artery] O2 Saturation 95 96 97 02/29/20 02/29/20 02/29/20 13:30 14:00 14:47 Temperature 36.3 C L Heart Rate 98 93 Heart Rate [ 84 Monitoring electrodes] Heart Rate [ Radial] Respiratory 11 L 16 14 Rate Blood Pressure 118/63 139/88 H Blood Pressure 133/72 H [Right Brachial artery] O2 Saturation 98 100 100 03/01/20 03/01/20 02:10 08:00 Temperature 36.6 C Heart Rate Heart Rate [ Monitoring electrodes] Heart Rate [ 91 102 H Radial] Respiratory 16 14 Rate Blood Pressure Blood Pressure 148/83 H [Right Brachial artery] O2 Saturation 100 100 Oxygen O2 Source Room air I&O (Last 24 Hrs): Intake and Output Totals x24h 02/28/20 02/29/20 03/01/20 23:59 23:59 23:59 Intake Total 3979.167 1000 Output Total 300 Balance 3979.167 700 General: Other (Somnolent, awakens to touch) HEENT: Mucous membr. moist/pink Neck: Supple Neuro: Non Focal Cardiovascular: Regular rate Respiratory: No respiratory distress Abdomen: Soft Extremities: No edema, Other (Needle fowler, R great toe is black with yellow toenail) - Results Results: Laboratory Results WBC 5.2 x10^3/uL (4.8-10.8) 03/01/20 06:50 RBC 4.35 10^6/uL (4.70-6.10) L 03/01/20 06:50 Hgb 12.8 g/dL (14.0-18.0) L 03/01/20 06:50 Hct 38.9 % (42.0-52.0) L 03/01/20 06:50 MCV 89.4 fL (80.0-94.0) 03/01/20 06:50 MCH 29.4 pg (27.0-31.0) 03/01/20 06:50 MCHC 32.9 g/dL (32.0-36.0) 03/01/20 06:50 RDW 12.8 % (12.0-15.0) 03/01/20 06:50 Plt Count 137 10^3/uL (130-450) 03/01/20 06:50 MPV 11.0 fL (7.4-11.4) 03/01/20 06:50 Neut # (Auto) 2.8 10^3/uL (1.5-6.6) 03/01/20 06:50 Lymph # (Auto) 1.7 10^3/uL (1.5-3.5) 03/01/20 06:50 [place] # (Auto) 0.5 10^3/uL (0.0-1.0) 03/01/20 06:50 Eos # (Auto) 0.3 10^3/uL (0.0-0.7) 03/01/20 06:50 Baso # (Auto) 0.0 10^3/uL (0.0-0.1) 03/01/20 06:50 Absolute Nucleated RBC 0.00 x10^3/uL 03/01/20 06:50 Nucleated RBC % 0.0 /100WBC 03/01/20 06:50 Sodium 136 mmol/L (135-145) 03/01/20 06:50 Potassium 3.3 mmol/L (3.5-5.0) L 03/01/20 06:50 Chloride 107 mmol/L (101-111) 03/01/20 06:50 Carbon Dioxide 21 mmol/L (21-32) 03/01/20 06:50 Anion Gap 8.0 (6-13) 03/01/20 06:50 BUN 14 mg/dL (6-20) 03/01/20 06:50 Creatinine 0.6 mg/dL (0.6-1.2) 03/01/20 06:50 Estimated GFR (MDRD) 167 (>89) 03/01/20 06:50 Glucose 96 mg/dL (70-100) 03/01/20 06:50 Calcium 7.9 mg/dL (8.5-10.3) L 03/01/20 06:50 Magnesium 2.1 mg/dL (1.7-2.8) 02/29/20 12:48 Total Bilirubin 1.4 mg/dL (0.2-1.0) H 02/29/20 12:48 AST 97 IU/L (10-42) H 02/29/20 12:48 ALT 44 IU/L (10-60) 02/29/20 12:48 Alkaline Phosphatase 49 IU/L (42-121) 02/29/20 12:48 Total Creatine Kinase 1457 IU/L (22-269) H* 03/01/20 06:50 Total Protein 6.7 g/dL (6.7-8.2) 02/29/20 12:48 Albumin 4.2 g/dL (3.2-5.5) 02/29/20 12:48 Globulin 2.5 g/dL (2.1-4.2) 02/29/20 12:48 Albumin/Globulin Ratio 1.7 (1.0-2.2) 02/29/20 12:48 Lipase 26 U/L (22-51) 02/29/20 12:48 TSH 1.44 uIU/mL (0.34-5.60) 02/29/20 12:48 Urine Color YELLOW 03/01/20 07:00 Urine Clarity CLEAR (CLEAR) 03/01/20 07:00 Urine pH 6.0 PH (5.0-7.5) 03/01/20 07:00 Ur Specific [place] >=1.030 (1.002-1.030) H 03/01/20 07:00 Urine Protein NEGATIVE mg/dL (NEGATIVE) 03/01/20 07:00 Urine Glucose (UA) NEGATIVE mg/dL (NEGATIVE) 03/01/20 07:00 Urine Ketones 15 mg/dL (NEGATIVE) H 03/01/20 07:00 Urine Occult Blood NEGATIVE (NEGATIVE) 03/01/20 07:00 Urine Nitrite NEGATIVE (NEGATIVE) 03/01/20 07:00 Urine Bilirubin NEGATIVE (NEGATIVE) 03/01/20 07:00 Urine Urobilinogen 0.2 (NORMAL) E.U./dL (NORMAL) 03/01/20 07:00 Ur Leukocyte Esterase NEGATIVE (NEGATIVE) 03/01/20 07:00 Ur Microscopic Review NOT INDICATED 03/01/20 07:00 Urine Culture Comments NOT INDICATED 03/01/20 07:00 Salicylates < 6.0 mg/dL 02/29/20 12:48 Urine Opiates Screen POSITIVE (NEGATIVE) H 03/01/20 07:00 Ur Oxycodone Screen NEGATIVE (NEGATIVE) 03/01/20 07:00 Urine Methadone Screen NEGATIVE (NEGATIVE) 03/01/20 07:00 Ur Propoxyphene Screen NEGATIVE (NEGATIVE) 03/01/20 07:00 Acetaminophen < 10 ug/mL (10-30) L 02/29/20 12:48 Ur Barbiturates Screen NEGATIVE (NEGATIVE) 03/01/20 07:00 Ur Tricyclics Screen NEGATIVE (NEGATIVE) 03/01/20 07:00 Ur Phencyclidine Scrn NEGATIVE (NEGATIVE) 03/01/20 07:00 Ur Amphetamine Screen POSITIVE (NEGATIVE) H 03/01/20 07:00 U Methamphetamines Scrn POSITIVE (NEGATIVE) H 03/01/20 07:00 U Benzodiazepines Scrn POSITIVE (NEGATIVE) H 03/01/20 07:00 Urine Cocaine Screen NEGATIVE (NEGATIVE) 03/01/20 07:00 U Cannabinoids Screen POSITIVE (NEGATIVE) H 03/01/20 07:00 Ethyl Alcohol < 5.0 mg/dL 02/29/20 12:48
--- NOTE | 2020-03-01 13:40 | Discharge Plan ---
Discharge Plan Problem Reviewed?: Yes Disposition: 07 Against Medical Advice Condition: Stable No Smoking: If you smoke, Please STOP! Call for help.
--- NOTE | 2020-03-01 13:58 | DISCHARGE SUMMARY ---
Discharge Summary Admit Date: 02/29/20 Discharge Date: 03/01/20 Discharging Provider: Dr Prisca Black Primary Care Provider: JOSE ALFREDO Miller Code Status: Attempt Resuscitation Condition at Discharge: Stable Discharge Disposition: 07 Against Medical Advice - HPI History of Present Illness: This is a 24-year-old man with a history of IV drug abuse, methamphetamine use, at least 8 prior admissions for rhabdomyolysis last year, history of acute kidney injury from dehydration and severe rhabdo in Jul 2019, when CK was 82,000. He presented after being found confused and erratic and brought to the emergency room. He was found to have total CK of 3200 and was very agitated and fidgety. His MUDS showed cocaine, methamphetamine and cannabis. He received IV Ativan in the ER and then IV ketamine. The patient was in our ER just yesterday, but less fidgety and agitated, also brought in for erratic behavior, and required hospitalization yesterday for rhabdomyolysis with CK 1800 but signed himself out AMA from the ER. On exam, he has a fever of 38, has needle fowler of his feet, a dark, discolored right great toe, dirt under his fingernails and is somnolent after getting sedatives. He is dehydrated on exam and by elevated BUN/creat ratio. He is being admitted for iv hydration and meth withdrawal. - HOSPITAL COURSE Hospital Course: (1) Rhabdomyolysis The CK of 3289 from yesterday dropped to 1457 the following morning. He was 5L (+) in fluid balance. The plan was for further iv hydration until he awakens more to take oral liquids. (2) Drug abuse He was lethargic and somnolent, after sedatives had been administered and from meth withdrawal. He awoke the next day in the afternoon, was coherent and requested to be discharged or go outside for a smoke. He was offered a Nicotine patch. He then signed out AMA, despite being offered additional iv hydration, since the CK was not yet normal. (3) Open toe wound His feet had multiple small "cuts" or needle sites and the R great toe was black with a white toenail. A MAC Wound consult was ordered, done, and a dermabond bandage was advised and placed. (4) Hypokalemia Related to inadequate po intake and no Potassium in iv fluids. It was replaced by iv. (5) Dehydration Resolved after aggressive iv hydration, with a normal BUN/creat ratio the following day, and 5L (+) in fluid balance, via peripheral iv hydration. - ALLERGIES Allergies/Adverse Reactions: Allergies Allergy/AdvReac Type Severity Reaction Status Date / Time No Known Drug Allergies Allergy Verified 02/29/20 12:12 - MEDICATIONS Home Medications: Ambulatory Orders Medication Instructions Recorded Confirmed traZODone [Desyrel] 150 mg PO HS 07/02/19 02/29/20 Bupropion HCl [Bupropion Xl] 300 mg PO DAILY 02/29/20 02/29/20 - PHYSICAL EXAM AT DISCHARGE General Appearance: positive: No acute distress Eyes Bilateral: positive: Normal inspection ENT: positive: No signs of dehydration Neck: positive: Nml inspection Respiratory: positive: No respiratory distress Cardiovascular: positive: Regular rate & rhythm Abdomen: positive: Non-tender, No distention Skin: positive: Color nml, Other (needle fowler on feet, R great toe bandaged) Neurologic/Psychiatric: positive: Oriented x3, Other (Non-focal) - LABS Result Diagrams: 03/01/20 06:50 03/01/20 06:50 - FOLLOW UP Follow Up: See PCP per routine F/U. - TIME SPENT Time Spent in Discharge (Minutes): 25
[2020-03-01] MEDS ORDERED: NICOTINE 14 MG PATCH TOP SCH (14:30)
[2020-03-02] MEDS ORDERED: NICOTINE 14 MG PATCH TOP SCH (09:00)
== END 2020-03-01 14:35 | disposition left against medical advice (07) | DRG 558 ==
LOC: EDUNIT# → ED 11:46 → MS2 13:54
PROVIDERS: ADMIT Internal Medicine; ATTEND Internal Medicine
DX: M62.82 Rhabdomyolysis (principal); N17.9 Acute kidney failure, unspecified; E87.6 Hypokalemia; F15.129 Other stimulant abuse with intoxication, unspecified; F14.10 Cocaine abuse, uncomplicated; F11.10 Opioid abuse, uncomplicated; E86.0 Dehydration; R45.1 Restlessness and agitation; L84 Corns and callosities; K21.9 Gastro-esophageal reflux disease without esophagitis; F41.9 Anxiety disorder, unspecified; F90.9 Attention-deficit hyperactivity disorder, unspecified type; F43.10 Post-traumatic stress disorder, unspecified; F17.210 Nicotine dependence, cigarettes, uncomplicated; E16.2 Hypoglycemia, unspecified; D72.829 Elevated white blood cell count, unspecified; S91.312A Laceration without foreign body, left foot, initial encounter; S91.311A Laceration without foreign body, right foot, initial encounter; W45.8XXA Other foreign body or object entering through skin, initial encounter; Z72.89 Other problems related to lifestyle
CPT/HCPCS: 36415; 80048; 80053; 80306; 80307; 80320; 80329; 81001; 81003; 82550; 83690; 83735; 84443; 85025; 93005; 99284; 99285; A9270; J2060; J7120; 84100; 87086

== ENCOUNTER 2020-03-04 14:10 | Emergency (ER) | payer MEDICAID ==
[2020-03-04] MEDS ORDERED: BUFFERED LIDOCAINE 10 ML SYRINGE SUBQ STA (14:25)
[2020-03-04] MEDS ORDERED: LIDOCAINE-EPINEPH-TETRACAINE 3 ML SYRINGE TOP STA (14:25)
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
[2020-03-04] MEDS ORDERED: BUFFERED LIDOCAINE 10 ML SYRINGE ONE (15:03)
--- NOTE | 2020-03-04 15:21 | XRAY Report ---
Reason: knee inj/anterior lac Procedure Date: 03/04/2020 Accession Number: [id number] / [id number] Procedure: XR - Knee 4 View LT CPT Code: Final Report FULL RESULT: PROCEDURE: Knee 4 View LT INDICATIONS: knee inj/anterior lac TECHNIQUE: 4 views of the left knee(s) were acquired. COMPARISON: None. FINDINGS: Bones: No fractures or dislocations. No suspicious bony lesions. Soft tissues: No substantial joint effusion. Mild anterior knee soft tissue swelling. No suspicious soft tissue calcifications. No radiopaque soft tissue foreign bodies. IMPRESSION: Left knee without acute fracture or dislocation. If there is persistent clinical concern for a radiographically occult fracture, recommend immobilization and repeat imaging in 10 to 14 days. Reviewed by: Guy Swan MD on 03/04/2020 3:19 PM PDT Approved by: Guy Swan MD on 03/04/2020 3:19 PM PDT Station ID: [id number]
[2020-03-04 15:23] VITALS: BP 135/82
== END 2020-03-04 15:22 | disposition home or self-care (01) ==
LOC: ED 14:10
DX: S81.012A Laceration without foreign body, left knee, initial encounter (principal); V86.59XA Driver of other special all-terrain or other off-road motor vehicle injured in nontraffic accident, initial encounter; F17.200 Nicotine dependence, unspecified, uncomplicated
CPT/HCPCS: 12002; 99282; 99283

== ENCOUNTER 2020-04-04 06:52 | Outpatient (CLI) | payer MEDICAID | END 2020-04-04 06:53 | disposition critical access hospital (66) | LOC: EMS 06:52 | PROVIDERS: ATTEND Surgery | DX: R56.9 Unspecified convulsions (principal); R41.0 Disorientation, unspecified; Z72.89 Other problems related to lifestyle | CPT/HCPCS: A0425; A0429; A0999 ==

== ENCOUNTER 2020-04-04 07:13 | Emergency (ER) | payer MEDICAID ==
[2020-04-04 07:24] VITALS: BP 128/93
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
== END 2020-04-04 07:41 | disposition home or self-care (01) ==
LOC: EDUNIT# → ED 07:13
DX: F15.10 Other stimulant abuse, uncomplicated (principal); F17.200 Nicotine dependence, unspecified, uncomplicated
CPT/HCPCS: 99283; 99284

== ENCOUNTER 2020-07-07 09:09 | Outpatient (CLI) | payer MEDICAID | END 2020-07-07 09:10 | disposition critical access hospital (66) | LOC: EMS 09:09 | PROVIDERS: ATTEND Surgery | DX: R46.89 Other symptoms and signs involving appearance and behavior (principal); R21 Rash and other nonspecific skin eruption | CPT/HCPCS: A0425; A0429; A0999 ==

== ENCOUNTER 2020-07-07 09:12 | Emergency (ER) | payer MEDICAID ==
[2020-07-07 10:42] LABS: BASOPHILS # (AUTO) 0.1 10^3/uL (0.0-0.1); BASOPHILS % (AUTO) 0.8 %; EOSINOPHILS # (AUTO) 0.1 10^3/uL (0.0-0.7); EOSINOPHILS % (AUTO) 1.1 %; LYMPHOCYTES # (AUTO) 3.7 10^3/uL (1.5-3.5); LYMPHOCYTES % (AUTO) 33.6 %; MEAN CORPUSCULAR HEMOGLOBIN 29.8 pg (27.0-31.0); MEAN CORPUSCULAR HGB CONC 33.7 g/dL (32.0-36.0); MEAN CORPUSCULAR VOLUME 88.5 fL (80.0-94.0); MEAN PLATELET VOLUME 9.7 fL (7.4-11.4); MONOCYTES # (AUTO) 1.1 10^3/uL (0.0-1.0); MONOCYTES % (AUTO) 9.7 %; NEUTROPHILS % (AUTO) 54.3 %; PLT - PLATELET COUNT 316 10^3/uL (130-450); RED CELL DISTRIBUTION WIDTH 12.6 % (12.0-15.0); WHITE BLOOD COUNT 11.1 x10^3/uL (4.8-10.8)
--- NOTE | 2020-07-07 10:49 | ED Physician Documentation ---
History of Present Illness - Stated complaint Stated Complaint: WELLNESS CHECK - Chief complaint Chief Complaint: MHE - History obtained from History obtained from: Patient - History of Present Illness Timing: Today - Additonal information Additional information: 25-year-old male with recidivistic use of methamphetamine and opiate indicates that he was using last night he was picked up this morning on [address] on the side of the road and brought in for a welfare check. He is homeless and he denies any current illness. He thinks he might have someone that he can go stay with that he stayed with about 1 week ago.He denies any suicidal ideation or homicidal ideationHe is a poor historian and and is currently intoxicated Review of Systems Constitutional: denies: Fever Eyes: denies: Decreased vision Ears: denies: Ear pain Nose: denies: Congestion Throat: denies: Sore throat Cardiac: denies: Chest pain / pressure Respiratory: denies: Dyspnea, Cough GI: denies: Abdominal Pain, Nausea, Vomiting, Diarrhea : denies: Dysuria PD PAST MEDICAL HISTORY - Past Medical History Cardiovascular: None Respiratory: None Neuro: None Endocrine/Autoimmune: None GI: GERD : None HEENT: None Psych: Depression, Anxiety, ADD/ADHD, Post traumatic stress disorder, Other Musculoskeletal: Osteoarthritis Derm: Herpes zoster - Past Surgical History Past Surgical History: Yes HEENT: Tonsil/Adenoidectomy - Present Medications Home Medications: Ambulatory Orders Medication Instructions Recorded Confirmed traZODone [Desyrel] 150 mg PO HS 07/02/19 02/29/20 Bupropion HCl [Bupropion Xl] 300 mg PO DAILY 02/29/20 02/29/20 - Allergies Allergies/Adverse Reactions: Allergies Allergy/AdvReac Type Severity Reaction Status Date / Time No Known Drug Allergies Allergy Verified 07/07/20 09:22 - Social History Does the pt smoke?: Yes Smoking Status: Current every day smoker Does the pt drink ETOH?: Yes Does the pt have substance abuse?: Yes - Immunizations Immunizations are current?: Yes - POLST Patient has POLST: No POLST Status: Full Code PD ED PE NORMAL - Vitals Vital signs reviewed: Yes (hypertensive ) - General General: No acute distress, Well developed/nourished, Other (Thin male mumbling and appears intoxicated. 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, No motor deficit, No sensory deficit, Normal speech Eye Opening: Spontaneous Motor: Obeys Commands Verbal: Confused GCS Score: 14 - Psych Psych: Normal affect, Other (mood is withdrawn) Results - Vitals Vitals: Vital Signs - 24 hr 07/07/20 07/07/20 09:18 13:58 Temperature 36.9 C Heart Rate 70 107 H Respiratory 15 22 Rate Blood Pressure 116/83 H 100/52 L O2 Saturation 98 100 Oxygen O2 Source Room air - Labs Labs: Laboratory Tests 07/07/20 07/07/20 07/07/20 10:29 10:29 10:29 WBC 11.1 H RBC 4.70 Hgb 14.0 Hct 41.6 L MCV 88.5 MCH 29.8 MCHC 33.7 RDW 12.6 Plt Count 316 MPV 9.7 Neut # (Auto) 6.0 Lymph # (Auto) 3.7 H Sawyer # (Auto) 1.1 H Eos # (Auto) 0.1 Baso # (Auto) 0.1 Absolute Nucleated RBC 0.00 Nucleated RBC % 0.0 Sodium 134 L Potassium 3.7 Chloride 101 Carbon Dioxide 23 Anion Gap 10.0 BUN 28 H Creatinine 0.7 Estimated GFR (MDRD) 139 Glucose 84 Calcium 8.9 Total Bilirubin 0.6 AST 55 H ALT 29 Alkaline Phosphatase 53 Total Protein 8.0 Albumin 4.4 Globulin 3.6 Albumin/Globulin Ratio 1.2 Lipase 26 TSH 2.55 Salicylates < 6.0 Acetaminophen < 10 L Ethyl Alcohol < 5.0 PD MEDICAL DECISION MAKING - ED course Complexity details: reviewed results, re-evaluated patient, considered differential, d/w patient ED course: 25 y/o male with history of drug abuse is homeless and found intoxicated and exposed. He arrives to the ED intoxicated and is a poor mumbling communicator. The social research assistant is consulted in the case. Departure - Departure Disposition: Home, Self Care Clinical Impression: Dehydration, Drug abuse and dependence Instructions: ED Drug Abuse General, ED Dehydration Follow-Up: [facility] [Provider Group]
[2020-07-07 10:54] LABS: ACETAMINOPHEN < 10 ug/mL (10-30); ALBUMIN 4.4 g/dL (3.2-5.5); ALBUMIN/GLOBULIN RATIO 1.2 (1.0-2.2); ALKALINE PHOSPHATASE 53 IU/L (42-121); ALT ALANINE AMINOTRANSFERASE 29 IU/L (10-60); AST ASPARTATE AMINOTRANSFERASE 55 IU/L (10-42); BILIRUBIN,TOTAL 0.6 mg/dL (0.2-1.0); BUN - BLOOD UREA NITROGEN 28 mg/dL (6-20); CALCIUM 8.9 mg/dL (8.5-10.3); CARBON DIOXIDE - CO2 23 mmol/L (21-32); CHLORIDE 101 mmol/L (101-111); CREATININE 0.7 mg/dL (0.6-1.2); GLUCOSE 84 mg/dL (70-100); LIPASE 26 U/L (22-51); SALICYLATE < 6.0 mg/dL; SODIUM 134 mmol/L (135-145)
[2020-07-07 13:58] VITALS: BP 100/52
== END 2020-07-07 16:00 | disposition home or self-care (01) ==
LOC: EDUNIT# → ED 09:12
DX: E86.0 Dehydration (principal); F11.229 Opioid dependence with intoxication, unspecified; F15.229 Other stimulant dependence with intoxication, unspecified; Z20.828 Contact with and (suspected) exposure to other viral communicable diseases; Z59.0 Homelessness; F17.200 Nicotine dependence, unspecified, uncomplicated
CPT/HCPCS: 36415; 80053; 80307; 80320; 80329; 83690; 84443; 85025; 99283; 99284

== ENCOUNTER 2020-07-22 08:10 | Outpatient (CLI) | payer MEDICAID | END 2020-07-22 08:11 | disposition critical access hospital (66) | LOC: EMS 08:10 | PROVIDERS: ATTEND Surgery | DX: R46.89 Other symptoms and signs involving appearance and behavior (principal) | CPT/HCPCS: A0425; A0429; A0999 ==

== ENCOUNTER 2020-07-22 08:24 | Emergency (ER) | payer MEDICAID ==
[2020-07-22] MEDS ORDERED: SODIUM CHLORIDE 0.9% 1,000 ML IV STA (08:27)
[2020-07-22] MEDS ORDERED: LORazepam 2 MG/ML VIAL IVP STA ×3 (08:33→13:29)
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
[2020-07-22] MEDS ORDERED: KETAMINE 500 MG/10 ML VIAL IVP STA (08:48)
[2020-07-22 08:50] LABS: BASOPHILS # (AUTO) 0.1 10^3/uL (0.0-0.1); BASOPHILS % (AUTO) 0.4 %; EOSINOPHILS # (AUTO) 0.2 10^3/uL (0.0-0.7); EOSINOPHILS % (AUTO) 0.9 %; LYMPHOCYTES # (AUTO) 1.5 10^3/uL (1.5-3.5); LYMPHOCYTES % (AUTO) 7.9 %; MEAN CORPUSCULAR HEMOGLOBIN 29.5 pg (27.0-31.0); MEAN CORPUSCULAR VOLUME 89.5 fL (80.0-94.0); MEAN PLATELET VOLUME 9.7 fL (7.4-11.4); MONOCYTES # (AUTO) 1.4 10^3/uL (0.0-1.0); MONOCYTES % (AUTO) 7.6 %; NEUTROPHILS # (AUTO) 15.5 10^3/uL (1.5-6.6); NEUTROPHILS % (AUTO) 82.1 %; PLT - PLATELET COUNT 258 10^3/uL (130-450); RED CELL DISTRIBUTION WIDTH 12.6 % (12.0-15.0); WHITE BLOOD COUNT 18.9 x10^3/uL (4.8-10.8)
[2020-07-22 09:03] LABS: ACETAMINOPHEN < 10 ug/mL (10-30); ALBUMIN 4.4 g/dL (3.2-5.5); ALBUMIN/GLOBULIN RATIO 1.1 (1.0-2.2); ALKALINE PHOSPHATASE 51 IU/L (42-121); ALT ALANINE AMINOTRANSFERASE 23 IU/L (10-60); AST ASPARTATE AMINOTRANSFERASE 36 IU/L (10-42); BILIRUBIN,TOTAL 0.5 mg/dL (0.2-1.0); BUN - BLOOD UREA NITROGEN 27 mg/dL (6-20); CARBON DIOXIDE - CO2 26 mmol/L (21-32); CHLORIDE 102 mmol/L (101-111); CK- CREATINE KINASE 746 IU/L (22-269); CREATININE 0.9 mg/dL (0.6-1.2); GLUCOSE 100 mg/dL (70-100); LIPASE 26 U/L (22-51); SALICYLATE < 6.0 mg/dL; SODIUM 142 mmol/L (135-145); TOTAL PROTEIN 8.4 g/dL (6.7-8.2)
[2020-07-22 16:39] LABS: MUDS CUTOFF CONCENTRATIONS CUTOFF CONC BELOW:
[2020-07-22 16:45] LABS: BILIRUBIN,URINE NEGATIVE (NEGATIVE); GLUCOSE, URINE (UA) NEGATIVE (NEGATIVE); KETONES,URINE (UA) NEGATIVE (NEGATIVE); LEUKOCYTE ESTERASE, URINE NEGATIVE (NEGATIVE); NITRITE,URINE NEGATIVE (NEGATIVE); OCCULT BLOOD,URINE NEGATIVE (NEGATIVE); PROTEIN,URINE NEGATIVE (NEGATIVE); UROBILINOGEN,URINE 0.2 (NORMAL) E.U./dL (NORMAL)
[2020-07-22 16:46] LABS: CLARITY,URINE CLEAR (CLEAR)
[2020-07-22 16:55] LABS: AMPHETAMINE SCREEN,URINE POSITIVE (NEGATIVE); BENZODIAZEPINES SCREEN, URINE POSITIVE (NEGATIVE); COCAINE SCREEN URINE NEGATIVE (NEGATIVE); METHADONE SCREEN, URINE NEGATIVE (NEGATIVE); METHAMPHETAMINES SCREEN, URINE POSITIVE (NEGATIVE); OPIATE SCREEN, URINE POSITIVE (NEGATIVE); OXYCODONE SCREEN, URINE NEGATIVE (NEGATIVE); PROPOXYPHENE SCREEN, URINE NEGATIVE (NEGATIVE); TRICYCLIC ANTIDEPRESSANT,URINE NEGATIVE (NEGATIVE)
--- NOTE | 2020-07-22 22:33 | ED Physician Documentation ---
ED Addendum - Addendum Addendum: 07/22/20 22:31 Georgie SPENCER, evaluated the patient, she states that she would consider detaining him but there are no beds available until he has a negative Covid test. This will take approximately 2 days. Patient was comfortable staying in the emergency department for now and would like to sleep. Patient is not suicidal or homicidal. Does not appear to be an imminent threat at this time. Patient will be reevaluated when he wakes up. Patient signed out to the oncoming ED physician.
[2020-07-23 08:58] VITALS: BP 126/89
== END 2020-07-23 09:48 | disposition home or self-care (01) ==
LOC: EDUNIT# → ED 08:24
DX: F15.121 Other stimulant abuse with intoxication delirium (principal); F11.10 Opioid abuse, uncomplicated; F17.200 Nicotine dependence, unspecified, uncomplicated; Z20.828 Contact with and (suspected) exposure to other viral communicable diseases
CPT/HCPCS: 36415; 80053; 80306; 80307; 80320; 80329; 81003; 82550; 83690; 84443; 85025; 87635; 96374; 96375; 96376; 99281; 99285; J2060; 81001; 87086

== ENCOUNTER 2020-09-04 17:12 | Emergency (ER) | payer MEDICAID ==
--- NOTE | 2020-09-04 17:27 | ED Physician Documentation ---
History of Present Illness - Stated complaint Stated Complaint: WEAK L LEG - Chief complaint Chief Complaint: Ext Problem - History obtained from History obtained from: Patient - Additonal information Additional information: 25-year-old gentleman with an unfortunately extensive history of heavy injection methamphetamine use presents to the emergency department today feeling like both of his thighs are weak and painful. His calves are weak and painful to but it is really the thighs more and on the left side more. He denies back pain or fevers. He feels like his muscles are torn. Asked me if he might of passed out in an odd position and he says he feels like he woke up in a normal position today. But later admits he did pass out d/t drug use last night. Pain started today. Review of Systems Constitutional: denies: Fever, Chills Cardiac: denies: Chest pain / pressure, Palpitations Respiratory: denies: Dyspnea, Cough GI: denies: Abdominal Pain Musculoskeletal: denies: Neck pain, Back pain PD PAST MEDICAL HISTORY - Past Medical History Cardiovascular: None Respiratory: None Neuro: None Endocrine/Autoimmune: None GI: GERD : None HEENT: None Psych: Depression, Anxiety, ADD/ADHD, Post traumatic stress disorder, Other Musculoskeletal: Osteoarthritis Derm: Herpes zoster - Past Surgical History Past Surgical History: Yes HEENT: Tonsil/Adenoidectomy - Present Medications Home Medications: Ambulatory Orders Medication Instructions Recorded Confirmed No Known Home Medications 09/04/20 09/04/20 - Allergies Allergies/Adverse Reactions: Allergies Allergy/AdvReac Type Severity Reaction Status Date / Time No Known Drug Allergies Allergy Verified 09/04/20 17:20 - Social History Does the pt smoke?: Yes Smoking Status: Current every day smoker Does the pt drink ETOH?: Yes Does the pt have substance abuse?: Yes - Immunizations Immunizations are current?: Yes - POLST Patient has POLST: No POLST Status: Full Code PD ED PE NORMAL - Vitals Vital signs reviewed: Yes - General General: Alert and oriented X 3 (Slightly slow to answer questions, Disheveled) - HEENT HEENT: PERRL, EOMI - Neck Neck: Supple, no meningeal sign, No bony TTP - Cardiac Cardiac: RRR, No murmur - Respiratory Respiratory: No respiratory distress, Clear bilaterally - Abdomen Abdomen: Soft, Non tender - Back Back: No CVA TTP, No spinal TTP - Derm Derm: Normal color, Warm and dry - Extremities Extremities: Other (His gait is fairly normal, maybe favoring the right side slightly. He has muscular tenderness of the left anterior thigh, no other obvious muscular tenderness throughout the lower extremities. No tense compartments.) - Neuro Neuro: Alert and oriented X 3, No motor deficit, No sensory deficit, Normal speech Eye Opening: Spontaneous Motor: Obeys Commands Results - Vitals Vitals: Vital Signs - 24 hr 09/04/20 09/04/20 17:17 20:56 Temperature 36.3 C L Heart Rate 100 84 Respiratory 22 16 Rate Blood Pressure 115/90 H 134/89 H O2 Saturation 98 99 Oxygen O2 Source Room air - Labs Labs: Laboratory Tests 09/04/20 09/04/20 09/04/20 17:41 17:50 17:50 WBC 11.7 H RBC 4.51 L Hgb 13.3 L Hct 40.0 L MCV 88.7 MCH 29.5 MCHC 33.3 RDW 13.3 Plt Count 288 MPV 9.5 Neut # (Auto) 9.2 H Lymph # (Auto) 1.4 L [place] # (Auto) 0.8 Eos # (Auto) 0.2 Baso # (Auto) 0.0 Absolute Nucleated RBC 0.00 Nucleated RBC % 0.0 Sodium 137 Potassium 4.0 Chloride 100 L Carbon Dioxide 26 Anion Gap 11.0 BUN 15 Creatinine 0.4 L Estimated GFR (MDRD) 264 Glucose 102 H Calcium 9.0 Total Bilirubin 0.3 AST 19 ALT 17 Alkaline Phosphatase 70 Total Creatine Kinase 153 Total Protein 7.8 Albumin 4.1 Globulin 3.7 Albumin/Globulin Ratio 1.1 Lipase 23 TSH Urine Color YELLOW Urine Clarity CLEAR Urine pH 7.0 Ur Specific [place] 1.025 Urine Protein NEGATIVE Urine Glucose (UA) NEGATIVE Urine Ketones NEGATIVE Urine Occult Blood NEGATIVE Urine Nitrite NEGATIVE Urine Bilirubin NEGATIVE Urine Urobilinogen 0.2 (NORMAL) Ur Leukocyte Esterase NEGATIVE Ur Microscopic Review NOT INDICATED Urine Culture Comments NOT INDICATED Nasal Adenovirus (PCR) Nasal B. parapertussis DNA (PCR) Nasal Coronavir 229E PCR Nasal Coronavir HKU1 PCR Nasal Coronavir NL63 PCR Nasal Coronavir OC43 PCR Nasal Enterovir/Rhinovir PCR Nasal Influenza B PCR Nasal Influenza A PCR Nasal Parainfluen 1 PCR Nasal Parainfluen 2 PCR Nasal Parainfluen 3 PCR Nasal Parainfluen 4 PCR Nasal RSV (PCR) Nasal B.pertussis DNA PCR Nasal C.pneumoniae (PCR) [place] Human Metapneumo PCR Nasal M.pneumoniae (PCR) Nasal SARS-CoV-2 (PCR) Salicylates < 6.0 Urine Opiates Screen POSITIVE H Ur Oxycodone Screen NEGATIVE Urine Methadone Screen NEGATIVE Ur Propoxyphene Screen NEGATIVE Acetaminophen < 10 L Ur Barbiturates Screen NEGATIVE Ur Tricyclics Screen NEGATIVE Ur Phencyclidine Scrn NEGATIVE Ur Amphetamine Screen POSITIVE H U Methamphetamines Scrn POSITIVE H U Benzodiazepines Scrn NEGATIVE Urine Cocaine Screen NEGATIVE U Cannabinoids Screen NEGATIVE Ethyl Alcohol < 5.0 09/04/20 09/04/20 17:50 19:36 WBC RBC Hgb Hct MCV MCH MCHC RDW Plt Count MPV Neut # (Auto) Lymph # (Auto) [place] # (Auto) Eos # (Auto) Baso # (Auto) Absolute Nucleated RBC Nucleated RBC % Sodium Potassium Chloride Carbon Dioxide Anion Gap BUN Creatinine Estimated GFR (MDRD) Glucose Calcium Total Bilirubin AST ALT Alkaline Phosphatase Total Creatine Kinase Total Protein Albumin Globulin Albumin/Globulin Ratio Lipase TSH 0.79 Urine Color Urine Clarity Urine pH Ur Specific [place] Urine Protein Urine Glucose (UA) Urine Ketones Urine Occult Blood Urine Nitrite Urine Bilirubin Urine Urobilinogen Ur Leukocyte Esterase Ur Microscopic Review Urine Culture Comments Nasal Adenovirus (PCR) NOT DETECTED Nasal B. parapertussis DNA (PCR) NOT DETECTED Nasal Coronavir 229E PCR NOT DETECTED Nasal Coronavir HKU1 PCR NOT DETECTED Nasal Coronavir NL63 PCR NOT DETECTED Nasal Coronavir OC43 PCR NOT DETECTED Nasal Enterovir/Rhinovir PCR DETECTED A Nasal Influenza B PCR NOT DETECTED Nasal Influenza A PCR NOT DETECTED Nasal Parainfluen 1 PCR NOT DETECTED Nasal Parainfluen 2 PCR NOT DETECTED Nasal Parainfluen 3 PCR NOT DETECTED Nasal Parainfluen 4 PCR NOT DETECTED Nasal RSV (PCR) NOT DETECTED Nasal B.pertussis DNA PCR NOT DETECTED Nasal C.pneumoniae (PCR) NOT DETECTED [place] Human Metapneumo PCR NOT DETECTED Nasal M.pneumoniae (PCR) NOT DETECTED Nasal SARS-CoV-2 (PCR) NOT DETECTED Salicylates Urine Opiates Screen Ur Oxycodone Screen Urine Methadone Screen Ur Propoxyphene Screen Acetaminophen Ur Barbiturates Screen Ur Tricyclics Screen Ur Phencyclidine Scrn Ur Amphetamine Screen U Methamphetamines Scrn U Benzodiazepines Scrn Urine Cocaine Screen U Cannabinoids Screen Ethyl Alcohol PD MEDICAL DECISION MAKING - ED course ED course: 25-year-old gentleman with ongoing injection methamphetamine use presents with muscular pain of the left lower extremity. Given his complaints spinal pathology was considered but given the lack of fever or back pain this is exceedingly unlikely. He does seem to have muscular tenderness there and I suspect he simply passed out on his leg. 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 He admits to significant depression here. Also some suicidal ideation and would like to seek treatment for drug use and his depression. That said he is not in rhabdomyolysis, and CK is actually normal. He may still have just laid on it wrong but without rhabdomyolysis. Care to overnight ED MD at shift change pending KORY unger in AM. Departure - Departure Clinical Impression: Drug abuse Pain of lower extremity Qualifiers: Laterality: left Qualified Code(s): M79.605 - Pain in left leg Depression Qualifiers: Depression Type: major depressive disorder Major depression recurrence: recurrent Active/Remission status: currently active Major depression episode severity: moderate Qualified Code(s): F33.1 - Major depressive disorder, recurrent, moderate Condition: Stable
[2020-09-04] MEDS ORDERED: SODIUM CHLORIDE 0.9% 1,000 ML IV STA (17:34)
[2020-09-04] MEDS ORDERED: MORPHINE 2 MG/ML CARPUJECT IVP STA (17:34)
[2020-09-04 17:58] LABS: BILIRUBIN,URINE NEGATIVE (NEGATIVE); GLUCOSE, URINE (UA) NEGATIVE (NEGATIVE); KETONES,URINE (UA) NEGATIVE (NEGATIVE); LEUKOCYTE ESTERASE, URINE NEGATIVE (NEGATIVE); MUDS CUTOFF CONCENTRATIONS CUTOFF CONC BELOW:; NITRITE,URINE NEGATIVE (NEGATIVE); OCCULT BLOOD,URINE NEGATIVE (NEGATIVE); PROTEIN,URINE NEGATIVE (NEGATIVE); UROBILINOGEN,URINE 0.2 (NORMAL) E.U./dL (NORMAL)
[2020-09-04 17:59] LABS: CLARITY,URINE CLEAR (CLEAR)
[2020-09-04 18:02] LABS: BASOPHILS % (AUTO) 0.3 %; EOSINOPHILS # (AUTO) 0.2 10^3/uL (0.0-0.7); EOSINOPHILS % (AUTO) 2.1 %; HGB - HEMOGLOBIN 13.3 g/dL (14.0-18.0); LYMPHOCYTES # (AUTO) 1.4 10^3/uL (1.5-3.5); LYMPHOCYTES % (AUTO) 12.3 %; MEAN CORPUSCULAR HEMOGLOBIN 29.5 pg (27.0-31.0); MEAN CORPUSCULAR HGB CONC 33.3 g/dL (32.0-36.0); MEAN CORPUSCULAR VOLUME 88.7 fL (80.0-94.0); MEAN PLATELET VOLUME 9.5 fL (7.4-11.4); MONOCYTES # (AUTO) 0.8 10^3/uL (0.0-1.0); MONOCYTES % (AUTO) 6.6 %; NEUTROPHILS # (AUTO) 9.2 10^3/uL (1.5-6.6); NEUTROPHILS % (AUTO) 78.4 %; PLT - PLATELET COUNT 288 10^3/uL (130-450); RED BLOOD COUNT 4.51 10^6/uL (4.70-6.10); RED CELL DISTRIBUTION WIDTH 13.3 % (12.0-15.0); WHITE BLOOD COUNT 11.7 x10^3/uL (4.8-10.8)
[2020-09-04 18:09] LABS: AMPHETAMINE SCREEN,URINE POSITIVE (NEGATIVE); BENZODIAZEPINES SCREEN, URINE NEGATIVE (NEGATIVE); COCAINE SCREEN URINE NEGATIVE (NEGATIVE); METHADONE SCREEN, URINE NEGATIVE (NEGATIVE); METHAMPHETAMINES SCREEN, URINE POSITIVE (NEGATIVE); OPIATE SCREEN, URINE POSITIVE (NEGATIVE); OXYCODONE SCREEN, URINE NEGATIVE (NEGATIVE); PROPOXYPHENE SCREEN, URINE NEGATIVE (NEGATIVE); TRICYCLIC ANTIDEPRESSANT,URINE NEGATIVE (NEGATIVE)
[2020-09-04 18:18] LABS: ACETAMINOPHEN < 10 ug/mL (10-30); ALBUMIN 4.1 g/dL (3.2-5.5); ALBUMIN/GLOBULIN RATIO 1.1 (1.0-2.2); ALKALINE PHOSPHATASE 70 IU/L (42-121); ALT ALANINE AMINOTRANSFERASE 17 IU/L (10-60); AST ASPARTATE AMINOTRANSFERASE 19 IU/L (10-42); BILIRUBIN,TOTAL 0.3 mg/dL (0.2-1.0); BUN - BLOOD UREA NITROGEN 15 mg/dL (6-20); CARBON DIOXIDE - CO2 26 mmol/L (21-32); CHLORIDE 100 mmol/L (101-111); CK- CREATINE KINASE 153 IU/L (22-269); CREATININE 0.4 mg/dL (0.6-1.2); GLUCOSE 102 mg/dL (70-100); LIPASE 23 U/L (22-51); SALICYLATE < 6.0 mg/dL; SODIUM 137 mmol/L (135-145); TOTAL PROTEIN 7.8 g/dL (6.7-8.2)
[2020-09-04 20:40] LABS: C. PNEUMONIAE- RESP PCR PANEL NOT DETECTED
[2020-09-05 14:05] VITALS: BP 133/75
== END 2020-09-05 14:00 | disposition left against medical advice (07) ==
LOC: ED 17:12
DX: M79.652 Pain in left thigh (principal); F15.10 Other stimulant abuse, uncomplicated; Z20.828 Contact with and (suspected) exposure to other viral communicable diseases; F33.1 Major depressive disorder, recurrent, moderate; R45.851 Suicidal ideations; F17.200 Nicotine dependence, unspecified, uncomplicated
CPT/HCPCS: 0202U; 36415; 80053; 80306; 80307; 80320; 80329; 81003; 82550; 83690; 84443; 85025; 96361; 96374; 99283; 99284; 81001; 87086

== ENCOUNTER 2020-09-10 12:01 | Outpatient (CLI) | payer MEDICAID | END 2020-09-10 12:02 | disposition critical access hospital (66) | LOC: EMS 12:01 | PROVIDERS: ATTEND Surgery | DX: Z04.89 Encounter for examination and observation for other specified reasons (principal) | CPT/HCPCS: A0425; A0429; A0999 ==

== ENCOUNTER 2020-09-10 12:41 | Emergency (ER) | payer MEDICAID ==
--- NOTE | 2020-09-10 13:17 | ED Physician Documentation ---
History of Present Illness - Stated complaint Stated Complaint: ALOC - Chief complaint Chief Complaint: MHE - History obtained from History obtained from: Patient - History of Present Illness Timing: Today Pain level max: 0 Pain level now: 0 - Additonal information Additional information: 25-year-old male presents to the emergency department after using methamphetamine and heroin today. He was found in the ditch. He has no current complaints. He states he is scheduled for drug rehab on September 14 at [facility]. Has been to the emergency department several times for this in the past. Has no complaints at this time Review of Systems Ten Systems: 10 systems reviewed and negative Constitutional: denies: Fever, Chills GI: denies: Vomiting, Diarrhea Skin: denies: Rash Musculoskeletal: denies: Neck pain, Back pain Neurologic: denies: Headache PD PAST MEDICAL HISTORY - Past Medical History Cardiovascular: None Respiratory: None Neuro: None Endocrine/Autoimmune: None GI: GERD : None HEENT: None Psych: Depression, Anxiety, ADD/ADHD, Post traumatic stress disorder, Other Musculoskeletal: Osteoarthritis Derm: Herpes zoster - Past Surgical History Past Surgical History: Yes HEENT: Tonsil/Adenoidectomy - Present Medications Home Medications: Ambulatory Orders Medication Instructions Recorded Confirmed No Known Home Medications 09/04/20 09/10/20 - Allergies Allergies/Adverse Reactions: Allergies Allergy/AdvReac Type Severity Reaction Status Date / Time No Known Drug Allergies Allergy Verified 09/10/20 13:02 - Social History Does the pt smoke?: Yes Smoking Status: Current every day smoker Does the pt drink ETOH?: Yes Does the pt have substance abuse?: Yes - Immunizations Immunizations are current?: Yes - POLST Patient has POLST: No POLST Status: Full Code PD ED PE NORMAL - Vitals Vital signs reviewed: Yes - General General: Alert and oriented X 3, Other (restless in bed c/w with his prior visits for same) - HEENT HEENT: Moist mucous membranes - Neck Neck: Supple, no meningeal sign - Cardiac Cardiac: RRR, Strong equal pulses - Respiratory Respiratory: No respiratory distress, Clear bilaterally - Abdomen Abdomen: Soft, Non tender, Non distended - Derm Derm: Warm and dry - Extremities Extremities: No edema - Neuro Neuro: Alert and oriented X 3 Results - Vitals Vitals: Vital Signs - 24 hr 09/10/20 09/10/20 09/10/20 12:44 21:02 21:18 Temperature 36.4 C L 36.7 C Heart Rate 105 H 69 98 Respiratory 22 16 Rate Blood Pressure 148/96 H 98/46 L O2 Saturation 100 100 Oxygen O2 Source Room air PD MEDICAL DECISION MAKING - ED course Complexity details: re-evaluated patient, considered differential, d/w patient ED course: Patient allowed to sober in the emergency department. Eating and drinking without difficulty. Ambulating without difficulty. He will keep his appointment with Geovani Duran on the . Request to go home at this time. Patient counseled regarding signs and symptoms for which I believe and urgent re- evaluation would be necessary. Patient with good understanding of and agreement to plan and is comfortable going home at this time This document was made in part using voice recognition software. While efforts are made to proofread this document, sound alike and grammatical errors may occur. Departure - Departure Disposition: 01 Home, Self Care Clinical Impression: Heroin abuse, Methamphetamine abuse Condition: Stable Instructions: ED Drug Abuse General Follow-Up: your,doctor this week [Other] Comments: You need to keep your appointment on September 14 with Geovani Duran for drug rehab. You need to quit using heroin and methamphetamines. Discharge Date/Time: 09/10/20 21:19
[2020-09-10 21:15] VITALS: BP 98/46
== END 2020-09-10 21:19 | disposition home or self-care (01) ==
LOC: ED 12:41
DX: F11.10 Opioid abuse, uncomplicated (principal); F15.10 Other stimulant abuse, uncomplicated; F17.200 Nicotine dependence, unspecified, uncomplicated
CPT/HCPCS: 99283

== ENCOUNTER 2020-10-04 14:51 | Emergency (ER) | payer MEDICAID ==
--- NOTE | 2020-10-04 15:34 | ED Physician Documentation ---
History of Present Illness - Stated complaint Stated Complaint: DETOX - Chief complaint Chief Complaint: MHE - Additonal information Additional information: 25-year-old male who has an extensive history of meth amphetamine and heroin use presents to the emergency department requesting detox. He reports that he last used yesterday evening. He is currently without at home. He states that he was last in detox about 6 to 8 months ago. His longest time of sobriety was 18 months. He endorses intravenous drug use. Denies fevers headache neck pain back pain abdominal pain nausea or vomiting. He is quite compliant and pleasant to this provider in the emergency department. He denies thoughts of self-harm or harm to others. Review of Systems Constitutional: denies: Fever, Chills Eyes: reports: Reviewed and negative Ears: reports: Reviewed and negative Nose: reports: Rhinorrhea / runny nose Throat: reports: Dental pain / toothache Cardiac: denies: Chest pain / pressure, Palpitations Respiratory: denies: Dyspnea, Cough GI: denies: Abdominal Pain, Abdominal Swelling, Nausea, Vomiting : denies: Hesitancy Skin: denies: Rash, Lesions Musculoskeletal: denies: Neck pain, Back pain, Extremity pain PD PAST MEDICAL HISTORY - Past Medical History Cardiovascular: None Respiratory: None Neuro: None Endocrine/Autoimmune: None GI: GERD : None HEENT: None Psych: Depression, Anxiety, ADD/ADHD, Post traumatic stress disorder, Other Musculoskeletal: Osteoarthritis Derm: Herpes zoster - Past Surgical History Past Surgical History: Yes HEENT: Tonsil/Adenoidectomy - Present Medications Home Medications: Ambulatory Orders Medication Instructions Recorded Confirmed No Known Home Medications 09/04/20 10/04/20 - Allergies Allergies/Adverse Reactions: Allergies Allergy/AdvReac Type Severity Reaction Status Date / Time No Known Drug Allergies Allergy Verified 10/04/20 15:20 - Social History Does the pt smoke?: Yes Smoking Status: Current every day smoker Does the pt drink ETOH?: Yes Does the pt have substance abuse?: Yes - Immunizations Immunizations are current?: Yes - POLST Patient has POLST: No POLST Status: Full Code PD ED PE EXPANDED - General General: Alert, No acute distress, Disheveled, poorly kept - Neck Neck: Supple w/out meningeal sx, No tenderness. No: Adenopathy - Cardiac Cardiac: Regular Rate, Regular Rhythm, Radial strong equal, Pedal strong equal, Cap refill < 2 sec. No: Murmur Present - Respiratory Respiratory: Clear to ausultation kenneth. No: Distress, Labored - Abdomen Abdomen: Normal Bowel sounds. No: Tender to palpation - Back Back: Normal exam. No: Vertebral tenderness, Soft tissue tenderness - Derm Derm: Normal color, Warm and dry, Other (site of injection on forearms, bilateral ac without erythema, swelling or signs of infection). No: Rash - Extremities Extremities: Normal. No: Deformity, Tenderness - Neuro Neuro: Alert and Oriented X 3, CNII-XII intact - GCS Eye Opening: Spontaneous Motor: Obeys Commands Verbal: Oriented Total: 15 - Psych Psych: Normal. No: Suicidal Results - Vitals Vitals: Vital Signs - 24 hr 10/04/20 15:08 Temperature 36.6 C Heart Rate 88 Respiratory 16 Rate Blood Pressure 132/70 H O2 Saturation 99 Oxygen O2 Source Room air - Labs Labs: Laboratory Tests 10/04/20 10/04/20 10/04/20 15:34 15:42 15:45 WBC 6.5 RBC 4.65 L Hgb 13.6 L Hct 41.6 L MCV 89.5 MCH 29.2 MCHC 32.7 RDW 13.1 Plt Count 267 MPV 9.6 Neut # (Auto) 4.4 Lymph # (Auto) 1.5 [place] # (Auto) 0.5 Eos # (Auto) 0.1 Baso # (Auto) 0.0 Absolute Nucleated RBC 0.00 Nucleated RBC % 0.0 Sodium Potassium Chloride Carbon Dioxide Anion Gap BUN Creatinine Estimated GFR (MDRD) Glucose Calcium Total Bilirubin AST ALT Alkaline Phosphatase Total Creatine Kinase Total Protein Albumin Globulin Albumin/Globulin Ratio Lipase TSH Urine Color YELLOW Urine Clarity CLEAR Urine pH 6.0 Ur Specific [place] 1.025 Urine Protein NEGATIVE Urine Glucose (UA) NEGATIVE Urine Ketones NEGATIVE Urine Occult Blood NEGATIVE Urine Nitrite NEGATIVE Urine Bilirubin NEGATIVE Urine Urobilinogen 1 (NORMAL) Ur Leukocyte Esterase NEGATIVE Ur Microscopic Review NOT INDICATED Urine Culture Comments NOT INDICATED Nasal Adenovirus (PCR) NOT DETECTED Nasal B. parapertussis DNA (PCR) NOT DETECTED Nasal Coronavir 229E PCR NOT DETECTED Nasal Coronavir HKU1 PCR NOT DETECTED Nasal Coronavir NL63 PCR NOT DETECTED Nasal Coronavir OC43 PCR NOT DETECTED Nasal Enterovir/Rhinovir PCR NOT DETECTED Nasal Influenza B PCR NOT DETECTED Nasal Influenza A PCR NOT DETECTED Nasal Parainfluen 1 PCR NOT DETECTED Nasal Parainfluen 2 PCR NOT DETECTED Nasal Parainfluen 3 PCR NOT DETECTED Nasal Parainfluen 4 PCR NOT DETECTED Nasal RSV (PCR) NOT DETECTED Nasal B.pertussis DNA PCR NOT DETECTED Nasal C.pneumoniae (PCR) NOT DETECTED [place] Human Metapneumo PCR NOT DETECTED Nasal M.pneumoniae (PCR) NOT DETECTED Nasal SARS-CoV-2 (PCR) NOT DETECTED Salicylates Urine Opiates Screen POSITIVE H Ur Oxycodone Screen NEGATIVE Urine Methadone Screen NEGATIVE Ur Propoxyphene Screen NEGATIVE Acetaminophen Ur Barbiturates Screen NEGATIVE Ur Tricyclics Screen NEGATIVE Ur Phencyclidine Scrn NEGATIVE Ur Amphetamine Screen POSITIVE H U Methamphetamines Scrn POSITIVE H U Benzodiazepines Scrn NEGATIVE Urine Cocaine Screen NEGATIVE U Cannabinoids Screen NEGATIVE Ethyl Alcohol 10/04/20 10/04/20 15:45 15:45 WBC RBC Hgb Hct MCV MCH MCHC RDW Plt Count MPV Neut # (Auto) Lymph # (Auto) [place] # (Auto) Eos # (Auto) Baso # (Auto) Absolute Nucleated RBC Nucleated RBC % Sodium 142 Potassium 4.0 Chloride 104 Carbon Dioxide 26 Anion Gap 12.0 BUN 24 H Creatinine 0.6 Estimated GFR (MDRD) 166 Glucose 107 H Calcium 9.3 Total Bilirubin 0.4 AST 32 ALT 24 Alkaline Phosphatase 60 Total Creatine Kinase 392 H Total Protein 7.4 Albumin 4.0 Globulin 3.4 Albumin/Globulin Ratio 1.2 Lipase 27 TSH 0.43 Urine Color Urine Clarity Urine pH Ur Specific [place] Urine Protein Urine Glucose (UA) Urine Ketones Urine Occult Blood Urine Nitrite Urine Bilirubin Urine Urobilinogen Ur Leukocyte Esterase Ur Microscopic Review Urine Culture Comments Nasal Adenovirus (PCR) Nasal B. parapertussis DNA (PCR) Nasal Coronavir 229E PCR Nasal Coronavir HKU1 PCR Nasal Coronavir NL63 PCR Nasal Coronavir OC43 PCR Nasal Enterovir/Rhinovir PCR Nasal Influenza B PCR Nasal Influenza A PCR Nasal Parainfluen 1 PCR Nasal Parainfluen 2 PCR Nasal Parainfluen 3 PCR Nasal Parainfluen 4 PCR Nasal RSV (PCR) Nasal B.pertussis DNA PCR Nasal C.pneumoniae (PCR) [place] Human Metapneumo PCR Nasal M.pneumoniae (PCR) Nasal SARS-CoV-2 (PCR) Salicylates < 6.0 Urine Opiates Screen Ur Oxycodone Screen Urine Methadone Screen Ur Propoxyphene Screen Acetaminophen < 10 L Ur Barbiturates Screen Ur Tricyclics Screen Ur Phencyclidine Scrn Ur Amphetamine Screen U Methamphetamines Scrn U Benzodiazepines Scrn Urine Cocaine Screen U Cannabinoids Screen Ethyl Alcohol < 5.0 PD MEDICAL DECISION MAKING - ED course ED course: 25-year-old male presents to the emergency department for evaluation of request to attend detox. This gentleman has active methamphetamine and heroin use. Last injected last night. He has been following up with [facility] outpatient services. He is awaiting a detox bed but 1 is not yet available. Here in the emergency department he has unremarkable vitals. Screening labs show no leukocytosis. His Covid screen is negative. He does have a mild CK elevation but in comparison to previous CK elevations this gentleman is not clinically in rhabdomyolysis. This gentleman was seen by by our social worker assistant. Patient is not willing to enter a detox program without a Suboxone prescription. Therefore at this time he will be discharged from the emergency department. He was advised to go to the [facility] for housing. He is also advised to continue outpatient follow-up with [facility] services so that he may enter detox when a bed becomes available. Emergent return precautions were discussed Rapid bio fire respiratory PCR obtained in a patient who is expected to be hospitalized for detox. Departure - Departure Disposition: 01 Home, Self Care Clinical Impression: Substance abuse, Homeless single person Condition: Stable Record reviewed to determine appropriate education?: Yes Instructions: ED Narcotic Abuse Comments: Willian I wish you well on yoru journey to recovery. At this time we cannot offer you a Suboxone prescription from the emergency department. Please continue to follow-up with [facility] services as they are working to find you a detox bed when one is available. I do advise that you follow-up at the [facility] for housing. If at any point you feel that you are unsafe, have thoughts of self-harm, difficulty breathing fevers or concerns of infection please return immediately to the ER
[2020-10-04 15:48] LABS: BASOPHILS % (AUTO) 0.6 %; EOSINOPHILS # (AUTO) 0.1 10^3/uL (0.0-0.7); EOSINOPHILS % (AUTO) 1.8 %; HCT - HEMATOCRIT 41.6 % (42.0-52.0); HGB - HEMOGLOBIN 13.6 g/dL (14.0-18.0); LYMPHOCYTES # (AUTO) 1.5 10^3/uL (1.5-3.5); LYMPHOCYTES % (AUTO) 23.5 %; MEAN CORPUSCULAR HEMOGLOBIN 29.2 pg (27.0-31.0); MEAN CORPUSCULAR HGB CONC 32.7 g/dL (32.0-36.0); MEAN CORPUSCULAR VOLUME 89.5 fL (80.0-94.0); MEAN PLATELET VOLUME 9.6 fL (7.4-11.4); MONOCYTES # (AUTO) 0.5 10^3/uL (0.0-1.0); MONOCYTES % (AUTO) 7.2 %; NEUTROPHILS # (AUTO) 4.4 10^3/uL (1.5-6.6); NEUTROPHILS % (AUTO) 66.6 %; PLT - PLATELET COUNT 267 10^3/uL (130-450); RED BLOOD COUNT 4.65 10^6/uL (4.70-6.10); RED CELL DISTRIBUTION WIDTH 13.1 % (12.0-15.0); WHITE BLOOD COUNT 6.5 x10^3/uL (4.8-10.8)
[2020-10-04 15:48] LABS: MUDS CUTOFF CONCENTRATIONS CUTOFF CONC BELOW:
[2020-10-04 15:50] LABS: BILIRUBIN,URINE NEGATIVE (NEGATIVE); GLUCOSE, URINE (UA) NEGATIVE (NEGATIVE); KETONES,URINE (UA) NEGATIVE (NEGATIVE); LEUKOCYTE ESTERASE, URINE NEGATIVE (NEGATIVE); NITRITE,URINE NEGATIVE (NEGATIVE); OCCULT BLOOD,URINE NEGATIVE (NEGATIVE); PROTEIN,URINE NEGATIVE (NEGATIVE); UROBILINOGEN,URINE 1 (NORMAL) E.U./dL (NORMAL)
[2020-10-04 15:51] LABS: CLARITY,URINE CLEAR (CLEAR)
[2020-10-04 16:00] LABS: AMPHETAMINE SCREEN,URINE POSITIVE (NEGATIVE); BARBITURATE SCREEN,UR NEGATIVE (NEGATIVE); BENZODIAZEPINES SCREEN, URINE NEGATIVE (NEGATIVE); COCAINE SCREEN URINE NEGATIVE (NEGATIVE); METHADONE SCREEN, URINE NEGATIVE (NEGATIVE); METHAMPHETAMINES SCREEN, URINE POSITIVE (NEGATIVE); OPIATE SCREEN, URINE POSITIVE (NEGATIVE); OXYCODONE SCREEN, URINE NEGATIVE (NEGATIVE); PROPOXYPHENE SCREEN, URINE NEGATIVE (NEGATIVE); THC CANNABINOID SCREEN, URINE NEGATIVE (NEGATIVE); TRICYCLIC ANTIDEPRESSANT,URINE NEGATIVE (NEGATIVE)
[2020-10-04 16:06] LABS: ACETAMINOPHEN < 10 ug/mL (10-30); ALBUMIN/GLOBULIN RATIO 1.2 (1.0-2.2); ALKALINE PHOSPHATASE 60 IU/L (42-121); ALT ALANINE AMINOTRANSFERASE 24 IU/L (10-60); AST ASPARTATE AMINOTRANSFERASE 32 IU/L (10-42); BILIRUBIN,TOTAL 0.4 mg/dL (0.2-1.0); BUN - BLOOD UREA NITROGEN 24 mg/dL (6-20); CALCIUM 9.3 mg/dL (8.5-10.3); CARBON DIOXIDE - CO2 26 mmol/L (21-32); CHLORIDE 104 mmol/L (101-111); CK- CREATINE KINASE 392 IU/L (22-269); CREATININE 0.6 mg/dL (0.6-1.2); ETOH - ETHANOL < 5.0 mg/dL; GFR - MDRD 166 (>89); GLUCOSE 107 mg/dL (70-100); LIPASE 27 U/L (22-51); SALICYLATE < 6.0 mg/dL; SODIUM 142 mmol/L (135-145); TOTAL PROTEIN 7.4 g/dL (6.7-8.2)
[2020-10-04 16:57] LABS: CORONAVIRUS 229E-RESP PCR NOT DETECTED; CORONAVIRUS HKU1-RESP PCR NOT DETECTED; CORONAVIRUS NL63-RESP PCR NOT DETECTED; CORONAVIRUS OC43-RESP PCR NOT DETECTED; HUMAN METAPNEUMOVIRUS NOT DETECTED; INFLUENZA A- RESP PCR PANEL NOT DETECTED; INFLUENZA B - RESP PCR PANEL NOT DETECTED; PARAINFLUENZA VIRUS 1 NOT DETECTED; PARAINFLUENZA VIRUS 2 NOT DETECTED; PARAINFLUENZA VIRUS 3 NOT DETECTED; PARAINFLUENZA VIRUS 4 NOT DETECTED; RHINOVIRUS/ENTEROVIRUS NOT DETECTED; SARS-CoV-2 -RESP PCR PANEL NOT DETECTED
[2020-10-04 16:58] LABS: B. PARAPERTUSSIS- RESP PCR PAN NOT DETECTED; B. PERTUSSIS- RESP PCR PANEL NOT DETECTED; C. PNEUMONIAE- RESP PCR PANEL NOT DETECTED; M. PNEUMONIAE- RESP PCR PANEL NOT DETECTED; RSV- RESP PCR PANEL NOT DETECTED
[2020-10-04 17:39] VITALS: BP 137/71
--- OUTSIDE RECORDS SUMMARY | 2020-10-11 00:49 | EXTERNAL MEDICAL SUMMARY RPT | Continuity of Care Document ---
:1995 Demographics Phone Unavailable Preferred Language Unknown Marital Status Unknown Buddhism Affiliation Unknown Race Unknown Ethnic Group Unknown Author Organization [facility] Address [address] [place] [address] Phone Support Name Relationship Address Phone NOT Unavailable Unavailable Unavailable Problems date description facility 2020-07-22 08:24 OPIOID ABUSE, UNCOMPLICATED [facility] 2020-07-22 08:24 OTHER STIMULANT ABUSE WITH [facility] INTOXICATION DELIRIUM 2020-07-22 08:24 NICOTINE DEPENDENCE, UNSPECIFIED, [facility] UNCOMPLICATED 2020-07-22 08:24 [facility] D 2020-09-04 17:12 OTHER STIMULANT ABUSE, [facility] UNCOMPLICATED 2020-09-04 17:12 NICOTINE DEPENDENCE, UNSPECIFIED, [facility] UNCOMPLICATED 2020-09-04 17:12 MAJOR DEPRESSIVE DISORDER, [facility] RECURRENT, MODERATE 2020-09-04 17:12 PAIN IN LEFT THIGH [facility] 2020-09-04 17:12 SUICIDAL IDEATIONS [facility] 2020-09-04 17:12 [facility] COMM[facility] D 2020-09-10 12:41 OPIOID ABUSE, [facility] 2020-09-10 12:41 OTHER STIMULANT ABUSE, [facility] UNCOMPLICATED 2020-09-10 12:41 NICOTINE DEPENDENCE, UNSPECIFIED, [facility] UNCOMPLICATED 2020-10-04 14:51 OPIOID ABUSE, UNCOMPLICATED [facility] 2020-10-04 14:51 OTHER STIMULANT ABUSE, [facility] UNCOMPLICATED 2020-10-04 14:51 NICOTINE DEPENDENCE, UNSPECIFIED, [facility] UNCOMPLICATED 2020-10-04 14:51 CONTACT WITH AND (SUSPECTED) [facility] EXPOSURE TO COVID-19 2020-10-04 14:51 HOMELESSNESS [facility] Allergies date description facility No known allergies [facility] AZITHROMYCIN [facility] BENZONATATE [facility] CARBAMAZEPINE [facility] CIPROFLOXACIN [facility] CLONAZEPAM [facility] CODEINE SULFATE [facility] DOXYCYCLINE HYCLATE [facility] HYDROCODONE [facility] LAMOTRIGINE [facility] OXYCODONE [facility] LEVOFLOXACIN [facility] TESSALON PERLES [facility] NO KNOWN ENVIRONMENTAL ALLERGIES [facility] PENICILLINS [facility] SULFA (SULFONAMIDE ANTIBIOTICS) [facility] INFLUENZA VIRUS VACCINES [facility] IODINATED CONTRAST MEDIA [facility] NO KNOWN ALLERGIES [facility] LATEX [facility] LIDOCAINE [facility] HEPARIN [facility] MORPHINE [facility] CODEINE [facility] ACETAMINOPHEN [facility] DYE [facility] IBUPROFEN [facility] TETRACYCLINE [facility] AZATHIOPRINE [facility] ADENOSINE [facility] AMOXICILLIN [facility] DICLOFENAC [facility] PROCAINE [facility] ROFECOXIB [facility] AMOXICILLIN-POT CLAVULANATE [facility] SULFAMETHOXAZOLE-TRIMETHOPRIM [facility] HEPARIN (BOVINE) [facility] No Known Drug Allergies [facility] Results Social History date description facility [id number]
== END 2020-10-04 17:42 | disposition home or self-care (01) ==
LOC: ED 14:51
DX: F11.10 Opioid abuse, uncomplicated (principal); F15.10 Other stimulant abuse, uncomplicated; F17.200 Nicotine dependence, unspecified, uncomplicated; Z59.0 Homelessness; Z20.822 Contact with and (suspected) exposure to COVID-19
CPT/HCPCS: 0202U; 80053; 80306; 80307; 80320; 80329; 81003; 82550; 83690; 84443; 85025; 99283; 81001; 87086

== ENCOUNTER 2020-10-27 22:24 | Outpatient (CLI) | payer MEDICAID | END 2020-10-27 22:25 | disposition critical access hospital (66) | LOC: EMS 22:24 | PROVIDERS: ATTEND Surgery | DX: G25.3 Myoclonus (principal) | CPT/HCPCS: A0425; A0429; A0999 ==

== ENCOUNTER 2020-10-27 22:40 | Emergency (ER) | payer MEDICAID ==
--- NOTE | 2020-10-27 22:44 | ED Physician Documentation ---
PD HPI MHE - Stated complaint Stated Complaint: MHE - History obtained from History obtained from: Patient, EMS, Police - History of Present Illness Primary symptom: Aggressive behavior Timing - onset: Unknown Similar symptoms before: Other (27 previous [facility] ED visits, most of which are drug-related problems) Recently seen: Emergency Dept (T+R 10/04/20) - Additional information Additional information: BIBA. Per medics, two different people called 911 from the drive-thru at [facility] because patient was reportedly rolling around in the road in front of their cars, somersaulting. When police arrived, they reportedly found patient was face-down on pavement but breathing and following commands. His affect and movements were odd for medics en route c/w methamphetamine use. Patient admits to recently using both heroin and methamphetamines, and he has a long h/o [facility] ED visits for signs/symptoms related to these two drugs. He says he injects these drugs intravenously Review of Systems Constitutional: denies: Fever, Chills, Sweats Cardiac: reports: Reviewed and negative Respiratory: reports: Reviewed and negative GI: reports: Reviewed and negative : denies: Incontinent Musculoskeletal: reports: Reviewed and negative PD PAST MEDICAL HISTORY - Past Medical History Cardiovascular: None Respiratory: None Neuro: None Endocrine/Autoimmune: None GI: GERD : None HEENT: None Psych: Depression, Anxiety, ADD/ADHD, Post traumatic stress disorder, Other Musculoskeletal: Osteoarthritis Derm: Herpes zoster - Past Surgical History Past Surgical History: Yes HEENT: Tonsil/Adenoidectomy - Present Medications Home Medications: Ambulatory Orders Medication Instructions Recorded Confirmed hydrOXYzine pamoate [Hydroxyzine 25 mg PO Q6HR PRN #10 capsule 10/28/20 Pamoate] - Allergies Allergies/Adverse Reactions: Allergies Allergy/AdvReac Type Severity Reaction Status Date / Time No Known Drug Allergies Allergy Verified 10/04/20 15:20 - Social History Does the pt smoke?: Yes Smoking Status: Current every day smoker Does the pt drink ETOH?: Yes Does the pt have substance abuse?: Yes - Immunizations Immunizations are current?: Yes - POLST Patient has POLST: No POLST Status: Full Code PD ED PE NORMAL - Vitals Vital signs reviewed: Yes - General General: Alert and oriented X 3, Well developed/nourished, Other (hyperkinetic, makes odd noises at times but he answers questions correctly and follows commands. he is cooperative and polite) - HEENT HEENT: Atraumatic, PERRL, EOMI, Moist mucous membranes - Cardiac Cardiac: No murmur - Respiratory Respiratory: No respiratory distress, Clear bilaterally - Abdomen Abdomen: Soft, Non tender - Derm Derm: Normal color, Warm and dry, Other (old linear scars left FA) - Extremities Extremities: Normal ROM s pain, No edema - Neuro Eye Opening: Spontaneous Motor: Obeys Commands Verbal: Oriented GCS Score: 15 PD ED PE EXPANDED - Cardiac Cardiac: Tachy, Regular Rhythm - Psych Psych: Anxious, Other (hyperkinetic, does not stay still) Results - Vitals Vitals: Vital Signs - 24 hr 10/27/20 10/28/20 10/28/20 22:46 03:10 11:04 Temperature 36.6 C 36.4 C L Heart Rate 129 H 111 H 62 Respiratory 18 18 16 Rate Blood Pressure 128/72 132/62 H 146/97 H O2 Saturation 95 100 100 10/28/20 18:19 Temperature 37.4 C Heart Rate 101 H Respiratory 16 Rate Blood Pressure 120/79 O2 Saturation 99 Oxygen O2 Source Room air - Labs Labs: Laboratory Tests 10/27/20 10/27/20 10/27/20 23:10 23:10 23:10 WBC 16.6 H RBC 4.52 L Hgb 13.2 L Hct 40.5 L MCV 89.6 MCH 29.2 MCHC 32.6 RDW 12.5 Plt Count 324 MPV 9.3 Neut # (Auto) 12.0 H Lymph # (Auto) 3.1 [place] # (Auto) 1.2 H Eos # (Auto) 0.1 Baso # (Auto) 0.1 Absolute Nucleated RBC 0.00 Nucleated RBC % 0.0 Sodium 143 Potassium 4.2 Chloride 106 Carbon Dioxide 26 Anion Gap 11.0 BUN 22 H Creatinine 0.8 Estimated GFR (MDRD) 119 Glucose 100 Calcium 9.3 Total Bilirubin 0.3 AST 26 ALT 22 Alkaline Phosphatase 61 Total Creatine Kinase 389 H CK-MB (CK-2) 17.0 H Total Protein 7.7 Albumin 4.3 Globulin 3.4 Albumin/Globulin Ratio 1.3 Lipase 20 L TSH Urine Color Urine Clarity Urine pH Ur Specific [place] Urine Protein Urine Glucose (UA) Urine Ketones Urine Occult Blood Urine Nitrite Urine Bilirubin Urine Urobilinogen Ur Leukocyte Esterase Urine RBC Urine WBC Ur Squamous Epith Cells Urine Bacteria Urine Mucus Ur Microscopic Review Urine Culture Comments Salicylates < 6.0 Urine Opiates Screen Ur Oxycodone Screen Urine Methadone Screen Ur Propoxyphene Screen Acetaminophen < 10 L Ur Barbiturates Screen Ur Tricyclics Screen Ur Phencyclidine Scrn Ur Amphetamine Screen U Methamphetamines Scrn U Benzodiazepines Scrn Urine Cocaine Screen U Cannabinoids Screen Ethyl Alcohol < 5.0 10/27/20 10/28/20 23:10 14:11 WBC RBC Hgb Hct MCV MCH MCHC RDW Plt Count MPV Neut # (Auto) Lymph # (Auto) [place] # (Auto) Eos # (Auto) Baso # (Auto) Absolute Nucleated RBC Nucleated RBC % Sodium Potassium Chloride Carbon Dioxide Anion Gap BUN Creatinine Estimated GFR (MDRD) Glucose Calcium Total Bilirubin AST ALT Alkaline Phosphatase Total Creatine Kinase CK-MB (CK-2) Total Protein Albumin Globulin Albumin/Globulin Ratio Lipase TSH 3.35 Urine Color YELLOW Urine Clarity HAZY Urine pH 6.0 Ur Specific [place] >=1.030 H Urine Protein NEGATIVE Urine Glucose (UA) NEGATIVE Urine Ketones NEGATIVE Urine Occult Blood NEGATIVE Urine Nitrite NEGATIVE Urine Bilirubin NEGATIVE Urine Urobilinogen 0.2 (NORMAL) Ur Leukocyte Esterase TRACE H Urine RBC 0-5 Urine WBC 11-25 H Ur Squamous Epith Cells MANY Squamous H Urine Bacteria Many H Urine Mucus Marked Strands Ur Microscopic Review INDICATED Urine Culture Comments NOT INDICATED Salicylates Urine Opiates Screen POSITIVE H Ur Oxycodone Screen NEGATIVE Urine Methadone Screen NEGATIVE Ur Propoxyphene Screen NEGATIVE Acetaminophen Ur Barbiturates Screen NEGATIVE Ur Tricyclics Screen NEGATIVE Ur Phencyclidine Scrn NEGATIVE Ur Amphetamine Screen POSITIVE H U Methamphetamines Scrn POSITIVE H U Benzodiazepines Scrn POSITIVE H Urine Cocaine Screen NEGATIVE U Cannabinoids Screen NEGATIVE Ethyl Alcohol PD MEDICAL DECISION MAKING - ED course Complexity details: reviewed old records, reviewed results, re-evaluated patient, considered differential, d/w patient ED course: patient slept for a few hours after IV lorazepam 2mg but then woke up and rapidly again became hyperkinetic, twitching and writhing on stretcher; these movements caused his IV to become dislodged (did not appear to be intentional; despite his writhing movements, he remains polite and is trying to cooperate with ED staff). He was given IM zyprexa 10mg and fell asleep for another 1-2 hours. Note that these medications were not given as a means of chemical restraint; patient expressed to me understanding of why these medications were being given and thanked me for ordering them. These medications were not given to prevent patient from any action he wished to undertake (ie-he was not trying to get up and leave or assault staff nor was he expressing desire to do so); the medications were given to help his withdrawal symptoms and thus to make him comfortable, as well as to minimize his hyperkinetic activity which, in the past, has led to rhabdomyolisis. Care of patient turned over to Dr. Wild pending disposition at end of my shift Departure - Departure Disposition: Home, Self Care Clinical Impression: Methamphetamine abuse, Polysubstance abuse Condition: Good Instructions: ED Drug Abuse General, ED Narcotic Abuse Follow-Up: [facility] [Provider Group] Prescriptions: hydrOXYzine pamoate [Hydroxyzine Pamoate] 25 mg PO Q6HR PRN #10 capsule PRN Reason: Anxiety Comments: You have been seen in the emergency department for polysubstance abuse. Follow- up on the resources that our director social welfare discussed with you. Return to the emergency department if if you have thoughts of self-harm, hurting anyone else, or if you are seeing things/hearing things that you think are not real. Avoid use of methamphetamine or heroin. If you were going to use then make sure that there are other people around to call for help if needed. Return to the emergency room for any new or worsening symptoms. Follow-up detox Discharge Date/Time: 10/28/20 18:41
[2020-10-27] MEDS ORDERED: SODIUM CHLORIDE 0.9% 1,000 ML IV STA (22:53)
[2020-10-27] MEDS ORDERED: LORazepam 2 MG/ML VIAL IVP STA (22:53)
[2020-10-27 23:19] LABS: BASOPHILS # (AUTO) 0.1 10^3/uL (0.0-0.1); BASOPHILS % (AUTO) 0.4 %; EOSINOPHILS # (AUTO) 0.1 10^3/uL (0.0-0.7); EOSINOPHILS % (AUTO) 0.7 %; HGB - HEMOGLOBIN 13.2 g/dL (14.0-18.0); LYMPHOCYTES # (AUTO) 3.1 10^3/uL (1.5-3.5); LYMPHOCYTES % (AUTO) 18.9 %; MEAN CORPUSCULAR HEMOGLOBIN 29.2 pg (27.0-31.0); MEAN CORPUSCULAR HGB CONC 32.6 g/dL (32.0-36.0); MEAN CORPUSCULAR VOLUME 89.6 fL (80.0-94.0); MEAN PLATELET VOLUME 9.3 fL (7.4-11.4); MONOCYTES # (AUTO) 1.2 10^3/uL (0.0-1.0); MONOCYTES % (AUTO) 7.5 %; NEUTROPHILS % (AUTO) 72.1 %; PLT - PLATELET COUNT 324 10^3/uL (130-450); RED BLOOD COUNT 4.52 10^6/uL (4.70-6.10); RED CELL DISTRIBUTION WIDTH 12.5 % (12.0-15.0); WHITE BLOOD COUNT 16.6 x10^3/uL (4.8-10.8)
[2020-10-27 23:47] LABS: ACETAMINOPHEN < 10 ug/mL (10-30); ALBUMIN 4.3 g/dL (3.2-5.5); ALBUMIN/GLOBULIN RATIO 1.3 (1.0-2.2); ALKALINE PHOSPHATASE 61 IU/L (42-121); ALT ALANINE AMINOTRANSFERASE 22 IU/L (10-60); AST ASPARTATE AMINOTRANSFERASE 26 IU/L (10-42); BILIRUBIN,TOTAL 0.3 mg/dL (0.2-1.0); BUN - BLOOD UREA NITROGEN 22 mg/dL (6-20); CALCIUM 9.3 mg/dL (8.5-10.3); CARBON DIOXIDE - CO2 26 mmol/L (21-32); CHLORIDE 106 mmol/L (101-111); CK- CREATINE KINASE 389 IU/L (22-269); CREATININE 0.8 mg/dL (0.6-1.2); GLUCOSE 100 mg/dL (70-100); LIPASE 20 U/L (22-51); SALICYLATE < 6.0 mg/dL; TOTAL PROTEIN 7.7 g/dL (6.7-8.2)
[2020-10-28] MEDS ORDERED: SODIUM CHLORIDE 0.9% 1,000 ML IV STA (01:09)
[2020-10-28] MEDS ORDERED: LORazepam 2 MG/ML VIAL IVP STA ×2 (02:19→02:28)
[2020-10-28] MEDS ORDERED: OLANZapine 10 MG VIAL IM STA (02:39)
[2020-10-28 14:16] LABS: MUDS CUTOFF CONCENTRATIONS CUTOFF CONC BELOW:
[2020-10-28 14:19] LABS: BILIRUBIN,URINE NEGATIVE (NEGATIVE); GLUCOSE, URINE (UA) NEGATIVE (NEGATIVE); KETONES,URINE (UA) NEGATIVE (NEGATIVE); LEUKOCYTE ESTERASE, URINE TRACE (NEGATIVE); NITRITE,URINE NEGATIVE (NEGATIVE); OCCULT BLOOD,URINE NEGATIVE (NEGATIVE); PROTEIN,URINE NEGATIVE (NEGATIVE); UROBILINOGEN,URINE 0.2 (NORMAL) E.U./dL (NORMAL)
[2020-10-28 14:22] LABS: CLARITY,URINE HAZY (CLEAR)
[2020-10-28 14:30] LABS: AMPHETAMINE SCREEN,URINE POSITIVE (NEGATIVE); BACTERIA,URINE Many /HPF (None Seen); BENZODIAZEPINES SCREEN, URINE POSITIVE (NEGATIVE); COCAINE SCREEN URINE NEGATIVE (NEGATIVE); METHADONE SCREEN, URINE NEGATIVE (NEGATIVE); MUCUS,URINE Marked Strands; OPIATE SCREEN, URINE POSITIVE (NEGATIVE); OXYCODONE SCREEN, URINE NEGATIVE (NEGATIVE); PROPOXYPHENE SCREEN, URINE NEGATIVE (NEGATIVE); RBC,URINE 0-5 /HPF (0-5); SQUAMOUS EPITHELIAL CELL,UR MANY Squamous (<= Few); TRICYCLIC ANTIDEPRESSANT,URINE NEGATIVE (NEGATIVE)
[2020-10-28 14:31] LABS: METHAMPHETAMINES SCREEN, URINE POSITIVE (NEGATIVE)
--- NOTE | 2020-10-28 18:17 | ED Physician Documentation ---
ED Addendum - Addendum Addendum: 10/28/20 18:16 Patient awake and alert oriented x3, [facility] Social work had extensive discussions with him and he is aware of resources. No SI HI AVH at this time. Return precautions given. Follow-up detox.
[2020-10-28 18:21] VITALS: BP 120/79
== END 2020-10-28 18:41 | disposition home or self-care (01) ==
LOC: EDUNIT# → ED 22:40
DX: F15.10 Other stimulant abuse, uncomplicated (principal); R25.3 Fasciculation; F11.10 Opioid abuse, uncomplicated; F17.200 Nicotine dependence, unspecified, uncomplicated
CPT/HCPCS: 36415; 80053; 80306; 80307; 80320; 80329; 81001; 82550; 82553; 83690; 84443; 85025; 96361; 96372; 96374; 96376; 99284; J2060; 81003; 87086

== ENCOUNTER 2020-11-09 03:14 | Outpatient (CLI) | payer MEDICAID | END 2020-11-09 03:15 | disposition critical access hospital (66) | LOC: EMS 03:14 | PROVIDERS: ATTEND Emergency Medicine | DX: R46.89 Other symptoms and signs involving appearance and behavior (principal) | CPT/HCPCS: A0425; A0429; A0999 ==

== ENCOUNTER 2020-11-09 03:28 | Emergency (ER) | payer MEDICAID ==
[2020-11-09] MEDS ORDERED: SODIUM CHLORIDE 0.9% 1,000 ML IV STA (03:35)
[2020-11-09] MEDS ORDERED: OLANZapine 10 MG VIAL IM STA (03:36)
--- NOTE | 2020-11-09 03:44 | ED Physician Documentation ---
PD HPI ALTERED MENTAL STATUS - Stated complaint Stated Complaint: METH AND HEROIN - History obtained from History obtained from: Patient, EMS - History of Present Illness Timing - onset: Today Timing - duration: Hours Timing - details: Gradual onset, Still present, Waxing and waning Quality / character: Disoriented, Agitated, Hallucinating Associated symptoms: Other (akisthesia) Contributing factors: Intoxicated, Substance abuse, Known psych illness. No: Anticoagulated, Diabetic Basline status: Alert and oriented X 3, Ambulatory, Independent Similar symptoms before: Diagnosis (methamphetamine and heroin abuse) Recently seen: Emergency Dept - Additional information Additional information: 25-year-old male with a history of heroin and methamphetamine abuse coupled with rhabdomyolysis related to his methamphetamine use is currently homeless and this is the 28th visit to the emergency department for drug-related issues. He was recently scheduled to be sent to a treatment center and this failed with transportation. This morning he was at the door of someone he did not know and they called 911 as he was outside in the snow rolling around. He is hyperkinetic and he has been detained by police but was voluntary for the medics. Review of Systems Unable to obtain: Intoxicated PD PAST MEDICAL HISTORY - Past Medical History Cardiovascular: None Respiratory: None Neuro: None Endocrine/Autoimmune: None GI: GERD : None HEENT: None Psych: Depression, Anxiety, ADD/ADHD, Post traumatic stress disorder, Other Musculoskeletal: Osteoarthritis Derm: Herpes zoster - Past Surgical History Past Surgical History: Yes HEENT: Tonsil/Adenoidectomy - Present Medications Home Medications: Ambulatory Orders Medication Instructions Recorded Confirmed hydrOXYzine pamoate [Hydroxyzine 25 mg PO Q6HR PRN #10 capsule 10/28/20 Pamoate] - Allergies Allergies/Adverse Reactions: Allergies Allergy/AdvReac Type Severity Reaction Status Date / Time No Known Drug Allergies Allergy Verified 11/09/20 03:34 - Social History Does the pt smoke?: Yes Smoking Status: Current every day smoker Does the pt drink ETOH?: Yes Does the pt have substance abuse?: Yes - Immunizations Immunizations are current?: Yes - POLST Patient has POLST: No POLST Status: Full Code PD ED PE NORMAL - Vitals Vital signs reviewed: Yes - General General: Well developed/nourished, Other (hyperkinetic male unable to focus moving all ext undulating his body. Able to follow commands and answer questions with 1-2 words. ) - HEENT HEENT: Atraumatic, PERRL, EOMI - Neck Neck: Supple, no meningeal sign, No bony TTP - Cardiac Cardiac: RRR, No murmur - Respiratory Respiratory: No respiratory distress, Clear bilaterally - Abdomen Abdomen: Normal bowel sounds, Soft, Non tender, Non distended, No organomegaly - Back Back: No CVA TTP, No spinal TTP - Derm Derm: Normal color, Warm and dry, No rash - Extremities Extremities: No deformity, No edema - Neuro Neuro: No motor deficit, No sensory deficit Eye Opening: To Voice Motor: Obeys Commands Verbal: Confused GCS Score: 13 - Psych Psych: Other (mood is withdrawn and affect is blunted not making good eye contact. ) Results - Vitals Vitals: Vital Signs - 24 hr 11/09/20 11/09/20 11/09/20 03:39 04:41 05:15 Temperature 36.6 C 36.6 C 36.6 C Heart Rate 103 H 97 90 Respiratory 16 15 15 Rate Blood Pressure 136/79 H 109/53 L 136/65 H O2 Saturation 96 96 98 11/09/20 11/09/20 11/09/20 05:30 06:00 06:30 Temperature 36.6 C 36.6 C 36.6 C Heart Rate 86 61 88 Respiratory 15 15 15 Rate Blood Pressure 135/62 H 132/79 H 120/73 O2 Saturation 98 100 98 11/09/20 07:00 Temperature 36.6 C Heart Rate 81 Respiratory 15 Rate Blood Pressure 134/76 H O2 Saturation 99 Oxygen O2 Source Room air - Labs Labs: Laboratory Tests 11/09/20 11/09/20 11/09/20 05:43 05:43 05:43 WBC 10.9 H RBC 4.49 L Hgb 13.3 L Hct 40.4 L MCV 90.0 MCH 29.6 MCHC 32.9 RDW 12.6 Plt Count 289 MPV 9.3 Neut # (Auto) 6.4 Lymph # (Auto) 3.3 [place] # (Auto) 1.0 Eos # (Auto) 0.1 Baso # (Auto) 0.1 Absolute Nucleated RBC 0.00 Nucleated RBC % 0.0 Sodium 137 Potassium 4.3 Chloride 105 Carbon Dioxide 23 Anion Gap 9.0 BUN 32 H Creatinine 0.7 Estimated GFR (MDRD) 139 Glucose 116 H Calcium 8.5 Total Bilirubin 0.5 AST 28 ALT 23 Alkaline Phosphatase 60 Total Creatine Kinase CK-MB (CK-2) Total Protein 7.5 Albumin 4.1 Globulin 3.4 Albumin/Globulin Ratio 1.2 Lipase 23 TSH 3.31 Urine Color Urine Clarity Urine pH Ur Specific [place] Urine Protein Urine Glucose (UA) Urine Ketones Urine Occult Blood Urine Nitrite Urine Bilirubin Urine Urobilinogen Ur Leukocyte Esterase Ur Microscopic Review Urine Culture Comments Salicylates < 6.0 Urine Opiates Screen Ur Oxycodone Screen Urine Methadone Screen Ur Propoxyphene Screen Acetaminophen < 10 L Ur Barbiturates Screen Ur Tricyclics Screen Ur Phencyclidine Scrn Ur Amphetamine Screen U Methamphetamines Scrn U Benzodiazepines Scrn Urine Cocaine Screen U Cannabinoids Screen Ethyl Alcohol < 5.0 11/09/20 11/09/20 11/09/20 05:43 05:43 06:05 WBC RBC Hgb Hct MCV MCH MCHC RDW Plt Count MPV Neut # (Auto) Lymph # (Auto) [place] # (Auto) Eos # (Auto) Baso # (Auto) Absolute Nucleated RBC Nucleated RBC % Sodium Potassium Chloride Carbon Dioxide Anion Gap BUN Creatinine Estimated GFR (MDRD) Glucose Calcium Total Bilirubin AST ALT Alkaline Phosphatase Total Creatine Kinase 468 H CK-MB (CK-2) 15.4 H Total Protein Albumin Globulin Albumin/Globulin Ratio Lipase TSH Urine Color YELLOW Urine Clarity CLEAR Urine pH 6.0 Ur Specific [place] >=1.030 H Urine Protein NEGATIVE Urine Glucose (UA) NEGATIVE Urine Ketones NEGATIVE Urine Occult Blood NEGATIVE Urine Nitrite NEGATIVE Urine Bilirubin NEGATIVE Urine Urobilinogen 0.2 (NORMAL) Ur Leukocyte Esterase NEGATIVE Ur Microscopic Review NOT INDICATED Urine Culture Comments NOT INDICATED Salicylates Urine Opiates Screen POSITIVE H Ur Oxycodone Screen NEGATIVE Urine Methadone Screen NEGATIVE Ur Propoxyphene Screen NEGATIVE Acetaminophen Ur Barbiturates Screen NEGATIVE Ur Tricyclics Screen NEGATIVE Ur Phencyclidine Scrn NEGATIVE Ur Amphetamine Screen POSITIVE H U Methamphetamines Scrn POSITIVE H U Benzodiazepines Scrn NEGATIVE Urine Cocaine Screen NEGATIVE U Cannabinoids Screen NEGATIVE Ethyl Alcohol PD MEDICAL DECISION MAKING - ED course Complexity details: reviewed old records, reviewed results, re-evaluated patient, considered differential, d/w patient ED course: 25-year-old male with a history of heroin and methamphetamine abuse has been scheduled to go to a treatment facility and had some trouble with transportation he is currently homeless and he is using. He is found with hyperkinesis related to methamphetamine and heroin abuse and here in the emergency department he is administered 10 mg of Zyprexa IM not as a chemical restraint but to treat his symptoms of akathisia. The patient is voluntary to our department. He is cooperative. I believe the patient would qualify under [place] law as he has had 6 admissions for rhabdomyolysis and encephalopathy related to drug abuse. He is a danger to himself, he is unreliable, homeless and has "burned is bridges" with his family and friends. The Zyprexa worked well to treat the patient's akathisia but he was not able to cooperate with our nurses to allow an IV begun and blood work to be obtained. The patient has a history of rhabdo and will likely require significant IV fluids and this step cannot be avoided. For this reason the patient was administered IM ketamine 200 mg. The patient continues to have some hyperkinetic movement when stimulated but falls asleep and stops moving fairly easily. Today he does not have much in the way of rhabdomyolysis. At shift change care is turned over to Dr. Gaspar with pending social work consult.
[2020-11-09] MEDS ORDERED: KETAMINE 500 MG/10 ML VIAL IM STA (05:15)
[2020-11-09 05:53] LABS: BASOPHILS # (AUTO) 0.1 10^3/uL (0.0-0.1); BASOPHILS % (AUTO) 0.6 %; EOSINOPHILS # (AUTO) 0.1 10^3/uL (0.0-0.7); EOSINOPHILS % (AUTO) 1.1 %; HGB - HEMOGLOBIN 13.3 g/dL (14.0-18.0); LYMPHOCYTES # (AUTO) 3.3 10^3/uL (1.5-3.5); LYMPHOCYTES % (AUTO) 30.3 %; MEAN CORPUSCULAR HEMOGLOBIN 29.6 pg (27.0-31.0); MEAN CORPUSCULAR HGB CONC 32.9 g/dL (32.0-36.0); MEAN PLATELET VOLUME 9.3 fL (7.4-11.4); MONOCYTES % (AUTO) 9.3 %; NEUTROPHILS # (AUTO) 6.4 10^3/uL (1.5-6.6); NEUTROPHILS % (AUTO) 58.4 %; PLT - PLATELET COUNT 289 10^3/uL (130-450); RED BLOOD COUNT 4.49 10^6/uL (4.70-6.10); RED CELL DISTRIBUTION WIDTH 12.6 % (12.0-15.0); WHITE BLOOD COUNT 10.9 x10^3/uL (4.8-10.8)
[2020-11-09 06:04] LABS: ACETAMINOPHEN < 10 ug/mL (10-30); ALBUMIN 4.1 g/dL (3.2-5.5); ALBUMIN/GLOBULIN RATIO 1.2 (1.0-2.2); ALKALINE PHOSPHATASE 60 IU/L (42-121); ALT ALANINE AMINOTRANSFERASE 23 IU/L (10-60); AST ASPARTATE AMINOTRANSFERASE 28 IU/L (10-42); BILIRUBIN,TOTAL 0.5 mg/dL (0.2-1.0); BUN - BLOOD UREA NITROGEN 32 mg/dL (6-20); CALCIUM 8.5 mg/dL (8.5-10.3); CARBON DIOXIDE - CO2 23 mmol/L (21-32); CHLORIDE 105 mmol/L (101-111); CREATININE 0.7 mg/dL (0.6-1.2); GLUCOSE 116 mg/dL (70-100); LIPASE 23 U/L (22-51); SALICYLATE < 6.0 mg/dL; TOTAL PROTEIN 7.5 g/dL (6.7-8.2)
[2020-11-09 06:07] LABS: MUDS CUTOFF CONCENTRATIONS CUTOFF CONC BELOW:
[2020-11-09 06:09] LABS: BILIRUBIN,URINE NEGATIVE (NEGATIVE); GLUCOSE, URINE (UA) NEGATIVE (NEGATIVE); KETONES,URINE (UA) NEGATIVE (NEGATIVE); LEUKOCYTE ESTERASE, URINE NEGATIVE (NEGATIVE); NITRITE,URINE NEGATIVE (NEGATIVE); OCCULT BLOOD,URINE NEGATIVE (NEGATIVE); PROTEIN,URINE NEGATIVE (NEGATIVE); UROBILINOGEN,URINE 0.2 (NORMAL) E.U./dL (NORMAL)
[2020-11-09 06:11] LABS: CLARITY,URINE CLEAR (CLEAR)
[2020-11-09 06:20] LABS: COCAINE SCREEN URINE NEGATIVE (NEGATIVE); METHAMPHETAMINES SCREEN, URINE POSITIVE (NEGATIVE); OPIATE SCREEN, URINE POSITIVE (NEGATIVE)
[2020-11-09 06:21] LABS: AMPHETAMINE SCREEN,URINE POSITIVE (NEGATIVE); BENZODIAZEPINES SCREEN, URINE NEGATIVE (NEGATIVE); METHADONE SCREEN, URINE NEGATIVE (NEGATIVE); OXYCODONE SCREEN, URINE NEGATIVE (NEGATIVE); PROPOXYPHENE SCREEN, URINE NEGATIVE (NEGATIVE); TRICYCLIC ANTIDEPRESSANT,URINE NEGATIVE (NEGATIVE)
--- NOTE | 2020-11-09 07:30 | ED Physician Documentation ---
ED Addendum - Addendum Addendum: 11/09/20 07:29 Patient endorsed to me by Dr. Wilson awaiting social work evaluation. Resting comfortably in NAD. 11/09/20 17:29 Discussed with DCR Denisepatient does not meet criteria for inpatient admission at this time. [facility] and is able to go to his parents house as needed. Addiction resources provided and extensive counseling provided. Strict return precautions given. Patient denies SI/HI/AVH at this time. 11/09/20 17:30 Diagnosis 1. Methamphetamine abuse. 2. Heroin abuse.
[2020-11-09 10:50] LABS: C. PNEUMONIAE- RESP PCR PANEL NOT DETECTED
[2020-11-09 17:50] VITALS: BP 142/90
== END 2020-11-09 18:49 | disposition home or self-care (01) ==
LOC: ED 03:28
DX: F15.129 Other stimulant abuse with intoxication, unspecified (principal); F11.129 Opioid abuse with intoxication, unspecified; G25.71 Drug induced akathisia; F90.9 Attention-deficit hyperactivity disorder, unspecified type; M62.82 Rhabdomyolysis; F17.200 Nicotine dependence, unspecified, uncomplicated; Z59.0 Homelessness; Z20.822 Contact with and (suspected) exposure to COVID-19
CPT/HCPCS: 0202U; 36415; 80053; 80306; 80307; 80320; 80329; 81003; 82550; 82553; 83690; 84443; 85025; 93005; 96360; 96372; 99281; 99285; 81001; 87086

== ENCOUNTER 2020-11-22 09:49 | Outpatient (CLI) | payer MEDICAID | END 2020-11-22 09:50 | disposition critical access hospital (66) | LOC: EMS 09:49 | PROVIDERS: ATTEND Emergency Medicine | DX: R25.3 Fasciculation (principal) | CPT/HCPCS: A0425; A0429; A0999 ==

== ENCOUNTER 2020-11-22 10:09 | Emergency (ER) | payer MEDICAID ==
--- NOTE | 2020-11-22 10:12 | ED Physician Documentation ---
History of Present Illness - Stated complaint Stated Complaint: ALOC - History obtained from History obtained from: Patient, EMS - Additonal information Additional information: 25-year-old gentleman well-known to this emergency department with drug use problems. He uses intravenous heroin and methamphetamines. He has been on a durant recently and was acting strange and brought in by ambulance. Immediately on arrival he requests to leave AMA and does not want any evaluation. Review of Systems Cardiac: denies: Chest pain / pressure, Palpitations Respiratory: denies: Dyspnea, Cough PD PAST MEDICAL HISTORY - Past Medical History Cardiovascular: None Respiratory: None Neuro: None Endocrine/Autoimmune: None GI: GERD : None HEENT: None Psych: Depression, Anxiety, ADD/ADHD, Post traumatic stress disorder, Other Musculoskeletal: Osteoarthritis Derm: Herpes zoster - Past Surgical History Past Surgical History: Yes HEENT: Tonsil/Adenoidectomy - Present Medications Home Medications: Ambulatory Orders Medication Instructions Recorded Confirmed hydrOXYzine pamoate [Hydroxyzine 25 mg PO Q6HR PRN #10 capsule 10/28/20 Pamoate] - Allergies Allergies/Adverse Reactions: Allergies Allergy/AdvReac Type Severity Reaction Status Date / Time No Known Drug Allergies Allergy Verified 11/09/20 03:34 - Social History Does the pt smoke?: Yes Smoking Status: Current every day smoker Does the pt drink ETOH?: Yes Does the pt have substance abuse?: Yes - Immunizations Immunizations are current?: Yes - POLST Patient has POLST: No POLST Status: Full Code PD ED PE NORMAL - Vitals Vital signs reviewed: Yes - General General: Alert and oriented X 3 (He is alert and oriented choreic movements consistent with methamphetamines) - HEENT HEENT: PERRL, EOMI - Neuro Neuro: Alert and oriented X 3, Normal speech Results - Vitals Vitals: Oxygen O2 Source Room air PD MEDICAL DECISION MAKING - ED course ED course: 25-year-old gentleman is apparently high on methamphetamines. He was offered IV fluids, labs, social work evaluation. He declines and is leaving AMA. Departure - Departure Disposition: 07 Against Medical Advice Clinical Impression: Methamphetamine abuse Condition: Stable Discharge Date/Time: 11/22/20 10:13
== END 2020-11-22 10:13 | disposition left against medical advice (07) ==
LOC: EDUNIT# → ED 10:09
DX: F15.129 Other stimulant abuse with intoxication, unspecified (principal); F17.200 Nicotine dependence, unspecified, uncomplicated; Z53.29 Procedure and treatment not carried out because of patient's decision for other reasons
CPT/HCPCS: 99283

== ENCOUNTER 2020-11-29 21:51 | Outpatient (CLI) | payer MEDICAID | END 2020-11-29 21:52 | disposition critical access hospital (66) | LOC: EMS 21:51 | PROVIDERS: ATTEND Emergency Medicine | DX: R10.10 Upper abdominal pain, unspecified (principal); R11.0 Nausea | CPT/HCPCS: A0425; A0429 ==

== ENCOUNTER 2020-11-29 22:10 | Emergency (ER) | payer MEDICAID ==
[2020-11-29] MEDS ORDERED: HALOPERIDOL 5 MG/ML VIAL IM STA (22:29)
[2020-11-29] MEDS ORDERED: FAMOTIDINE 20 MG/2 ML VIAL IVP STA (22:30)
[2020-11-29] MEDS ORDERED: ONDANSETRON 4 MG/2 ML VIAL IVP STA (22:30)
[2020-11-29 22:31] LABS: BILIRUBIN,URINE NEGATIVE (NEGATIVE); GLUCOSE, URINE (UA) NEGATIVE (NEGATIVE); KETONES,URINE (UA) NEGATIVE (NEGATIVE); LEUKOCYTE ESTERASE, URINE NEGATIVE (NEGATIVE); NITRITE,URINE NEGATIVE (NEGATIVE); OCCULT BLOOD,URINE NEGATIVE (NEGATIVE); PH,URINE >=9.0 PH (5.0-7.5); PROTEIN,URINE 100 mg/dL (NEGATIVE); UROBILINOGEN,URINE 0.2 (NORMAL) E.U./dL (NORMAL)
[2020-11-29] MEDS ORDERED: LACTATED RINGERS 1,000 ML IV STA (22:31)
[2020-11-29 22:33] LABS: CLARITY,URINE CLEAR (CLEAR)
[2020-11-29 22:49] LABS: BACTERIA,URINE Rare /HPF (None Seen); MUCUS,URINE Few Strands; RBC,URINE 0-5 /HPF (0-5); SQUAMOUS EPITHELIAL CELL,UR FEW Squamous (<= Few)
[2020-11-29 22:50] LABS: WBC CLUMPS,URINE PRESENT
[2020-11-29] MEDS ORDERED: MAGIC MOUTHWASH 120 ML BOTTLE PO STA (23:10)
--- NOTE | 2020-11-29 23:10 | ED Physician Documentation ---
History of Present Illness - Stated complaint Stated Complaint: VOMITTING - Chief complaint Chief Complaint: Abd Pain - History obtained from History obtained from: Patient - Additonal information Additional information: 25-year-old man with past medical history of polysubstance abuse, last meth use 2 days ago, gastroesophageal reflux disease presents with epigastric pain gradual in onset at 7 PM radiating upward, burning sensation, mild associated with nausea and nonbloody nonbilious vomiting. Patient states pain is worse when lying flat. Denies other symptoms. Denies urinary sx, fever chills diarrhea. denies heavy etoh use. Review of Systems Ten Systems: 10 systems reviewed and negative GI: reports: Abdominal Pain, Nausea, Vomiting : denies: Dysuria PD PAST MEDICAL HISTORY - Past Medical History Past Medical History: Yes Cardiovascular: None Respiratory: None Neuro: None Endocrine/Autoimmune: None GI: GERD : None HEENT: None Psych: Depression, Anxiety, ADD/ADHD, Post traumatic stress disorder, Other Musculoskeletal: Osteoarthritis Derm: Herpes zoster Other Past Medical History: IV drug user, Meth & Cocaine as per pt. - Past Surgical History Past Surgical History: Yes HEENT: Tonsil/Adenoidectomy - Present Medications Home Medications: Ambulatory Orders Medication Instructions Recorded Confirmed No Known Home Medications 11/29/20 11/29/20 - Allergies Allergies/Adverse Reactions: Allergies Allergy/AdvReac Type Severity Reaction Status Date / Time No Known Drug Allergies Allergy Verified 11/29/20 22:25 - Social History Does the pt smoke?: Yes Smoking Status: Current every day smoker Does the pt drink ETOH?: Yes Does the pt have substance abuse?: Yes Substance Use and Type: Meth, Cocaine/Crack - Immunizations Immunizations are current?: Yes - POLST Patient has POLST: No POLST Status: Full Code PD ED PE NORMAL - Vitals Vital signs reviewed: Yes - General General: Alert and oriented X 3, No acute distress, Other - HEENT HEENT: Atraumatic, PERRL, EOMI - Neck Neck: Supple, no meningeal sign - Cardiac Cardiac: RRR - Respiratory Respiratory: No respiratory distress, Clear bilaterally - Abdomen Abdomen: Non tender, Non distended, Other (discomfort to palpation in epigastrium) - Male Male : Deferred - Rectal Rectal: Deferred - Back Back: No CVA TTP - Derm Derm: Normal color - Extremities Extremities: No deformity - Neuro Neuro: Alert and oriented X 3 Results - Vitals Vitals: Vital Signs - 24 hr 11/29/20 11/29/20 22:14 23:35 Temperature 37.3 C 36.5 C Heart Rate 100 85 Respiratory 16 16 Rate Blood Pressure 138/90 H 156/99 H O2 Saturation 100 100 Oxygen O2 Source Room air - Labs Labs: Laboratory Tests 11/29/20 22:26 Urine Color YELLOW Urine Clarity CLEAR Urine pH >=9.0 H Ur Specific [place] 1.015 Urine Protein 100 H Urine Glucose (UA) NEGATIVE Urine Ketones NEGATIVE Urine Occult Blood NEGATIVE Urine Nitrite NEGATIVE Urine Bilirubin NEGATIVE Urine Urobilinogen 0.2 (NORMAL) Ur Leukocyte Esterase NEGATIVE Urine RBC 0-5 Urine WBC 6-10 H Urine WBC Clumps PRESENT Ur Squamous Epith Cells FEW Squamous Urine Bacteria Rare Urine Mucus Few Strands Ur Microscopic Review INDICATED Urine Culture Comments INDICATED PD MEDICAL DECISION MAKING - ED course ED course: Nursing staff was unable to get an IV. At 11 PM I went into start an IV using ultrasound guidance and the patient declined blood work and IV. He stated that he was here solely for stomach pain and would just like symptomatic treatments. I tried to convince him to do blood work and he is of sound mind and is declining. Last IV drug use 2 days ago. Departure - Departure Disposition: 01 Home, Self Care Clinical Impression: Stomach pain Condition: Good Instructions: Abdominal Pain Follow-Up: Garret Orozco MD [Provider Admit Priv/Credential] - Comments: You were seen in the emergency department for epigastric abdominal pain. It improved with viscous lidocaine and [place]. Your urine shows you are dehydrated. Drink 8-10 glasses of water daily. Return to the emergency department if you have any new or worsening symptoms. Follow-up with Dr. Orozco at [facility].
[2020-11-29] MEDS ORDERED: LIDOCAINE VISCOUS 2% 15 ML UDC MM STA (23:12)
[2020-11-29] MEDS ORDERED: MAG HYDROX/AL HYDROX/SIMETH 30 ML UDC PO STA (23:12)
[2020-11-30 04:57] VITALS: BP 138/86
== END 2020-11-30 04:57 | disposition home or self-care (01) ==
LOC: EDUNIT# → ED 22:10
DX: R10.13 Epigastric pain (principal); F17.200 Nicotine dependence, unspecified, uncomplicated
CPT/HCPCS: 81001; 87086; 99283; 99284; A9270; J7120; 80053; 81003; 83690; 85025

== ENCOUNTER 2021-02-07 12:09 | Outpatient (CLI) | payer MEDICAID | END 2021-02-07 12:10 | disposition short-term general hospital (02) | LOC: EMS 12:09 | DX: S69.92XA Unspecified injury of left wrist, hand and finger(s), initial encounter (principal) | CPT/HCPCS: A0425; A0429; A0999 ==

== ENCOUNTER 2021-02-16 21:16 | Outpatient (CLI) | payer MEDICAID | END 2021-02-16 21:17 | disposition EMS.NT | LOC: EMS 21:16 | DX: Z03.89 Encounter for observation for other suspected diseases and conditions ruled out (principal); Z59.0 Homelessness ==

== ENCOUNTER 2021-02-21 05:50 | Outpatient (CLI) | payer MEDICAID | END 2021-02-21 05:51 | disposition critical access hospital (66) | LOC: EMS 05:50 | DX: R46.89 Other symptoms and signs involving appearance and behavior (principal) | CPT/HCPCS: A0425; A0429; A0999 ==

== ENCOUNTER 2021-02-21 06:06 | Emergency (ER) | payer MEDICAID ==
--- OUTSIDE RECORDS SUMMARY | 2021-02-21 06:09 | EXTERNAL MEDICAL SUMMARY RPT | Continuity of Care Document ---
:1995 Demographics Phone Unavailable Preferred Language Hungarian Marital Status Unknown Zoroastrian Affiliation Unknown Race Unknown Ethnic Group Unknown Author Organization [facility] Address [address] [place] [address] Phone Care Team Providers Name Role Phone [place] Unavailable Unavailable Allergies Encounters Medications date description facility [id number] Amoxicillin 875 MG / Clavulanate 125 MG Oral Tablet [facility] Problems date description facility [id number] Cellulitis of left upper limb [facility] o[facility]ital Procedures date description facility [id number] [facility] [id number] [facility] 20210207 Diagnosis [facility] Results Vital Signs date measurement value source 20210207 weight_standard 154.98 lb [id number] weight_metric 70.3 kg 20210207 temperature_standard 99.2 F 20210207 temperature_metric 37.33 C 20210207 respiration_rate 18 /min 20210207 o2_saturation 98 % 20210207 height_standard 72 in [id number] height_metric 182.88 cm [id number] heart_rate 104 /min 80092090 BP_systolic 110 mm[Hg] 53445122 BP_diastolic 73 mm[Hg] [id number] BMI 20.9 kg/m2 [id number] weight_standard 154.98 lb [id number] weight_metric 70.3 kg 55396463 height_standard 72 in [id number] height_metric 182.88 cm [id number] BMI 20.9 kg/m2 [id number] temperature_standard 98 F 17552115 temperature_metric 36.67 C 96902608 respiration_rate 16 /min 51397659 heart_rate 82 /min 38253666 BP_systolic 129 mm[Hg] 67676791 BP_diastolic 65 mm[Hg]
[2021-02-21] MEDS ORDERED: SODIUM CHLORIDE 0.9% 1,000 ML IV STA ×2 (06:17)
[2021-02-21] MEDS ORDERED: MIDAZOLAM 2 MG/2 ML VIAL IVP STA (06:17)
--- NOTE | 2021-02-21 06:23 | ED Physician Documentation ---
PD HPI ALTERED MENTAL STATUS - Stated complaint Stated Complaint: MHE - Chief complaint Chief Complaint: Neuro - History obtained from History obtained from: Patient - Additional information Additional information: 25-year-old gentleman with chronic methamphetamine use brought in by ambulance for agitated bizarre behavior of unclear acuity. Patient is quite agitated here but cooperative with treatment. Review of Systems Ten Systems: 10 systems reviewed and negative Constitutional: reports: Reviewed and negative Nose: reports: Reviewed and negative Throat: reports: Reviewed and negative Cardiac: reports: Reviewed and negative Respiratory: reports: Reviewed and negative PD PAST MEDICAL HISTORY - Past Medical History Cardiovascular: None Respiratory: None Neuro: None Endocrine/Autoimmune: None GI: GERD : None HEENT: None Psych: Depression, Anxiety, ADD/ADHD, Post traumatic stress disorder, Other Musculoskeletal: Osteoarthritis Derm: Herpes zoster - Past Surgical History Past Surgical History: Yes HEENT: Tonsil/Adenoidectomy - Present Medications Home Medications: Ambulatory Orders Medication Instructions Recorded Confirmed No Known Home Medications 11/29/20 11/29/20 - Allergies Allergies/Adverse Reactions: Allergies Allergy/AdvReac Type Severity Reaction Status Date / Time No Known Drug Allergies Allergy Verified 02/21/21 06:14 - Social History Does the pt smoke?: Yes Smoking Status: Current every day smoker Does the pt drink ETOH?: Yes Does the pt have substance abuse?: Yes - Immunizations Immunizations are current?: Yes - POLST Patient has POLST: No POLST Status: Full Code PD ED PE NORMAL - Vitals Vital signs reviewed: Yes - General General: Alert and oriented X 3, Other (Involuntary severe muscular hyperactivity) - HEENT HEENT: PERRL, EOMI - Neck Neck: Supple, no meningeal sign, No bony TTP - Cardiac Cardiac: Other (Tachycardic) - Respiratory Respiratory: No respiratory distress, Clear bilaterally - Abdomen Abdomen: Normal bowel sounds, Soft, Non tender - Back Back: No spinal TTP - Derm Derm: Normal color, Warm and dry - Extremities Extremities: No edema, No calf tenderness / cord, Other (There is a 3 to 4 cm laceration on the left side of the ulnar forearm that does not appear to be hyperacute. He is unable to verbalize how it happened. It is a deep laceration but no current evidence of infection.) - Neuro Neuro: Alert and oriented X 3, Normal speech Results - Vitals Vitals: Vital Signs - 24 hr 02/21/21 02/21/21 02/21/21 13:11 13:26 13:56 Temperature Heart Rate 97 94 94 Respiratory 12 10 L 10 L Rate Blood Pressure 161/110 H 157/105 H 151/100 H O2 Saturation 99 99 99 02/21/21 02/21/21 02/22/21 14:26 14:56 06:13 Temperature 36.8 C Heart Rate 92 10 L 93 Respiratory 11 L 10 L 15 Rate Blood Pressure 157/101 H 143/94 H 144/93 H O2 Saturation 95 100 100 Oxygen O2 Source Room air - Labs Labs: Laboratory Tests 02/21/21 02/21/21 02/21/21 06:32 06:32 06:32 WBC 11.9 H RBC 3.64 L Hgb 11.0 L Hct 33.2 L MCV 91.2 MCH 30.2 MCHC 33.1 RDW 13.8 Plt Count 444 MPV 9.5 Neut # (Auto) 7.8 H Lymph # (Auto) 3.2 Wheeler # (Auto) 0.9 Eos # (Auto) 0.0 Baso # (Auto) 0.1 Absolute Nucleated RBC 0.00 Nucleated RBC % 0.0 Sodium 140 Potassium 3.3 L Chloride 104 Carbon Dioxide 20 L Anion Gap 16.0 H BUN 22 H Creatinine 1.0 Estimated GFR (MDRD) 92 Glucose 113 H Calcium 8.3 L Phosphorus 6.5 H Magnesium 2.1 Total Bilirubin 0.7 AST 45 H ALT 35 Alkaline Phosphatase 65 Total Creatine Kinase 685 H Total Protein 7.9 Albumin 4.3 Globulin 3.6 Albumin/Globulin Ratio 1.2 Lipase 34 TSH 2.03 Urine Color Urine Clarity Urine pH Ur Specific [place] Urine Protein Urine Glucose (UA) Urine Ketones Urine Occult Blood Urine Nitrite Urine Bilirubin Urine Urobilinogen Ur Leukocyte Esterase Ur Microscopic Review Urine Culture Comments Nasal Adenovirus (PCR) Nasal B. parapertussis DNA (PCR) Nasal Coronavir 229E PCR Nasal Coronavir HKU1 PCR Nasal Coronavir NL63 PCR Nasal Coronavir OC43 PCR Nasal Enterovir/Rhinovir PCR Nasal Influenza B PCR Nasal Influenza A PCR Nasal Parainfluen 1 PCR Nasal Parainfluen 2 PCR Nasal Parainfluen 3 PCR Nasal Parainfluen 4 PCR Nasal RSV (PCR) Nasal B.pertussis DNA PCR Nasal C.pneumoniae (PCR) Howard Human Metapneumo PCR Nasal M.pneumoniae (PCR) Nasal SARS-CoV-2 (PCR) Salicylates < 6.0 Urine Opiates Screen Ur Oxycodone Screen Urine Methadone Screen Ur Propoxyphene Screen Acetaminophen < 10 L Ur Barbiturates Screen Ur Tricyclics Screen Ur Phencyclidine Scrn Ur Amphetamine Screen U Methamphetamines Scrn U Benzodiazepines Scrn Urine Cocaine Screen U Cannabinoids Screen Ethyl Alcohol < 5.0 02/21/21 02/21/21 02/21/21 08:55 10:45 12:06 WBC RBC Hgb Hct MCV MCH MCHC RDW Plt Count MPV Neut # (Auto) Lymph # (Auto) Wheeler # (Auto) Eos # (Auto) Baso # (Auto) Absolute Nucleated RBC Nucleated RBC % Sodium Potassium Chloride Carbon Dioxide Anion Gap BUN Creatinine Estimated GFR (MDRD) Glucose Calcium Phosphorus Magnesium Total Bilirubin AST ALT Alkaline Phosphatase Total Creatine Kinase 62 Total Protein Albumin Globulin Albumin/Globulin Ratio Lipase TSH Urine Color YELLOW Urine Clarity CLEAR Urine pH 5.5 Ur Specific [place] 1.020 Urine Protein TRACE Urine Glucose (UA) NEGATIVE Urine Ketones TRACE Urine Occult Blood NEGATIVE Urine Nitrite NEGATIVE Urine Bilirubin NEGATIVE Urine Urobilinogen 0.2 (NORMAL) Ur Leukocyte Esterase NEGATIVE Ur Microscopic Review NOT INDICATED Urine Culture Comments NOT INDICATED Nasal Adenovirus (PCR) NOT DETECTED Nasal B. parapertussis DNA (PCR) NOT DETECTED Nasal Coronavir 229E PCR NOT DETECTED Nasal Coronavir HKU1 PCR NOT DETECTED Nasal Coronavir NL63 PCR NOT DETECTED Nasal Coronavir OC43 PCR NOT DETECTED Nasal Enterovir/Rhinovir PCR NOT DETECTED Nasal Influenza B PCR NOT DETECTED Nasal Influenza A PCR NOT DETECTED Nasal Parainfluen 1 PCR NOT DETECTED Nasal Parainfluen 2 PCR NOT DETECTED Nasal Parainfluen 3 PCR NOT DETECTED Nasal Parainfluen 4 PCR NOT DETECTED Nasal RSV (PCR) NOT DETECTED Nasal B.pertussis DNA PCR NOT DETECTED Nasal C.pneumoniae (PCR) NOT DETECTED [place] Human Metapneumo PCR NOT DETECTED Nasal M.pneumoniae (PCR) NOT DETECTED Nasal SARS-CoV-2 (PCR) NOT DETECTED Salicylates Urine Opiates Screen POSITIVE H Ur Oxycodone Screen NEGATIVE Urine Methadone Screen NEGATIVE Ur Propoxyphene Screen NEGATIVE Acetaminophen Ur Barbiturates Screen NEGATIVE Ur Tricyclics Screen NEGATIVE Ur Phencyclidine Scrn NEGATIVE Ur Amphetamine Screen POSITIVE H U Methamphetamines Scrn POSITIVE H U Benzodiazepines Scrn NEGATIVE Urine Cocaine Screen NEGATIVE U Cannabinoids Screen NEGATIVE Ethyl Alcohol PD MEDICAL DECISION MAKING - ED course ED course: 25-year-old gentleman presents with psychomotor agitation likely related to methamphetamine abuse. Initially Versed was given for agitation but did require chemical restraint later when the Versed wore off. Required repeat dosing of anxiolytics as needed for his symptoms thereafter. Extended stay in the emergency department for observation and to let the methamphetamines wear off. He does have deep laceration on the left arm, and the mechanism is unknown. It does not look new enough to suture. Subsequently eloped the next day (not on my shift). Departure - Departure Disposition: 01 Home, Self Care Clinical Impression: Methamphetamine intoxication, Psychomotor agitation Laceration of left upper extremity Qualifiers: Encounter type: initial encounter Qualified Code(s): S41.112A - Laceration without foreign body of left upper arm, initial encounter Condition: Stable Record reviewed to determine appropriate education?: Yes Instructions: ED Drug Abuse General, ED Laceration Old Not Sutr Discharge Date/Time: 02/22/21 10:45 Face to Face for Restraints - Immediate Situation Face to Face Evaluation Date: 02/21/21 Face to Face Evaluation Time: 07:13 Restraint Situation: Chemical Patient's Reactions to the Intervention: Screaming/Yelling - Behavioral Condition Attitude: Indifferent Behavior: Agitated Orientation: Person, Place Mood: Labile - Evaluation Review of Systems: unable d/t agitation Pertinent History/Illicit Drugs/Medications/Results: porb meth use given hx of same - Plan Need to Continue or Terminate Violent or Chemical Restraint: hopefully w anxiety meds restraint will be discontinued when agitation resolves
[2021-02-21 06:43] LABS: BASOPHILS # (AUTO) 0.1 10^3/uL (0.0-0.1); BASOPHILS % (AUTO) 0.4 %; HCT - HEMATOCRIT 33.2 % (42.0-52.0); LYMPHOCYTES # (AUTO) 3.2 10^3/uL (1.5-3.5); LYMPHOCYTES % (AUTO) 26.5 %; MEAN CORPUSCULAR HEMOGLOBIN 30.2 pg (27.0-31.0); MEAN CORPUSCULAR HGB CONC 33.1 g/dL (32.0-36.0); MEAN CORPUSCULAR VOLUME 91.2 fL (80.0-94.0); MEAN PLATELET VOLUME 9.5 fL (7.4-11.4); MONOCYTES # (AUTO) 0.9 10^3/uL (0.0-1.0); MONOCYTES % (AUTO) 7.1 %; NEUTROPHILS # (AUTO) 7.8 10^3/uL (1.5-6.6); NEUTROPHILS % (AUTO) 65.7 %; PLT - PLATELET COUNT 444 10^3/uL (130-450); RED BLOOD COUNT 3.64 10^6/uL (4.70-6.10); RED CELL DISTRIBUTION WIDTH 13.8 % (12.0-15.0); WHITE BLOOD COUNT 11.9 x10^3/uL (4.8-10.8)
[2021-02-21] MEDS ORDERED: HALOPERIDOL 5 MG/ML VIAL IVP ONE ×2 (06:54→13:14)
[2021-02-21] MEDS ORDERED: LORazepam 2 MG/ML VIAL IVP STA ×2 (06:54→08:35)
[2021-02-21 06:55] LABS: ACETAMINOPHEN < 10 ug/mL (10-30); ALBUMIN 4.3 g/dL (3.2-5.5); ALBUMIN/GLOBULIN RATIO 1.2 (1.0-2.2); ALKALINE PHOSPHATASE 65 IU/L (42-121); ALT ALANINE AMINOTRANSFERASE 35 IU/L (10-60); AST ASPARTATE AMINOTRANSFERASE 45 IU/L (10-42); BILIRUBIN,TOTAL 0.7 mg/dL (0.2-1.0); BUN - BLOOD UREA NITROGEN 22 mg/dL (6-20); CALCIUM 8.3 mg/dL (8.5-10.3); CARBON DIOXIDE - CO2 20 mmol/L (21-32); CHLORIDE 104 mmol/L (101-111); CK- CREATINE KINASE 685 IU/L (22-269); ETOH - ETHANOL < 5.0 mg/dL; GFR - MDRD 92 (>89); GLUCOSE 113 mg/dL (70-100); LIPASE 34 U/L (22-51); MAGNESIUM 2.1 mg/dL (1.7-2.8); PHOSPHORUS 6.5 mg/dL (2.5-4.6); POTASSIUM 3.3 mmol/L (3.5-5.0); SALICYLATE < 6.0 mg/dL; SODIUM 140 mmol/L (135-145); TOTAL PROTEIN 7.9 g/dL (6.7-8.2)
--- OUTSIDE RECORDS SUMMARY | 2021-02-21 06:58 | EXTERNAL MEDICAL SUMMARY RPT | Continuity of Care Document ---
:1995 Demographics Phone Unavailable Preferred Language Lao Marital Status Unknown Catholic Affiliation Unknown Race Unknown Ethnic Group Unknown Author Organization [facility] Address [address] [place] [address] Phone Care Team Providers Name Role Phone [place] Unavailable Unavailable Allergies Encounters Medications date description facility [id number] Amoxicillin 875 MG / Clavulanate 125 MG Oral Tablet [facility] Problems date description facility [id number] Cellulitis of left upper limb [facility] ospital Procedures date description facility 20210207 [facility] 20210207 [facility] 20210207 Diagnosis [facility] Results Vital Signs date measurement value source 20210207 weight_standard 154.98 lb 31895418 weight_metric 70.3 kg 20210207 temperature_standard 99.2 F 20210207 temperature_metric 37.33 C 20210207 respiration_rate 18 /min 20210207 o2_saturation 98 % 20210207 height_standard 72 in [id number] height_metric 182.88 cm 89318712 heart_rate 104 /min 50993467 BP_systolic 110 mm[Hg] 72304764 BP_diastolic 73 mm[Hg] 65921409 BMI 20.9 kg/m2 19703721 weight_standard 154.98 lb 35830783 weight_metric 70.3 kg 79666839 height_standard 72 in 10720589 height_metric 182.88 cm 10870159 BMI 20.9 kg/m2 30307821 temperature_standard 98 F 07904819 temperature_metric 36.67 C 42646416 respiration_rate 16 /min 81157213 heart_rate 82 /min 30514242 BP_systolic 129 mm[Hg] 65047203 BP_diastolic 65 mm[Hg]
[2021-02-21] MEDS ORDERED: KETAMINE 500 MG/10 ML VIAL ONE (07:05)
[2021-02-21] MEDS ORDERED: KETAMINE 500 MG/10 ML VIAL IVP STA (07:10)
[2021-02-21 09:50] LABS: B. PARAPERTUSSIS- RESP PCR PAN NOT DETECTED; B. PERTUSSIS- RESP PCR PANEL NOT DETECTED; C. PNEUMONIAE- RESP PCR PANEL NOT DETECTED; CORONAVIRUS 229E-RESP PCR NOT DETECTED; CORONAVIRUS HKU1-RESP PCR NOT DETECTED; CORONAVIRUS NL63-RESP PCR NOT DETECTED; CORONAVIRUS OC43-RESP PCR NOT DETECTED; HUMAN METAPNEUMOVIRUS NOT DETECTED; INFLUENZA A- RESP PCR PANEL NOT DETECTED; INFLUENZA B - RESP PCR PANEL NOT DETECTED; M. PNEUMONIAE- RESP PCR PANEL NOT DETECTED; PARAINFLUENZA VIRUS 1 NOT DETECTED; PARAINFLUENZA VIRUS 2 NOT DETECTED; PARAINFLUENZA VIRUS 3 NOT DETECTED; PARAINFLUENZA VIRUS 4 NOT DETECTED; RHINOVIRUS/ENTEROVIRUS NOT DETECTED; RSV- RESP PCR PANEL NOT DETECTED; SARS-CoV-2 -RESP PCR PANEL NOT DETECTED
[2021-02-21 10:54] LABS: MUDS CUTOFF CONCENTRATIONS CUTOFF CONC BELOW:
[2021-02-21 10:57] LABS: BILIRUBIN,URINE NEGATIVE (NEGATIVE); GLUCOSE, URINE (UA) NEGATIVE (NEGATIVE); KETONES,URINE (UA) TRACE mg/dL (NEGATIVE); LEUKOCYTE ESTERASE, URINE NEGATIVE (NEGATIVE); NITRITE,URINE NEGATIVE (NEGATIVE); OCCULT BLOOD,URINE NEGATIVE (NEGATIVE); PH,URINE 5.5 PH (5.0-7.5); PROTEIN,URINE TRACE mg/dL (NEGATIVE); UROBILINOGEN,URINE 0.2 (NORMAL) E.U./dL (NORMAL)
[2021-02-21 10:58] LABS: CLARITY,URINE CLEAR (CLEAR)
[2021-02-21 11:06] LABS: AMPHETAMINE SCREEN,URINE POSITIVE (NEGATIVE); COCAINE SCREEN URINE NEGATIVE (NEGATIVE); METHAMPHETAMINES SCREEN, URINE POSITIVE (NEGATIVE); OPIATE SCREEN, URINE POSITIVE (NEGATIVE); THC CANNABINOID SCREEN, URINE NEGATIVE (NEGATIVE)
[2021-02-21 11:07] LABS: BARBITURATE SCREEN,UR NEGATIVE (NEGATIVE); BENZODIAZEPINES SCREEN, URINE NEGATIVE (NEGATIVE); METHADONE SCREEN, URINE NEGATIVE (NEGATIVE); OXYCODONE SCREEN, URINE NEGATIVE (NEGATIVE); PROPOXYPHENE SCREEN, URINE NEGATIVE (NEGATIVE); TRICYCLIC ANTIDEPRESSANT,URINE NEGATIVE (NEGATIVE)
[2021-02-21] MEDS ORDERED: HALOPERIDOL 5 MG/ML VIAL IM STA (13:11)
[2021-02-22 06:14] VITALS: BP 144/93
== END 2021-02-22 10:45 | disposition home or self-care (01) ==
LOC: ED 06:06
DX: F15.129 Other stimulant abuse with intoxication, unspecified (principal); R45.1 Restlessness and agitation; Z78.1 Physical restraint status; Z20.822 Contact with and (suspected) exposure to COVID-19; S51.812A Laceration without foreign body of left forearm, initial encounter; X58.XXXA Exposure to other specified factors, initial encounter; F17.200 Nicotine dependence, unspecified, uncomplicated
CPT/HCPCS: 0202U; 36415; 51701; 80053; 80306; 80307; 80320; 80329; 81003; 82550; 83690; 83735; 84100; 84443; 85025; 96361; 96374; 96375; 96376; 99283; 99285; J2060; 81001; 87086

== ENCOUNTER 2021-03-09 03:51 | Outpatient (CLI) | payer MEDICAID | END 2021-03-09 03:52 | disposition E | LOC: EMS 03:51 ==